=== PATIENT | male | born 1960 | race Caucasian/White ===

== ENCOUNTER 2016-02-10 08:52 | Outpatient (RCR) | payer MEDICARE, MEDICAID ==
[2016-02-01 09:12] LABS: BASOPHILS % (AUTO) 0 % (0-10); EOSINOPHILS # (AUTO) 0.1 10^3/uL (0.0-0.3); EOSINOPHILS % (AUTO) 1 % (0-10); LYMPHOCYTES # (AUTO) 1.4 X 10^3 (1.0-4.0); LYMPHOCYTES % (AUTO) 18 % (12-44); MEAN CORPUSCULAR HEMOGLOBIN 31 PG (25-34); MEAN CORPUSCULAR HGB CONC 35 G/DL (32-36); MEAN CORPUSCULAR VOLUME 88 FL (80-99); MEAN PLATELET VOLUME 9.3 FL (7.4-10.4); MONOCYTES # (AUTO) 0.6 X 10^3 (0.0-1.0); MONOCYTES % (AUTO) 8 % (0-12); NEUTROPHILS # (AUTO) 5.5 X 10^3 (1.8-7.8); NEUTROPHILS % (AUTO) 73 % (42-75); PLATELET COUNT 222 10^3/uL (130-400); RED BLOOD COUNT 5.92 10^6/uL (4.35-5.85); RED CELL DISTRIBUTION WIDTH 14.2 % (10.0-14.5); WHITE BLOOD COUNT 7.5 10^3/uL (4.3-11.0)
[2016-02-01 09:43] LABS: ALANINE AMINOTRANSFERASE 21 U/L (0-55); ALBUMIN 4.1 G/DL (3.2-4.5); ANION GAP 11 MMOL/L (5-14); ASPARTATE AMINO TRANSFERASE 25 U/L (5-34); BILIRUBIN,TOTAL 1.1 MG/DL (0.1-1.0); BLOOD UREA NITROGEN 16 MG/DL (7-18); BUN/CREATININE RATIO 15; CALCIUM 9.5 MG/DL (8.5-10.1); CARBON DIOXIDE 21 MMOL/L (21-32); CHLORIDE 105 MMOL/L (98-107); CREATININE SERUM 1.05 MG/DL (0.60-1.30); GFR ESTIMATED > 60; GLUCOSE 110 MG/DL (70-105); POTASSIUM 4.6 MMOL/L (3.6-5.0); SODIUM 137 MMOL/L (135-145); TOTAL PROTEIN 7.5 G/DL (6.4-8.2)
[~2016-02-10 08:52] MED LIST: ACHD5005 PO; ALPR0.5T PO; AMLO5TAB2 PO; ASP325T PO; ASPI-999 PO; DESV50TA PO; DIPH1TAB45 PO; HYDR-3583 PO; HYDR-3857 PO; LEVO750T9 PO; LORA0.5T34 PO; LORA10TA7 PO; OMEP20CA12 PO; OMEP20TA7 PO; OMEP40CA36 PO; ONDA8TAB6 PO; RANI-10 PO; RANI150C11 PO; TRAM50TA2 PO; TRAZ-144 PO; TRAZ100T92 PO; WRF5T PO; ZOLP10TA PO
[2016-02-12 15:24] LABS: JAK2 MUTATION Not Detected
== END 2016-05-01 | disposition home or self-care (01) ==
LOC: ONC 08:52
PROVIDERS: ATTEND Internal Medicine Hematology & Oncology
DX: C18.3 Malignant neoplasm of hepatic flexure (principal); C77.2 Secondary and unspecified malignant neoplasm of intra-abdominal lymph nodes; D69.59 Other secondary thrombocytopenia; D72.819 Decreased white blood cell count, unspecified; Z79.899 Other long term (current) drug therapy; Z45.2 Encounter for adjustment and management of vascular access device
CPT/HCPCS: 36415; 80053; 81270; 82378; 82668; 85025; 99213

== ENCOUNTER → 2016-05-11 | Outpatient (CLI) | payer MEDICARE, MEDICAID ==
[~2016-05-11] MED LIST changes: +IOHEXOL 350 MG/ML 100 ML (OMNIPAQUE 350) VIAL IV ONE; +NS 100 ML (IVPB) BAG IV ONE
--- NOTE | 2016-05-11 10:45 | Diagnostic Imaging Report ---
PROCEDURE: CT chest with contrast only. TECHNIQUE: Multiple contiguous axial images were obtained through the chest after administration of intravenous contrast. INDICATION: History of colon cancer. COMPARISON: 11/18/2015. FINDINGS: Cardiomediastinal structures show normal heart size. There is no large pericardial effusion. No pathologically enlarged or morphologically abnormal adenopathy is seen within the mediastinum, jose d, axilla. Lung windows show no focal consolidation, pleural effusion, no pneumothorax. No pulmonary nodules or masses are identified. Bony structures show no lytic or blastic lesions. No acute abnormalities are identified. Included portions of the upper abdomen show no additional acute abnormalities. IMPRESSION: 1. No evidence of metastatic or malignant disease within the chest. 2. No acute cardiopulmonary process. Dictated by: Dictated on workstation # [id number]
== END ==
LOC: RAD 08:58
PROVIDERS: ATTEND Internal Medicine Hematology & Oncology
DX: R93.8 Abnormal findings on diagnostic imaging of other specified body structures (principal); F17.200 Nicotine dependence, unspecified, uncomplicated
CPT/HCPCS: 71260

== ENCOUNTER 2016-05-17 09:14 | Outpatient (RCR) | payer MEDICARE, MEDICAID ==
[2016-05-11 08:53] LABS: BASOPHILS % (AUTO) 1 % (0-10); EOSINOPHILS # (AUTO) 0.1 10^3/uL (0.0-0.3); EOSINOPHILS % (AUTO) 2 % (0-10); LYMPHOCYTES # (AUTO) 1.3 X 10^3 (1.0-4.0); LYMPHOCYTES % (AUTO) 27 % (12-44); MEAN CORPUSCULAR HEMOGLOBIN 32 PG (25-34); MEAN CORPUSCULAR HGB CONC 35 G/DL (32-36); MEAN CORPUSCULAR VOLUME 92 FL (80-99); MEAN PLATELET VOLUME 9.7 FL (7.4-10.4); MONOCYTES # (AUTO) 0.4 X 10^3 (0.0-1.0); MONOCYTES % (AUTO) 8 % (0-12); NEUTROPHILS % (AUTO) 63 % (42-75); PLATELET COUNT 183 10^3/uL (130-400); RED BLOOD COUNT 5.88 10^6/uL (4.35-5.85); RED CELL DISTRIBUTION WIDTH 13.7 % (10.0-14.5); WHITE BLOOD COUNT 4.8 10^3/uL (4.3-11.0)
[2016-05-11 09:22] LABS: ALANINE AMINOTRANSFERASE 18 U/L (0-55); ANION GAP 10 MMOL/L (5-14); ASPARTATE AMINO TRANSFERASE 23 U/L (5-34); BILIRUBIN,TOTAL 0.8 MG/DL (0.1-1.0); BLOOD UREA NITROGEN 12 MG/DL (7-18); BUN/CREATININE RATIO 12; CALCIUM 9.4 MG/DL (8.5-10.1); CARBON DIOXIDE 23 MMOL/L (21-32); CHLORIDE 107 MMOL/L (98-107); CREATININE SERUM 1.03 MG/DL (0.60-1.30); GFR ESTIMATED > 60; GLUCOSE 107 MG/DL (70-105); POTASSIUM 4.9 MMOL/L (3.6-5.0); SODIUM 140 MMOL/L (135-145); TOTAL PROTEIN 6.8 G/DL (6.4-8.2)
[~2016-05-17 09:14] MED LIST changes: -IOHEXOL 350 MG/ML 100 ML (OMNIPAQUE 350) VIAL IV ONE; -NS 100 ML (IVPB) BAG IV ONE
== END 2016-08-09 | disposition home or self-care (01) ==
LOC: ONC 09:14
PROVIDERS: ATTEND Internal Medicine Hematology & Oncology
DX: C18.3 Malignant neoplasm of hepatic flexure (principal); C77.2 Secondary and unspecified malignant neoplasm of intra-abdominal lymph nodes; D69.59 Other secondary thrombocytopenia; D72.819 Decreased white blood cell count, unspecified; Z79.899 Other long term (current) drug therapy
CPT/HCPCS: 36415; 80053; 82378; 85025; 99213

== ENCOUNTER 2016-11-16 08:51 | Outpatient (RCR) | payer MEDICARE, MEDICAID ==
[2016-11-09 08:46] LABS: BASOPHILS % (AUTO) 0 % (0-10); EOSINOPHILS # (AUTO) 0.1 10^3/uL (0.0-0.3); EOSINOPHILS % (AUTO) 1 % (0-10); LYMPHOCYTES # (AUTO) 1.6 X 10^3 (1.0-4.0); LYMPHOCYTES % (AUTO) 29 % (12-44); MEAN CORPUSCULAR HEMOGLOBIN 33 PG (25-34); MEAN CORPUSCULAR HGB CONC 35 G/DL (32-36); MEAN CORPUSCULAR VOLUME 92 FL (80-99); MEAN PLATELET VOLUME 9.4 FL (7.4-10.4); MONOCYTES # (AUTO) 0.6 X 10^3 (0.0-1.0); MONOCYTES % (AUTO) 11 % (0-12); NEUTROPHILS # (AUTO) 3.2 X 10^3 (1.8-7.8); NEUTROPHILS % (AUTO) 59 % (42-75); PLATELET COUNT 186 10^3/uL (130-400); RED BLOOD COUNT 5.11 10^6/uL (4.35-5.85); RED CELL DISTRIBUTION WIDTH 13.1 % (10.0-14.5); WHITE BLOOD COUNT 5.5 10^3/uL (4.3-11.0)
[2016-11-09 09:18] LABS: ALANINE AMINOTRANSFERASE 44 U/L (0-55); ANION GAP 8 MMOL/L (5-14); ASPARTATE AMINO TRANSFERASE 23 U/L (5-34); BILIRUBIN,TOTAL 0.7 MG/DL (0.1-1.0); BLOOD UREA NITROGEN 13 MG/DL (7-18); BUN/CREATININE RATIO 14; CALCIUM 9.6 MG/DL (8.5-10.1); CARBON DIOXIDE 25 MMOL/L (21-32); CHLORIDE 108 MMOL/L (98-107); CREATININE SERUM 0.93 MG/DL (0.60-1.30); GFR ESTIMATED > 60; GLUCOSE 95 MG/DL (70-105); POTASSIUM 4.3 MMOL/L (3.6-5.0); SODIUM 141 MMOL/L (135-145); TOTAL PROTEIN 6.9 GM/DL (6.4-8.2)
== END 2016-12-24 | disposition home or self-care (01) ==
LOC: ONC 08:51
PROVIDERS: ATTEND Internal Medicine Hematology & Oncology
DX: C18.3 Malignant neoplasm of hepatic flexure (principal); C77.2 Secondary and unspecified malignant neoplasm of intra-abdominal lymph nodes; D69.59 Other secondary thrombocytopenia; D72.819 Decreased white blood cell count, unspecified; Z79.899 Other long term (current) drug therapy
CPT/HCPCS: 36415; 80053; 82378; 85025; 99213

== ENCOUNTER 2017-02-09 13:53 | Emergency (ER) | payer OTHER, MEDICARE, MEDICAID ==
[~2017-02-09] VITALS: Ht 172.7 cm; Wt 81.6 kg
[~2017-02-09 13:53] MED LIST changes: -HYDR-3812 PO; -HYDR-757 PO; -POLY17PO6 PO
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
[2017-02-09] MEDS ORDERED: KETOROLAC 60 MG/2 ML VIAL IM ONE (14:30)
[2017-02-09] MEDS ORDERED: ORPHENADRINE 60 MG/2 ML (NORFLEX) AMP IM ONE (14:30)
--- OUTSIDE RECORDS SUMMARY | 2017-02-09 14:41 | XMS REPORT ---
Author Author MOUNIKA READ [facility] Address [address] [place] [address] Care Team Providers Care Solar Sales Ambassador Name Role Phone MOUNIKA READ Unavailable PROBLEMS Type Condition ICD9-CM Code [id number] Code Onset Dates Condition Status SNOMED Code Problem Mixed hyperlipidemia E78.2 Active 768899838 Problem Other chronic pain G89.29 Active 67471421 Problem Malignant neoplasm of colon, unspecified part of colon C18.9 Active 436974139 Problem Hypertension, benign I10 Active 84663197 ALLERGIES No Known Allergies SOCIAL HISTORY Never Assessed PLAN OF CARE Activity Details Follow Up 4 Weeks Reason: VITAL SIGNS Height 67 in 2016-06-06 Weight 208.1 lbs 2016-06-06 Temperature 97.6 degrees Fahrenheit 2016-06-06 Heart Rate 68 bpm 2016-06-06 Respiratory Rate 20 2016-06-06 BMI 32.59 kg/m2 2016-06-06 Blood pressure systolic 152 mmHg 2016-06-06 Blood pressure diastolic 92 mmHg 2016-06-06 MEDICATIONS Medication Instructions Dosage Frequency Start Date End Date Duration Status Omeprazole 20 MG Orally Once a day 1 capsule 24h 90 days Active Loratadine 10 MG 1 tablet 24h 8 May, 2017 90 days Active Amlodipine Besylate 5 MG 1 tablet 24h 90 days Active Xanax 0.5 MG Orally Twice a day 1 tablet 12h Active RESULTS No Results PROCEDURES Procedure Date Ordered Result Body Site [facility] VISIT ESTABLISHED PATIENT June 06, 2016 IMMUNIZATIONS No Known Immunizations MEDICAL (GENERAL) HISTORY Type Description Date Medical History hernia Medical History chronic pain-lower back Medical History Arthritis Medical History hypertension Medical History colon cancer Surgical History colon resection 10/2012 Surgical History hernia repair-Dr. Rajan 09/2013 Surgical History arthroscopic knee surgery-both knees Hospitalization History Hospitalization for surgery only
--- OUTSIDE RECORDS SUMMARY | 2017-02-09 14:42 | XMS REPORT ---
Author Author Cecil JAYLYN Organization [facility] Address [address] [place] [address] Care Team Providers Care Stamping Machine Operator Name Role Phone JAYLYN Jacob Unavailable PROBLEMS Type Condition ICD9-CM Code [id number] Code Onset Dates Condition Status SNOMED Code Problem Mixed hyperlipidemia E78.2 Active 507171127 Problem Other chronic pain G89.29 Active 61223629 Problem Malignant neoplasm of colon, unspecified part of colon C18.9 Active 951520466 Problem Hypertension, benign I10 Active 73078674 ALLERGIES No Known Allergies SOCIAL HISTORY Never Assessed PLAN OF CARE Activity Details Follow Up 6 Weeks Reason: VITAL SIGNS Height 67 in 2016-06-07 Weight 206.4 lbs 2016-06-07 Heart Rate 80 bpm 2016-06-07 Respiratory Rate 20 2016-06-07 BMI 32.32 kg/m2 2016-06-07 Blood pressure systolic 133 mmHg 2016-06-07 Blood pressure diastolic 80 mmHg 2016-06-07 MEDICATIONS Medication Instructions Dosage Frequency Start Date End Date Duration Status Quetiapine Fumarate 50 MG Orally daily 1 tablet at HS X 10 days then 2 tabs at bedtime. 24h May, 30 day(s) Active Amlodipine Besylate 5 MG 1 tablet 24h 90 days Active Omeprazole 20 MG Orally Once a day 1 capsule 24h 90 days Active Loratadine 10 MG 1 tablet 24h 8 May, 2017 90 days Active RESULTS Name Result Date Reference Range A1C 2016-06-07 Hemoglobin A1c 5.5 4.8-5.6 URINE DRUG SCREEN (IN HOUSE) 2016-06-07 Lot # [id number] Exp date Control + COCAINE negative AMPH negative MTD negative THC POSITIVE OPIATE negative BENZO POSITIVE PCP negative BAR negative OXY negative MAMP negative TCA not tested BUP negative MDMA negative LIPID PANEL 2016-06-07 Cholesterol, Total 208 100-199 Triglycerides 244 0-149 HDL Cholesterol 66 >39 VLDL Cholesterol Jatinder 49 5-40 LDL Cholesterol Calc 93 0-99 Comment: PROCEDURES Procedure Date Ordered Result Body Site [facility] VISIT ESTABLISHED PATIENT June 07, 2016 [facility] June 07, 2016 GLYCATED HEMOGLOBIN TEST June 07, 2016 VENIPUNCT, ROUTINE* June 07, 2016 IMMUNIZATIONS No Known Immunizations MEDICAL (GENERAL) HISTORY Type Description Date Medical History hernia Medical History chronic pain-lower back Medical History Arthritis Medical History hypertension Medical History colon cancer Surgical History colon resection 10/2012 Surgical History hernia repair-Dr. Rajan 09/2013 Surgical History arthroscopic knee surgery-both knees Hospitalization History Hospitalization for surgery only
--- OUTSIDE RECORDS SUMMARY | 2017-02-09 14:44 | XMS REPORT ---
Author Author MOUNIKA READ Organization [employer] Address Unknown Phone Unavailable Care Team Providers Care Principal Technologist Name Role Phone MOUNIKA READ CP Unavailable Allergies No Known Allergies Problems Problem Type Condition Code Onset Dates Condition Status Problem Insomnia, unspecified 780.52 Active Problem Abdominal pain, generalized 789.07 Active Problem Pain in joint, site unspecified 719.40 Active Problem Sciatica 724.3 Active Problem Unspecified episodic mood disorder 296.90 Active Problem Unspecified gastritis and gastroduodenitis without mention of hemorrhage 535.50 Active Problem Pain in joint, lower leg 719.46 Active Problem Abdominal pain, left lower quadrant 789.04 Active Problem Elevated blood pressure reading without diagnosis of hypertension 796.2 Active Problem Unspecified arthropathy, site unspecified 716.90 Active Problem Pain in joint, shoulder region 719.41 Active Problem Lumbago 724.2 Active Medications Medication Code System Code Instructions Start Date End Date Status Dosage [facility] [address]-94 7.5-325 MG Orally every 6 hrs. June 09, 2014 1 tablet as needed Results No Known Results Summary Purpose [employer] Submission
--- OUTSIDE RECORDS SUMMARY | 2017-02-09 14:44 | XMS REPORT ---
Author Author MOUNIKA READ Organization [employer] Address Unknown Phone Unavailable Care Team Providers Care Talent Management Specialist Name Role Phone MOUNIKA READ CP Unavailable [...] Instructions Start Date End Date Status Dosage [facility] [address]-95 7.5-325 MG Orally every 6 hrs. June 09, 2014 1 tablet as needed Results No Known Results Summary Purpose [employer] Submission
--- OUTSIDE RECORDS SUMMARY | 2017-02-09 14:45 | XMS REPORT ---
Author Author MOUINKA READ Organization [employer] Address Unknown Phone Unavailable Care Team Providers Care Consumer Analyst Name Role Phone MOUNIKA READ CP Unavailable [...] Instructions Start Date End Date Status Dosage [facility] [address]-15 7.5-325 MG Orally every 6 hrs. June 09, 2014 1 tablet as needed Results No Known Results Summary Purpose [employer] Submission
--- OUTSIDE RECORDS SUMMARY | 2017-02-09 14:45 | XMS REPORT ---
Author Author MOUNIKA READ Organization [employer] Address Unknown Phone Unavailable Care Team Providers Care Meeting Planner Name Role Phone MOUNIKA READ CP Unavailable Allergies No Known Allergies Problems Problem Type Condition ICD-9 Code Onset Dates Condition Status Problem Insomnia, [...] Instructions Start Date End Date Status Dosage [facility] [address]-27 7.5-325 MG Orally every [address] Lees to sign in Justin's absence June 09, 2014 1 tablet as needed Results No Known Results Summary Purpose [employer] Submission
--- OUTSIDE RECORDS SUMMARY | 2017-02-09 14:46 | XMS REPORT ---
Author Author MOUNIKA READ Organization [employer] Address Unknown Phone Unavailable Care Team Providers Care Woods Overseer Name Role Phone MOUNIKA READ CP Unavailable [...] End Date Status Dosage [facility] [address]-15 7.5-325 MG Orally every 6 hrs. June 09, 2014 1 tablet as needed Results No Known Results Summary Purpose [employer] Submission
--- OUTSIDE RECORDS SUMMARY | 2017-02-09 14:46 | XMS REPORT ---
Author Author JASMINE DAMIAN Organization [facility] Address [address] [place] [address] Care Team Providers Care Beater Lead Name Role Phone JASMINE DAMIAN Unavailable PROBLEMS Type Condition ICD9-CM Code [id number] Code Onset Dates Condition Status SNOMED Code Problem Abdominal pain, generalized 789.07 Active 632154467 Problem Elevated blood pressure reading without diagnosis of hypertension 796.2 Active 271708415 Problem Unspecified arthropathy, site unspecified 716.90 Active 911290284 Problem Hypertension, benign I10 Active 44219734 Problem Abdominal pain, left lower quadrant 789.04 Active 605213751 Problem Pain in joint, shoulder region 719.41 Active 379218272 Problem Lumbago 724.2 Active 568738223 Problem Unspecified gastritis and gastroduodenitis without mention of hemorrhage 535.50 Active 433495283 Problem Pain in joint, lower leg 719.46 Active 989015086 Problem Sciatica 724.3 Active 76805168 Problem Unspecified episodic mood disorder 296.90 Active 094477310 Assessment Pleuritis R09.1 Nov, Active 020350803 Problem Insomnia, unspecified 780.52 Active 414940031 Assessment Pneumonia of right lower lobe due to infectious organism J18.9 Nov, Active 288187974 Problem Pain in joint, site unspecified 719.40 Active 75958078 ALLERGIES Unknown Allergies SOCIAL HISTORY No smoking Hx information available PLAN OF CARE VITAL SIGNS MEDICATIONS Unknown Medications RESULTS Name Result Date Reference Range Xray : Chest (IN HOUSE) 2015-12-04 PROCEDURES Procedure Date Ordered Related Diagnosis Body Site CHEST X-RAY Dec 04, 2015 IMMUNIZATIONS No Known Immunizations
--- OUTSIDE RECORDS SUMMARY | 2017-02-09 14:46 | XMS REPORT ---
Author Author MOUNIKA READ Organization [employer] Address Unknown Phone Unavailable Care Team Providers Care Product Manufacturing Professional Name Role Phone MOUNIKA READ CP Unavailable [...] Date End Date Status Dosage [facility] [address]-20 7.5-325 MG Orally every 6 hrs. June 09, 2014 1 tablet as needed Results No Known Results Summary Purpose [employer] Submission
[2017-02-09] MEDS ORDERED: HYDR-757 PO (15:21)
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
[2017-02-09 15:37] VITALS: BP 144/84
== END 2017-02-09 15:37 | disposition home or self-care (01) ==
LOC: EDUNIT# 13:53 → ER 13:55
DX: M54.2 Cervicalgia (principal); M25.511 Pain in right shoulder; J45.909 Unspecified asthma, uncomplicated; I10 Essential (primary) hypertension; K21.9 Gastro-esophageal reflux disease without esophagitis; M19.90 Unspecified osteoarthritis, unspecified site; Z79.82 Long term (current) use of aspirin; Z87.19 Personal history of other diseases of the digestive system; V43.52XA Car driver injured in collision with other type car in traffic accident, initial encounter; Y92.85 Railroad track as the place of occurrence of the external cause
CPT/HCPCS: 70450; 71020; 72125; 99284

== ENCOUNTER → 2017-02-09 | Outpatient (CLI) | payer OTHER, MEDICARE, MEDICAID ==
[~2017-02-09] MED LIST changes: +HYDR-3812 PO; +HYDR-757 PO; +POLY17PO6 PO
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
== END ==
LOC: RAD 16:33
PROVIDERS: ATTEND Nurse Practitioner Family
DX: R91.8 Other nonspecific abnormal finding of lung field (principal)
CPT/HCPCS: 71020

== ENCOUNTER 2017-02-13 10:47 | Emergency (ER) | payer OTHER, MEDICARE, MEDICAID ==
[~2017-02-13] VITALS: Ht 172.7 cm; Wt 83.9 kg
[~2017-02-13 10:47] MED LIST changes: +HYDR-757 PO
[2017-02-13] MEDS ORDERED: NS IV 1000 ML 1,000 ML IV ONE (11:20)
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
[2017-02-13] MEDS ORDERED: KETOROLAC 30 MG/ML VIAL IVP ONE (11:30)
[2017-02-13 11:51] LABS: BASOPHILS % (AUTO) 0 % (0-10); EOSINOPHILS % (AUTO) 1 % (0-10); LYMPHOCYTES # (AUTO) 1.2 X 10^3 (1.0-4.0); LYMPHOCYTES % (AUTO) 15 % (12-44); MEAN CORPUSCULAR HEMOGLOBIN 32 PG (25-34); MEAN CORPUSCULAR HGB CONC 36 G/DL (32-36); MEAN CORPUSCULAR VOLUME 89 FL (80-99); MEAN PLATELET VOLUME 10.1 FL (7.4-10.4); MONOCYTES # (AUTO) 0.8 X 10^3 (0.0-1.0); MONOCYTES % (AUTO) 10 % (0-12); NEUTROPHILS # (AUTO) 6.1 X 10^3 (1.8-7.8); NEUTROPHILS % (AUTO) 75 % (42-75); PLATELET COUNT 200 10^3/uL (130-400); RED BLOOD COUNT 6.05 10^6/uL (4.35-5.85); RED CELL DISTRIBUTION WIDTH 12.9 % (10.0-14.5); WHITE BLOOD COUNT 8.2 10^3/uL (4.3-11.0)
[2017-02-13 12:06] LABS: ALANINE AMINOTRANSFERASE 36 U/L (0-55); ANION GAP 9 MMOL/L (5-14); ASPARTATE AMINO TRANSFERASE 36 U/L (5-34); BILIRUBIN,TOTAL 0.9 MG/DL (0.1-1.0); BLOOD UREA NITROGEN 19 MG/DL (7-18); BUN/CREATININE RATIO 18; CALCIUM 9.7 MG/DL (8.5-10.1); CARBON DIOXIDE 23 MMOL/L (21-32); CHLORIDE 105 MMOL/L (98-107); CREATININE SERUM 1.07 MG/DL (0.60-1.30); GFR ESTIMATED > 60; GLUCOSE 107 MG/DL (70-105); POTASSIUM 4.6 MMOL/L (3.6-5.0); SODIUM 137 MMOL/L (135-145); TOTAL PROTEIN 7.7 GM/DL (6.4-8.2)
[2017-02-13] MEDS ORDERED: IOHEXOL 350 MG/ML 100 ML (OMNIPAQUE 350) VIAL IV ONE (12:30)
[2017-02-13] MEDS ORDERED: NS 100 ML (IVPB) BAG IV ONE (12:30)
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
[2017-02-13] MEDS ORDERED: fentaNYL INJECTION 100 MCG/2 ML AMP IVP STA (13:33)
[2017-02-13] MEDS ORDERED: HYDR-3812 PO (14:04)
[2017-02-13] MEDS ORDERED: POLY17PO6 PO (14:04)
[2017-02-13 14:15] VITALS: BP 167/103
== END 2017-02-13 14:15 | disposition home or self-care (01) ==
LOC: EDUNIT# 10:47 → ER 10:48
DX: R19.06 Epigastric swelling, mass or lump (principal); K59.00 Constipation, unspecified; J45.909 Unspecified asthma, uncomplicated; I10 Essential (primary) hypertension; K21.9 Gastro-esophageal reflux disease without esophagitis; M19.90 Unspecified osteoarthritis, unspecified site; Z85.038 Personal history of other malignant neoplasm of large intestine; Z79.82 Long term (current) use of aspirin; Z87.19 Personal history of other diseases of the digestive system; Z96.651 Presence of right artificial knee joint
CPT/HCPCS: 36415; 71020; 74177; 80053; 85025; 96374; 96375; 99281

== ENCOUNTER → 2017-03-07 | Outpatient (CLI) | payer MEDICARE, MEDICAID ==
[~2017-03-07] MED LIST changes: +HYDR-3812 PO; +POLY17PO6 PO
--- NOTE | 2017-03-07 13:58 | Diagnostic Imaging Report ---
EXAMINATION: PET-CT. TECHNIQUE: Serum glucose level at the time of the study is: 103 mg/dL. 14 mCi of FDG was administered intravenously followed by obtaining PET images with corresponding noncontrast CT scan images. The CT scan was performed for anatomic correlation and attenuation correction and was not performed according to the diagnostic protocol of the areas covered. The scan was performed from the head to mid thighs. INDICATION: Colon cancer. Abdominal mass. FINDINGS: There is 3.1 x 2.8 cm soft tissue mass seen anterior to the pancreas, adjacent to surgical clips at the level of the primary colon cancer that was resected in the transverse colon. This is associated with significant hypermetabolism with a maximum SUV of 7. This is suggestive of tumor recurrence. There is no liver mass or lymphadenopathy in the abdomen or pelvis with increased metabolism seen to suggest metastatic disease. There are mild to moderate areas of activity within bowel loops, probably physiologic. Expected urinary tract excretion of the tracer is seen. In the chest, no suspicious hypermetabolic lesion is identified. No suspicious hypermetabolic lesion in the neck is noted. Symmetric FDG uptake is seen in the brain. IMPRESSION: Hypermetabolic mass in the upper abdomen anterior to the pancreas at the level of the colon cancer resection site is suggestive of tumor recurrence. Dictated by: Dictated on workstation # [id number]
== END ==
LOC: RAD 07:47
PROVIDERS: ATTEND Surgery
DX: R19.07 Generalized intra-abdominal and pelvic swelling, mass and lump (principal); Z85.038 Personal history of other malignant neoplasm of large intestine; Z98.890 Other specified postprocedural states

== ENCOUNTER 2017-03-14 07:04 | Day surgery (SDC) | payer MEDICARE, MEDICAID ==
[~2017-03-14] VITALS: Ht 172.7 cm; Wt 83.9 kg
--- OUTSIDE RECORDS SUMMARY | 2017-03-14 07:11 | XMS REPORT ---
Author Author JAYLYN Jacob Organization [facility] Address [address] [place] [address] Care Team Providers Care Orthotic Aide Name Role Phone JAYLYN Jacob Unavailable PROBLEMS Type Condition ICD9-CM Code [id number] Code Onset Dates Condition Status SNOMED Code Problem Mixed hyperlipidemia E78.2 Active 394741400 Problem Other chronic pain G89.29 Active 03817890 Problem Malignant neoplasm of colon, unspecified part of colon C18.9 Active 539771434 Problem Hypertension, benign I10 Active [id number] ALLERGIES No Known Allergies SOCIAL HISTORY Never Assessed PLAN OF CARE Activity Details Follow Up 6 Weeks with me or new staff. Reason: VITAL SIGNS Height 67 in 2016-07-21 Weight 202.8 lbs 2016-07-21 Heart Rate 68 bpm 2016-07-21 Respiratory Rate 18 2016-07-21 BMI 31.76 kg/m2 2016-07-21 Blood pressure systolic 141 mmHg 2016-07-21 Blood pressure diastolic 96 mmHg 2016-07-21 MEDICATIONS Medication Instructions Dosage Frequency Start Date End Date Duration Status Ziprasidone HCl 40 mg Orally Once a day 1 capsule daily with evening meal X 2 weeks then increase to 2 capsules daily with evening meal 24h Jun, 30 day(s) Active Loratadine 10 MG 1 tablet 24h 8 May, 2017 90 days Active Amlodipine Besylate 5 MG 1 tablet 24h 90 days Active Omeprazole 20 MG Orally Once a day 1 capsule 24h 90 days Active RESULTS No Results PROCEDURES Procedure Date Ordered Result Body Site [facility] VISIT ESTABLISHED PATIENT July 21, 2016 IMMUNIZATIONS No Known Immunizations MEDICAL (GENERAL) HISTORY Type Description Date Medical History hernia Medical History chronic pain-lower back Medical History Arthritis Medical History hypertension Medical History colon cancer Surgical History colon resection 10/2012 Surgical History hernia repair-Dr. Rajan 09/2013 Surgical History arthroscopic knee surgery-both knees Hospitalization History Hospitalization for surgery only
[2017-03-14] MEDS ORDERED: LACTATED RINGERS 1,000 ML IV ONE (07:13)
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
[2017-03-14 07:15] VITALS: BP 119/85
[2017-03-14] MEDS ORDERED: LACTATED RINGERS 1,000 ML IV STA (07:20)
[2017-03-14] MEDS ORDERED: PROPOFOL INJECTION 50 ML IV ONE ×2 (08:12→08:45)
[2017-03-14] MEDS ORDERED: MIDAZOLAM 2 MG/2 ML (VERSED) VIAL ONE (08:13)
[2017-03-14 09:20] VITALS: BP 86/40
[2017-03-14 09:45] VITALS: BP 118/99
--- NOTE | 2017-03-14 09:57 | Discharge Inst-Simple/Standard ---
Discharge Inst-Standard Patient Instructions/Follow Up Plan of Care/Instructions/FU: 1-2 weeks Gary Activity as Tolerated: Yes Discharge Diet: Regular Diet SUREKHA KONG DO Mar 14, 2017 9:57 am
--- NOTE | 2017-03-14 09:59 | Progress Note-Post Operative ---
Post-Operative Progess Note Surgeon (s)/Plastic Sheeting Cutter (s) Surgeon SUREKHA KONG DO Plastic Sheeting Cutter: na Pre-Operative Diagnosis history of colon cancer Post-Operative Diagnosis colon polyps Procedure & Operative Findings Date of Procedure 03/14/17 Procedure Performed/Findings colonoscopy with hot bx polypectomy x [address] passenger firer Estimated Blood Loss Estimated blood loss (mL): none Specimens/Packing Specimens Removed descending x 3 sigmoid x 2 rectum x 2 SUREKHA KONG DO Mar 14, 2017 9:59 am
--- NOTE | 2017-03-14 10:00 | Progress Note-Pre Operative ---
Pre-Operative Progress Note H&P Reviewed The H&P was reviewed, patient examined and no changes noted. Date Seen by Provider: Mar 14, 2017 Time Seen by Provider: 08:12 Date H&P Reviewed: Mar 14, 2017 Time H&P Reviewed: 08:12 Pre-Operative Diagnosis: history colon cancer SUREKHA KONG DO Mar 14, 2017 10:00 am
[2017-03-14 10:52] VITALS: BP 118/99
--- NOTE | 2017-03-14 21:12 | OPERATIVE REPORT ---
DATE OF SERVICE: 03/14/2017 PREOPERATIVE DIAGNOSIS: History of colon cancer. POSTOPERATIVE DIAGNOSIS: Colon polyps. PROCEDURE: Colonoscopy with hot biopsy polypectomy x7. SURGEON: Surekha Vega DO ANESTHESIA: Per TERMITE CONTROL TECHNICIAN. ESTIMATED BLOOD LOSS: None. COMPLICATIONS: None. INDICATIONS: The patient is a 56-year-old male with history of colon cancer. He understands risks and benefits of procedure and wished to proceed with procedure. Consent was signed in the chart. PROCEDURE: The patient was taken to the endoscopy suite, placed in left lateral recumbent position. Timeout was performed. Digital rectal exam was performed and there were no palpable polyps, mass or ulcerations. The scope was inserted in the rectum and advanced up to the ileocolonic anastomosis. Prep was adequate. There are no polyps, masses or ulcerations at the anastomosis. The scope was then slowly retracted back. In the descending colon, there are 3 polyps, which hot biopsy polypectomy was performed. Scope was continuously retracted back and in the sigmoid, two other polyps were present, which hot biopsy polypectomy was performed. Scope was continuously retracted back into the rectum where there were 2 other polyps, which hot biopsy polypectomy was performed. Scope was also retroflexed in the rectum, noting no other pathology. Scope was returned to its normal position, slowly withdrawn until completely removed. The patient tolerated the procedure well without any complications and was taken to recovery room in stable condition. RECOMMENDATIONS: The patient will follow up in 1 to 2 weeks to discuss pathology results and plan on further intervention with the mesenteric mass noted on CT and PET scan. Job ID: [id number] DocumentID: [id number] Dictated Date: 03/14/2017 10:02:41 Primary Care Physician Date: 03/14/2017 18:21:45 Dictated By: SUREKHA VEGA DO
== END 2017-03-14 09:40 | disposition home or self-care (01) ==
LOC: ENDO 07:04
PROVIDERS: ATTEND Surgery
DX: Z08 Encounter for follow-up examination after completed treatment for malignant neoplasm (principal); Z85.038 Personal history of other malignant neoplasm of large intestine; K63.5 Polyp of colon; K62.1 Rectal polyp; I10 Essential (primary) hypertension; F32.9 Major depressive disorder, single episode, unspecified; K21.9 Gastro-esophageal reflux disease without esophagitis; J45.909 Unspecified asthma, uncomplicated; Z87.891 Personal history of nicotine dependence; Z79.82 Long term (current) use of aspirin; Z79.899 Other long term (current) drug therapy

== ENCOUNTER 2017-03-30 09:33 | Outpatient (CLI) | payer MEDICARE, MEDICAID ==
[~2017-03-30] VITALS: Ht 170.2 cm; Wt 90.3 kg
[~2017-03-30 09:33] MED LIST changes: -HYDR-3812 PO
[2017-03-30 09:41] VITALS: BP 126/84
[2017-03-30 10:23] LABS: BASOPHILS % (AUTO) 0 % (0-10); EOSINOPHILS # (AUTO) 0.1 10^3/uL (0.0-0.3); EOSINOPHILS % (AUTO) 1 % (0-10); HEMATOCRIT 46 % (40-54); HEMOGLOBIN 18.5 G/DL (13.3-17.7); LYMPHOCYTES # (AUTO) 1.4 X 10^3 (1.0-4.0); LYMPHOCYTES % (AUTO) 22 % (12-44); MEAN CORPUSCULAR HEMOGLOBIN 32 PG (25-34); MEAN CORPUSCULAR HGB CONC 40 G/DL (32-36); MEAN CORPUSCULAR VOLUME 80 FL (80-99); MEAN PLATELET VOLUME 8.6 FL (7.4-10.4); MONOCYTES # (AUTO) 0.5 X 10^3 (0.0-1.0); MONOCYTES % (AUTO) 9 % (0-12); NEUTROPHILS # (AUTO) 4.2 X 10^3 (1.8-7.8); NEUTROPHILS % (AUTO) 68 % (42-75); PLATELET COUNT 198 10^3/uL (130-400); RED BLOOD COUNT 5.81 10^6/uL (4.35-5.85); RED CELL DISTRIBUTION WIDTH 13.1 % (10.0-14.5); WHITE BLOOD COUNT 6.2 10^3/uL (4.3-11.0)
[2017-03-30 10:45] LABS: BUN/CREATININE RATIO 17; CALCIUM 9.6 MG/DL (8.5-10.1); CARBON DIOXIDE 25 MMOL/L (21-32); CHLORIDE 104 MMOL/L (98-107); CREATININE SERUM 0.95 MG/DL (0.60-1.30); GFR ESTIMATED > 60; GLUCOSE 101 MG/DL (70-105); POTASSIUM 4.5 MMOL/L (3.6-5.0); SODIUM 138 MMOL/L (135-145)
[2017-03-30] MEDS ORDERED: FLUO20TA28 PO (14:14)
[2017-03-30] MEDS ORDERED: HYDR-3816 PO (14:14)
== END 2017-03-30 10:05 | disposition home or self-care (01) ==
LOC: PREOP 09:33
PROVIDERS: ATTEND Surgery
DX: Z01.812 Encounter for preprocedural laboratory examination (principal); Z11.2 Encounter for screening for other bacterial diseases; R22.2 Localized swelling, mass and lump, trunk
CPT/HCPCS: 36415; 80048; 85025; 86850; 86900; 86901; 87081

== ENCOUNTER 2017-04-03 08:41 | Inpatient (IN) | payer MEDICARE, MEDICAID ==
[~2017-04-03] VITALS: Ht 170.2 cm; Wt 90.3 kg
[~2017-04-03 08:41] MED LIST changes: +FLUO20TA28 PO; +HYDR-3816 PO
--- OUTSIDE RECORDS SUMMARY | 2017-04-03 08:49 | XMS REPORT | Continuity of Care Document ---
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 [id number] 09/20/2012 13:52:00 09/20/2012 23:59:59 CLS Outpatient [id number] 04/03/2017 09:30:00 PEN Preadmit LUANN STALLWORTH, SUREKHA Vazquez MESINTERIC MASS
[2017-04-03] MEDS ORDERED: metroNIDAZOLE 500 MG/100 ML IVPB (PRE-MIX) IV ONE (09:00)
[2017-04-03] MEDS ORDERED: ceFAZolin 2 GM/NS 50 ML IV ONE (09:00)
[2017-04-03] MEDS: LACTATED RINGERS 1,000 ML IV PRN ×2 (09:20→13:41)
[2017-04-03] MEDS ORDERED: ceFAZolin 2 GM/50 ML NS 50 ML IV ONE (09:30)
[2017-04-03] MEDS ORDERED: metroNIDAZOLE 500MG/100ML IVPB 100 ML IV ONE (09:30)
[2017-04-03] MEDS ORDERED: FAMOTIDINE 20MG/2ML IV (PEPCID) ONE (09:46)
--- NOTE | 2017-04-03 09:50 | Progress Note-Pre Operative ---
Pre-Operative Progress Note H&P Reviewed The H&P was reviewed, patient examined and no changes noted. Date Seen by Provider: Apr 03, 2017 Time Seen by Provider: 09:50 Date H&P Reviewed: Apr 03, 2017 Time H&P Reviewed: 09:50 Pre-Operative Diagnosis: mesenteric mass, history colon cancer, incisional hernia SUREKHA KONG DO Apr 03, 2017 09:50
[2017-04-03] MEDS ORDERED: FAMOTIDINE 20MG/2ML IV (PEPCID) IV ONE (10:00)
[2017-04-03] MEDS ORDERED: fentaNYL INJECTION 250 MCG/5 ML AMP ONE (10:05)
[2017-04-03] MEDS ORDERED: MIDAZOLAM 2 MG/2 ML (VERSED) VIAL ONE (10:05)
[2017-04-03] MEDS ORDERED: ONDANSETRON 4 MG/2 ML (SDV) Z0FRAN ONE (12:24)
[2017-04-03] MEDS ORDERED: DEXAMETHASONE 10 MG/ML (DECADRON) 1 ML VIAL ONE (12:24)
[2017-04-03] MEDS ORDERED: proPOfol 200 MG/20 ML (DIPRIVAN) VIAL IV ONE (12:24)
[2017-04-03] MEDS ORDERED: ROCURONIUM 50 MG/5 ML (ZEMURON) VIAL IV ONE (12:24)
[2017-04-03] MEDS ORDERED: SEVOFLURANE (ULTANE) 15 ML INHAL SOLN ONE (12:24)
[2017-04-03] MEDS ORDERED: LIDOCAINE PF 2% 5 ML (XYLOCAINE) VIAL ONE ×3 (12:24→13:38)
[2017-04-03] MEDS ORDERED: ONDANSETRON 4 MG/2 ML (SDV) Z0FRAN IVP PRN (12:45)
[2017-04-03] MEDS: morphine INJ 10 MG/ML 1ML (SYR OR VIAL) IVP PRN ×2 (12:50→12:56)
[2017-04-03] MEDS ORDERED: BUPIVACAINE 0.25% 30 ML (SENSORCAINE) VIAL ONE (13:02)
[2017-04-03] MEDS ORDERED: SUFENTA 0.6MCG/ML BUPIVA 0.125 100 ML ONE ×2 (13:03→13:04)
[2017-04-03] MEDS: HYDROmorphone (DILAUDID) 2 MG/ML VIAL IVP PRN ×4 (13:03→13:33)
[2017-04-03] MEDS: EPIDURAL (SUFENTA 0.6MCG/ML BUPIVA 0.125%) 100 ML BAG EPI SCH ×2 (13:16→19:29)
[2017-04-03] MEDS ORDERED: diphenhydrAMINE 50 MG/ML INJ (BENADRYL) IV PRN (13:30)
[2017-04-03] MEDS ORDERED: NALOXONE 0.4 MG/ML 1 ML (NARCAN) VIAL IV PRN (13:30)
[2017-04-03] MEDS ORDERED: CATHETER FLUSH 10 ML SYR IV PRN (13:30)
[2017-04-03 14:13] VITALS: BP 115/71
[2017-04-03] MEDS: morphine INJ 4 MG/ML 1 ML (VIAL/SYRINGE) IVP PRN (15:12)
[2017-04-03] MEDS: LACTATED RINGERS 1,000 ML IV SCH ×2 (15:12→22:15)
[2017-04-03 16:05] VITALS: BP 108/67
[2017-04-03 17:31] VITALS: BP 113/63
[2017-04-03] MEDS: HYDROcodone/APAP 5 MG/325 MG (LORTAB) TAB PO PRN ×2 (17:34→21:36)
[2017-04-03 19:25] VITALS: BP 106/64
[2017-04-03] MEDS ORDERED: INFLUENZA TRIvalent 2017-2018 0.5 ML/45 MCG SYR IM ONE (19:45)
[2017-04-04] VITALS: BP 104/60
[2017-04-04] MEDS: EPIDURAL (SUFENTA 0.6MCG/ML BUPIVA 0.125%) 100 ML BAG EPI SCH ×2 (01:51→08:15)
[2017-04-04] MEDS: HYDROcodone/APAP 5 MG/325 MG (LORTAB) TAB PO PRN ×3 (01:52→13:32)
[2017-04-04 04:00] VITALS: BP 109/68
[2017-04-04] MEDS: LACTATED RINGERS 1,000 ML IV SCH (07:35)
[2017-04-04 08:00] VITALS: BP 116/68
[2017-04-04] MEDS: FLUoxetine HCL 20 MG (PROzac) CAP PO SCH (08:32)
--- NOTE | 2017-04-04 10:47 | Anesthesia-General Post-Op ---
General Patient Condition Mental Status/LOC: Same as Preop Cardiovascular: Satisfactory Nausea/Vomiting: Absent Respiratory: Satisfactory Pain: Controlled Complications: Absent Post Op Complications Complications None Follow Up Care/Instructions Patient Instructions Patient has Epidural in place for post-operative pain control. Anesthesia/Patient Condition Patient Condition Patient is doing well, no complaints, stable vital signs, no apparent adverse anesthesia problems. No complications reported per nursing. NONA MENDEZ CRNA Apr 04, 2017 10:47
[2017-04-04] MEDS: morphine INJ 4 MG/ML 1 ML (VIAL/SYRINGE) IVP PRN ×3 (11:00→16:03)
[2017-04-04 12:00] VITALS: BP 116/73
[2017-04-04] MEDS: ONDANSETRON 4 MG/2 ML (SDV) Z0FRAN IV PRN ×3 (12:21→23:19)
--- NOTE | 2017-04-04 14:46 | Progress Note-Standard ---
Standard Progress Note Progress Notes/Assess & Plan Date Seen by Provider: Apr 04, 2017 Time Seen by Provider: 14:35 Progress/Assessment & Plan Epidural removed without difficulty. Tip intact. NONA MENDEZ CRNA Apr 04, 2017 14:46
[2017-04-04 16:00] VITALS: BP 120/70
--- NOTE | 2017-04-04 16:32 | Progress Note-Post Operative ---
Post-Operative Progess Note Surgeon (s)/[employer] (s) Surgeon SUREKHA KONG DO [employer]: Dr. Durham Pre-Operative Diagnosis mesenteric mass, history colon cancer, incisional hernia Post-Operative Diagnosis frozen abdomen, mesenteric mass Procedure & Operative Findings Date of Procedure 04/04/17 Procedure Performed/Findings exploratory laparotomy with biopsy mesenteric mass Anesthesia Type general Estimated Blood Loss Estimated blood loss (mL): min Specimens/Packing Specimens Removed fascial mass, mesenteric mass SUREKHA KONG DO Apr 04, 2017 16:32
--- NOTE | 2017-04-04 16:35 | Progress Note ---
Subjective Date Seen by Provider: Apr 04, 2017 Time Seen by Provider: 16:32 Subjective/Events-last exam sitting up in chair. epidural recently removed, pain controlled. Tolerating liquids. Using incentive spirometer. Denies n/v fever sweats chills shortness of breath or chest pain. Objective Exam Vital Signs Date Time Temp Pulse Resp B/P (MAP) Pulse Ox O2 Delivery O2 Flow Rate FiO2 04/04/17 12:00 98.7 71 20 116/73 (87) 94 Room Air 04/04/17 09:00 Room Air 04/04/17 08:00 98.1 78 20 116/68 (84) 95 Room Air 04/04/17 04:00 97.4 70 17 109/68 (82) 95 Room Air 04/04/17 00:00 97.4 73 17 104/60 (75) 94 Room Air 04/03/17 20:35 Room Air 04/03/17 19:25 97.9 73 20 106/64 (78) Room Air 04/03/17 17:31 82 113/63 (80) I & O 04/04/17 07:00 Intake Total 2550 ml Output Total 1510 ml Balance 1040 ml Capillary Refill : General Appearance: No Apparent Distress Neck: Non Tender Respiratory: No Accessory Muscle Use, No Respiratory Distress Cardiovascular: Regular Rate, Rhythm Gastrointestinal: soft (incision c/d/i), tenderness (incisional) Extremity: Normal Inspection, Non Tender Neurologic/Psychiatric: Alert, Oriented x3, No Motor/Sensory Deficits, Normal Mood/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 Clinical Quality Measures DVT/VTE Risk/Contraindication: Risk Factor Score Per Nursin RFS Level Per Nursing on Admit: 4+=Very High SUREKHA KONG DO Apr 04, 2017 16:35
[2017-04-04 20:00] VITALS: BP 120/76
[2017-04-05] VITALS: BP 146/77
[2017-04-05] MEDS: LACTATED RINGERS 1,000 ML IV SCH (03:19)
--- NOTE | 2017-04-05 04:55 | OPERATIVE REPORT ---
DATE OF SERVICE: 04/03/2017 PREOPERATIVE DIAGNOSES: Mesenteric mass, history of colon cancer, and incisional hernia. POSTOPERATIVE DIAGNOSES: Frozen abdomen, mesenteric mass, and fascial calcified mass. PROCEDURE PERFORMED: Exploratory laparotomy with biopsy of mesenteric mass. SURGEON: Surekha Vega DO. WOOD STRIP BLOCK FLOOR INSTALLER: PAUL SANFORD DO, assisted in retraction, dissection and closure. ANESTHESIA: General. ESTIMATED BLOOD LOSS: Minimal. COMPLICATIONS: None. INDICATIONS: The patient is a 56-year-old male with a history of hernia repairs and colon resection. The patient was found to have mesenteric mass and it was unable to be biopsied, but PET scan did demonstrate it to be hypermetabolic. The patient understands risks and benefits of procedure and wished to proceed with procedure. Consent was signed in the chart. DESCRIPTION OF PROCEDURE: The patient was taken to the operating suite, was prepped and draped in sterile fashion. Surgical pause was performed. A midline incision was made through the existing scar in the epigastric area. Cautery was used to dissect down the fascia, which then a hard calcified mass was present. It was questionable whether this is a distal type of mesh that was used previously that has calcified enough, but is grasped and had to be cut around, now removing it in its entirety. A small amount of fascia had to be taken with this as well. The abdominal contents were extremely adhered together into the abdominal wall. A significant amount of time was used trying to mobilize this but it was extremely frozen and unable to be further dissected. The mass in the mesentery was able to be palpated; therefore we very carefully went towards the palpable mass through the omentum and the mass was able to be located and the pancreas was also able to be visualized. Passed towards the head of the pancreas. Standard dissection was performed, artery was nicked causing some arterial bleeding. A 3-0 silk suture was placed in a [id number] fashion to achieve hemostasis. The mass itself was continued to be trying to be mobilized; however, this was still extremely fibrosed throughout this area and was unable to remove in its entirety. Therefore, it was decided to take biopsies. A biopsy was able to be cut off the mass and sent for frozen section and a Prince-Cut core biopsy was used to take a biopsy of the mass as well. Hemostasis was achieved. Copious amount of irrigation was used to irrigate the abdomen and hemostasis was present. At this time, the fascia was then closed using 1-0 looped PDS in a running fashion. The wound was then irrigated with copious amounts of irrigation and the skin was closed with gideon. The patient tolerated procedure well without any complications and was taken to the recovery room in stable condition. Further recommendations pending biopsy results. The patient will need follow up with Dr. Mcfarlane postoperatively. Job ID: [id number] DocumentID: [id number] Dictated Date: 04/04/2017 16:42:27 Concert Manager Date: 04/05/2017 04:54:56 Dictated By: SUREKHA VEGA DO
[2017-04-05 08:00] VITALS: BP 123/75
[2017-04-05] MEDS: FLUoxetine HCL 20 MG (PROzac) CAP PO SCH (08:43)
[2017-04-05] MEDS: ONDANSETRON 4 MG/2 ML (SDV) Z0FRAN IV PRN (08:49)
--- NOTE | 2017-04-05 08:52 | Discharge Inst-Simple/Standard ---
Discharge Inst-Standard Patient Instructions/Follow Up Plan of Care/Instructions/FU: 2 weeks Gary Activity as Tolerated: No Discharge Diet: Regular Diet Other Inst to Patient Follow up Appt: Make appointment for 2 week. Instructions: No lifting greater than 10 pounds. No strenuous activity. May shower in 24 hours, no tub bath or soaking. Use incentive spirometer at home as directed. No Smoking Skin/Wound Care: May remove bandages. You need to leave the white strips over incision on they will fall off on their own. Symptoms to Report: Appetite Changes, Extremity Discoloration, Numbness/Tingling, Swelling Increased , Bleeding Excessive, Eyesight Changes, Pain Increased, Urine Color Change, Constipation(Persistent), Fever over 101 degree F, Pain/Pressure in chest, Urinating Difficulty, Cough Up/Vomit Blood, Heart Beat Irreg/Pounding, Pain/ Pressure in jaw, Vaginal Bleeding Increase, Cramps in feet or legs, Lightheadedness, Pain/Pressure in shoulder, Diarrhea(Persistent), Memory Changes Suddenly, Questions/Concerns, Weight gain consecutive days, Dizziness/ Fainting, Nausea/Vomiting, Shortness of Breath, Weight gain over 2 pounds If questions or concerns contact your physician Or seek help at emergency department. SUREKHA KONG DO Apr 05, 2017 08:52
--- NOTE | 2017-04-05 09:18 | Progress Note ---
Subjective Date Seen by Provider: Apr 05, 2017 Time Seen by Provider: 09:13 Subjective/Events-last exam Feeling a little better this morning. Had some nausea and emesis last night. Tolerating liquids this morning. Denies fever sweats chills shortness of breath or chest pain. Objective Exam Vital Signs Date Time Temp Pulse Resp B/P (MAP) Pulse Ox O2 Delivery O2 Flow Rate FiO2 04/05/17 00:00 96.9 77 19 146/77 (100) 92 Room Air 04/04/17 20:00 98.6 63 18 120/76 (91) 93 Room Air 04/04/17 20:00 Room Air 04/04/17 16:00 99.8 66 20 120/70 (87) 94 Room Air 04/04/17 12:00 98.7 71 20 116/73 (87) 94 Room Air I & O 04/05/17 07:00 Intake Total 4093 ml Output Total 2053 ml Balance 2040 ml Capillary Refill : General Appearance: No Apparent Distress Neck: Non Tender Respiratory: No Accessory Muscle Use, No Respiratory Distress Cardiovascular: Regular Rate, Rhythm Gastrointestinal: soft (incision c/d/i), tenderness (incisional) Extremity: Normal Inspection, Non Tender Neurologic/Psychiatric: Alert, Oriented x3, No Motor/Sensory Deficits, Normal Mood/Affect, 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
--- NOTE | 2017-04-05 11:39 | Physical Therapy Evaluation ---
PT Evaluation-General Medical Diagnosis Admission Date Apr 03, 2017 at 08:41 Medical Diagnosis: mesenteric mass; post exporatory surgery Onset Date: Apr 03, 2017 Therapy Diagnosis Therapy Diagnosis: abn gait; weakness Height/Weight Height (Feet): 5 Height (Inches): 7.00 Weight (Pounds): 199 Weight (Ounces): 0.0 Precautions Precautions/Isolations: Fall Prevention, Standard Precautions Referral Physician: Gary Reason for Referral: Evaluation/Treatment Medical History Additional Medical History Hx of colon CA; TKR Current History Pt admitted for exploratory surgery due to mesenteric mass; pt reports he was told he has cancer "alll over". Reviewed History: Yes Social History Home: Single Level Current Living Status: Alone Prior/Core FIM Prior Level of Function Functional Mcpherson Measure 0=Not Assessed/NA 4=Minimal Assistance 1=Total Assistance 5=Supervision or Setup 2=Maximal Assistance 6=Modified Mcpherson 3=Moderate Assistance 7=Complete Mcpherson Bed Mobility: 7 Transfers (B,C,W/C) (FIM): 6 Gait: 6 PT Evaluation-Current Subjective Agreeable to PT. Reports he may go home today but isn't sure. Pain Numeric Pain Scale: 0-No Pain Location: No Pain Reported Objective Patient Orientation: Person, Place, Time, Situation Problem Solving: Good Attachments: IV ROM/Strength ROM Lower Extremities WFL Strength Lower Extremities WFL Integumentary/Posture Integumentary refer to nursing notes. Bowel Incontinence: No Posture normal and symmetrical Neuromuscular (Tone, Coordination, Reflexes) no noted functional deficits Sensory Vision: Functional Hearing: Functional Hand Dominance: Right Sensation Right Lower Extremit: Intact Sensation Left Lower Extremity: Intact Transfers Functional Mcpherson Measure 0=Not Assessed/NA 4=Minimal Assistance 1=Total Assistance 5=Supervision or Setup 2=Maximal Assistance 6=Modified Mcpherson 3=Moderate Assistance 7=Complete Mcpherson Pt is SBA with sit to stand transfers. Gait Comments/Gait Description Pt is SBA with gait in the lacey with FWW x 350 ft; safe and steady gait. Balance Sitting Static: Good Sitting Dynamic: Good Standing Static: Good Standing Dynamic: Good Assessment/Needs Presents post laparoscopic surgery. He is safe and steady with mobilty. HE will benefit from 1-2 additional visits, while hospitalized to ensure safety with gait and transfers. Rehab Potential: Good PT Skilled Nursing Goals Skilled Nursing Goals PT Skilled Nursing Goals Time Frame: Apr 08, 2017 Transfers (B,C,W/C) (FIM): 6 Gait (FIM): 6 PT Plan Problem List Problem List: Activity Tolerance, Functional Strength, Safety, Gait, Transfer Treatment/Plan Treatment Plan: Continue Plan of Care Treatment Plan: Bed Mobility, Education, Functional Activity Alicia, Functional Strength, Gait, Safety, Therapeutic Exercise, Transfers Treatment Duration: Apr 08, 2017 Frequency: 5 times per week Estimated Hrs Per Day: .25 hour per day Patient and/or Family Agrees t: Yes Safety Risks/Education Patient Education: Gait Training Teaching Recipient: Patient Teaching Methods: Discussion Response to Teaching: Return Demonstration Time/GCodes Time In: 1118 Time Out: 1135 Total Billed Treatment Time: 18 Total Billed Treatment visit EVL 18 RICKEY BUTT PT Apr 05, 2017 11:38
[2017-04-05 13:55] VITALS: BP 123/75
== END 2017-04-05 14:32 | disposition home or self-care (01) | DRG 358 ==
LOC: 4TH 08:41 → SURG 08:42 → 4TH 14:10
PROVIDERS: ADMIT Surgery; ATTEND Surgery
PROC: 0JB80ZX Excision of Abdomen Subcutaneous Tissue and Fascia, Open Approach, Diagnostic (ICD-10-PCS; 2017-04-03)
PROC: 0DBW0ZX Excision of Peritoneum, Open Approach, Diagnostic (ICD-10-PCS; principal; 2017-04-03 10:40)
DX: K66.9 Disorder of peritoneum, unspecified (principal); K43.2 Incisional hernia without obstruction or gangrene; Z85.038 Personal history of other malignant neoplasm of large intestine; I10 Essential (primary) hypertension; K21.9 Gastro-esophageal reflux disease without esophagitis; M19.91 Primary osteoarthritis, unspecified site; F32.9 Major depressive disorder, single episode, unspecified; J45.909 Unspecified asthma, uncomplicated; E66.9 Obesity, unspecified; Z68.31 Body mass index [BMI] 31.0-31.9, adult; Z96.651 Presence of right artificial knee joint
CPT/HCPCS: 86850; 86900; 86901; 94664

== ENCOUNTER 2017-04-21 05:32 | Outpatient (CLI) | payer MEDICARE, MEDICAID ==
[~2017-04-21] VITALS: Ht 170.2 cm; Wt 90.3 kg
[~2017-04-21 05:32] MED LIST changes: -BARIUM SUSPENSION 2.1% (VANILLA SILQ) 450 ML PO ONE; -DIPH1TAB PO; -IOHEXOL 350 MG/ML 100 ML (OMNIPAQUE 350) VIAL IV ONE; -NS 100 ML (IVPB) BAG IV ONE; -PANT40TA2 PO
[2017-04-21] MEDS ORDERED: PANT40TA2 PO (10:11)
[2017-04-21] MEDS ORDERED: DIPH1TAB PO (10:11)
[2017-04-21] MEDS ORDERED: ONDA8TAB6 PO (10:11)
== END 2017-04-21 10:35 ==
LOC: PREOP 05:32
PROVIDERS: ATTEND Surgery
DX: Z01.818 Encounter for other preprocedural examination (principal); C18.9 Malignant neoplasm of colon, unspecified

== ENCOUNTER → 2017-04-21 | Outpatient (CLI) | payer MEDICARE, MEDICAID ==
[~2017-04-21] MED LIST changes: +BARIUM SUSPENSION 2.1% (VANILLA SILQ) 450 ML PO ONE; +DIPH1TAB PO; +IOHEXOL 350 MG/ML 100 ML (OMNIPAQUE 350) VIAL IV ONE; +NS 100 ML (IVPB) BAG IV ONE; +PANT40TA2 PO
--- NOTE | 2017-04-21 11:17 | Diagnostic Imaging Report ---
PROCEDURE: CT chest with contrast, CT abdomen and pelvis with and without contrast. TECHNIQUE: Pre and post intravenous contrast axial imaging of the abdomen and pelvis and post contrast axial imaging of the chest were performed. INDICATION: History of colon cancer. Followup. COMPARISON: CT abdomen dated 02/13/[address] PET dated 03/07/2017. CT CHEST FINDINGS: Cardiomediastinal structures show normal heart size. There is no large pericardial effusion. No pathologically enlarged or morphologically abnormal adenopathy is seen within the mediastinum, jose d, nor axilla. Evaluation of the lung soni demonstrates no focal consolidation, pleural effusion, nor pneumothorax. No pulmonary nodules or masses are identified. Bony structures show no acute abnormalities. CT ABDOMEN FINDINGS: Again identified is masslike density within the anterior upper abdomen, midline just anterior to the head and proximal body of pancreas. It measures approximately 3.7 x 3.2 in maximal axial dimension. This is increased in size compared to 3.4 x 2.9 cm previously. There is also increased surrounding stranding. No other abnormal mesenteric or retroperitoneal adenopathy is seen. No other soft tissue masses are identified. Evaluation of the kidneys demonstrates hyperdense material within the collecting systems on the noncontrast exam. Benign-appearing cysts are also noted, bilaterally. Otherwise, the kidneys, adrenal glands, spleen, pancreas, and liver have a normal CT appearance. Postsurgical changes of previous right hemicolectomy are noted. Ventral hernia is identified just superior to the umbilicus. It does contain a portion of small bowel. There is increased stranding of the overlying subcutaneous fat. Small droplet of gas is also noted and may be extraluminal in nature (image 42, series 7). There is no evidence of upstream obstruction. Small bowel loops are nondistended. There is no loculated fluid collection, free fluid, nor free air within the abdomen. Bony structures show no acute abnormalities. CT PELVIS FINDINGS: Urinary bladder is grossly unremarkable. Prostate is enlarged. It measures 5.6 x 4.5 cm. There is no loculated fluid collection, free fluid, nor free air within the pelvis. No abnormal lymph nodes are identified. Bony structures show no acute abnormalities. IMPRESSION: 1. Interval increase in size of masslike density with surrounding fatty stranding in the central upper abdomen. Hypermetabolic appearance on recent CT PET suggests malignant/metastatic process. 2. Ventral hernia containing a portion of small bowel. Again, there is increased stranding of the overlying subcutaneous fat. Small focus of gas is also noted. Extraluminal location of the gas cannot be excluded. As such, focal perforation of the herniated loop of small bowel cannot be excluded. 3. No evidence of metastatic or malignant disease within the chest. 4. Prostatomegaly. Report given to nurse (Susan) & faxed at 11:14 a.m. 04/21/2017/brenda Dictated by: Dictated on workstation # [id number]
== END ==
LOC: RAD 08:27
PROVIDERS: ATTEND Internal Medicine Hematology & Oncology
DX: C18.2 Malignant neoplasm of ascending colon (principal); K43.9 Ventral hernia without obstruction or gangrene; N40.0 Benign prostatic hyperplasia without lower urinary tract symptoms; Z90.49 Acquired absence of other specified parts of digestive tract
CPT/HCPCS: 71260; 74178

== ENCOUNTER 2017-04-27 09:43 | Day surgery (SDC) | payer MEDICARE, MEDICAID ==
[~2017-04-27] VITALS: Ht 170.2 cm; Wt 90.3 kg
[~2017-04-27 09:43] MED LIST changes: +DIPH1TAB PO; +HYDR-34 PO; -HYDR-3816 PO; +PANT40TA2 PO
--- OUTSIDE RECORDS SUMMARY | 2017-04-27 09:51 | XMS REPORT | Continuity of Care Document ---
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 CANCER [id number] 04/15/2015 12:35:00 04/21/2015 00:01:00 DIS Outpatient DANYELLE PERES MD [facility] ONC [id number] 01/28/2015 13:29:00 01/28/2015 23:59:59 CLS Outpatient DANYELLE PERES MD [facility] RAD COLON CA [id number] 12/09/2014 08:43:00 12/24/2014 00:01:00 DIS Outpatient DANYELLE PERES MD [facility] ONC [id number] 11/05/2014 07:47:00 11/11/2014 00:01:00 DIS Outpatient DANYELLE PERES MD [facility] ONC [id number] 09/04/2014 07:34:00 09/04/2014 23:59:59 CLS Outpatient WALTER BROWNLEE MD [facility] SD HX COLON CA [id number] 09/03/2014 05:54:00 09/03/2014 23:59:59 CLS Outpatient WALTER BROWNLEE MD [facility] PREOP HX COLON CA [id number] 07/02/2014 10:52:00 07/02/2014 00:01:00 DIS Outpatient DANYELLE PERES MD [facility] ONC [id number] 02/26/2014 09:04:00 03/04/2014 00:01:00 DIS Outpatient DANYELLE PERES MD [facility] ONC [id number] 12/19/2013 10:44:00 12/19/2013 23:59:59 CLS Outpatient DANYELLE PERES MD [facility] RAD COLON CA [id number] 07/09/2013 12:23:00 09/30/2013 00:01:00 DIS Outpatient DANYELLE PERES MD [facility] ONC [id number] 09/20/2013 08:03:00 09/20/2013 16:50:00 [facility] [id number] 09/18/2013 07:18:00 09/18/2013 23:59:59 CLS Outpatient WALTER BROWNLEE MD [facility] PREOP VENTRAL HERNIA [id number] 09/12/2013 08:31:00 09/12/2013 11:05:00 DIS Outpatient WALTER BROWNLEE MD [facility] SDC HX COLON CANCER [id number] 2013 07:10:00 2013 23:59:59 CLS Outpatient WALTER BROWNLEE MD [facility] PREOP HX COLON CANCER [id number] 07/23/2013 09:53:00 07/23/2013 23:59:59 CLS Outpatient JOAQUIN NOBLE MD [facility] ONC [id number] 06/11/2013 09:06:00 07/01/2013 00:01:00 DIS Outpatient DANYELLE PERES MD [facility] ONC [id number] 03/26/2013 12:32:00 03/27/2013 00:01:00 DIS Outpatient DANYELLE PERES MD [facility] ONC [id number] 03/05/2013 08:55:00 03/05/2013 23:59:59 CLS Outpatient SAUL GUTIERREZ [facility] ONC [id number] 02/27/2013 12:11:00 02/27/2013 23:59:59 CLS Outpatient QUANG VELASQUEZ MD [facility] RAD SOB,DIZZINESS [id number] 02/26/2013 09:14:00 02/26/2013 23:59:59 CLS Outpatient ILENE GUTIERREZDOMINIC Suzy 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 [facility] ONC [id number] 12/28/2012 11:43:00 01/01/2013 14:53:00 DIS Outpatient CHEO GARCIA MD [facility] REHAB S/P L TKR [id number] 01/01/2013 07:44:00 01/01/2013 13:10:00 DIS Outpatient WALTER BROWNLEE MD [facility] COLON CANCER [id number] 12/31/2012 08:55:00 12/31/2012 23:59:59 CLS Outpatient WALTER BROWNLEE MD [facility] PREOP COLON CANCER [id number] 12/31/2012 08:06:00 12/31/2012 23:59:59 CLS Outpatient DANYELLE PERES MD [facility] CARD CA OF COLON [id number] 11/23/2012 14:57:00 12/03/2012 14:30:00 DIS Inpatient WALTER BROWNLEE MD [facility] SURGICAL SMALL BOWEL OBSTRUCTION [id number] 10/08/2012 06:11:00 10/13/2012 13:55:00 DIS Inpatient CHEO GARCIA MD [facility] SURGICAL OSTEOARTHRITIS LEFT KNEE [id number] 10/03/2012 13:14:00 10/03/2012 23:59:59 CLS Outpatient CHEO GARCIA MD [facility] PREOP OSTEOARTHRITIS LEFT KNEE [id number] 09/20/2012 13:52:00 09/20/2012 23:59:59 CLS Outpatient [id number] 04/27/2017 12:00:00 PEN Preadmit SUREKHA KONG DO [facility] COLON CANCER
[2017-04-27] MEDS ORDERED: LACTATED RINGERS 1,000 ML IV PRN ×2 (10:01→10:11)
[2017-04-27 10:05] VITALS: BP 117/81
[2017-04-27] MEDS ORDERED: FAMOTIDINE 20MG/2ML IV (PEPCID) IV ONE (10:15)
[2017-04-27] MEDS ORDERED: ceFAZolin 2 GM/50 ML NS 50 ML IV ONE (10:15)
[2017-04-27] MEDS ORDERED: 0.9% SODIUM CHLORIDE PF INJ 20 ML VIAL ONE (11:34)
[2017-04-27] MEDS ORDERED: LIDOCAINE 1% INJ 20 ML (XYLOCAINE) VIAL ONE (11:34)
[2017-04-27] MEDS ORDERED: HEParin (CENTRAL IV FLUSH) 500 UNIT/5 ML SYR ONE (11:34)
[2017-04-27] MEDS ORDERED: BUPIVACAINE 0.25% 30 ML (SENSORCAINE) VIAL ONE (11:35)
[2017-04-27] MEDS ORDERED: PROPOFOL INJECTION 50 ML IV ONE (12:12)
[2017-04-27] MEDS ORDERED: fentaNYL INJECTION 100 MCG/2 ML AMP ONE (12:13)
[2017-04-27] MEDS ORDERED: MIDAZOLAM 2 MG/2 ML (VERSED) VIAL ONE (12:13)
[2017-04-27] MEDS ORDERED: CATHETER FLUSH 10 ML SYR IV PRN (12:15)
--- NOTE | 2017-04-27 13:12 | Progress Note-Pre Operative ---
Pre-Operative Progress Note H&P Reviewed The H&P was reviewed, patient examined and no changes noted. Date Seen by Provider: Apr 27, 2017 Time Seen by Provider: 13:11 Date H&P Reviewed: Apr 27, 2017 Time H&P Reviewed: 13:12 Pre-Operative Diagnosis: colon cancer SUREKHA KONG DO Apr 27, 2017 13:12
--- NOTE | 2017-04-27 14:00 | Progress Note-Post Operative ---
Post-Operative Progess Note Surgeon (s)/Injector Assembler (s) Surgeon SUREKHA KONG DO Injector Assembler: na Pre-Operative Diagnosis colon cancer Post-Operative Diagnosis same Procedure & Operative Findings Date of Procedure 04/27/17 Procedure Performed/Findings u/s guided right ij port placement Anesthesia Type mac c local Estimated Blood Loss Estimated blood loss (mL): min Specimens/Packing Specimens Removed na SUREKHA KONG DO Apr 27, 2017 14:00
--- NOTE | 2017-04-27 14:10 | Discharge Inst-Simple/Standard ---
Discharge Inst-Standard Patient Instructions/Follow Up Plan of Care/Instructions/FU: 2 weeks Gary Activity as Tolerated: No Discharge Diet: Regular Diet SUREKHA KONG DO Apr 27, 2017 14:10
--- NOTE | 2017-04-27 14:13 | Discharge Inst-Simple/Standard ---
Discharge Inst-Standard Patient Instructions/Follow Up Plan of Care/Instructions/FU: 2 weeks Gary Activity as Tolerated: No Discharge Diet: Regular Diet Other Inst to Patient Follow up Appt: Make appointment for 2 week. Instructions: No lifting greater than 10 pounds. No strenuous activity. May shower in 24 hours, no tub bath or soaking. Use incentive spirometer at home as directed. No Smoking Skin/Wound Care: May remove bandages in 48 hours. You have a special glue over incisions it will fall off on its own. Place ice pack on 15 min off 30 min and repeat to decrease swelling and discomfort. Symptoms to Report: Appetite Changes, Extremity Discoloration, Numbness/Tingling, Swelling Increased , Bleeding Excessive, Eyesight Changes, Pain Increased, Urine Color Change, Constipation(Persistent), Fever over 101 degree F, Pain/Pressure in chest, Urinating Difficulty, Cough Up/Vomit Blood, Heart Beat Irreg/Pounding, Pain/ Pressure in jaw, Vaginal Bleeding Increase, Cramps in feet or legs, Lightheadedness, Pain/Pressure in shoulder, Diarrhea(Persistent), Memory Changes Suddenly, Questions/Concerns, Weight gain consecutive days, Dizziness/ Fainting, Nausea/Vomiting, Shortness of Breath, Weight gain over 2 pounds If questions or concerns contact your physician Or seek help at emergency department. SUREKHA KONG DO Apr 27, 2017 14:13
[2017-04-27] MEDS ORDERED: ONDANSETRON 4 MG/2 ML (SDV) Z0FRAN IVP PRN (14:15)
[2017-04-27] MEDS: morphine INJ 10 MG/ML 1ML (SYR OR VIAL) IVP PRN ×2 (14:18→14:24)
--- NOTE | 2017-04-27 14:27 | Diagnostic Imaging Report ---
Indication: Port-A-Cath placement. Time of exam 2:14 PM Correlation is made with prior study from 02/13/2017. Right chest wall Port-A-Cath has tip overlying the SVC. The lungs are clear. No pneumothorax is seen. There is no effusion. IMPRESSION: Port placement. No pneumothorax is identified. Dictated by: Dictated on workstation # [id number]
--- NOTE | 2017-04-27 14:31 | Diagnostic Imaging Report ---
INDICATION: Fluoroscopy for power port insertion. Fluoroscopy was provided in the OR during placement of a power port catheter. 49 seconds of fluoroscopy time was utilized. A single image does show the right-sided port with tip overlying the SVC. IMPRESSION: Fluoroscopy for power port placement. Dictated by: Dictated on workstation # [id number]
[2017-04-27 14:40] VITALS: BP 117/75
[2017-04-27 15:10] VITALS: BP 119/84
[2017-04-27 15:14] VITALS: BP 119/84
--- NOTE | 2017-04-27 20:53 | OPERATIVE REPORT ---
DATE OF SERVICE: 04/27/2017 PREOPERATIVE DIAGNOSIS: Colon cancer. POSTOPERATIVE DIAGNOSIS: Colon cancer. PROCEDURE: Right internal jugular ultrasound-guided port placement. SURGEON: Surekha Vega DO. ANESTHESIA: MAC with local. ESTIMATED BLOOD LOSS: Minimal. COMPLICATIONS: None. INDICATIONS: The patient is a 56-year-old male with mesenteric mass which is consistent with adenocarcinoma with colon primary. The patient understands risks and benefits of procedure and wished to proceed with procedure. Consent was signed in the chart. DESCRIPTION OF PROCEDURE: The patient was taken to the operating suite. He was prepped and draped in sterile fashion. Surgical pause was performed. The right internal jugular vein was located with ultrasound. Local anesthetic was infiltrated into the area and the vein was then accessed with a micro access needle. The syringe was removed. There was dark nonpulsatile blood was withdrawn. The micro access wire was inserted through the needle and the needle was removed. Fluoroscopy assured proper placement. A small stab incision was then made at the insertion point. The micro access dilator sheath was then advanced over the wire and the wire was removed. The regular guidewire was then inserted through the sheath and the sheath was then removed. Fluoroscopy assured proper placement. The wire was then secured. Local anesthetic was infiltrated for tracked down the neck into the right chest and also for the pocket creation. A 15 blade scalpel was used to make a small incision over the right chest over the existing scar and a pocket was created with cautery. The dilator sheath was then advanced over the wire under fluoroscopy and the dilator and wire were removed. The Groshong catheter was inserted through the sheath and the sheath was then removed. The catheter was then tunneled from the neck down to the pocket on the right chest. Fluoroscopy was used to cut the catheter to length and then the port was secured to the catheter and placed within the pocket. The port was then accessed without difficulty. It was also flushed without difficulty, first with saline and then with heparin. The subcutaneous tissues were then reapproximated using 3-0 Vicryl in a subcuticular fashion. The area was washed and dried. Dermabond was placed over the incisions. The patient tolerated the procedure well without any complications and was taken to recovery room in stable condition. Chest x-ray is pending. Job ID: [id number] DocumentID: [id number] Dictated Date: 04/27/2017 14:35:22 Professor Of Art Date: 04/27/2017 20:52:35 Dictated By: SUREKHA VEGA DO
== END 2017-04-27 15:12 | disposition home or self-care (01) ==
LOC: SDC 09:43
PROVIDERS: ATTEND Surgery
DX: C18.2 Malignant neoplasm of ascending colon (principal); I10 Essential (primary) hypertension; K21.9 Gastro-esophageal reflux disease without esophagitis; F32.9 Major depressive disorder, single episode, unspecified; Z79.899 Other long term (current) drug therapy; Z96.651 Presence of right artificial knee joint
CPT/HCPCS: 71045; 87081

== ENCOUNTER → 2017-05-19 | Outpatient (CLI) | payer MEDICARE, MEDICAID ==
[2017-05-19] MEDS: GADOBUTROL 10 MMOL/10 ML (GADAVIST) VIAL IV ONE (13:22)
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
== END ==
LOC: RAD 11:49
PROVIDERS: ATTEND Internal Medicine Hematology & Oncology
DX: M48.061 Spinal stenosis, lumbar region without neurogenic claudication (principal); M47.816 Spondylosis without myelopathy or radiculopathy, lumbar region; V89.2XXA Person injured in unspecified motor-vehicle accident, traffic, initial encounter; Z85.038 Personal history of other malignant neoplasm of large intestine
CPT/HCPCS: 72158

== ENCOUNTER 2017-06-07 09:28 | Outpatient (RCR) | payer MEDICAID, MEDICARE ==
[2017-05-01 13:45] LABS: BASOPHILS % (AUTO) 0 % (0-10); EOSINOPHILS # (AUTO) 0.1 10^3/uL (0.0-0.3); EOSINOPHILS % (AUTO) 1 % (0-10); HEMATOCRIT 44 % (40-54); HEMOGLOBIN 15.8 G/DL (13.3-17.7); LYMPHOCYTES # (AUTO) 1.2 X 10^3 (1.0-4.0); LYMPHOCYTES % (AUTO) 18 % (12-44); MEAN CORPUSCULAR HEMOGLOBIN 33 PG (25-34); MEAN CORPUSCULAR HGB CONC 36 G/DL (32-36); MEAN CORPUSCULAR VOLUME 90 FL (80-99); MEAN PLATELET VOLUME 9.8 FL (7.4-10.4); MONOCYTES # (AUTO) 0.5 X 10^3 (0.0-1.0); MONOCYTES % (AUTO) 8 % (0-12); NEUTROPHILS % (AUTO) 73 % (42-75); PLATELET COUNT 182 10^3/uL (130-400); RED BLOOD COUNT 4.85 10^6/uL (4.35-5.85); WHITE BLOOD COUNT 6.8 10^3/uL (4.3-11.0)
[2017-05-01 14:06] LABS: ALANINE AMINOTRANSFERASE 38 U/L (0-55); ALKALINE PHOSPHATASE 67 U/L (40-136); BILIRUBIN,TOTAL 0.6 MG/DL (0.1-1.0); BUN/CREATININE RATIO 16; CALCIUM 9.4 MG/DL (8.5-10.1); CARBON DIOXIDE 23 MMOL/L (21-32); CHLORIDE 102 MMOL/L (98-107); GFR ESTIMATED > 60; GLUCOSE 93 MG/DL (70-105); POTASSIUM 4.2 MMOL/L (3.6-5.0); SODIUM 137 MMOL/L (135-145); TOTAL PROTEIN 7.1 GM/DL (6.4-8.2)
[2017-05-10 10:35] LABS: BASOPHILS % (AUTO) 1 % (0-10); EOSINOPHILS # (AUTO) 0.1 10^3/uL (0.0-0.3); EOSINOPHILS % (AUTO) 2 % (0-10); HEMATOCRIT 43 % (40-54); HEMOGLOBIN 15.6 G/DL (13.3-17.7); LYMPHOCYTES # (AUTO) 1.2 X 10^3 (1.0-4.0); LYMPHOCYTES % (AUTO) 27 % (12-44); MEAN CORPUSCULAR HEMOGLOBIN 33 PG (25-34); MEAN CORPUSCULAR HGB CONC 36 G/DL (32-36); MEAN CORPUSCULAR VOLUME 90 FL (80-99); MEAN PLATELET VOLUME 9.5 FL (7.4-10.4); MONOCYTES # (AUTO) 0.4 X 10^3 (0.0-1.0); MONOCYTES % (AUTO) 8 % (0-12); NEUTROPHILS # (AUTO) 2.7 X 10^3 (1.8-7.8); NEUTROPHILS % (AUTO) 62 % (42-75); PLATELET COUNT 186 10^3/uL (130-400); RED BLOOD COUNT 4.78 10^6/uL (4.35-5.85); RED CELL DISTRIBUTION WIDTH 12.8 % (10.0-14.5); WHITE BLOOD COUNT 4.3 10^3/uL (4.3-11.0)
[2017-05-10 11:04] LABS: BUN/CREATININE RATIO 16; CALCIUM 9.4 MG/DL (8.5-10.1); CARBON DIOXIDE 25 MMOL/L (21-32); CHLORIDE 107 MMOL/L (98-107); CREATININE SERUM 1.05 MG/DL (0.60-1.30); GFR ESTIMATED > 60; GLUCOSE 98 MG/DL (70-105); POTASSIUM 4.6 MMOL/L (3.6-5.0); SODIUM 137 MMOL/L (135-145)
[2017-05-17 08:25] LABS: BASOPHILS % (AUTO) 1 % (0-10); EOSINOPHILS # (AUTO) 0.1 10^3/uL (0.0-0.3); EOSINOPHILS % (AUTO) 2 % (0-10); HEMATOCRIT 45 % (40-54); HEMOGLOBIN 16.2 G/DL (13.3-17.7); LYMPHOCYTES % (AUTO) 27 % (12-44); MEAN CORPUSCULAR HEMOGLOBIN 33 PG (25-34); MEAN CORPUSCULAR HGB CONC 36 G/DL (32-36); MEAN CORPUSCULAR VOLUME 90 FL (80-99); MEAN PLATELET VOLUME 9.1 FL (7.4-10.4); MONOCYTES # (AUTO) 0.5 X 10^3 (0.0-1.0); MONOCYTES % (AUTO) 13 % (0-12); NEUTROPHILS # (AUTO) 2.2 X 10^3 (1.8-7.8); NEUTROPHILS % (AUTO) 58 % (42-75); PLATELET COUNT 193 10^3/uL (130-400); RED BLOOD COUNT 4.97 10^6/uL (4.35-5.85); RED CELL DISTRIBUTION WIDTH 13.3 % (10.0-14.5); WHITE BLOOD COUNT 3.8 10^3/uL (4.3-11.0)
[2017-05-17 08:46] LABS: ALANINE AMINOTRANSFERASE 18 U/L (0-55); ALBUMIN 3.9 GM/DL (3.2-4.5); ALKALINE PHOSPHATASE 58 U/L (40-136); BUN/CREATININE RATIO 15; CALCIUM 9.4 MG/DL (8.5-10.1); CARBON DIOXIDE 23 MMOL/L (21-32); CHLORIDE 105 MMOL/L (98-107); CREATININE SERUM 0.95 MG/DL (0.60-1.30); GFR ESTIMATED > 60; GLUCOSE 62 MG/DL (70-105); POTASSIUM 4.2 MMOL/L (3.6-5.0); SODIUM 139 MMOL/L (135-145)
[2017-05-17 09:02] LABS: BILIRUBIN,URINE NEGATIVE (NEGATIVE); CLARITY,URINE CLEAR; COLOR,URINE YELLOW; GLUCOSE, URINE (UA) NEGATIVE (NEGATIVE); KETONES,URINE NEGATIVE (NEGATIVE); LEUKOCYTE ESTERASE ,URINE 1+ (NEGATIVE); NITRITE,URINE NEGATIVE (NEGATIVE); PH,URINE 5 (5-9); PROTEIN,URINE NEGATIVE (NEGATIVE); UROBILINOGEN,URINE NORMAL (NORMAL)
[2017-05-24 12:18] LABS: BASOPHILS % (AUTO) 1 % (0-10); EOSINOPHILS # (AUTO) 0.1 10^3/uL (0.0-0.3); EOSINOPHILS % (AUTO) 2 % (0-10); HEMATOCRIT 42 % (40-54); HEMOGLOBIN 15.6 G/DL (13.3-17.7); LYMPHOCYTES # (AUTO) 1.3 X 10^3 (1.0-4.0); LYMPHOCYTES % (AUTO) 40 % (12-44); MEAN CORPUSCULAR HEMOGLOBIN 33 PG (25-34); MEAN CORPUSCULAR HGB CONC 37 G/DL (32-36); MEAN CORPUSCULAR VOLUME 89 FL (80-99); MEAN PLATELET VOLUME 9.9 FL (7.4-10.4); MONOCYTES # (AUTO) 0.3 X 10^3 (0.0-1.0); MONOCYTES % (AUTO) 11 % (0-12); NEUTROPHILS # (AUTO) 1.5 X 10^3 (1.8-7.8); NEUTROPHILS % (AUTO) 47 % (42-75); PLATELET COUNT 215 10^3/uL (130-400); RED BLOOD COUNT 4.74 10^6/uL (4.35-5.85); RED CELL DISTRIBUTION WIDTH 12.9 % (10.0-14.5); WHITE BLOOD COUNT 3.2 10^3/uL (4.3-11.0)
[2017-05-24 12:36] LABS: BUN/CREATININE RATIO 19; CALCIUM 9.6 MG/DL (8.5-10.1); CARBON DIOXIDE 24 MMOL/L (21-32); CHLORIDE 101 MMOL/L (98-107); CREATININE SERUM 1.08 MG/DL (0.60-1.30); GFR ESTIMATED > 60; GLUCOSE 91 MG/DL (70-105); POTASSIUM 4.4 MMOL/L (3.6-5.0); SODIUM 137 MMOL/L (135-145)
[2017-05-31 08:28] LABS: BASOPHILS % (AUTO) 1 % (0-10); EOSINOPHILS # (AUTO) 0.1 10^3/uL (0.0-0.3); EOSINOPHILS % (AUTO) 1 % (0-10); HEMATOCRIT 44 % (40-54); LYMPHOCYTES # (AUTO) 1.2 X 10^3 (1.0-4.0); LYMPHOCYTES % (AUTO) 23 % (12-44); MEAN CORPUSCULAR HEMOGLOBIN 33 PG (25-34); MEAN CORPUSCULAR HGB CONC 37 G/DL (32-36); MEAN CORPUSCULAR VOLUME 91 FL (80-99); MEAN PLATELET VOLUME 9.1 FL (7.4-10.4); MONOCYTES # (AUTO) 0.6 X 10^3 (0.0-1.0); MONOCYTES % (AUTO) 12 % (0-12); NEUTROPHILS # (AUTO) 3.5 X 10^3 (1.8-7.8); NEUTROPHILS % (AUTO) 64 % (42-75); PLATELET COUNT 182 10^3/uL (130-400); RED BLOOD COUNT 4.83 10^6/uL (4.35-5.85); RED CELL DISTRIBUTION WIDTH 14.1 % (10.0-14.5); WHITE BLOOD COUNT 5.4 10^3/uL (4.3-11.0)
[2017-05-31 09:27] LABS: ALANINE AMINOTRANSFERASE 26 U/L (0-55); ALKALINE PHOSPHATASE 57 U/L (40-136); BILIRUBIN,TOTAL 0.7 MG/DL (0.1-1.0); BUN/CREATININE RATIO 16; CALCIUM 9.3 MG/DL (8.5-10.1); CARBON DIOXIDE 24 MMOL/L (21-32); CHLORIDE 106 MMOL/L (98-107); CREATININE SERUM 1.01 MG/DL (0.60-1.30); GFR ESTIMATED > 60; GLUCOSE 108 MG/DL (70-105); POTASSIUM 4.4 MMOL/L (3.6-5.0); SODIUM 137 MMOL/L (135-145); TOTAL PROTEIN 6.9 GM/DL (6.4-8.2)
[~2017-06-07] VITALS: Ht 170.2 cm; Wt 90.7 kg
[~2017-06-07 09:28] MED LIST changes: +ATROPINE INJ 0.4 MG/ML SDV (CANCER CENTER) INJ SCH; +BEVACIZUMAB INJECTION 400 MG, BEVACIZUMAB INJECTION 50 MG in NS (IVPB) CANCER CENTER 10... IV SCH; +FLUOROURACIL 0.8 GM in SYRINGE-IVPB 1 SYRINGE IV SCH; +FLUOROURACIL 4,800 MG in NS (IVPB) CANCER CENTER 51.2 ML IV SCH; +IRINOTECAN HCL 300 MG, IRINOTECAN HCL 60 MG in D5W 250 ML IVPB (CANCER CTR) 250 ML IV SCH; +LEUCOVORIN CALCIUM 700 MG, LEUCOVORIN CALCIUM 100 MG in D5W 250 ML IVPB (CANCER CTR) 25... IV SCH; +NS IV 1000 ML (CANCER CTR) IV SCH; +PALONOSETRON 0.25 MG, DEXAMETHASONE 10 MG/NS 50 ML IVPB IV PRN; +morphine INJ 10 MG/ML 1ML (SYR OR VIAL) ONE
[2017-06-07 10:21] LABS: BASOPHILS % (AUTO) 1 % (0-10); EOSINOPHILS # (AUTO) 0.1 10^3/uL (0.0-0.3); EOSINOPHILS % (AUTO) 4 % (0-10); HEMATOCRIT 46 % (40-54); HEMOGLOBIN 16.7 G/DL (13.3-17.7); LYMPHOCYTES # (AUTO) 1.2 X 10^3 (1.0-4.0); LYMPHOCYTES % (AUTO) 37 % (12-44); MEAN CORPUSCULAR HEMOGLOBIN 33 PG (25-34); MEAN CORPUSCULAR HGB CONC 36 G/DL (32-36); MEAN CORPUSCULAR VOLUME 90 FL (80-99); MEAN PLATELET VOLUME 9.8 FL (7.4-10.4); MONOCYTES # (AUTO) 0.3 X 10^3 (0.0-1.0); MONOCYTES % (AUTO) 8 % (0-12); NEUTROPHILS # (AUTO) 1.6 X 10^3 (1.8-7.8); NEUTROPHILS % (AUTO) 50 % (42-75); PLATELET COUNT 211 10^3/uL (130-400); RED BLOOD COUNT 5.13 10^6/uL (4.35-5.85); RED CELL DISTRIBUTION WIDTH 13.8 % (10.0-14.5); WHITE BLOOD COUNT 3.2 10^3/uL (4.3-11.0)
[2017-06-07 10:32] LABS: BUN/CREATININE RATIO 14; CALCIUM 9.6 MG/DL (8.5-10.1); CARBON DIOXIDE 27 MMOL/L (21-32); CHLORIDE 103 MMOL/L (98-107); CREATININE SERUM 1.08 MG/DL (0.60-1.30); GFR ESTIMATED > 60; GLUCOSE 102 MG/DL (70-105); POTASSIUM 4.6 MMOL/L (3.6-5.0); SODIUM 137 MMOL/L (135-145)
== END 2017-06-08 | disposition home or self-care (01) ==
LOC: ONC 09:28
PROVIDERS: ATTEND Internal Medicine Hematology & Oncology
DX: Z51.11 Encounter for antineoplastic chemotherapy (principal); C18.3 Malignant neoplasm of hepatic flexure; C77.2 Secondary and unspecified malignant neoplasm of intra-abdominal lymph nodes; D69.59 Other secondary thrombocytopenia; D75.1 Secondary polycythemia; J45.909 Unspecified asthma, uncomplicated; F32.9 Major depressive disorder, single episode, unspecified; I10 Essential (primary) hypertension; K21.9 Gastro-esophageal reflux disease without esophagitis; Z87.891 Personal history of nicotine dependence; Z79.899 Other long term (current) drug therapy
CPT/HCPCS: 36415; 36591; 80048; 80053; 81002; 82378; 82570; 84156; 85025; 96368; 96375; 96411; 96413; 96416; 96417; 99213

== ENCOUNTER → 2017-06-22 | Outpatient (CLI) | payer MEDICARE, MEDICAID ==
[~2017-06-22] MED LIST changes: -ATROPINE INJ 0.4 MG/ML SDV (CANCER CENTER) INJ SCH; -BEVACIZUMAB INJECTION 400 MG, BEVACIZUMAB INJECTION 50 MG in NS (IVPB) CANCER CENTER 10... IV SCH; -FLUOROURACIL 0.8 GM in SYRINGE-IVPB 1 SYRINGE IV SCH; -FLUOROURACIL 4,800 MG in NS (IVPB) CANCER CENTER 51.2 ML IV SCH; -IRINOTECAN HCL 300 MG, IRINOTECAN HCL 60 MG in D5W 250 ML IVPB (CANCER CTR) 250 ML IV SCH; -LEUCOVORIN CALCIUM 700 MG, LEUCOVORIN CALCIUM 100 MG in D5W 250 ML IVPB (CANCER CTR) 25... IV SCH; -NS IV 1000 ML (CANCER CTR) IV SCH; -PALONOSETRON 0.25 MG, DEXAMETHASONE 10 MG/NS 50 ML IVPB IV PRN; -morphine INJ 10 MG/ML 1ML (SYR OR VIAL) ONE
[2017-06-22 10:44] LABS: HEMOGLOBIN 16.6 G/DL (13.3-17.7); MEAN PLATELET VOLUME 9.6 FL (7.4-10.4); RED BLOOD COUNT 5.02 10^6/uL (4.35-5.85); WHITE BLOOD COUNT 3.9 10^3/uL (4.3-11.0)
[2017-06-22 11:02] LABS: ALANINE AMINOTRANSFERASE 22 U/L (0-55); ALBUMIN 3.9 GM/DL (3.2-4.5); ALKALINE PHOSPHATASE 56 U/L (40-136); BILIRUBIN,TOTAL 0.6 MG/DL (0.1-1.0); BUN/CREATININE RATIO 16; CALCIUM 9.5 MG/DL (8.5-10.1); CARBON DIOXIDE 26 MMOL/L (21-32); CHLORIDE 109 MMOL/L (98-107); CREATININE SERUM 0.98 MG/DL (0.60-1.30); GFR ESTIMATED > 60; GLUCOSE 91 MG/DL (70-105); POTASSIUM 4.6 MMOL/L (3.6-5.0); SODIUM 139 MMOL/L (135-145); TOTAL PROTEIN 6.8 GM/DL (6.4-8.2)
--- NOTE | 2017-06-22 11:10 | Diagnostic Imaging Report ---
INDICATION: Osteoporosis. FINDINGS: Bone mineral analysis of the lumbar spine and both hips was performed. The bone mineral density of the lumbar spine is 1.371 with a T score of 1.1. The bone mineral density of the left femoral neck is 0.856 with a T score of -1.6. The bone mineral density of the right femoral neck is 0.837 with a T score of -1.8. IMPRESSION: Normal bone mineral density of the lumbar spine with osteopenia of the bilateral femoral necks. Dictated by: Dictated on workstation # [id number]
== END ==
LOC: RAD 10:02
PROVIDERS: ATTEND Physician Assistant
DX: M85.88 Other specified disorders of bone density and structure, other site (principal); R53.83 Other fatigue; E55.9 Vitamin D deficiency, unspecified
CPT/HCPCS: 36415; 77080; 80053; 82306; 83970; 84443; 85027

== ENCOUNTER → 2017-08-16 | Outpatient (CLI) | payer MEDICARE, MEDICAID ==
[~2017-08-16] MED LIST changes: +BARIUM SUSPENSION 2.1% (VANILLA SILQ) 450 ML PO ONE; +IOHEXOL 350 MG/ML 100 ML (OMNIPAQUE 350) VIAL IV ONE; +NS 250 ML (IVPB) BAG IV ONE
--- NOTE | 2017-08-16 11:43 | Diagnostic Imaging Report ---
PROCEDURE: CT chest with contrast, CT abdomen and pelvis with and without contrast. TECHNIQUE: Pre and post intravenous contrast axial imaging of the abdomen and pelvis and post contrast axial imaging of the chest were performed. INDICATION: Colon carcinoma, followup. Comparison is made with prior CT from 04/21/2017. CT chest: A right chest wall port has tip terminating in the SVC. No axillary lymphadenopathy is identified. No definite hilar or mediastinal lymphadenopathy is detected. No pericardial or pleural fluid is identified. No pulmonary infiltrates, nodules or masses are seen. Bony structures are unremarkable. IMPRESSION: Stable unremarkable CT of the chest when compared with exam from 04/21/2017. No thoracic lymphadenopathy or evidence of pulmonary metastatic disease is identified. CT abdomen and pelvis: No discrete liver mass is identified. The gallbladder is unremarkable. The pancreas and spleen are stable. The previously noted mass immediately anterior to the head of the pancreas has decreased in size, now measuring 2.2 cm AP by 2.6 cm transverse compared with 3.2 cm AP by 3.7 cm transverse on prior exam. The degree of stranding in the adjacent fat has decreased as well. No adrenal mass is identified. The kidneys appear to be stable. Aorta is not aneurysmal. No definite central retroperitoneal lymphadenopathy is seen. Left para-midline abdominal wall hernia is again noted containing some bowel loops. Previously noted small focus of perhaps extraluminal gas is no longer appreciated. The intra-abdominal bowel loops appear to be normal caliber and without evidence of obstruction. No free air seen. There is no ascites or loculated fluid collection identified. No pelvic lymphadenopathy is seen. The bladder is decompressed. Prostate remains enlarged. IMPRESSION: 1. Improved appearance to the abdomen and pelvis with reduction in size of the soft tissue mass in the upper mid abdomen anterior to the pancreas when compared with prior CT from 04/21/2017. There has been reduction in surrounding inflammatory changes. No new mass is identified. 2. Left para-midline ventral hernia containing bowel loops. No evidence of focal perforation is seen on today's study. No bowel obstruction is identified. Dictated by: Dictated on workstation # [id number]
== END ==
LOC: RAD 10:42
PROVIDERS: ATTEND Internal Medicine Hematology & Oncology
DX: C18.2 Malignant neoplasm of ascending colon (principal); K43.9 Ventral hernia without obstruction or gangrene
CPT/HCPCS: 71260; 74178

== ENCOUNTER 2017-10-11 08:58 | Outpatient (RCR) | payer MEDICARE, MEDICAID ==
[~2017-10-11 08:58] MED LIST changes: +ATROPINE INJ 0.4 MG/ML SDV (CANCER CENTER) INJ SCH; -BARIUM SUSPENSION 2.1% (VANILLA SILQ) 450 ML PO ONE; +BEVACIZUMAB INJECTION 400 MG, BEVACIZUMAB INJECTION 50 MG in NS (IVPB) CANCER CENTER 10... IV SCH; +FLUOROURACIL 0.8 GM in SYRINGE-IVPB 1 SYRINGE IV SCH; +FLUOROURACIL 4,800 MG in NS (IVPB) CANCER CENTER 51.2 ML IV SCH; -IOHEXOL 350 MG/ML 100 ML (OMNIPAQUE 350) VIAL IV ONE; +LEUCOVORIN CALCIUM 700 MG, LEUCOVORIN CALCIUM 100 MG in D5W 250 ML IVPB (CANCER CTR) 25... IV SCH; -NS 250 ML (IVPB) BAG IV ONE; +NS IV 1000 ML (CANCER CTR) IV SCH; +PALONOSETRON 0.25 MG, DEXAMETHASONE 10 MG/NS 50 ML IVPB IV PRN; +TRAZ-190 PO; -TRAZ100T92 PO
[2017-10-11 09:17] LABS: BASOPHILS % (AUTO) 0 % (0-10); EOSINOPHILS % (AUTO) 0 % (0-10); HEMATOCRIT 45 % (40-54); HEMOGLOBIN 16.4 G/DL (13.3-17.7); LYMPHOCYTES # (AUTO) 1.1 X 10^3 (1.0-4.0); LYMPHOCYTES % (AUTO) 11 % (12-44); MEAN CORPUSCULAR HEMOGLOBIN 34 PG (25-34); MEAN CORPUSCULAR HGB CONC 37 G/DL (32-36); MEAN CORPUSCULAR VOLUME 93 FL (80-99); MEAN PLATELET VOLUME 10.1 FL (7.4-10.4); MONOCYTES # (AUTO) 0.7 X 10^3 (0.0-1.0); MONOCYTES % (AUTO) 7 % (0-12); NEUTROPHILS # (AUTO) 8.3 X 10^3 (1.8-7.8); NEUTROPHILS % (AUTO) 82 % (42-75); PLATELET COUNT 178 10^3/uL (130-400); RED BLOOD COUNT 4.83 10^6/uL (4.35-5.85); RED CELL DISTRIBUTION WIDTH 13.2 % (10.0-14.5); WHITE BLOOD COUNT 10.1 10^3/uL (4.3-11.0)
[2017-10-11 09:37] LABS: ALANINE AMINOTRANSFERASE 19 U/L (0-55); ALBUMIN 4.1 GM/DL (3.2-4.5); ALKALINE PHOSPHATASE 52 U/L (40-136); BILIRUBIN,TOTAL 0.7 MG/DL (0.1-1.0); BUN/CREATININE RATIO 11; CALCIUM 9.2 MG/DL (8.5-10.1); CARBON DIOXIDE 23 MMOL/L (21-32); CHLORIDE 106 MMOL/L (98-107); CREATININE SERUM 0.97 MG/DL (0.60-1.30); GFR ESTIMATED > 60; GLUCOSE 118 MG/DL (70-105); POTASSIUM 4.3 MMOL/L (3.6-5.0); SODIUM 136 MMOL/L (135-145); TOTAL PROTEIN 7.3 GM/DL (6.4-8.2)
== END 2017-10-12 09:24 | disposition home or self-care (01) ==
LOC: ONC 08:58
PROVIDERS: ATTEND Internal Medicine Hematology & Oncology
DX: C18.3 Malignant neoplasm of hepatic flexure (principal); C77.2 Secondary and unspecified malignant neoplasm of intra-abdominal lymph nodes; D69.59 Other secondary thrombocytopenia; D75.1 Secondary polycythemia; J45.909 Unspecified asthma, uncomplicated; F32.9 Major depressive disorder, single episode, unspecified; I10 Essential (primary) hypertension; K21.9 Gastro-esophageal reflux disease without esophagitis; Z87.891 Personal history of nicotine dependence; Z79.899 Other long term (current) drug therapy
CPT/HCPCS: 36591; 80053; 82378; 85025

== ENCOUNTER → 2017-11-06 | Outpatient (CLI) | payer MEDICARE, MEDICAID ==
[~2017-11-06] MED LIST changes: -ATROPINE INJ 0.4 MG/ML SDV (CANCER CENTER) INJ SCH; +BARIUM SUSPENSION 2.1% (VANILLA SILQ) 450 ML PO ONE; -BEVACIZUMAB INJECTION 400 MG, BEVACIZUMAB INJECTION 50 MG in NS (IVPB) CANCER CENTER 10... IV SCH; -FLUOROURACIL 0.8 GM in SYRINGE-IVPB 1 SYRINGE IV SCH; -FLUOROURACIL 4,800 MG in NS (IVPB) CANCER CENTER 51.2 ML IV SCH; +IOHEXOL 350 MG/ML 100 ML (OMNIPAQUE 350) VIAL IV ONE; -LEUCOVORIN CALCIUM 700 MG, LEUCOVORIN CALCIUM 100 MG in D5W 250 ML IVPB (CANCER CTR) 25... IV SCH; +NS 250 ML (IVPB) BAG IV ONE; -NS IV 1000 ML (CANCER CTR) IV SCH; -PALONOSETRON 0.25 MG, DEXAMETHASONE 10 MG/NS 50 ML IVPB IV PRN
--- NOTE | 2017-11-06 10:02 | Diagnostic Imaging Report ---
PROCEDURE: CT abdomen and pelvis with and without contrast. TECHNIQUE: Precontrast acquisitions were acquired through the abdomen and pelvis. Multiple contiguous axial images were obtained through the abdomen and pelvis after the administration of intravenous contrast. INDICATION: Cancer. COMPARISON: CT chest, abdomen and pelvis without and with IV contrast 08/16/2017. FINDINGS: Again seen a soft tissue mass anterior to the pancreatic neck measuring approximately 2.7 x 2.5 x 2.8 cm (LR x AP x SI), previously 2.3 x 2.4 x 2.0 cm when measured in a similar fashion. There is 1.1 x 0.7 x 1.0 cm soft tissue nodule along the anterior abdominal wall to the right of midline anterior to the first portion of the duodenum. This was previously just small subcentimeter region of fat stranding. Stable wide based left parasagittal paraumbilical hernia containing a loop of normal-appearing bowel. No evidence of bowel obstruction or inflammation. No free intraperitoneal air or fluid. The fat containing right inguinal hernia. The lung bases are clear. The liver, gallbladder, pancreas, spleen, adrenals, collecting systems and bladder are unremarkable. Stable bilateral renal cysts. Enlarged prostate. No lymphadenopathy. No acute osseous findings. IMPRESSION: 1. Mild interval increasing size of the soft tissue mass anterior to the pancreatic neck. There is also a small developing soft tissue nodule along the anterior abdominal wall, anterior to the first portion of the duodenum. 2. Stable periumbilical hernia and right inguinal hernias. No evidence of strangulation. Dictated by: Dictated on workstation # [id number]
== END ==
LOC: RAD 08:15
PROVIDERS: ATTEND Internal Medicine Hematology & Oncology
DX: C18.2 Malignant neoplasm of ascending colon (principal); K86.89 Other specified diseases of pancreas; K42.9 Umbilical hernia without obstruction or gangrene; K40.90 Unilateral inguinal hernia, without obstruction or gangrene, not specified as recurrent
CPT/HCPCS: 74178

== ENCOUNTER 2017-12-06 13:08 | Outpatient (RCR) | payer MEDICARE, MEDICAID ==
[2017-11-08 09:29] LABS: BASOPHILS % (AUTO) 1 % (0-10); EOSINOPHILS # (AUTO) 0.1 10^3/uL (0.0-0.3); EOSINOPHILS % (AUTO) 2 % (0-10); HEMATOCRIT 47 % (40-54); HEMOGLOBIN 16.5 G/DL (13.3-17.7); LYMPHOCYTES # (AUTO) 1.6 X 10^3 (1.0-4.0); LYMPHOCYTES % (AUTO) 28 % (12-44); MEAN CORPUSCULAR HEMOGLOBIN 33 PG (25-34); MEAN CORPUSCULAR HGB CONC 35 G/DL (32-36); MEAN CORPUSCULAR VOLUME 94 FL (80-99); MEAN PLATELET VOLUME 9.2 FL (7.4-10.4); MONOCYTES # (AUTO) 0.7 X 10^3 (0.0-1.0); MONOCYTES % (AUTO) 11 % (0-12); NEUTROPHILS # (AUTO) 3.5 X 10^3 (1.8-7.8); NEUTROPHILS % (AUTO) 59 % (42-75); PLATELET COUNT 184 10^3/uL (130-400); RED BLOOD COUNT 4.97 10^6/uL (4.35-5.85); RED CELL DISTRIBUTION WIDTH 12.7 % (10.0-14.5)
[2017-11-08 09:46] LABS: ALANINE AMINOTRANSFERASE 43 U/L (0-55); ALBUMIN 3.8 GM/DL (3.2-4.5); ALKALINE PHOSPHATASE 53 U/L (40-136); BILIRUBIN,TOTAL 0.4 MG/DL (0.1-1.0); BUN/CREATININE RATIO 15; CALCIUM 8.9 MG/DL (8.5-10.1); CARBON DIOXIDE 18 MMOL/L (21-32); CHLORIDE 109 MMOL/L (98-107); CREATININE SERUM 0.99 MG/DL (0.60-1.30); GFR ESTIMATED > 60; GLUCOSE 82 MG/DL (70-105); POTASSIUM 4.9 MMOL/L (3.6-5.0); SODIUM 137 MMOL/L (135-145)
[2017-11-29 08:33] LABS: BASOPHILS % (AUTO) 0 % (0-10); EOSINOPHILS % (AUTO) 0 % (0-10); HEMATOCRIT 47 % (40-54); HEMOGLOBIN 16.8 G/DL (13.3-17.7); LYMPHOCYTES % (AUTO) 9 % (12-44); MEAN CORPUSCULAR HEMOGLOBIN 33 PG (25-34); MEAN CORPUSCULAR HGB CONC 36 G/DL (32-36); MEAN CORPUSCULAR VOLUME 92 FL (80-99); MEAN PLATELET VOLUME 9.3 FL (7.4-10.4); MONOCYTES # (AUTO) 0.7 X 10^3 (0.0-1.0); MONOCYTES % (AUTO) 7 % (0-12); NEUTROPHILS # (AUTO) 9.2 X 10^3 (1.8-7.8); NEUTROPHILS % (AUTO) 84 % (42-75); PLATELET COUNT 206 10^3/uL (130-400); RED BLOOD COUNT 5.14 10^6/uL (4.35-5.85); RED CELL DISTRIBUTION WIDTH 12.7 % (10.0-14.5)
[2017-11-29 09:05] LABS: ALANINE AMINOTRANSFERASE 24 U/L (0-55); ALBUMIN 4.3 GM/DL (3.2-4.5); ALKALINE PHOSPHATASE 51 U/L (40-136); BILIRUBIN,TOTAL 0.5 MG/DL (0.1-1.0); BUN/CREATININE RATIO 13; CALCIUM 9.9 MG/DL (8.5-10.1); CARBON DIOXIDE 21 MMOL/L (21-32); CHLORIDE 105 MMOL/L (98-107); CREATININE SERUM 0.99 MG/DL (0.60-1.30); GFR ESTIMATED > 60; GLUCOSE 113 MG/DL (70-105); POTASSIUM 4.1 MMOL/L (3.6-5.0); SODIUM 137 MMOL/L (135-145); TOTAL PROTEIN 7.4 GM/DL (6.4-8.2)
[~2017-12-06] VITALS: Ht 170.2 cm; Wt 99.3 kg
[~2017-12-06 13:08] MED LIST changes: +ALTEPLASE 2 MG (CATHFLO) CANCER CENTER IV ONE; -BARIUM SUSPENSION 2.1% (VANILLA SILQ) 450 ML PO ONE; +BEVACIZUMAB INJECTION 400 MG, BEVACIZUMAB INJECTION 50 MG in NS (IVPB) CANCER CENTER 10... IV SCH; +FLUOROURACIL 0.8 GM in SYRINGE-IVPB 1 SYRINGE IV SCH; +FLUOROURACIL 4,800 MG in NS (IVPB) CANCER CENTER 51.2 ML IV SCH; +HYDR-4226 PO; -HYDR-757 PO; -IOHEXOL 350 MG/ML 100 ML (OMNIPAQUE 350) VIAL IV ONE; +LEUCOVORIN CALCIUM IV SCH; -NS 250 ML (IVPB) BAG IV ONE; +NS IV 1000 ML (CANCER CTR) 1,000 ML ONE; +NS IV 1000 ML (CANCER CTR) IV SCH; +NS IV SCH; +PALONOSETRON HCL 0.25 MG, DEXAMETHASONE INJECTION 10 MG in NS (IVPB) CANCER CENTER 50 ML IV SCH
[2017-12-06 13:24] LABS: BASOPHILS % (AUTO) 0 % (0-10); EOSINOPHILS % (AUTO) 1 % (0-10); HEMATOCRIT 46 % (40-54); HEMOGLOBIN 16.7 G/DL (13.3-17.7); LYMPHOCYTES # (AUTO) 1.7 X 10^3 (1.0-4.0); LYMPHOCYTES % (AUTO) 24 % (12-44); MEAN CORPUSCULAR HEMOGLOBIN 33 PG (25-34); MEAN CORPUSCULAR HGB CONC 36 G/DL (32-36); MEAN CORPUSCULAR VOLUME 91 FL (80-99); MEAN PLATELET VOLUME 9.3 FL (7.4-10.4); MONOCYTES # (AUTO) 0.6 X 10^3 (0.0-1.0); MONOCYTES % (AUTO) 9 % (0-12); NEUTROPHILS # (AUTO) 4.7 X 10^3 (1.8-7.8); NEUTROPHILS % (AUTO) 66 % (42-75); PLATELET COUNT 170 10^3/uL (130-400); RED BLOOD COUNT 5.05 10^6/uL (4.35-5.85); RED CELL DISTRIBUTION WIDTH 12.7 % (10.0-14.5)
[2017-12-06 13:40] LABS: BUN/CREATININE RATIO 19; CALCIUM 9.3 MG/DL (8.5-10.1); CARBON DIOXIDE 22 MMOL/L (21-32); CHLORIDE 104 MMOL/L (98-107); CREATININE SERUM 1.01 MG/DL (0.60-1.30); GFR ESTIMATED > 60; GLUCOSE 117 MG/DL (70-105); POTASSIUM 4.5 MMOL/L (3.6-5.0); SODIUM 134 MMOL/L (135-145)
== END 2017-12-12 15:39 | disposition home or self-care (01) ==
LOC: ONC 13:08
PROVIDERS: ATTEND Internal Medicine Hematology & Oncology
DX: C18.3 Malignant neoplasm of hepatic flexure (principal); C77.2 Secondary and unspecified malignant neoplasm of intra-abdominal lymph nodes; D69.59 Other secondary thrombocytopenia; D75.1 Secondary polycythemia; J45.909 Unspecified asthma, uncomplicated; F32.9 Major depressive disorder, single episode, unspecified; I10 Essential (primary) hypertension; K21.9 Gastro-esophageal reflux disease without esophagitis; Z87.891 Personal history of nicotine dependence; Z79.899 Other long term (current) drug therapy
CPT/HCPCS: 36415; 36591; 36593; 80048; 80053; 82378; 85025; 96367; 96375; 96409; 96411

== ENCOUNTER → 2017-12-11 | Outpatient (CLI) | payer MEDICARE, MEDICAID ==
[~2017-12-11] MED LIST changes: -ALTEPLASE 2 MG (CATHFLO) CANCER CENTER IV ONE; -BEVACIZUMAB INJECTION 400 MG, BEVACIZUMAB INJECTION 50 MG in NS (IVPB) CANCER CENTER 10... IV SCH; -FLUOROURACIL 0.8 GM in SYRINGE-IVPB 1 SYRINGE IV SCH; -FLUOROURACIL 4,800 MG in NS (IVPB) CANCER CENTER 51.2 ML IV SCH; -LEUCOVORIN CALCIUM IV SCH; -NS IV 1000 ML (CANCER CTR) 1,000 ML ONE; -NS IV 1000 ML (CANCER CTR) IV SCH; -NS IV SCH; -PALONOSETRON HCL 0.25 MG, DEXAMETHASONE INJECTION 10 MG in NS (IVPB) CANCER CENTER 50 ML IV SCH
--- NOTE | 2017-12-11 15:26 | Diagnostic Imaging Report ---
PROCEDURE: MRI lumbar spine. TECHNIQUE: Multiplanar, multisequence MRI of the lumbar spine was performed without contrast. INDICATION: Lower back pain. History of colon cancer. COMPARISON: 05/19/2017 FINDINGS: For the purposes of this exam, last well-formed disc space is denoted the L5-S1 level. Static alignment is maintained. There is no significant anteroretrolisthesis. There is no evidence of jumped facets. Vertebral body heights are maintained. There is no evidence of acute fracture. Marrow signal is within normal limits. There are mild multilevel degenerative changes consisting of intervertebral disc height loss with multilevel facet arthropathy and ligamentum flavum laxity. Visualized portions of distal cord are unremarkable. Conus terminates at approximately the L1 level. No abnormal intrathecal filling defects are seen. Pre-and paravertebral soft tissue structures are unremarkable. AXIAL IMAGES DEMONSTRATE THE FOLLOWING: L1-L2: There is no large disc bulge or focal protrusion. There is bilateral ligamentum flavum laxity and facet arthropathy. There is no significant spinal canal or neural foraminal stenosis. L2-L3: There is no large disc bulge or focal protrusion. There is bilateral ligamentum flavum laxity and facet arthropathy. There is no significant spinal canal or neural foraminal stenosis. L3-L4: There is mild broad-based posterior disc bulge. There is bilateral ligamentum flavum laxity and facet arthropathy. As a result, there is minimal narrowing of spinal canal and bilateral neural foramina. L4-L5: There is asymmetric posterior disc osteophyte complex formation on the right. There is also bilateral ligamentum flavum laxity and facet arthropathy. As a result, there is mild to moderate narrowing of the right neural foramina. Spinal canal and left neural foramina are unremarkable. L5-S1: There is asymmetric posterior disc osteophyte complex formation posteriorly on the left. There is also bilateral facet arthropathy. As a result, there is mild asymmetric narrowing of the left neural foramen and lateral recess. Spinal canal and right neural foramen are unremarkable. IMPRESSION: 1. Mild multilevel degenerative changes of the lumbar spine. No significant spinal canal or neural foraminal stenosis. 2. No acute fracture or dislocation. Dictated by: Dictated on workstation # [id number]
== END ==
LOC: RAD 13:37
PROVIDERS: ATTEND Nurse Practitioner Community Health
DX: M47.26 Other spondylosis with radiculopathy, lumbar region (principal); Z85.038 Personal history of other malignant neoplasm of large intestine
CPT/HCPCS: 72148

== ENCOUNTER 2017-12-12 10:27 | Outpatient (RCR) | payer MEDICARE, MEDICAID | END 2017-12-14 12:31 | disposition home or self-care (01) | PROVIDERS: ATTEND Pain Medicine Interventional Pain Medicine | DX: M46.1 Sacroiliitis, not elsewhere classified (principal) ==

== ENCOUNTER 2017-12-15 11:59 | Outpatient (RCR) | payer MEDICARE, MEDICAID ==
[2017-12-13 13:16] LABS: BASOPHILS % (AUTO) 0 % (0-10); EOSINOPHILS % (AUTO) 1 % (0-10); HEMATOCRIT 48 % (40-54); HEMOGLOBIN 16.7 G/DL (13.3-17.7); LYMPHOCYTES # (AUTO) 1.5 X 10^3 (1.0-4.0); LYMPHOCYTES % (AUTO) 23 % (12-44); MEAN CORPUSCULAR HEMOGLOBIN 33 PG (25-34); MEAN CORPUSCULAR HGB CONC 35 G/DL (32-36); MEAN CORPUSCULAR VOLUME 93 FL (80-99); MONOCYTES # (AUTO) 0.7 X 10^3 (0.0-1.0); MONOCYTES % (AUTO) 11 % (0-12); NEUTROPHILS # (AUTO) 4.2 X 10^3 (1.8-7.8); NEUTROPHILS % (AUTO) 65 % (42-75); PLATELET COUNT 143 10^3/uL (130-400); RED BLOOD COUNT 5.13 10^6/uL (4.35-5.85); RED CELL DISTRIBUTION WIDTH 13.6 % (10.0-14.5); WHITE BLOOD COUNT 6.4 10^3/uL (4.3-11.0)
[2017-12-13 13:34] LABS: BILIRUBIN,TOTAL 0.6 MG/DL (0.1-1.0); CALCIUM 9.4 MG/DL (8.5-10.1); CREATININE SERUM 1.69 MG/DL (0.60-1.30); POTASSIUM 4.6 MMOL/L (3.6-5.0); TOTAL PROTEIN 7.2 GM/DL (6.4-8.2)
[~2017-12-15] VITALS: Ht 170.2 cm; Wt 98.4 kg
[~2017-12-15 11:59] MED LIST changes: +BEVACIZUMAB INJECTION 400 MG, BEVACIZUMAB INJECTION 50 MG in NS (IVPB) CANCER CENTER 10... IV SCH; +FLUOROURACIL 0.8 GM in SYRINGE-IVPB 1 SYRINGE IV SCH; +FLUOROURACIL 4,800 MG in NS (IVPB) CANCER CENTER 51.2 ML IV SCH; +LEUCOVORIN CALCIUM IV SCH; +NS IV 1000 ML (CANCER CTR) IV SCH; +NS IV SCH; +PALONOSETRON HCL 0.25 MG, DEXAMETHASONE INJECTION 10 MG in NS (IVPB) CANCER CENTER 50 ML IV SCH
== END 2017-12-20 10:55 | disposition home or self-care (01) ==
LOC: ONC 11:59
PROVIDERS: ATTEND Internal Medicine Hematology & Oncology
DX: Z51.11 Encounter for antineoplastic chemotherapy (principal); C18.3 Malignant neoplasm of hepatic flexure; C77.2 Secondary and unspecified malignant neoplasm of intra-abdominal lymph nodes; D69.59 Other secondary thrombocytopenia; D75.1 Secondary polycythemia; J45.909 Unspecified asthma, uncomplicated; F32.9 Major depressive disorder, single episode, unspecified; I10 Essential (primary) hypertension; K21.9 Gastro-esophageal reflux disease without esophagitis; Z87.891 Personal history of nicotine dependence; Z79.899 Other long term (current) drug therapy
CPT/HCPCS: 36591; 80053; 85025; 96367; 96375; 96409; 96411

== ENCOUNTER 2017-12-20 10:58 | Outpatient (RCR) | payer MEDICARE, MEDICAID ==
[~2017-12-20 10:58] MED LIST changes: -BEVACIZUMAB INJECTION 400 MG, BEVACIZUMAB INJECTION 50 MG in NS (IVPB) CANCER CENTER 10... IV SCH; -FLUOROURACIL 0.8 GM in SYRINGE-IVPB 1 SYRINGE IV SCH; -FLUOROURACIL 4,800 MG in NS (IVPB) CANCER CENTER 51.2 ML IV SCH; -LEUCOVORIN CALCIUM IV SCH; -NS IV 1000 ML (CANCER CTR) IV SCH; -NS IV SCH; -PALONOSETRON HCL 0.25 MG, DEXAMETHASONE INJECTION 10 MG in NS (IVPB) CANCER CENTER 50 ML IV SCH
[2017-12-20 11:24] LABS: BASOPHILS % (AUTO) 0 % (0-10); EOSINOPHILS % (AUTO) 1 % (0-10); HEMATOCRIT 46 % (40-54); HEMOGLOBIN 16.6 G/DL (13.3-17.7); LYMPHOCYTES # (AUTO) 1.2 X 10^3 (1.0-4.0); LYMPHOCYTES % (AUTO) 40 % (12-44); MEAN CORPUSCULAR HEMOGLOBIN 34 PG (25-34); MEAN CORPUSCULAR HGB CONC 37 G/DL (32-36); MEAN CORPUSCULAR VOLUME 92 FL (80-99); MEAN PLATELET VOLUME 9.8 FL (7.4-10.4); MONOCYTES # (AUTO) 0.3 X 10^3 (0.0-1.0); MONOCYTES % (AUTO) 10 % (0-12); NEUTROPHILS # (AUTO) 1.5 X 10^3 (1.8-7.8); NEUTROPHILS % (AUTO) 49 % (42-75); PLATELET COUNT 125 10^3/uL (130-400); RED BLOOD COUNT 4.94 10^6/uL (4.35-5.85); RED CELL DISTRIBUTION WIDTH 13.4 % (10.0-14.5)
[2017-12-20 11:52] LABS: BUN/CREATININE RATIO 13; CARBON DIOXIDE 23 MMOL/L (21-32); CHLORIDE 106 MMOL/L (98-107); CREATININE SERUM 0.98 MG/DL (0.60-1.30); GFR ESTIMATED > 60; GLUCOSE 147 MG/DL (70-105); POTASSIUM 4.1 MMOL/L (3.6-5.0); SODIUM 136 MMOL/L (135-145)
== END 2017-12-24 | disposition home or self-care (01) ==
LOC: ONC 10:58
PROVIDERS: ATTEND Internal Medicine Hematology & Oncology
DX: C18.3 Malignant neoplasm of hepatic flexure (principal); C77.2 Secondary and unspecified malignant neoplasm of intra-abdominal lymph nodes; D69.59 Other secondary thrombocytopenia; D75.1 Secondary polycythemia; J45.909 Unspecified asthma, uncomplicated; F32.9 Major depressive disorder, single episode, unspecified; I10 Essential (primary) hypertension; K21.9 Gastro-esophageal reflux disease without esophagitis; Z87.891 Personal history of nicotine dependence; Z79.899 Other long term (current) drug therapy
CPT/HCPCS: 36415; 80048; 85025

== ENCOUNTER 2018-01-11 09:37 | Emergency (ER) | payer MEDICARE, MEDICAID ==
[~2018-01-11] VITALS: Ht 170.2 cm; Wt 97.5 kg
[2018-01-11] MEDS ORDERED: NS IV 1000 ML 1,000 ML IV ONE (10:06)
[2018-01-11] MEDS ORDERED: ONDANSETRON 4 MG/2 ML (SDV) Z0FRAN IVP ONE (10:15)
[2018-01-11] MEDS ORDERED: morphine INJ 10 MG/ML 1ML (SYR OR VIAL) IVP ONE ×2 (10:15→11:15)
[2018-01-11 10:20] LABS: BASOPHILS % (AUTO) 0 % (0-10); EOSINOPHILS % (AUTO) 0 % (0-10); HEMATOCRIT 46 % (40-54); HEMOGLOBIN 16.4 G/DL (13.3-17.7); LYMPHOCYTES # (AUTO) 1.7 X 10^3 (1.0-4.0); LYMPHOCYTES % (AUTO) 34 % (12-44); MEAN CORPUSCULAR HEMOGLOBIN 33 PG (25-34); MEAN CORPUSCULAR HGB CONC 35 G/DL (32-36); MEAN CORPUSCULAR VOLUME 93 FL (80-99); MEAN PLATELET VOLUME 9.5 FL (7.4-10.4); MONOCYTES # (AUTO) 0.8 X 10^3 (0.0-1.0); MONOCYTES % (AUTO) 17 % (0-12); NEUTROPHILS # (AUTO) 2.4 X 10^3 (1.8-7.8); NEUTROPHILS % (AUTO) 49 % (42-75); PLATELET COUNT 102 10^3/uL (130-400); RED CELL DISTRIBUTION WIDTH 15.5 % (10.0-14.5); WHITE BLOOD COUNT 4.8 10^3/uL (4.3-11.0)
[2018-01-11 10:39] LABS: BILIRUBIN,URINE NEGATIVE (NEGATIVE); CLARITY,URINE CLEAR; COLOR,URINE YELLOW; GLUCOSE, URINE (UA) NEGATIVE (NEGATIVE); KETONES,URINE NEGATIVE (NEGATIVE); LEUKOCYTE ESTERASE ,URINE NEGATIVE (NEGATIVE); NITRITE,URINE NEGATIVE (NEGATIVE); PH,URINE 5 (5-9); PROTEIN,URINE NEGATIVE (NEGATIVE); UROBILINOGEN,URINE NORMAL (NORMAL)
[2018-01-11 10:46] LABS: ALBUMIN 3.6 GM/DL (3.2-4.5); BILIRUBIN,TOTAL 0.9 MG/DL (0.1-1.0); CALCIUM 9.1 MG/DL (8.5-10.1); CREATININE SERUM 1.33 MG/DL (0.60-1.30); MAGNESIUM 2.4 MG/DL (1.8-2.4); TOTAL PROTEIN 6.4 GM/DL (6.4-8.2)
[2018-01-11 10:47] LABS: BACTERIA,URINE NEGATIVE /HPF; CALCIUM OXALATE CRYSTALS,UR MODERATE /LPF; RBC,URINE RARE /HPF; SQUAMOUS EPITHELIAL CELL,UR RARE /HPF
[2018-01-11] MEDS ORDERED: PROM25TA14 PO (11:55)
[2018-01-11] MEDS ORDERED: SUCR1ORA5 PO (11:55)
--- NOTE | 2018-01-11 11:56 | ED General ---
General Chief Complaint: Abdominal/GI Problems Stated Complaint: N/V/D Nursing Triage Note: PT STATES HX OF COLON CA, WAS SUPPOSED TO GET CHEMO YESTERDAY BUT WAS UNABLE TO DUE TO NVD. Nursing Sepsis Screen: Possible Sepsis Risk Source of Information: Patient Exam Limitations: No Limitations History of Present Illness Date Seen by Provider: Jan 11, 2018 Time Seen by Provider: 09:58 Initial Comments This 57-year-old gentleman with colon cancer and underwent chemotherapy yesterday. Today he complains of nausea, vomiting, diarrhea, and diffuse body aching. He denies any measured or known fever. Dr. Hagen is his oncologist. Jutsin Woods is his primary care provider. Allergies and Home Medications Allergies Coded Allergies: No Known Drug Allergies (Unverified , 04/21/17) Home Medications Diphenoxylate HCl/Atropine 1 Each Tablet, 1 EACH PO QID PRN for DIARRHEA, ( Reported) Hydrocodone Bit/Acetaminophen 1 Each Tablet, 1 EACH PO Q6H PRN for PAIN-MILD TO MODERATE, (Reported) Ondansetron HCl 8 Mg Tablet, 8 MG PO Q8H PRN for NAUSEA/VOMITING-1ST LINE, ( Reported) Pantoprazole Sodium 40 Mg Tablet.dr, 40 MG PO DAILY, (Reported) Promethazine HCl 25 Mg Tablet, 25 MG PO Q6H PRN for NAUSEA/VOMITING Prescribed by: JOYA WHITE on 01/11/18 1155 Sucralfate 1 Gm/10 Ml Oral.susp, 1 GM PO QID Substitute tabs to crush and slurry if liquid not covered. Prescribed by: JOYA WHITE on 01/11/18 1155 Patient Home Medication List Home Medication List Reviewed: Yes Review of Systems Review of Systems Constitutional: no symptoms reported EENTM: no symptoms reported Respiratory: no symptoms reported Cardiovascular: no symptoms reported Gastrointestinal: see HPI Genitourinary: no symptoms reported Musculoskeletal: see HPI Psychiatric/Neurological: No Symptoms Reported Hematologic/Lymphatic: No Symptoms Reported Immunological/Allergic: no symptoms reported Past Naprwem-Zqemex-Xedtme Hx Past Med/Social Hx: Reviewed and Corrections made Patient Social History Alcohol Use: Denies Use Recreational Drug Use: No Smoking Status: Never a Smoker Recent Foreign Travel: No Contact w/Someone Who Travel: No Recent Infectious Disease Expo: No Recent Hopitalizations: No (SURGERY-BIOPSY 09/2017) Immunizations Up To Date Tetanus Booster (TDap): Less than 5yrs PED Vaccines UTD: Yes Seasonal Allergies Seasonal Allergies: Yes Past Medical History Surgeries: Yes (ABD HERNIA, COLON RESECTION, RIGHT TKR, PORT placed and removed ) Abdominal, Orthopedic Respiratory: Yes Asthma Cardiac: Yes (murmur as a child) Hypertension Neurological: No Reproductive Disorders: No Sexually Transmitted Disease: No HIV/AIDS: No Genitourinary: No Gastrointestinal: Yes (mesenteric mass) Gastroesophageal Reflux, Chronic Diarrhea Musculoskeletal: Yes Arthritis, Chronic Back Pain Endocrine: No HEENT: No Loss of Vision: Denies Hearing Impairment: Denies Cancer: Yes Colon Did You Recieve Any Treatments: Yes What Type of Treatment Did You: Chemotherapy, Surgical Intervention Psychosocial: No Integumentary: No Blood Disorders: No Adverse Reaction/Blood Tranf: No Family Medical History Reviewed Nursing Family Hx FH: breast cancer 19 MOTHER FH: cirrhosis G8 SISTER Hypertension G8 SISTER Physical Exam Vital Signs Vital Signs - First Documented 01/11/18 09:45 Temp 98.1 Pulse 102 Resp 20 B/P (MAP) 141/101 (114) Pulse Ox 96 O2 Delivery Room Air Capillary Refill : Less Than 3 Seconds Height, Weight, BMI Height: 5'7.00" Weight: 215lbs. 0.0oz. 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 Skin: Normal Color, Warm/Dry Progress/Results/Core Measures Suspected Sepsis Recent Fever Within 48 Hours: Yes Infection Criteria Present: Suspected New Infection New/Unexplained Altered Menta: No Sepsis Screen: Possible Sepsis Risk SIRS Temperature:98.1 Pulse: 102 Respiratory Rate: 20 Laboratory Tests 01/11/18 10:10: White Blood Count 4.8 Blood Pressure 141 /101 Mean: 114 Laboratory Tests 01/11/18 10:10: Creatinine 1.33H, Platelet Count 102L, Total Bilirubin 0.9 Results/Orders Lab Results Laboratory Tests Test 01/11/18 10:10 01/11/18 10:30 Range/Units White Blood Count 4.8 4.3-11.0 10^3/uL Red Blood Count 5.00 4.35-5.85 10^6/uL Hemoglobin 16.4 13.3-17.7 G/DL Hematocrit 46 40-54 % Mean Corpuscular Volume 93 80-99 FL Mean Corpuscular Hemoglobin 33 25-34 PG Mean Corpuscular Hemoglobin Concent 35 32-36 G/DL Red Cell Distribution Width 15.5 H 10.0-14.5 % Platelet Count 102 L 130-400 10^3/uL Mean Platelet Volume 9.5 7.4-10.4 FL Neutrophils (%) (Auto) 49 42-75 % Lymphocytes (%) (Auto) 34 12-44 % Monocytes (%) (Auto) 17 H 0-12 % Eosinophils (%) (Auto) 0 0-10 % Basophils (%) (Auto) 0 0-10 % Neutrophils # (Auto) 2.4 1.8-7.8 X 10^3 Lymphocytes # (Auto) 1.7 1.0-4.0 X 10^3 Monocytes # (Auto) 0.8 0.0-1.0 X 10^3 Eosinophils # (Auto) 0.0 0.0-0.3 10^3/uL Basophils # (Auto) 0.0 0.0-0.1 10^3/uL Sodium Level 140 135-145 MMOL/L Potassium Level 4.0 3.6-5.0 MMOL/L Chloride Level 106 98-107 MMOL/L Carbon Dioxide Level 22 21-32 MMOL/L Anion Gap 12 5-14 MMOL/L Blood Urea Nitrogen 23 H 7-18 MG/DL Creatinine 1.33 H 0.60-1.30 MG/DL Estimat Glomerular Filtration Rate 55 BUN/Creatinine Ratio 17 Glucose Level 113 H 70-105 MG/DL Calcium Level 9.1 8.5-10.1 MG/DL Corrected Calcium 9.4 8.5-10.1 MG/DL Magnesium Level 2.4 1.8-2.4 MG/DL Total Bilirubin 0.9 0.1-1.0 MG/DL Aspartate Amino Transf (AST/SGOT) 27 5-34 U/L Alanine Aminotransferase (ALT/SGPT) 31 0-55 U/L Alkaline Phosphatase 46 40-136 U/L Total Protein 6.4 6.4-8.2 GM/DL Albumin 3.6 3.2-4.5 GM/DL Lipase 65 8-78 U/L Urine Color YELLOW Urine Clarity CLEAR Urine pH 5 5-9 Urine Specific [place] 1.030 H 1.016-1.022 Urine Protein NEGATIVE NEGATIVE Urine Glucose (UA) NEGATIVE NEGATIVE Urine Ketones NEGATIVE NEGATIVE Urine Nitrite NEGATIVE NEGATIVE Urine Bilirubin NEGATIVE NEGATIVE Urine Urobilinogen NORMAL NORMAL MG/DL Urine Leukocyte Esterase NEGATIVE NEGATIVE Urine RBC (Auto) NEGATIVE NEGATIVE Urine RBC RARE /HPF Urine WBC NONE /HPF Urine Squamous Epithelial Cells RARE /HPF Urine Crystals PRESENT H /LPF Urine Calcium Oxalate Crystals MODERATE H /LPF Urine Bacteria NEGATIVE /HPF Urine Casts NONE /LPF Urine Mucus NEGATIVE /LPF Urine Culture Indicated NO My Orders Orders - JOYA ESQUIVEL MD Cbc With Automated Diff (01/11/18 10:06) Comprehensive Metabolic Panel (01/11/18 10:06) Lipase (01/11/18 10:06) Magnesium (01/11/18 10:06) Ua Culture If Indicated (01/11/18 10:06) Ns Iv 1000 Ml (Sodium Chloride 0.9%) (01/11/18 10:06) Ondansetron Injection (Zofran Injectio (01/11/18 10:15) Morphine Injection (Morphine Injection (01/11/18 10:15) Morphine Injection (Morphine Injection (01/11/18 11:15) Medications Given in ED Current Medications Medications Dose Ordered Sig/Ross Route Start Time Stop Time Status Last Admin Dose Admin Morphine Sulfate 5 mg ONCE ONCE IVP 01/11/18 10:15 01/11/18 10:16 DC 01/11/18 10:19 5 MG Morphine Sulfate 5 mg ONCE ONCE IVP 01/11/18 11:15 01/11/18 11:16 DC 01/11/18 11:25 5 MG Ondansetron HCl 8 mg ONCE ONCE IVP 01/11/18 10:15 01/11/18 10:16 DC 01/11/18 10:19 8 MG Sodium Chloride 1,000 ml @ 0 mls/hr Q0M ONCE IV 01/11/18 10:06 01/11/18 10:08 DC 01/11/18 10:19 1,000 MLS/HR Vital Signs/I&O 01/11/18 01/11/18 01/11/18 01/11/18 09:45 10:19 11:25 12:02 Temp 98.1 98.1 98.1 98.1 Pulse 102 69 Resp 20 20 B/P (MAP) 141/101 (114) 143/93 (110) Pulse Ox 96 96 O2 Delivery Room Air Room Air Capillary Refill : Less Than 3 Seconds Blood Pressure Mean: 114 Progress Note : Progress Note Labs were evaluated. Patient was hydrated with a liter of IV normal saline. Pain was treated with 2 doses of morphine. Patient was requesting prescriptions for more narcotics. Review of tracks noted that he recently filled and oxycodone prescription. He had several days left before time for renewal. Patient then admitted he used all of his supply. Patient states Zofran has never worked well for controlling nausea. He was given a small prescription for promethazine. I declined to prescribe any narcotic pain medications as he has been receiving narcotics routinely from the cancer center. He will need to address his need for pain management with his primary team. Patient also described problems with taste and dryness in the mouth associated with chemotherapy. I asked him to address this with Dr. Hagen. Departure Impression Primary Impression: Generalized pain Additional Impressions: Colon cancer Qualified Codes: C18.9 - Malignant neoplasm of colon, unspecified Chemotherapy adverse reaction Qualified Codes: T45.1X5A - Adverse effect of antineoplastic and immunosuppressive drugs, initial encounter Nausea vomiting and diarrhea Disposition: 01 HOME, SELF-CARE Condition: Improved Departure-Patient Inst. Decision time for Depature: 11:51 Referrals: ANIRUDH ZAPIEN DO (PCP) Primary Care Physician Patient Instructions: Chemotherapy, Nausea and Vomiting, Adult Add. Discharge Instructions: Drink plenty of clear liquids. Keep with a clear liquid diet today. Advance your diet with small quantities of bland food starting tomorrow if tolerating clear liquids well. Follow-up with Dr. Hagen or your primary care provider for further instructions on chronic pain management and management of symptoms related to chemotherapy. Return to the emergency room if you have worsening symptoms despite treatment. You may use Phenergan (promethazine) as prescribed in addition to Zofran ( ondansetron) for treatment of nausea and vomiting. All discharge instructions reviewed with patient and/or family. Voiced understanding. Scripts Sucralfate (Carafate) 1 Gm/10 Ml Oral.susp 1 GM PO QID, #1200 ML Substitute tabs to crush and slurry if liquid not covered. Prov: JOYA ESQUIVEL MD 01/11/18 Promethazine HCl (Promethazine Tablet) 25 Mg Tablet 25 MG PO Q6H PRN for NAUSEA/VOMITING, #10 TAB Prov: JOYA ESQUIVEL MD 01/11/18 Copy Copies To 1: AI HAGEN MD Copies To 2: SHAREE VIEYRA JOSHUA T MD Jan 11, 2018 11:56
[2018-01-11 12:02] VITALS: BP 143/93
== END 2018-01-11 12:02 | disposition home or self-care (01) ==
LOC: EDUNIT# 09:37 → ER 09:38
DX: R10.84 Generalized abdominal pain (principal); R11.2 Nausea with vomiting, unspecified; R19.7 Diarrhea, unspecified; C18.9 Malignant neoplasm of colon, unspecified; T45.1X5A Adverse effect of antineoplastic and immunosuppressive drugs, initial encounter; J45.909 Unspecified asthma, uncomplicated; K21.9 Gastro-esophageal reflux disease without esophagitis; I10 Essential (primary) hypertension; Z87.19 Personal history of other diseases of the digestive system; Z80.3 Family history of malignant neoplasm of breast; Z90.49 Acquired absence of other specified parts of digestive tract; Y84.2 Radiological procedure and radiotherapy as the cause of abnormal reaction of the patient, or of later complication, without mention of misadventure at the time of the procedure
CPT/HCPCS: 36415; 80053; 81000; 83690; 83735; 85025; 96361; 96374; 96375; 96376

== ENCOUNTER → 2018-02-21 | Outpatient (CLI) | payer MEDICARE, MEDICAID ==
[~2018-02-21] MED LIST changes: +IOHEXOL 240 MGI/ML 20 ML (OMNIPAQUE) VIAL IV ONE; +PROM25TA14 PO; +RT-ALBUTEROL SULF 2.5 MG/3 ML PRE-MIX VIAL ONE; +SUCR1ORA5 PO
--- NOTE | 2018-02-21 13:22 | Diagnostic Imaging Report ---
INDICATION: Malfunctioning right chest wall port. FINDINGS: Patient was brought to fluoroscopy and placed on table in the supine position. The patient's right chest wall port was already accessed upon presentation to our department. Small amount of blood was easily aspirated. A spot film over the chest does show a right IJ port with tip overlying the SVC. No kinking or interruption of the tubing is seen. Contrast was then slowly injected into the port. There is normal free flow of contrast from the catheter tip into the SVC and right atrium. No abnormal accumulation of contrast is identified. No extravasation is seen to suggest catheter fracture. 36 seconds of fluoroscopy was utilized. IMPRESSION: Normal functioning right chest wall port. Dictated by: Dictated on workstation # [id number]
== END ==
LOC: ONC 11:27
PROVIDERS: ATTEND Internal Medicine Hematology & Oncology
DX: T82.9XXA Unspecified complication of cardiac and vascular prosthetic device, implant and graft, initial encounter (principal); Z95.828 Presence of other vascular implants and grafts
CPT/HCPCS: 36598

== ENCOUNTER 2018-03-14 09:09 | Outpatient (RCR) | payer MEDICARE, MEDICAID ==
[2017-12-27 11:18] LABS: BASOPHILS % (AUTO) 0 % (0-10); EOSINOPHILS % (AUTO) 1 % (0-10); HEMATOCRIT 44 % (40-54); HEMOGLOBIN 16.1 G/DL (13.3-17.7); LYMPHOCYTES # (AUTO) 1.1 X 10^3 (1.0-4.0); LYMPHOCYTES % (AUTO) 23 % (12-44); MEAN CORPUSCULAR HEMOGLOBIN 34 PG (25-34); MEAN CORPUSCULAR HGB CONC 37 G/DL (32-36); MEAN CORPUSCULAR VOLUME 92 FL (80-99); MONOCYTES # (AUTO) 0.4 X 10^3 (0.0-1.0); MONOCYTES % (AUTO) 9 % (0-12); NEUTROPHILS # (AUTO) 3.2 X 10^3 (1.8-7.8); NEUTROPHILS % (AUTO) 67 % (42-75); PLATELET COUNT 124 10^3/uL (130-400); RED BLOOD COUNT 4.78 10^6/uL (4.35-5.85); RED CELL DISTRIBUTION WIDTH 13.9 % (10.0-14.5); WHITE BLOOD COUNT 4.7 10^3/uL (4.3-11.0)
[2017-12-27 11:39] LABS: ALANINE AMINOTRANSFERASE 28 U/L (0-55); ALBUMIN 3.9 GM/DL (3.2-4.5); ALKALINE PHOSPHATASE 55 U/L (40-136); BILIRUBIN,TOTAL 0.9 MG/DL (0.1-1.0); BUN/CREATININE RATIO 14; CALCIUM 9.5 MG/DL (8.5-10.1); CARBON DIOXIDE 21 MMOL/L (21-32); CHLORIDE 106 MMOL/L (98-107); CREATININE SERUM 1.16 MG/DL (0.60-1.30); GFR ESTIMATED > 60; GLUCOSE 131 MG/DL (70-105); SODIUM 137 MMOL/L (135-145); TOTAL PROTEIN 7.1 GM/DL (6.4-8.2)
[2018-01-03 11:52] LABS: BASOPHILS % (AUTO) 0 % (0-10); EOSINOPHILS % (AUTO) 0 % (0-10); HEMATOCRIT 44 % (40-54); HEMOGLOBIN 16.4 G/DL (13.3-17.7); LYMPHOCYTES # (AUTO) 0.6 X 10^3 (1.0-4.0); LYMPHOCYTES % (AUTO) 14 % (12-44); MEAN CORPUSCULAR HEMOGLOBIN 33 PG (25-34); MEAN CORPUSCULAR HGB CONC 37 G/DL (32-36); MEAN CORPUSCULAR VOLUME 90 FL (80-99); MEAN PLATELET VOLUME 9.8 FL (7.4-10.4); MONOCYTES # (AUTO) 0.3 X 10^3 (0.0-1.0); MONOCYTES % (AUTO) 7 % (0-12); NEUTROPHILS # (AUTO) 3.5 X 10^3 (1.8-7.8); NEUTROPHILS % (AUTO) 79 % (42-75); PLATELET COUNT 180 10^3/uL (130-400); RED BLOOD COUNT 4.96 10^6/uL (4.35-5.85); RED CELL DISTRIBUTION WIDTH 14.1 % (10.0-14.5); WHITE BLOOD COUNT 4.4 10^3/uL (4.3-11.0)
[2018-01-03 12:00] LABS: BUN/CREATININE RATIO 19; CARBON DIOXIDE 19 MMOL/L (21-32); CHLORIDE 105 MMOL/L (98-107); CREATININE SERUM 1.16 MG/DL (0.60-1.30); GFR ESTIMATED > 60; GLUCOSE 164 MG/DL (70-105); POTASSIUM 4.3 MMOL/L (3.6-5.0); SODIUM 133 MMOL/L (135-145)
[2018-01-17 14:03] LABS: BASOPHILS % (AUTO) 0 % (0-10); EOSINOPHILS % (AUTO) 1 % (0-10); HEMATOCRIT 41 % (40-54); HEMOGLOBIN 14.6 G/DL (13.3-17.7); LYMPHOCYTES # (AUTO) 1.1 X 10^3 (1.0-4.0); LYMPHOCYTES % (AUTO) 31 % (12-44); MEAN CORPUSCULAR HEMOGLOBIN 33 PG (25-34); MEAN CORPUSCULAR HGB CONC 36 G/DL (32-36); MEAN CORPUSCULAR VOLUME 93 FL (80-99); MEAN PLATELET VOLUME 8.6 FL (7.4-10.4); MONOCYTES # (AUTO) 0.5 X 10^3 (0.0-1.0); MONOCYTES % (AUTO) 14 % (0-12); NEUTROPHILS # (AUTO) 1.9 X 10^3 (1.8-7.8); NEUTROPHILS % (AUTO) 54 % (42-75); PLATELET COUNT 137 10^3/uL (130-400); WHITE BLOOD COUNT 3.5 10^3/uL (4.3-11.0)
[2018-01-17 14:33] LABS: BUN/CREATININE RATIO 9; CARBON DIOXIDE 22 MMOL/L (21-32); CHLORIDE 107 MMOL/L (98-107); CREATININE SERUM 1.22 MG/DL (0.60-1.30); GFR ESTIMATED > 60; GLUCOSE 111 MG/DL (70-105); POTASSIUM 4.1 MMOL/L (3.6-5.0); SODIUM 140 MMOL/L (135-145)
[2018-02-07 08:55] LABS: BASOPHILS % (AUTO) 1 % (0-10); EOSINOPHILS # (AUTO) 0.1 10^3/uL (0.0-0.3); EOSINOPHILS % (AUTO) 1 % (0-10); HEMATOCRIT 43 % (40-54); HEMOGLOBIN 15.1 G/DL (13.3-17.7); LYMPHOCYTES # (AUTO) 1.5 X 10^3 (1.0-4.0); LYMPHOCYTES % (AUTO) 25 % (12-44); MEAN CORPUSCULAR HEMOGLOBIN 33 PG (25-34); MEAN CORPUSCULAR HGB CONC 35 G/DL (32-36); MEAN CORPUSCULAR VOLUME 93 FL (80-99); MONOCYTES # (AUTO) 0.6 X 10^3 (0.0-1.0); MONOCYTES % (AUTO) 11 % (0-12); NEUTROPHILS # (AUTO) 3.7 X 10^3 (1.8-7.8); NEUTROPHILS % (AUTO) 63 % (42-75); PLATELET COUNT 208 10^3/uL (130-400); RED BLOOD COUNT 4.63 10^6/uL (4.35-5.85); WHITE BLOOD COUNT 5.9 10^3/uL (4.3-11.0)
[2018-02-07 09:14] LABS: ALANINE AMINOTRANSFERASE 23 U/L (0-55); ALKALINE PHOSPHATASE 61 U/L (40-136); BILIRUBIN,TOTAL 0.7 MG/DL (0.1-1.0); BUN/CREATININE RATIO 10; CALCIUM 9.5 MG/DL (8.5-10.1); CARBON DIOXIDE 21 MMOL/L (21-32); CHLORIDE 108 MMOL/L (98-107); CREATININE SERUM 1.13 MG/DL (0.60-1.30); GFR ESTIMATED > 60; GLUCOSE 119 MG/DL (70-105); POTASSIUM 3.9 MMOL/L (3.6-5.0); SODIUM 138 MMOL/L (135-145); TOTAL PROTEIN 6.9 GM/DL (6.4-8.2)
[2018-02-14 09:08] LABS: BASOPHILS % (AUTO) 0 % (0-10); EOSINOPHILS # (AUTO) 0.1 10^3/uL (0.0-0.3); EOSINOPHILS % (AUTO) 1 % (0-10); HEMATOCRIT 45 % (40-54); HEMOGLOBIN 15.8 G/DL (13.3-17.7); LYMPHOCYTES # (AUTO) 1.5 X 10^3 (1.0-4.0); LYMPHOCYTES % (AUTO) 29 % (12-44); MEAN CORPUSCULAR HEMOGLOBIN 32 PG (25-34); MEAN CORPUSCULAR HGB CONC 35 G/DL (32-36); MEAN CORPUSCULAR VOLUME 92 FL (80-99); MEAN PLATELET VOLUME 9.6 FL (7.4-10.4); MONOCYTES # (AUTO) 0.3 X 10^3 (0.0-1.0); MONOCYTES % (AUTO) 5 % (0-12); NEUTROPHILS # (AUTO) 3.3 X 10^3 (1.8-7.8); NEUTROPHILS % (AUTO) 65 % (42-75); PLATELET COUNT 181 10^3/uL (130-400); RED BLOOD COUNT 4.94 10^6/uL (4.35-5.85); RED CELL DISTRIBUTION WIDTH 13.5 % (10.0-14.5)
[2018-02-14 09:26] LABS: BUN/CREATININE RATIO 12; CALCIUM 9.6 MG/DL (8.5-10.1); CARBON DIOXIDE 21 MMOL/L (21-32); CHLORIDE 104 MMOL/L (98-107); GFR ESTIMATED > 60; GLUCOSE 119 MG/DL (70-105); POTASSIUM 4.5 MMOL/L (3.6-5.0); SODIUM 134 MMOL/L (135-145)
[2018-02-21 12:13] LABS: BASOPHILS % (AUTO) 1 % (0-10); EOSINOPHILS # (AUTO) 0.1 10^3/uL (0.0-0.3); EOSINOPHILS % (AUTO) 2 % (0-10); HEMATOCRIT 41 % (40-54); HEMOGLOBIN 14.5 G/DL (13.3-17.7); LYMPHOCYTES # (AUTO) 1.6 X 10^3 (1.0-4.0); LYMPHOCYTES % (AUTO) 35 % (12-44); MEAN CORPUSCULAR HEMOGLOBIN 33 PG (25-34); MEAN CORPUSCULAR HGB CONC 36 G/DL (32-36); MEAN CORPUSCULAR VOLUME 93 FL (80-99); MEAN PLATELET VOLUME 9.1 FL (7.4-10.4); MONOCYTES # (AUTO) 0.6 X 10^3 (0.0-1.0); MONOCYTES % (AUTO) 13 % (0-12); NEUTROPHILS # (AUTO) 2.3 X 10^3 (1.8-7.8); NEUTROPHILS % (AUTO) 50 % (42-75); PLATELET COUNT 175 10^3/uL (130-400); RED CELL DISTRIBUTION WIDTH 13.7 % (10.0-14.5); WHITE BLOOD COUNT 4.6 10^3/uL (4.3-11.0)
[2018-02-21 12:32] LABS: BUN/CREATININE RATIO 12; CALCIUM 9.5 MG/DL (8.5-10.1); CARBON DIOXIDE 21 MMOL/L (21-32); CHLORIDE 106 MMOL/L (98-107); CREATININE SERUM 0.97 MG/DL (0.60-1.30); GFR ESTIMATED > 60; GLUCOSE 126 MG/DL (70-105); POTASSIUM 4.5 MMOL/L (3.6-5.0); SODIUM 138 MMOL/L (135-145)
[2018-02-28 09:31] LABS: BASOPHILS % (AUTO) 1 % (0-10); EOSINOPHILS # (AUTO) 0.1 10^3/uL (0.0-0.3); EOSINOPHILS % (AUTO) 2 % (0-10); HEMATOCRIT 45 % (40-54); HEMOGLOBIN 15.7 G/DL (13.3-17.7); LYMPHOCYTES # (AUTO) 1.5 X 10^3 (1.0-4.0); LYMPHOCYTES % (AUTO) 45 % (12-44); MEAN CORPUSCULAR HEMOGLOBIN 32 PG (25-34); MEAN CORPUSCULAR HGB CONC 35 G/DL (32-36); MEAN CORPUSCULAR VOLUME 91 FL (80-99); MEAN PLATELET VOLUME 9.3 FL (7.4-10.4); MONOCYTES # (AUTO) 0.4 X 10^3 (0.0-1.0); MONOCYTES % (AUTO) 13 % (0-12); NEUTROPHILS # (AUTO) 1.3 X 10^3 (1.8-7.8); NEUTROPHILS % (AUTO) 40 % (42-75); PLATELET COUNT 221 10^3/uL (130-400); RED BLOOD COUNT 4.91 10^6/uL (4.35-5.85); RED CELL DISTRIBUTION WIDTH 13.2 % (10.0-14.5); WHITE BLOOD COUNT 3.3 10^3/uL (4.3-11.0)
[2018-02-28 09:39] LABS: BUN/CREATININE RATIO 13; CALCIUM 9.7 MG/DL (8.5-10.1); CARBON DIOXIDE 22 MMOL/L (21-32); CHLORIDE 106 MMOL/L (98-107); CREATININE SERUM 1.07 MG/DL (0.60-1.30); GFR ESTIMATED > 60; GLUCOSE 121 MG/DL (70-105); POTASSIUM 4.6 MMOL/L (3.6-5.0); SODIUM 137 MMOL/L (135-145)
[2018-03-07 09:51] LABS: BASOPHILS % (AUTO) 1 % (0-10); EOSINOPHILS % (AUTO) 1 % (0-10); HEMATOCRIT 46 % (40-54); LYMPHOCYTES # (AUTO) 1.5 X 10^3 (1.0-4.0); LYMPHOCYTES % (AUTO) 31 % (12-44); MEAN CORPUSCULAR HEMOGLOBIN 32 PG (25-34); MEAN CORPUSCULAR HGB CONC 35 G/DL (32-36); MEAN CORPUSCULAR VOLUME 91 FL (80-99); MEAN PLATELET VOLUME 8.9 FL (7.4-10.4); MONOCYTES # (AUTO) 0.4 X 10^3 (0.0-1.0); MONOCYTES % (AUTO) 8 % (0-12); NEUTROPHILS # (AUTO) 2.8 X 10^3 (1.8-7.8); NEUTROPHILS % (AUTO) 59 % (42-75); PLATELET COUNT 200 10^3/uL (130-400); RED BLOOD COUNT 5.06 10^6/uL (4.35-5.85); WHITE BLOOD COUNT 4.7 10^3/uL (4.3-11.0)
[2018-03-07 10:11] LABS: ALANINE AMINOTRANSFERASE 43 U/L (0-55); ALKALINE PHOSPHATASE 74 U/L (40-136); BILIRUBIN,TOTAL 0.6 MG/DL (0.1-1.0); BUN/CREATININE RATIO 7; CALCIUM 9.6 MG/DL (8.5-10.1); CARBON DIOXIDE 20 MMOL/L (21-32); CHLORIDE 106 MMOL/L (98-107); CREATININE SERUM 1.08 MG/DL (0.60-1.30); GFR ESTIMATED > 60; GLUCOSE 141 MG/DL (70-105); POTASSIUM 4.3 MMOL/L (3.6-5.0); SODIUM 137 MMOL/L (135-145); TOTAL PROTEIN 7.1 GM/DL (6.4-8.2)
[~2018-03-14] VITALS: Ht 172.7 cm; Wt 100.2 kg
[~2018-03-14 09:09] MED LIST changes: +ACETAMINOPHEN 325 MG TAB (TYLENOL) CANCER CTR ONE; +ALTEPLASE 2 MG (CATHFLO) CANCER CENTER IV ONE; +BEVACIZUMAB INJECTION 400 MG, BEVACIZUMAB INJECTION 50 MG in NS (IVPB) CANCER CENTER 10... IV SCH; +FLUOROURACIL 0.8 GM in SYRINGE-IVPB 1 SYRINGE IV SCH; +FLUOROURACIL 4,800 MG in NS (IVPB) CANCER CENTER 51.2 ML IV SCH; -IOHEXOL 240 MGI/ML 20 ML (OMNIPAQUE) VIAL IV ONE; +LEUCOVORIN CALCIUM IV SCH; +NS IV 1000 ML (CANCER CTR) IV SCH; +NS IV SCH; +ONDANSETRON 8 MG, DEXAMETHASONE 4 MG/NS 50 ML IVPB (Cancer Ctr) IV SCH; +PALONOSETRON HCL 0.25 MG, DEXAMETHASONE INJECTION 10 MG in NS (IVPB) CANCER CENTER 50 ML IV SCH; -RT-ALBUTEROL SULF 2.5 MG/3 ML PRE-MIX VIAL ONE
[2018-03-14 09:31] LABS: BASOPHILS % (AUTO) 0 % (0-10); EOSINOPHILS # (AUTO) 0.1 10^3/uL (0.0-0.3); EOSINOPHILS % (AUTO) 1 % (0-10); HEMATOCRIT 43 % (40-54); HEMOGLOBIN 14.9 G/DL (13.3-17.7); LYMPHOCYTES # (AUTO) 1.5 X 10^3 (1.0-4.0); LYMPHOCYTES % (AUTO) 41 % (12-44); MEAN CORPUSCULAR HEMOGLOBIN 32 PG (25-34); MEAN CORPUSCULAR HGB CONC 35 G/DL (32-36); MEAN CORPUSCULAR VOLUME 91 FL (80-99); MEAN PLATELET VOLUME 9.7 FL (7.4-10.4); MONOCYTES # (AUTO) 0.4 X 10^3 (0.0-1.0); MONOCYTES % (AUTO) 12 % (0-12); NEUTROPHILS # (AUTO) 1.6 X 10^3 (1.8-7.8); NEUTROPHILS % (AUTO) 46 % (42-75); PLATELET COUNT 147 10^3/uL (130-400); RED BLOOD COUNT 4.65 10^6/uL (4.35-5.85); RED CELL DISTRIBUTION WIDTH 13.3 % (10.0-14.5); WHITE BLOOD COUNT 3.6 10^3/uL (4.3-11.0)
[2018-03-14 09:50] LABS: BUN/CREATININE RATIO 13; CALCIUM 9.1 MG/DL (8.5-10.1); CARBON DIOXIDE 21 MMOL/L (21-32); CHLORIDE 106 MMOL/L (98-107); CREATININE SERUM 1.06 MG/DL (0.60-1.30); GFR ESTIMATED > 60; GLUCOSE 101 MG/DL (70-105); SODIUM 138 MMOL/L (135-145)
[2018-03-14 09:53] LABS: POTASSIUM 4.2 MMOL/L (3.6-5.0)
== END 2018-03-27 | disposition home or self-care (01) ==
LOC: ONC 09:09
PROVIDERS: ATTEND Internal Medicine Hematology & Oncology
DX: C18.3 Malignant neoplasm of hepatic flexure (principal); C77.2 Secondary and unspecified malignant neoplasm of intra-abdominal lymph nodes; D69.59 Other secondary thrombocytopenia; D75.1 Secondary polycythemia; J45.909 Unspecified asthma, uncomplicated; F32.9 Major depressive disorder, single episode, unspecified; I10 Essential (primary) hypertension; K21.9 Gastro-esophageal reflux disease without esophagitis; Z87.891 Personal history of nicotine dependence; Z79.899 Other long term (current) drug therapy
CPT/HCPCS: 36415; 36591; 36593; 80048; 80053; 85025; 96367; 96374; 96375; 96409; 96411

== ENCOUNTER 2018-04-12 10:10 | Day surgery (SDC) | payer MEDICARE, MEDICAID ==
[~2018-04-12] VITALS: Ht 170.2 cm; Wt 97.5 kg
[2018-04-12] VITALS (12 sets, daily range): BP systolic 117–157; BP diastolic 74–98
[2018-04-12 08:05] LABS: HEMOGLOBIN 16.3 G/DL (13.3-17.7); MEAN PLATELET VOLUME 9.8 FL (7.4-10.4); RED BLOOD COUNT 5.3 10^6/uL (4.35-5.85); RED CELL DISTRIBUTION WIDTH 13.5 % (10.0-14.5); WHITE BLOOD COUNT 8.1 10^3/uL (4.3-11.0)
[2018-04-12 08:15] LABS: PROTHROMBIN TIME PATIENT 13.6 SEC (12.2-14.7)
[~2018-04-12 10:10] MED LIST changes: -ACETAMINOPHEN 325 MG TAB (TYLENOL) CANCER CTR ONE; -ALTEPLASE 2 MG (CATHFLO) CANCER CENTER IV ONE; -BEVACIZUMAB INJECTION 400 MG, BEVACIZUMAB INJECTION 50 MG in NS (IVPB) CANCER CENTER 10... IV SCH; -FLUOROURACIL 0.8 GM in SYRINGE-IVPB 1 SYRINGE IV SCH; -FLUOROURACIL 4,800 MG in NS (IVPB) CANCER CENTER 51.2 ML IV SCH; -LEUCOVORIN CALCIUM IV SCH; +LIDOCAINE 1% INJ 20 ML 20 ML VIAL INJ ONE; +MIDAZOLAM 2 MG/2 ML (VERSED) VIAL IVP ONE; -NS IV 1000 ML (CANCER CTR) IV SCH; +NS IV 1000 ML 1,000 ML IV STA; -NS IV SCH; -ONDANSETRON 8 MG, DEXAMETHASONE 4 MG/NS 50 ML IVPB (Cancer Ctr) IV SCH; -PALONOSETRON HCL 0.25 MG, DEXAMETHASONE INJECTION 10 MG in NS (IVPB) CANCER CENTER 50 ML IV SCH; +fentaNYL INJECTION 100 MCG/2 ML AMP IVP ONE
[2018-04-12] MEDS ORDERED: HYDROcodone/APAP 5 MG/325 MG (LORTAB) TAB PO PRN (10:30)
--- NOTE | 2018-04-12 11:43 | Diagnostic Imaging Report ---
INDICATION: Right abdominal mass. Patient presents for CT-guided biopsy. FINDINGS: Patient was brought to CT suite, placed on table in the supine position. Axial imaging through the abdomen was performed to evaluate appropriate entry site. The right abdomen was then prepped and draped in usual sterile fashion. Small amount of 1% lidocaine was utilized for local anesthesia. 18-gauge coaxial Temno needle was advanced, placed with its tip adjacent to the nodule in the right anterior abdomen. Total of four core biopsies were obtained. Needle was withdrawn and hemostasis was obtained. Patient tolerated the procedure well and left the department in stable condition. IMPRESSION: CT-guided core biopsy of the soft tissue nodule in the anterior right abdomen, as described. Pathology results are currently pending. Dictated by: Dictated on workstation # [id number]
[2018-04-12] MEDS ORDERED: HEParin (CENTRAL IV FLUSH) 500 UNIT/5 ML SYR ONE (13:54)
[2018-04-12] MEDS ORDERED: HEParin (CENTRAL IV FLUSH) 500 UNIT/5 ML SYR IV ONE (15:00)
== END 2018-04-12 14:05 | disposition home or self-care (01) ==
LOC: SDC 10:10
PROVIDERS: ATTEND Internal Medicine Hematology & Oncology
DX: C79.89 Secondary malignant neoplasm of other specified sites (principal); C18.3 Malignant neoplasm of hepatic flexure; I10 Essential (primary) hypertension; J45.909 Unspecified asthma, uncomplicated; K21.9 Gastro-esophageal reflux disease without esophagitis; E66.9 Obesity, unspecified; Z68.33 Body mass index [BMI] 33.0-33.9, adult; Z87.891 Personal history of nicotine dependence; Z79.891 Long term (current) use of opiate analgesic; Z79.899 Other long term (current) drug therapy
CPT/HCPCS: 36415; 77012; 85027; 85610; 85730

== ENCOUNTER → 2018-05-21 | Outpatient (CLI) | payer MEDICARE, MEDICAID ==
[~2018-05-21] MED LIST changes: -LIDOCAINE 1% INJ 20 ML 20 ML VIAL INJ ONE; -MIDAZOLAM 2 MG/2 ML (VERSED) VIAL IVP ONE; -NS IV 1000 ML 1,000 ML IV STA; -fentaNYL INJECTION 100 MCG/2 ML AMP IVP ONE
== END ==
LOC: CARD 13:14
PROVIDERS: ATTEND Internal Medicine Cardiovascular Disease
DX: R07.9 Chest pain, unspecified (principal); R06.02 Shortness of breath; I10 Essential (primary) hypertension; C18.2 Malignant neoplasm of ascending colon; I08.1 Rheumatic disorders of both mitral and tricuspid valves
CPT/HCPCS: 93306

== ENCOUNTER → 2018-05-23 | Outpatient (CLI) | payer MEDICARE, MEDICAID ==
[~2018-05-23] MED LIST changes: +CATHETER FLUSH 10 ML SYR IV PRN; +REGADENOSON 0.4 MG/5 ML SYR (LEXISCAN) IV ONE
[2018-05-23 12:59] VITALS: BP 146/88
[2018-05-23 13:03] VITALS: BP 125/85
--- NOTE | 2018-05-23 17:57 | STRESS TEST ---
DATE OF SERVICE: 05/23/2018 LEXISCAN MYOVIEW STRESS TEST REPORT REFERRING PHYSICIAN: [facility]. Baseline heart rate is 78. Baseline blood pressure is 155/94. Baseline EKG is sinus rhythm with no ischemic changes. In summary, the patient was injected with 10.77 mCi of technetium-99 Myoview and the resting images were obtained. Then, the patient received 0.4 mg of Lexiscan followed by 29.4 mCi of technetium-99 Myoview. Throughout the test, there were no EKG changes. The resting and stress images were reviewed and compared in the short axis, horizontal long axis, and vertical long axis views. Review of the images showed diaphragmatic attenuation with typical male pattern. No significant ischemia or infarction. SSS is 2, SDS 0, and TID value 0.95. On the gated images, the left ventricle appeared to be in normal size with subtle hypokinesia noted diffusely. Calculated ejection fraction is 48%. CONCLUSION: 1. The patient tolerated Lexiscan well. 2. Typical male pattern with no significant ischemia or infarction on SPECT images. 3. Normal left ventricular size with mild diffuse left ventricular hypokinesia, calculated ejection fraction is 48%. Job ID: [id number] DocumentID: [id number] Dictated Date: 05/23/2018 15:35:16 Special Needs Child Caregiver Date: 05/23/2018 17:57:27 Dictated By: QUANG VELASQUEZ MD
== END ==
LOC: CARD 10:32
PROVIDERS: ATTEND Internal Medicine Cardiovascular Disease
DX: R07.9 Chest pain, unspecified (principal); R06.02 Shortness of breath; I10 Essential (primary) hypertension; C18.2 Malignant neoplasm of ascending colon
CPT/HCPCS: 78452; 93017

== ENCOUNTER 2018-06-06 13:34 | Outpatient (RCR) | payer MEDICARE, MEDICAID ==
[2018-04-04 09:17] LABS: BASOPHILS % (AUTO) 0 % (0-10); EOSINOPHILS # (AUTO) 0.1 10^3/uL (0.0-0.3); EOSINOPHILS % (AUTO) 2 % (0-10); HEMATOCRIT 47 % (40-54); HEMOGLOBIN 16.3 G/DL (13.3-17.7); LYMPHOCYTES # (AUTO) 1.3 X 10^3 (1.0-4.0); LYMPHOCYTES % (AUTO) 23 % (12-44); MEAN CORPUSCULAR HEMOGLOBIN 32 PG (25-34); MEAN CORPUSCULAR HGB CONC 35 G/DL (32-36); MEAN CORPUSCULAR VOLUME 90 FL (80-99); MEAN PLATELET VOLUME 9.5 FL (7.4-10.4); MONOCYTES # (AUTO) 0.6 X 10^3 (0.0-1.0); MONOCYTES % (AUTO) 11 % (0-12); NEUTROPHILS # (AUTO) 3.6 X 10^3 (1.8-7.8); NEUTROPHILS % (AUTO) 64 % (42-75); PLATELET COUNT 217 10^3/uL (130-400); RED CELL DISTRIBUTION WIDTH 13.5 % (10.0-14.5); WHITE BLOOD COUNT 5.6 10^3/uL (4.3-11.0)
[2018-04-04 09:40] LABS: ALANINE AMINOTRANSFERASE 17 U/L (0-55); ALKALINE PHOSPHATASE 72 U/L (40-136); BILIRUBIN,TOTAL 0.5 MG/DL (0.1-1.0); BUN/CREATININE RATIO 13; CALCIUM 9.9 MG/DL (8.5-10.1); CARBON DIOXIDE 22 MMOL/L (21-32); CHLORIDE 106 MMOL/L (98-107); CREATININE SERUM 1.07 MG/DL (0.60-1.30); GFR ESTIMATED > 60; GLUCOSE 127 MG/DL (70-105); POTASSIUM 4.2 MMOL/L (3.6-5.0); SODIUM 138 MMOL/L (135-145); TOTAL PROTEIN 7.5 GM/DL (6.4-8.2)
[2018-05-29 10:34] LABS: BASOPHILS % (AUTO) 0 % (0-10); EOSINOPHILS # (AUTO) 0.1 10^3/uL (0.0-0.3); EOSINOPHILS % (AUTO) 1 % (0-10); HEMATOCRIT 46 % (40-54); HEMOGLOBIN 16.2 G/DL (13.3-17.7); LYMPHOCYTES # (AUTO) 1.5 X 10^3 (1.0-4.0); LYMPHOCYTES % (AUTO) 21 % (12-44); MEAN CORPUSCULAR HEMOGLOBIN 31 PG (25-34); MEAN CORPUSCULAR HGB CONC 35 G/DL (32-36); MEAN CORPUSCULAR VOLUME 88 FL (80-99); MEAN PLATELET VOLUME 9.6 FL (7.4-10.4); MONOCYTES # (AUTO) 0.6 X 10^3 (0.0-1.0); MONOCYTES % (AUTO) 8 % (0-12); NEUTROPHILS # (AUTO) 5.1 X 10^3 (1.8-7.8); NEUTROPHILS % (AUTO) 71 % (42-75); PLATELET COUNT 178 10^3/uL (130-400); RED CELL DISTRIBUTION WIDTH 14.3 % (10.0-14.5); WHITE BLOOD COUNT 7.2 10^3/uL (4.3-11.0)
[2018-05-29 10:54] LABS: BUN/CREATININE RATIO 11; CALCIUM 9.7 MG/DL (8.5-10.1); CARBON DIOXIDE 22 MMOL/L (21-32); CHLORIDE 105 MMOL/L (98-107); CREATININE SERUM 0.89 MG/DL (0.60-1.30); GFR ESTIMATED > 60; GLUCOSE 175 MG/DL (70-105); SODIUM 137 MMOL/L (135-145)
[~2018-06-06 13:34] MED LIST changes: -CATHETER FLUSH 10 ML SYR IV PRN; -REGADENOSON 0.4 MG/5 ML SYR (LEXISCAN) IV ONE
[2018-06-06] MEDS ORDERED: ALTEPLASE 2 MG (CATHFLO) CANCER CENTER IV ONE (14:00)
[2018-06-06 14:51] LABS: BASOPHILS % (AUTO) 0 % (0-10); EOSINOPHILS % (AUTO) 1 % (0-10); HEMATOCRIT 42 % (40-54); HEMOGLOBIN 14.6 G/DL (13.3-17.7); LYMPHOCYTES # (AUTO) 1.5 X 10^3 (1.0-4.0); LYMPHOCYTES % (AUTO) 31 % (12-44); MEAN CORPUSCULAR HEMOGLOBIN 31 PG (25-34); MEAN CORPUSCULAR HGB CONC 35 G/DL (32-36); MEAN CORPUSCULAR VOLUME 88 FL (80-99); MEAN PLATELET VOLUME 9.1 FL (7.4-10.4); MONOCYTES # (AUTO) 0.4 X 10^3 (0.0-1.0); MONOCYTES % (AUTO) 7 % (0-12); NEUTROPHILS % (AUTO) 61 % (42-75); PLATELET COUNT 191 10^3/uL (130-400); RED CELL DISTRIBUTION WIDTH 14.6 % (10.0-14.5); WHITE BLOOD COUNT 4.9 10^3/uL (4.3-11.0)
[2018-06-06 15:04] LABS: ALANINE AMINOTRANSFERASE 27 U/L (0-55); ALBUMIN 3.7 GM/DL (3.2-4.5); ALKALINE PHOSPHATASE 72 U/L (40-136); BILIRUBIN,TOTAL 0.4 MG/DL (0.1-1.0); BUN/CREATININE RATIO 10; CALCIUM 8.8 MG/DL (8.5-10.1); CARBON DIOXIDE 25 MMOL/L (21-32); CHLORIDE 105 MMOL/L (98-107); GFR ESTIMATED > 60; GLUCOSE 335 MG/DL (70-105); POTASSIUM 4.2 MMOL/L (3.6-5.0); SODIUM 138 MMOL/L (135-145); TOTAL PROTEIN 6.3 GM/DL (6.4-8.2)
[2018-07-03] MEDS ORDERED: HYDR-3820 PO (13:49)
== END 2018-07-03 | disposition home or self-care (01) ==
LOC: ONC 13:34
PROVIDERS: ATTEND Internal Medicine Hematology & Oncology
DX: C18.3 Malignant neoplasm of hepatic flexure (principal); C77.2 Secondary and unspecified malignant neoplasm of intra-abdominal lymph nodes; D69.59 Other secondary thrombocytopenia; D75.1 Secondary polycythemia; J45.909 Unspecified asthma, uncomplicated; F32.9 Major depressive disorder, single episode, unspecified; I10 Essential (primary) hypertension; K21.9 Gastro-esophageal reflux disease without esophagitis; Z87.891 Personal history of nicotine dependence; Z79.899 Other long term (current) drug therapy; Z45.2 Encounter for adjustment and management of vascular access device
CPT/HCPCS: 36415; 36593; 80048; 80053; 85025; 96523; 99213

== ENCOUNTER 2018-07-03 10:59 | Emergency (ER) | payer MEDICARE, MEDICAID ==
[~2018-07-03] VITALS: Ht 170.2 cm; Wt 95.3 kg
--- OUTSIDE RECORDS SUMMARY | 2018-07-03 11:04 | XMS REPORT ---
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 Name Role Phone Migration, Doctor Unavailable Unavailable PROBLEMS Type Condition ICD9-CM Code UBP00-LG Code Onset Dates Condition Status SNOMED Code Problem Other chronic pain G89.29 Active 16278718 Problem Mixed hyperlipidemia E78.2 Active 642679412 Problem Abdominal malignancy C76.2 Active 462777540 Problem Constipation, unspecified constipation type K59.00 Active 97746011 Problem Malignant neoplasm of colon, unspecified part of colon C18.9 Active 925057600 Problem Irregular cardiac rhythm I49.9 Active 315521883 Problem Hypertension, benign I10 Active 78042703 Problem Bipolar disorder, in partial remission, most recent episode depressed F31.75 Active 67349970 Problem Anxiety F41.9 Active 42962331 Problem Lumbago with sciatica, right side M54.41 Active 805871230 Problem Other chronic pain G89.29 Active 53537813 ALLERGIES No Information ENCOUNTERS Encounter Location Date Diagnosis [facility] [id number] [place] [address] May, Vomiting R11.10 ; Diarrhea, unspecified type R19.7 ; Medication side effect T88.7XXA and Malignant neoplasm of colon, unspecified part of colon C18.9 [facility] [id number] [place] [address]9468- 6899 13 Apr, 2018 Irregular cardiac rhythm I49.9 [facility] [id number] [place] [address] Mar, Left upper quadrant pain R10.12 ; Malignant neoplasm of colon, unspecified part of colon C18.9 and Constipation, unspecified constipation type K59.00 [facility] [id number] [place] [address] Feb, Right hip pain M25.551 [facility] [id number] [place] [address]7948- 1242 Jan, Weakness R53.1 ; Frequent headaches R51 and Anxiety F41.9 [facility] [id number] [place] [address] 11249- 0494 Dec, [facility] [address] [address] Dec, Lumbago with sciatica, right side M54.41 ; Other chronic pain G89.29 ; Abnormal behavior R46.89 and Anxiety F41.9 [facility] [address] [address] Nov, [facility] [address] [address]- [address] 13 Nov, 2017 Lumbar neuritis M54.16 and Bipolar disorder, in partial remission, most recent episode depressed F31.75 [facility] [address] [id number] Oct, [facility] [address] [address] Apr, [facility] [address] [address]- [address] Mar, Acute pain of right shoulder M25.511 [facility] [address] [address]- [address] Mar, [facility] [address] [address]- [address]0 Mar, Other chronic pain G89.29 ; Abdominal malignancy C76.2 and Functional diarrhea K59.1 [facility] [address] [address]- [address] Mar, [facility] [address] [address]- [address] Mar, Low back pain M54.5 [facility] [id number] [place] [address]32- 3857 Feb, [place] [address] [address] Jan, Acute pain of right shoulder M25.511 ; Upper back pain on right side M54.9 and Frequent headaches R51 [id number] [place] [address]3979- 6636 Sep, Mixed hyperlipidemia E78.2 [place] [address] [address]- [address] Aug, Bipolar 1 disorder, mixed, mild F31.[address] [address]- [address]479 Aug, [address] [address]- [address] Aug, Bipolar 1 disorder, mixed, mild F31.61 [place] [id number] [place] [address] 28410- 1801 Jun, Bipolar 1 disorder, mixed, mild F31.61 [id number] [place] [address] 03516- 8292 Jun, Pain in left knee M25.562 [id number] [place] [address] 87618- 5267 Jun, Hypertension, benign I10 and Malignant neoplasm of colon, unspecified part of colon C18.9 [address] [address] [id number] [place] [address]6401- 7507 May, Pain in right knee M25.561 and Other chronic pain G89.29 [id number] [place] [address] 16185- 3526 14 May, 2016 Bipolar 1 disorder, mixed, mild F31.61 and 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.[address] [address]- [address] 13 May, 2016 Essential hypertension I10 ; Seasonal allergic rhinitis, unspecified allergic rhinitis trigger J30.2 ; Pain in right knee M25.561 ; Other chronic pain G89.29 and Pain in left knee M25.562 [facility] [id number] [place] [address] 70184- 4864 09 Nov, 2015 Pneumonia of right lower lobe due to infectious organism J18.9 and Pleuritis R09.1 [facility] [id number] [place] [address] 643307- 5954 Oct, Pneumonia of right lower lobe due to infectious organism J18.9 and Pleuritis R09.1 [facility] [id number] [place] [address] 40354- 7366 Jun, [facility] [id number] [place] [address] 19176- 4833 May, [facility] [id number] [place] [address] 88470- 7223 May, Low back pain M54.5 ; Hypertension, benign I10 and Gastroesophageal reflux disease without esophagitis K21.9 [facility] [id number] [place] [address] 08743- 7363 10 Apr, 2015 [facility] [id number] [place] [address] 62208- 3538 Mar, [facility] [id number] [place] [address] 44490- 1051 Feb, [facility] [id number] [place] [address] 06836- 6041 Jan, [facility] [id number] [place] [address] 877737- 4612 Dec, [facility] [id number] [place] [address] 920970- 8446 Nov, [facility] [id number] [place] [address] 32189- 9376 Oct, [facility] [address] [facility] [id number] [place] [address] Oct, [facility] [address] [facility] [id number] [place] [address]- [address]137 Sep, Lumbago 724.2 and Insomnia, unspecified 780.52 [facility] [address] [facility] [id number] [place] [address]- 8648 Sep, [facility] [place] [facility] [address] [facility] [id number] [place] [address]- 6443 Aug, [facility] [address] [facility] [id number] [place] [address]- 3832 Aug, [facility] [place] [facility] [address] [facility] [id number] [place] [address]- 2[address] Jun, [facility] [id number] [place] [address]- 1564 Jun, [facility] [address] [facility] [id number] [place] [address]- 4949 Jun, [facility] [place] [facility] [id number] [place] [address] 9508 May, [facility] [place] [facility] [id number] [place] [address]- [address]236 May, [facility] [place] [facility] [id number] [address]78 Apr, [facility] [place] [facility] [address] [facility] [id number] [place] [address]- 5168 Apr, [facility] [place] [facility] [address] [facility] [id number] [place] [address]- 0816 Apr, [facility] [place] [facility] [address] [facility] [id number] [place] [address]- 9256 Apr, [facility] [place] [facility] [id number] [place] [address]- 6001 Sep, [facility] [place] [facility] [address] [id number] [place] [address]- 8847 Sep, [facility] [place] [facility] [address] [id number] [place] [address]- 7259 Sep, [facility] [place] [facility] [address] [id number] [place] [address]- 3807 Sep, [facility] [place] [facility] [address] [id number] [place] [address]- 4994 July, [facility] [place] [facility] [address] [id number] [place] [address]- 6297 July, [facility] [place] [facility] [address] [id number] [place] [address]- 1482 Jun, [facility] [place] [facility] [address] [id number] [place] [address]- 9832 Jun, [facility] [place] [facility] [address] [id number] [place] [address]- 8567 Feb, [facility] [place] [facility] [address] [id number] [place] [address]- 1382 Feb, [facility] [place] [facility] [address] [id number] [place] [address]- 6731 Jan, [facility] [place] [facility] [address] [id number] [place] [address]- 0262 Jan, [facility] [place] [facility] [address] [id number] [place] [address]- 2586 Aug, [facility] [place] [facility] [address] [id number] [place] [address]- 6018 Aug, [facility] [place] [facility] [address] [id number] [place] [address]- 4479 Aug, [facility] [place] [facility] [address] [id number] [place] [address]- 5673 Aug, [facility] [place] [facility] [address] [id number] [address] July, [facility] [id number] [address]- 119[address] July, [facility] [id number] [address]- 1826 Jun, [facility] [id number] [address]- [address]56 Apr, [facility] [address] [address]- [address]16 Mar, [facility] [address] [address]- 6795 Mar, [facility] [address] [address]- 8374 Mar, [facility] [address] [address]- 1478 Feb, [facility] [address] [address]- 6[address] Feb, [facility] [address] Jan, [facility] [id number] [address] Jan, [facility] [address] [address]- 29[address] Jan, [facility] [address] [address]- 0998 Jan, IMMUNIZATIONS No Known Immunizations SOCIAL HISTORY Never Assessed REASON FOR VISIT EMR-[facility] PLAN OF CARE VITAL SIGNS MEDICATIONS Medication Instructions Dosage Frequency Start Date End Date Duration Status amlodipine 5 mg take 1 tablet by Oral route 1 time per day May, Active Frank[place] 7.5-325 mg take 1 tablet by oral route every 6 hours as needed for pain May, Active Omeprazole 20 mg take 1 capsule (20 mg) by oral route once daily before a meal Sep, Active Ativan 2 mg take 2 tablets (4 mg) by oral route once daily at bedtime as needed PRN Sep, Active Colace 100 mg 1 capsule by Oral route 2 times per day PRN May, Active PredniSONE 20 mg 2 tablet by Oral route 1 time per day for 5 day(s) Jan, Active Aspirin 81 mg 1 tablet by Oral route 1 time per day Jan, Active Acidophilus 175 mg 1 capsule by Oral route 2 times per day crush and mix in soft food July, Active Loratadine 10 mg take 1 tablet by Oral route 1 time per day take at hs Apr, Active RESULTS No Results PROCEDURES No Known procedures INSTRUCTIONS MEDICATIONS ADMINISTERED No Known Medications MEDICAL (GENERAL) HISTORY Type Description Date Medical History hernia Medical History chronic pain-lower back Medical History Arthritis Medical History hypertension Medical History colon cancer Surgical History colon resection 10/2012 Surgical History hernia repair-Dr. Rajan 09/2013 Surgical History arthroscopic knee surgery-both knees Surgical History abdominal surgery for removal of cancer and hernia repair, unsuccessful 2017 Hospitalization History Hospitalization for surgery only Hospitalization History Exploratory Surgery; bx of Mesineric mass- Dr Vega; Discharged 04/05/17 04/03/2017
--- OUTSIDE RECORDS SUMMARY | 2018-07-03 11:04 | XMS REPORT | Clinical Summary ---
Demographics Preferred Language Unknown Marital Status Unknown Cheondoism Affiliation Unknown Race Unknown Ethnic Group Unknown Author Author [facility] Organization [facility] Address Unknown Phone Unavailable Care Team Providers Care Equipment Scheduler Name Role Phone PCP Unavailable Source Comments Some departments are not documenting in the electronic medical record. If you do not see the information that you expected, contact Release of Information in the Health Information Management department at [phone] for further assistance in locating additional records.[facility] Allergies Not on File Medications Not on file Active Problems Not on file Social History Date Tobacco Use Types Packs/Day Years Used Never Assessed Sex Assigned at Date Recorded Not on file Industry Job Start Date Occupation Not on file Not on file Not on file Travel End Travel History Travel Start No recent travel history available. Last Filed Vital Signs Not on file Plan of Treatment Health Maintenance Due Date Last Done Comments HEPATITIS C SCREENING 1958 PHYSICAL (COMPREHENSIVE) 1965 EXAM HIV SCREENING 1973 DTAP/TDAP VACCINES (1 - 1976 Tdap) COLORECTAL CANCER 2008 SCREENING SHINGLES RECOMBINANT 2008 VACCINE (1 of 2) INFLUENZA VACCINE 10/25/2018 Results Not on filefrom Last 3 Months Advance Directives Patient has advance care planning documents on file. For more information, please contact: [address] [address]
--- OUTSIDE RECORDS SUMMARY | 2018-07-03 11:04 | XMS REPORT ---
Author Author MOUNIKA READ Organization [facility] Address [address] [place] [address] Care Team Providers Care Machine Operator Hop Worker Name Role Phone MOUNIKA READ Unavailable PROBLEMS Type Condition ICD9-CM Code [id number] Code Onset Dates Condition Status SNOMED Code Problem Hypertension, benign I10 Active 73009162 Problem Other chronic pain G89.29 Active 96081635 Problem Malignant neoplasm of colon, unspecified part of colon C18.9 Active 041914966 Problem Other chronic pain G89.29 Active 64440166 Problem Lumbago with sciatica, right side M54.41 Active 369361959 Problem Abdominal malignancy C76.2 Active 393550403 Problem Mixed hyperlipidemia E78.2 Active 705778492 Problem Anxiety F41.9 Active 06724145 Problem Bipolar disorder, in partial remission, most recent episode depressed F31.75 Active 27462493 ALLERGIES No Known Allergies ENCOUNTERS Encounter Location Date Diagnosis [place] [address] [address] Jan, Weakness R53.1 ; Frequent headaches R51 and Anxiety F41.9 [place] [address] [place] [id number] [place] [address]79- 9040 Dec, [place] [address] [address]- [address] Dec, Lumbago with sciatica, right side M54.41 ; Other chronic pain G89.29 ; Abnormal behavior R46.89 and Anxiety F41.9 [place] [address] [address]- 3241 Nov, [place] [address] [address]- [address] Nov, Lumbar neuritis M54.16 and Bipolar disorder, in partial remission, most recent episode depressed F31.75 [facility] [address] [place] [id number] 14 Oct, 2017 [facility] [address] [address]- [address] 07 Apr, 2017 [facility] [address] [place] [id number] [place] [address] 03936- 5537 Mar, Acute pain of right shoulder M25.511 [facility] [address] [address]- [address] Mar, [facility] [address] 9[address]17- 0147 Mar, Other chronic pain G89.29 ; Abdominal malignancy C76.2 and Functional diarrhea K59.1 [facility] [address] [address]- [address] Mar, [facility] [address] [place] [id number] [place] [address] 15213- 2761 Mar, Low back pain M54.5 [place] [address] 34458- [address] Feb, [facility] [address] [place] [id number] [place] [address] 22777- 4368 Jan, Acute pain of right shoulder M25.511 ; Upper back pain on right side M54.9 and Frequent headaches R51 [facility] [address] [place] [id number] [place] [address] 49040- 8767 Sep, Mixed hyperlipidemia E78.2 [facility] [address] 57566- 3617 Aug, Bipolar 1 disorder, mixed, mild F31.61 [facility] [address] [place] [id number] [place] [address] 06970- 0740 Aug, [facility] [address] 77912- 7424 Aug, Bipolar 1 disorder, mixed, mild F31.61 [place] [address] [address] 7097 Jun, Bipolar 1 disorder, mixed, mild F31.61 [place] [address] [address]- 1688 18 Jun, 2016 Pain in left knee M25.562 [place] [address] [place] [id number] [place] [address] 54097- 3351 Jun, Hypertension, benign I10 and Malignant neoplasm of colon, unspecified part of colon C18.9 [place] [address] [place] [id number] [place] [address] 25851- 2917 28 May, 2016 Pain in right knee M25.561 and Other chronic pain G89.29 [place] [address] [place] [id number] [place] [address] 61389- 2819 14 May, 2016 Bipolar 1 disorder, mixed, mild F31.61 and Other custodial ( current) drug therapy Z79.899 [place] [address] [place] [id number] [place] [address] 78153- 4777 May, Essential hypertension I10 ; Seasonal allergic rhinitis, unspecified allergic rhinitis trigger J30.2 ; Pain in right knee M25.561 ; Other chronic pain G89.29 and Pain in left knee M25.562 [place] [address] [place] [address] 59522- 3643 Nov, Pneumonia of right lower lobe due to infectious organism J18.9 and Pleuritis R09.1 [place] [address] [address]- 2734 Oct, Pneumonia of right lower lobe due to infectious organism J18.9 and Pleuritis R09.1 [place] [address] [address]- 9028 Jun, [place] [address] [place] [id number] [place] [address] 54343- 4961 May, [facility] [address] [address]- 6657 May, Low back pain M54.5 ; Hypertension, benign I10 and Gastroesophageal reflux disease without esophagitis K21.9 [facility] [address] [place] [address]- 1061 [address], [address] [facility] [address] [place] [id number] [place] [address] 07751- 0194 Mar, [facility] [address] [place] [id number] [place] [address] Feb, [facility] [address] [place] [id number] [place] [address], [place] [address]- [address]8 Jan, [facility] [address] [place] [id number] [address]- 6227 Dec, [facility] [address] [place] [id number] [place] [address], [place] [address]- 4990 Nov, [facility] [address] [address]- 1785 Oct, [facility] [address] [place] [id number] [address]- 3507 Oct, [facility] [address] [address]- 5804 Sep, Lumbago 724.2 and Insomnia, unspecified 780.52 [facility] [address] [address]- 4281 Sep, [facility] [address] [address] 2592 Aug, [facility] [address] [address] Aug, [facility] [address] [address]- 1790 Jun, [facility] [address] [place] [id number] [place] [address]- 5546 14 Jun, 2014 [facility] [place] [facility] [address] [id number] [place] [address]- 3428 13 Jun, 2014 [facility] [place] [facility] [address] [id number] [place] [address]- 2724 16 May, 2014 [facility] [place] [facility] [address] [id number] [place] [address]- 7254 16 May, 2014 [facility] [place] [facility] [address] [id number] [place] [address]- 7942 18 Apr, 2014 [facility] [place] [facility] [address] [id number] [place] [address]- 5478 Apr, 2014 [facility] [place] [facility] [address] [id number] [place] [address]- 9418 Apr, 2014 [facility] [place] [facility] [address] [id number] [place] [address]- 1716 Apr, 2014 [facility] [place] [facility] [address] [id number] [place] [address]- 7970 Sep, [facility] [place] [facility] [address] [id number] [place] [address]- 2732 Sep, [facility] [place] [facility] [address] [id number] [place] [address] Sep, [facility] [place] [facility] [address] [id number] [place] [address]- 0388 Sep, [facility] [place] [facility] [address] [id number] [place] [address]- 5464 July, [facility] [place] [facility] [address] [id number] [place] [address]- 9889 July, [facility] [place] [facility] [address] [id number] [place] [address]- 2656 Jun, [facility] [place] [facility] [address] [id number] [place] [address]- 0368 Jun, [facility] [address] [id number] [place] [address]- 2493 Feb, [facility] [place] [facility] [address] [id number] [place] [address]- 5402 Feb, [facility] [address] [id number] [place] [address]- 1502 Jan, [facility] [place] [facility] [address] [id number] [place] [address]- 3247 Jan, [facility] [address] [id number] [place] [address]- 6133 Aug, [facility] [place] [facility] [address] [id number] [place] [address]- 1113 Aug, [facility] [address] [id number] [place] [address]- 8069 Aug, [facility] [address] [id number] [place] [address]- 5706 Aug, [facility] [address] [id number] [place] [address]- 2104 July, [facility] [place] [facility] [address] [id number] [address]- 3930 July, [facility] [place] [facility] [address] [id number] [place] [address]- 2974 Jun, [facility] [place] [facility] [address] [id number] [address]- 2254 Apr, [facility] [place] [facility] [address] [id number] [place] [address]- 5666 Mar, [facility] [place] [facility] [address] [id number] [address]- 7673 Mar, [facility] [place] [facility] [address] [id number] [place] [address]- 3235 Mar, [facility] [place] [facility] [address] [facility] [id number] [place] [address]- 1247 Feb, [facility] [address] [facility] [id number] [address]- 8335 Feb, [facility] [address] [facility] [id number] [address]- 4902 Jan, [facility] [address] [place] [id number] [address]- 0755 Jan, [facility] [address] [place] [id number] [address]- 8764 Jan, [facility] [address] [facility] [id number] [address]- 3866 Jan, IMMUNIZATIONS No Known Immunizations SOCIAL HISTORY Never Assessed REASON FOR VISIT Weak, PT reports for the past week he has been having diarrhea, body aches and not feeling well. pt states he can't sleep and everything is off. -Erasmo LANDEROS PLAN OF CARE Activity Details Pending Test CBC VITAL SIGNS Height 67 in 2018-01-25 Weight 218.2 lbs 2018-01-25 Temperature 98.0 degrees Fahrenheit 2018-01-25 Heart Rate 111 bpm 2018-01-25 Respiratory Rate 20 2018-01-25 Oximetry 98 % 2018-01-25 BMI 34.17 kg/m2 2018-01-25 Blood pressure systolic 150 mmHg 2018-01-25 Blood pressure diastolic 78 mmHg 2018-01-25 MEDICATIONS Medication Instructions Dosage Frequency Start Date End Date Duration Status Oxycodone HCl 10 MG Orally every 6 hrs 1 tablet as needed 6h Active HydrOXYzine Pamoate 25 MG Orally every 8 hrs 1 capsule as needed 8h Dec 30 day(s) Active Fluoxetine HCl 20 mg Orally Once a day 1 capsule in the morning 24h Feb 30 day(s) Not-Taking Lomotil 2.5-0.025 MG Orally Four times a day 1 tablet as needed 6h Mar, Not-Taking Amoxicillin 500 MG Orally every 8 hrs 1 capsule 8h Jan, Jan, 10 day(s) Active Amlodipine Besylate 5 MG 1 tablet 24h 90 days Not-Taking Pantoprazole Sodium 20 mg Orally Once a day 1 tablet 24h Mar, 30 day(s) Not-Taking RESULTS No Results PROCEDURES Procedure Date Ordered Result Body Site [facility] VISIT ESTABLISHED PATIENT Jan 25, 2018 [facility] Jan 25, 2018 INSTRUCTIONS MEDICATIONS ADMINISTERED No Known Medications MEDICAL (GENERAL) HISTORY Type Description Date Medical History hernia Medical History chronic pain-lower back Medical History Arthritis Medical History hypertension Medical History colon cancer Surgical History colon resection 10/2012 Surgical History hernia repair-Dr. Rajan 09/2013 Surgical History arthroscopic knee surgery-both knees Surgical History abdominal surgery for removal of cancer and hernia repair, unsuccessful 2018 Hospitalization History Hospitalization for surgery only Hospitalization History Exploratory Surgery; bx of Mesineric mass- Dr Vega; Discharged 04/05/17 04/03/2017
--- OUTSIDE RECORDS SUMMARY | 2018-07-03 11:05 | XMS REPORT ---
Author Author MOUNIKA READ Organization [facility] Address [address] [place] [address] Care Team Providers Care Baking Assistant Name Role Phone MOUNIKA READ Unavailable PROBLEMS Type Condition ICD9-CM Code [id number] Code Onset Dates Condition Status SNOMED Code Problem Abdominal malignancy C76.2 Active 862588866 Problem Mixed hyperlipidemia E78.2 Active 534014072 Problem Hypertension, benign I10 Active 18706501 Problem Other chronic pain G89.29 Active 33118014 Problem Malignant neoplasm of colon, unspecified part of colon C18.9 Active 614890923 ALLERGIES No Information ENCOUNTERS Encounter Location Date Diagnosis [place] [address] [address]- [address] Apr, [place] [address] 22058- 8697 Mar, Acute pain of right shoulder M25.511 [place] [address] [address]479- 0727 Mar, [place] [address] [address]42- 1860 Mar, Other chronic pain G89.29 ; Abdominal malignancy C76.2 and Functional diarrhea K59.1 [place] [address] [place] [id number] [place] [address] 63845- 2966 Mar, [place] [address] 01432- 8334 Mar, Low back pain M54.5 [place] [address] [place] [id number] [place] [address] 02629- 2879 Feb, [place] [address] 61700- 9515 Jan, Acute pain of right shoulder M25.511 ; Upper back pain on right side M54.9 and Frequent headaches R51 [place] [address] 40879- 5359 Sep, Mixed hyperlipidemia E78.2 [place] [address] [place] [id number] [place] [address] 09936- 9693 Aug, Bipolar 1 disorder, mixed, mild F31.61 [place] [address] 69682- 7186 Aug, [place] [address] 33590- 9654 Aug, Bipolar 1 disorder, mixed, mild F31.61 [place] [address] [place] [id number] [place] [address] 22583- 1589 Jun, Bipolar 1 disorder, mixed, mild F31.61 [place] [address] [place] [id number] [place] [address] 00300- 8192 Jun, Pain in left knee M25.562 [place] [address] [place] [id number] [place] [address] 66098- 0856 Jun, Hypertension, benign I10 and Malignant neoplasm of colon, unspecified part of colon C18.9 [place] [address] [place] [id number] [place] [address] 64704- 3854 May, Pain in right knee M25.561 and Other chronic pain G89.29 [place] [address] [place] [id number] [place] [address] 87739- 1369 14 May, 2016 Bipolar 1 disorder, mixed, mild F31.61 and Other halfway ( current) drug therapy Z79.899 [place] [address] [place] [id number] [place] [address] 38349- 5547 13 May, 2016 Essential hypertension I10 ; Seasonal allergic rhinitis, unspecified allergic rhinitis trigger J30.2 ; Pain in right knee M25.561 ; Other chronic pain G89.29 and Pain in left knee M25.562 [facility] [address] [address]- 7385 09 Nov, 2015 Pneumonia of right lower lobe due to infectious organism J18.9 and Pleuritis R09.1 [facility] [address] [address]- 8606 Oct, Pneumonia of right lower lobe due to infectious organism J18.9 and Pleuritis R09.1 [facility] [address] [place] [id number] [place] [address] 66355- 4189 Jun, [facility] [address] [place] [id number] [place] [address] 65409- 2950 May, [facility] [address] [place] [id number] [place] [address] 00207- 8148 May, Low back pain M54.5 ; Hypertension, benign I10 and Gastroesophageal reflux disease without esophagitis K21.9 [facility] [address] [address]- 6598 Apr, [facility] [address] [place] [id number] [place] [address] 06605- 0893 Mar, [facility] [address] [place] [id number] [place] [address] 11116- 7939 Feb, [facility] [address] [address]- 0176 Jan, [facility] [address] [address]- 2341 Dec, [facility] [address] [address]- 6263 Nov, [facility] [address] [place] [id number] [place] [address] 32046- 3349 Oct, [facility] [address] [place] [id number] [address]- 0585 Oct, [facility] [address] [place] [address] [place] [address]- 9979 Sep, Lumbago 724.2 and Insomnia, unspecified 780.52 [facility] [place] [facility] [address] [facility] [id number] [place] [address]- 4858 Sep, [facility] [place] [facility] [address] [facility] [id number] [place] [address]- 2156 Aug, [facility] [place] [facility] [address] [facility] [id number] [place] [address]- 9599 Aug, [facility] [place] [facility] [address] [facility] [id number] [place] [address]- 3679 Jun, [facility] [place] [facility] [address] [facility] [id number] [place] [address]- 6905 Jun, [facility] [place] [facility] [address] [place] [id number] [place] [address]- 2629 Jun, [facility] [place] [facility] [address] [place] [id number] [place] [address]- 6991 May, [facility] [place] [facility] [address] [facility] [id number] [place] [address]- 8065 May, [facility] [place] [facility] [address] [place] [id number] [place] [address]- 3947 Apr, [facility] [place] [facility] [address] [place] [id number] [place] [address]- 8082 Apr, [facility] [place] [facility] [address] [facility] [id number] [address]- 7885 Apr, [facility] [place] [facility] [address] [facility] [id number] [place] [address]- 4239 Apr, [facility] [place] [facility] [address] [facility] [id number] [place] [address]- 8995 Sep, [facility] [place] [facility] [address] [facility] [id number] [place] [address]- 8192 Sep, [facility] [place] [facility] [address] [facility] [id number] [place] [address]- 8246 Sep, [facility] [address] [id number] [place] [address]- 0826 Sep, [facility] [place] [facility] [address] [id number] [place] [address]- 6699 July, [facility] [address] [id number] [place] [address]- 0696 July, [facility] [place] [facility] [address] [id number] [place] [address]- 2556 Jun, [facility] [address] [id number] [place] [address]- 8743 Jun, [facility] [place] [facility] [address] [id number] [place] [address] Feb, [facility] [address] [id number] [place] [address]- 8665 Feb, [facility] [place] [facility] [address] [id number] [place] [address]- 0161 Jan, [facility] [place] [facility] [address] [id number] [place] [address]- 7173 Jan, [facility] [address] [id number] [place] [address]- 3296 Aug, [facility] [place] [facility] [address] [id number] [place] [address]- 0776 Aug, [facility] [place] [facility] [address] [id number] [place] [address]- 7094 Aug, [facility] [place] [facility] [address] [id number] [place] [address]- 3672 Aug, [facility] [place] [facility] [address] [id number] [place] [address]- 6806 July, [facility] [place] [facility] [address] [id number] [place] [address]- 2913 July, [facility] [address] [place] [address] [id number] [address]- 3626 Jun, [facility] [address] [address]- 5526 Apr, [facility] [address] [address]- 3901 Mar, [facility] [address] [address]- 0162 Mar, [facility] [address] [address]- 3173 Mar, [facility] [address] [address]- 0240 Feb, [facility] [address] [address]- 3289 Feb, [facility] [address] [place] [address] 28212- 1040 Jan, [facility] [id number] [address] Jan, [facility] [id number] [address] Jan, [facility] [id number] [address] Jan, IMMUNIZATIONS No Known Immunizations SOCIAL HISTORY Never Assessed REASON FOR VISIT Requests return call // PLAN OF CARE VITAL SIGNS MEDICATIONS Medication Instructions Dosage Frequency Start Date End Date Duration Status Fluoxetine HCl 20 mg Orally Once a day 1 capsule in the morning 24h Feb 30 day(s) Active RESULTS No Results PROCEDURES No Known procedures INSTRUCTIONS MEDICATIONS ADMINISTERED No Known Medications MEDICAL (GENERAL) HISTORY Type Description Date Medical History hernia Medical History chronic pain-lower back Medical History Arthritis Medical History hypertension Medical History colon cancer Surgical History colon resection 10/2012 Surgical History hernia repair-Dr. Rajan 09/2013 Surgical History arthroscopic knee surgery-both knees Hospitalization History Hospitalization for surgery only Hospitalization History Exploratory Surgery; bx of Mesineric mass- Dr Vega; Discharged 04/05/17 04/03/2017
--- OUTSIDE RECORDS SUMMARY | 2018-07-03 11:05 | XMS REPORT ---
Author Author MOUNIKA READ Organization [facility] Address [address] [place] [address] Care Team Providers Care Home Decorator Name Role Phone MOUNIKA READ Unavailable PROBLEMS Type Condition ICD9-CM Code JOB52-FG Code Onset Dates Condition Status SNOMED Code Problem Bipolar disorder, in partial remission, most recent episode depressed F31.75 Active 47148622 Problem Abdominal malignancy C76.2 Active 555423313 Problem Malignant neoplasm of colon, unspecified part of colon C18.9 Active 007916084 Problem Hypertension, benign I10 Active 81663631 Problem Mixed hyperlipidemia E78.2 Active 483228571 Problem Other chronic pain G89.29 Active 30262492 ALLERGIES No Information ENCOUNTERS Encounter Location Date Diagnosis [facility] [id number] [place] [address] 08792- 9338 Dec, [facility] [id number] [place] [address] 84497- 5887 Nov, [facility] [id number] [place] [address] 82968- 4556 13 Nov, 2017 Lumbar neuritis M54.16 and Bipolar disorder, in partial remission, most recent episode depressed F31.75 [facility] [address] [place] [id number] Oct, [facility] [id number] [place] [address] 54539- 6685 Apr, [facility] [address] 7[address]12- 4274 Mar, Acute pain of right shoulder M25.511 [facility] [id number] [place] [address] 35929- 0261 Mar, [facility] [id number] [place] [address] 2187 Mar, Other chronic pain G89.29 ; Abdominal malignancy C76.2 and Functional diarrhea K59.1 [place] [id number] [place] [address] 25724- 8379 Mar, [place] [id number] [place] [address] 68757- 2897 Mar, Low back pain M54.5 [place] [address] 31042- 0348 Feb, [place] [address] 31309- 9767 Jan, Acute pain of right shoulder M25.511 ; Upper back pain on right side M54.9 and Frequent headaches R51 [id number] [place] [address] 65126- 6721 Sep, Mixed hyperlipidemia E78.2 [place] [id number] [place] [address] 75336- 6948 Aug, Bipolar 1 disorder, mixed, mild F31.61 [place] [id number] [place] [address] 08855- 1331 Aug, [place] [id number] [place] [address] 36473- 8388 Aug, Bipolar 1 disorder, mixed, mild F31.61 [place] [id number] [place] [address] 34318- 6202 Jun, Bipolar 1 disorder, mixed, mild F31.61 [place] [id number] [place] [address] 22429- 8470 18 Jun, 2016 Pain in left knee M25.562 [place] [id number] [place] [address] 58639- 5133 13 Jun, 2016 Hypertension, benign I10 and Malignant neoplasm of colon, unspecified part of colon C18.9 [place] [id number] [place] [address] 84956- 8923 28 May, 2016 Pain in right knee M25.561 and Other chronic pain G89.29 [place] [id number] [place] [address] 70160- 4190 14 May, 2016 Bipolar 1 disorder, mixed, mild F31.61 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 [place] [address] 15478- 2933 13 May, 2016 Essential hypertension I10 ; Seasonal allergic rhinitis, unspecified allergic rhinitis trigger J30.2 ; Pain in right knee M25.561 ; Other chronic pain G89.29 and Pain in left knee M25.562 [place] [address] 07581- 4334 09 Nov, 2015 Pneumonia of right lower lobe due to infectious organism J18.9 and Pleuritis R09.1 [place] [address] 67087- 7154 Oct, Pneumonia of right lower lobe due to infectious organism J18.9 and Pleuritis R09.1 [place] [id number] [place] [address] 74074- 1693 Jun, [facility] [id number] [place] [address] 51385- 4379 May, [place] [id number] [place] [address] 58816- 7146 May, Low back pain M54.5 ; Hypertension, benign I10 and Gastroesophageal reflux disease without esophagitis K21.9 [place] [id number] [place] [address] 00872- 1928 Apr, [place] [id number] [place] [address] 69246- 9789 Mar, [place] [id number] [place] [address] 91259- 6010 Feb, [place] [id number] [facility] [id number] [place] [address]- 7487 Jan, [facility] [address] [place] [address]- 8916 Dec, [facility] [id number] [address]- 1805 Nov, [facility] [address] [place] [address], [place] [address]- 7004 Oct, [facility] [address] [facility] [id number] [place] [address]- 2539 Oct, [facility] [address] [place] [address], [place] [address]- 9315 Sep, Lumbago 724.2 and Insomnia, unspecified 780.52 [facility] [id number] [place] [address]- 6974 Sep, [facility] [address] [address]- 4496 Aug, [facility] [address] [place] [address]- 8210 Aug, [facility] [address] [place] [address]- 6388 Jun, [facility] [address] [place] [address]- 1190 Jun, [facility] [place] [facility] [address] [place] [address]- 2751 Jun, [facility] [place] [facility] [address] [address]- 1995 May, [facility] [place] [facility] [id number] [place] [address] 7575 May, [facility] [place] [facility] [id number] [place] [address]- 3817 Apr, [facility] [place] [facility] [address] [id number] [place] [address]- 6823 18 Apr, 2014 [facility] [place] [facility] [address] [id number] [place] [address]- 7089 Apr, 2014 [facility] [place] [facility] [address] [id number] [place] [address]- 7946 Apr, 2014 [facility] [place] [facility] [address] [id number] [place] [address]- 3518 Sep, [facility] [place] [facility] [address] [id number] [place] [address]- 1989 Sep, [facility] [place] [facility] [address] [id number] [place] [address]- 6133 Sep, [facility] [place] [facility] [address] [id number] [place] [address]- 8124 Sep, [facility] [place] [facility] [address] [id number] [place] [address]- 7279 July, [facility] [place] [facility] [address] [id number] [place] [address]- 0925 July, [facility] [place] [facility] [address] [id number] [place] [address]- 2412 Jun, [facility] [place] [facility] [address] [id number] [place] [address]- 3533 Jun, [facility] [place] [facility] [address] [id number] [place] [address]- 1966 Feb, [facility] [place] [facility] [address] [id number] [place] [address]- 3020 Feb, [facility] [place] [facility] [address] [id number] [place] [address]- 6872 Jan, [facility] [place] [facility] [address] [id number] [place] [address]- 7416 Jan, [facility] [place] [facility] [address] [id number] [place] [address]- 0121 Aug, [facility] [address] [id number] [place] [address]- 5965 Aug, [facility] [place] [facility] [address] [id number] [place] [address]- 7172 Aug, [facility] [place] [facility] [address] [id number] [place] [address]- 6308 Aug, [facility] [place] [facility] [address] [id number] [place] [address]- 0604 July, [facility] [place] [facility] [address] [id number] [place] [address]- 5622 July, [facility] [place] [facility] [address] [id number] [place] [address]- 2058 Jun, [facility] [place] [facility] [address] [id number] [place] [address]- 6483 Apr, [facility] [place] [facility] [address] [id number] [place] [address]- 4557 Mar, [facility] [place] [facility] [address] [id number] [place] [address]- 2107 Mar, [facility] [place] [facility] [address] [id number] [place] [address]- 8499 Mar, [facility] [place] [facility] [address] [id number] [place] [address]- 9891 Feb, [facility] [place] [facility] [address] [id number] [address]- 7198 Feb, [facility] [place] [facility] [address] [id number] [place] [address]- 6616 Jan, [facility] [place] [facility] [address] [id number] [place] [address]- 0466 Jan, [facility] [place] [facility] [address] [id number] [place] [address]- 2546 Jan, [facility] [place] [facility] [address] [facility] [id number] [place] [address] [address]007 16 Jan, 2012 IMMUNIZATIONS No Known Immunizations SOCIAL HISTORY Never Assessed REASON FOR VISIT Disability Tag PLAN OF CARE VITAL SIGNS MEDICATIONS Unknown Medications RESULTS No Results PROCEDURES No Known procedures [...]
--- OUTSIDE RECORDS SUMMARY | 2018-07-03 11:05 | XMS REPORT ---
Author Author MOUNIKA READ Organization [facility] Address [address] [place] [address] Care Team Providers Care Nail Cutter Name Role Phone MOUNIKA READ Unavailable PROBLEMS Type Condition ICD9-CM Code QGZ44-ON Code Onset Dates Condition Status SNOMED Code Problem Bipolar disorder, in partial remission, most recent episode depressed F31.75 Active 22759191 Problem Abdominal malignancy C76.2 Active 176825910 Problem Malignant neoplasm of colon, unspecified part of colon C18.9 Active 304140825 Problem Hypertension, benign I10 Active 49241291 Problem Mixed hyperlipidemia E78.2 Active 462279302 Problem Other chronic pain G89.29 Active 95947609 ALLERGIES No Known Allergies ENCOUNTERS Encounter Location Date Diagnosis [facility] [id number] [place] [address] 29794- 1114 Dec, [facility] [id number] [place] [address] 90767- 6917 Nov, [facility] [id number] [place] [address] 02745- 1509 13 Nov, 2017 Lumbar neuritis M54.16 and Bipolar disorder, in partial remission, most recent episode depressed F31.75 [facility] [address] [place] [address] [id number] Oct, [facility] [id number] [place] [address] 94313- 9483 Apr, [facility] [id number] [place] [address] 72331- 6857 Mar, Acute pain of right shoulder M25.511 [facility] [address] [place] [address] 54062- 3067 Mar, [facility] [id number] [place] [address] 81991- 0754 Mar, Other chronic pain G89.29 ; Abdominal malignancy C76.2 and Functional diarrhea K59.1 [place] [id number] [place] [address] 51296- 0828 Mar, [place] [id number] [place] [address] 95861- 4779 Mar, Low back pain M54.5 [place] [id number] [place] [address] 31651- 3957 Feb, [address] 20954- 9408 Jan, Acute pain of right shoulder M25.511 ; Upper back pain on right side M54.9 and Frequent headaches R51 [id number] [place] [address] 94351- 9628 Sep, Mixed hyperlipidemia E78.2 [place] [id number] [place] [address] 99489- 7336 Aug, Bipolar 1 disorder, mixed, mild F31.61 [place] [id number] [place] [address] 21007- 3485 Aug, [place] [id number] [place] [address] 27958- 9537 Aug, Bipolar 1 disorder, mixed, mild F31.61 [place] [id number] [place] [address] 19621- 6395 Jun, Bipolar 1 disorder, mixed, mild F31.61 [place] [id number] [place] [address] 59039- 3129 18 Jun, 2016 Pain in left knee M25.562 [place] [id number] [place] [address] 86523- 4462 13 Jun, 2016 Hypertension, benign I10 and Malignant neoplasm of colon, unspecified part of colon C18.[id number] [place] [address] 36485- 9589 28 May, 2016 Pain in right knee M25.561 and Other chronic pain G89.29 [place] [id number] [place] [address] 22172- 7863 14 May, 2016 Bipolar 1 disorder, mixed, mild F31.61 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 [place] [address] 12033- 5608 13 May, 2016 Essential hypertension I10 ; Seasonal allergic rhinitis, unspecified allergic rhinitis trigger J30.2 ; Pain in right knee M25.561 ; Other chronic pain G89.29 and Pain in left knee M25.562 [place] [id number] [place] [address] 64631- 9055 09 Nov, 2015 Pneumonia of right lower lobe due to infectious organism J18.9 and Pleuritis R09.1 [place] [address] 25860- 0537 Oct, Pneumonia of right lower lobe due to infectious organism J18.9 and Pleuritis R09.1 [place] [id number] [place] [address] 30862- 6635 Jun, [place] [id number] [place] [address] 11132- 2998 May, [place] [id number] [place] [address] 70777- 2150 May, Low back pain M54.5 ; Hypertension, benign I10 and Gastroesophageal reflux disease without esophagitis K21.9 [place] [id number] [place] [address] 69226- 2312 Apr, [place] [id number] [place] [address] 28544- 8695 Mar, [place] [id number] [place] [address] 00495- 1866 Feb, [facility] [address] [facility] [id number] [place] [address]- 2785 Jan, [facility] [address] [place] [address], [place] [address]- 8417 Dec, [facility] [id number] [place] [address]- 3267 Nov, [facility] [id number] [place] [address], [place] [address]- 5011 Oct, [facility] [address] [place] [address], [place] [address]- 0819 Oct, [facility] [id number] [place] [address], [place] [address]- 2878 Sep, Lumbago 724.2 and Insomnia, unspecified 780.52 [facility] [id number] [place] [address], [place] [address]- 1188 Sep, [facility] [address] [id number] [place] [address]- 5614 Aug, [facility] [address] [place] [address], [place] [address]- 1941 Aug, [facility] [address] [place] [address]- 7751 Jun, [facility] [address] [place] [address]- 3935 Jun, [facility] [address] [place] [address]- 4914 Jun, [facility] [address] [place] [address]- 0498 May, [facility] [place] [facility] [address] [place] [address]- 9640 May, [facility] [address] [place] [address]- 2401 Apr, [facility] [address] [id number] [place] [address]- 2127 18 Apr, 2014 [facility] [place] [facility] [address] [id number] [place] [address]- 9319 Apr, 2014 [facility] [place] [facility] [address] [id number] [place] [address]- 5044 Apr, 2014 [facility] [place] [facility] [address] [id number] [place] [address]- 3902 Sep, [facility] [place] [facility] [address] [id number] [place] [address]- 3820 Sep, [facility] [place] [facility] [address] [id number] [place] [address]- 8872 Sep, [facility] [place] [facility] [address] [id number] [place] [address]- 7250 Sep, [facility] [place] [facility] [address] [id number] [place] [address]- 0547 July, [facility] [place] [facility] [address] [id number] [place] [address]- 1428 July, [facility] [place] [facility] [address] [id number] [place] [address]- 5524 Jun, [facility] [place] [facility] [address] [id number] [place] [address]- 8742 Jun, [facility] [place] [facility] [address] [id number] [place] [address]- 6828 Feb, [facility] [place] [facility] [address] [id number] [place] [address]- 3595 Feb, [facility] [place] [facility] [address] [id number] [place] [address]- 2897 Jan, [facility] [place] [facility] [address] [id number] [place] [address]- 5310 Jan, [facility] [place] [facility] [address] [id number] [place] [address]- 0281 Aug, [facility] [address] [id number] [place] [address]- 5564 Aug, [facility] [place] [facility] [address] [id number] [place] [address]- 5084 Aug, [facility] [place] [facility] [address] [id number] [place] [address]- 4696 Aug, [facility] [place] [facility] [address] [id number] [place] [address]- 1037 July, [facility] [place] [facility] [address] [id number] [place] [address]- 7540 July, [facility] [place] [facility] [address] [id number] [place] [address]- 4819 Jun, [facility] [place] [facility] [address] [id number] [place] [address]- 3029 Apr, [facility] [place] [facility] [address] [id number] [place] [address]- 7356 Mar, [facility] [address] [id number] [place] [address]- 3354 Mar, [facility] [place] [facility] [address] [id number] [place] [address]- 4137 Mar, [facility] [place] [facility] [address] [id number] [place] [address]- 2272 Feb, [facility] [place] [facility] [address] [id number] [place] [address]- 0703 Feb, [facility] [place] [facility] [address] [id number] [place] [address]- 1587 Jan, [facility] [place] [facility] [address] [id number] [place] [address]- 1546 Jan, [facility] [place] [facility] [address] [id number] [place] [address]- 9116 Jan, [facility] [place] [facility] [address] [facility] [id number] [place] [address]- 8817 Jan, IMMUNIZATIONS No Known Immunizations SOCIAL HISTORY Never Assessed REASON FOR VISIT handicap card/placard, reports started chemotherapy again. , wants right knee looked at CBrumback[facility]N PLAN OF CARE VITAL SIGNS Height 67 in 2017-12-07 Weight 217.7 lbs 2017-12-07 Temperature 98.1 degrees Fahrenheit 2017-12-07 Heart Rate 96 bpm 2017-12-07 Respiratory Rate 20 2017-12-07 BMI 34.09 kg/m2 2017-12-07 Blood pressure systolic 132 mmHg 2017-12-07 Blood pressure diastolic 86 mmHg 2017-12-07 MEDICATIONS Medication Instructions Dosage Frequency Start Date End Date Duration Status Oxycodone HCl 10 MG Orally every 6 hrs 1 tablet as needed 6h Active Amlodipine Besylate 5 MG 1 tablet 24h 90 days Not-Taking Fluoxetine HCl 20 mg Orally Once a day 1 capsule in the morning 24h Feb 30 day(s) Not-Taking Pantoprazole Sodium 20 mg Orally Once a day 1 tablet 24h Mar, 30 day(s) Not-Taking Lomotil 2.5-0.025 MG Orally Four times a day 1 tablet as needed 6h Mar, Not-Taking RESULTS No Results PROCEDURES Procedure Date Ordered Result Body Site [facility] VISIT ESTABLISHED PATIENT Dec 07, 2017 INSTRUCTIONS MEDICATIONS ADMINISTERED No Known Medications MEDICAL [...]
--- OUTSIDE RECORDS SUMMARY | 2018-07-03 11:05 | XMS REPORT ---
Author Author MOUNIKA READ Organization [facility] Address [address] [place] [address] Care Team Providers Care Director Of Individual Giving Name Role Phone MOUNIKA READ Unavailable PROBLEMS Type Condition ICD9-CM Code MGL39-HV Code Onset Dates Condition Status SNOMED Code Problem Hypertension, benign I10 Active 72290901 Problem Other chronic pain G89.29 Active 63921137 Problem Malignant neoplasm of colon, unspecified part of colon C18.9 Active 722081113 Problem Other chronic pain G89.29 Active 08962016 Problem Lumbago with sciatica, right side M54.41 Active 736398013 Problem Abdominal malignancy C76.2 Active 972370013 Problem Mixed hyperlipidemia E78.2 Active 345350680 Problem Anxiety F41.9 Active 55088041 Problem Bipolar disorder, in partial remission, most recent episode depressed F31.75 Active 74585031 ALLERGIES No Known Allergies ENCOUNTERS Encounter Location Date Diagnosis [facility] [id number] [place] [address] 38629- 4394 03 Dec, 2017 Lumbago with sciatica, right side M54.41 ; Other chronic pain G89.29 ; Abnormal behavior R46.89 and Anxiety F41.9 [facility] [id number] [place] [address] 37092- 6874 Nov, [facility] [id number] [place] [address] 56855- 2511 13 Nov, 2017 Lumbar neuritis M54.16 and Bipolar disorder, in partial remission, most recent episode depressed F31.75 [facility] [address] [place] [address] [id number] Oct, [facility] [id number] [place] [address] 86736- 1407 Apr, [facility] [id number] [place] [address] 89663- 8323 Mar, Acute pain of right shoulder M25.511 [facility] [address] 54134- 4692 Mar, [facility] [id number] [place] [address] 60012- 9291 Mar, Other chronic pain G89.29 ; Abdominal malignancy C76.2 and Functional diarrhea K59.1 [facility] [id number] [place] [address] 69073- 5209 Mar, [place] [address] 74905- 5772 Mar, Low back pain M54.5 [place] [id number] [place] [address] 96897- 6923 Feb, [place] [address] 22584- 4767 Jan, Acute pain of right shoulder M25.511 ; Upper back pain on right side M54.9 and Frequent headaches R51 [place] [id number] [place] [address] 12887- 4308 Sep, Mixed hyperlipidemia E78.2 [place] [id number] [place] [address] 33873- 2160 Aug, Bipolar 1 disorder, mixed, mild F31.61 [facility] [id number] [place] [address] 78017- 5914 Aug, [facility] [id number] [place] [address] 03261- 9748 Aug, Bipolar 1 disorder, mixed, mild F31.61 [facility] [id number] [place] [address] 19949- 1762 Jun, Bipolar 1 disorder, mixed, mild F31.61 [facility] [id number] [place] [address] 54800- 9492 18 Jun, 2016 Pain in left knee M25.562 [place] [id number] [place] [address] 23475- 3152 13 Jun, 2016 Hypertension, benign I10 and Malignant neoplasm of colon, unspecified part of colon C18.9 [place] [id number] [place] [address] 60857- 1809 28 May, 2016 Pain in right knee M25.561 and Other chronic pain G89.29 [place] [id number] [place] [address] 12297- 5273 14 May, 2016 Bipolar 1 disorder, mixed, mild F31.61 and Other nursing home ( current) drug therapy Z79.899 [place] [id number] [place] [address] 45053- 0103 13 May, 2016 Essential hypertension I10 ; Seasonal allergic rhinitis, unspecified allergic rhinitis trigger J30.2 ; Pain in right knee M25.561 ; Other chronic pain G89.29 and Pain in left knee M25.562 [place] [id number] [place] [address] 53754- 3944 Nov, Pneumonia of right lower lobe due to infectious organism J18.9 and Pleuritis R09.1 [place] [id number] [place] [address] 72551- 6750 Oct, Pneumonia of right lower lobe due to infectious organism J18.9 and Pleuritis R09.1 [place] [id number] [place] [address] 13223- 6550 Jun, [place] [id number] [place] [address] 71174- 7161 May, [place] [id number] [place] [address] 15681- 6710 02 May, 2015 Low back pain M54.5 ; Hypertension, benign I10 and Gastroesophageal reflux disease without esophagitis K21.9 [place] [address] 18171- 0687 10 Apr, 2015 [facility] [address] [facility] [id number] [place] [address]- 5844 Mar, [facility] [id number] [place] [address]- 4433 Feb, [facility] [id number] [place] [address]- 0288 Jan, [facility] [address] [facility] [id number] [place] [address] 92119- 2400 Dec, [facility] [id number] [address]- 6383 Nov, [facility] [address] [place] [address] 61558- 9910 Oct, [facility] [id number] [place] [address] 39920- 4640 Oct, [facility] [address] [address]- 8264 Sep, Lumbago 724.2 and Insomnia, unspecified 780.52 [facility] [id number] [place] [address]- 8251 Sep, [facility] [address] [address]- 4954 Aug, [facility] [address], [place] [address]- 4399 Aug, [facility] [id number] [address]- 9353 30 Jun, 2014 [facility] [id number] [address]- 1028 14 Jun, 2014 [facility] [id number] 5260 Jun, [facility] [address] 7591 May, [facility] [place] [facility] [address] [id number] [place] [address]- 7329 16 May, 2014 [facility] [place] [facility] [address] [id number] [place] [address]- 1949 Apr, 2014 [facility] [place] [facility] [address] [id number] [place] [address]- 0309 Apr, 2014 [facility] [place] [facility] [address] [id number] [place] [address]- 2979 Apr, 2014 [facility] [place] [facility] [address] [id number] [place] [address]- 8158 Apr, [facility] [place] [facility] [address] [id number] [place] [address]- 9593 Sep, [facility] [place] [facility] [address] [id number] [place] [address]- 0049 Sep, [facility] [place] [facility] [address] [id number] [place] [address]- 0468 Sep, [facility] [place] [facility] [address] [id number] [place] 4721 Sep, [facility] [place] [facility] [address] [id number] [place] [address]- 7104 July, [facility] [place] [facility] [address] [id number] [place] [address]- 5238 July, [facility] [place] [facility] [address] [id number] [place] [address]- 1172 Jun, [facility] [place] [facility] [address] [id number] [place] [address]- 4943 Jun, [facility] [place] [facility] [address] [id number] [place] [address]- 7277 Feb, [facility] [place] [facility] [address] [id number] [place] [address]- 0205 Feb, [facility] [place] [facility] [address] [id number] [place] [address]- 0043 Jan, [facility] [address] [id number] [place] [address]- 2778 Jan, [facility] [address] [id number] [place] [address]- 3720 Aug, [facility] [address] [id number] [place] [address]- 4989 Aug, [facility] [address] [id number] [place] [address]- 1043 Aug, [facility] [address] [id number] [place] [address]- 6933 Aug, [facility] [address] [id number] [place] [address]- 8494 July, [facility] [address] [id number] [place] [address]- 1308 July, [facility] [address] [id number] [place] [address]- 0485 Jun, [facility] [address] [id number] [place] [address]- 5835 Apr, [facility] [address] [id number] [place] [address]- 6363 Mar, [facility] [address] [id number] [place] [address]- 9674 Mar, [facility] [address] [id number] [place] [address]- 8585 Mar, [facility] [address] [id number] [place] [address]- 4063 Feb, [facility] [address] [id number] [place] [address]- 6392 Feb, [facility] [address] [id number] [place] [address]- 5340 Jan, [facility] [address] [facility] [id number] [place] [address]- 0964 Jan, [facility] [address] [facility] [id number] [place] [address]- 5689 Jan, [facility] [address] [facility] [id number] [place] [address]- 1349 Jan, IMMUNIZATIONS No Known Immunizations SOCIAL HISTORY Never Assessed REASON FOR VISIT back pain- [facility] PLAN OF CARE VITAL SIGNS Height 67 in 2017-12-27 Weight 216.2 lbs 2017-12-27 Temperature 97.9 degrees Fahrenheit 2017-12-27 Heart Rate 86 bpm 2017-12-27 Respiratory Rate 20 2017-12-27 Oximetry 98 % 2017-12-27 BMI 33.86 kg/m2 2017-12-27 Blood pressure systolic 132 mmHg 2017-12-27 Blood pressure diastolic 70 mmHg 2017-12-27 MEDICATIONS Medication Instructions Dosage Frequency Start Date End Date Duration Status HydrOXYzine Pamoate 25 MG Orally every 8 hrs 1 capsule as needed 8h Dec 30 day(s) Active Lomotil 2.5-0.025 MG Orally Four times a day 1 tablet as needed 6h Mar, Not-Taking Oxycodone HCl 10 MG Orally every 6 hrs 1 tablet as needed 6h Active Amlodipine Besylate 5 MG 1 tablet 24h 90 days Not-Taking Fluoxetine HCl 20 mg Orally Once a day 1 capsule in the morning 24h Feb 30 day(s) Not-Taking Pantoprazole Sodium 20 mg Orally Once a day 1 tablet 24h Mar, 30 day(s) Not-Taking RESULTS Name Result Date Reference Range URINE DRUG SCREEN (IN HOUSE) 2017-12-27 Lot # [id number] Exp date 05/2019 Control + COCAINE Negative AMPH Negative MTD Negative THC Positive OPIATE Negative BENZO Positive PCP Negative BAR Negative OXY Positive MAMP Negative BUP Negative MDMA Negative TCA N/A PROCEDURES Procedure Date Ordered Result Body Site DRUG TEST PRSMV DIR OPT OBS Dec 27, 2017 [facility] VISIT ESTABLISHED PATIENT Dec 27, 2017 INSTRUCTIONS MEDICATIONS ADMINISTERED No Known Medications [...]
--- OUTSIDE RECORDS SUMMARY | 2018-07-03 11:06 | XMS REPORT ---
Author Author MOUNIKA READ Organization [facility] Address [address] [place] [address] Care Team Providers Care Employment Interviewer Name Role Phone MOUNIKA READ Unavailable PROBLEMS Type Condition ICD9-CM Code UHO67-QU Code Onset Dates Condition Status SNOMED Code Problem Abdominal malignancy C76.2 Active 207798493 Problem Mixed hyperlipidemia E78.2 Active 147096292 Problem Hypertension, benign I10 Active 04744715 Problem Other chronic pain G89.29 Active 21220028 Problem Malignant neoplasm of colon, unspecified part of colon C18.9 Active 985515768 ALLERGIES No Information ENCOUNTERS Encounter Location Date Diagnosis [place] [address] 31609- 0465 Apr, [place] [address] 52580- 5079 Mar, Acute pain of right shoulder M25.511 [place] [address] 74403- 0204 Mar, [place] [address] 33946- 2078 Mar, Other chronic pain G89.29 ; Abdominal malignancy C76.2 and Functional diarrhea K59.1 [place] [id number] [place] [address] 65082- 0940 Mar, [place] [address] 81941- 9977 Mar, Low back pain M54.5 [place] [id number] [place] [address] 45526- 6459 Feb, [place] [address] 88418- 3097 Jan, Acute pain of right shoulder M25.511 ; Upper back pain on right side M54.9 and Frequent headaches R51 [place] [address] 10881- 7242 Sep, Mixed hyperlipidemia E78.2 [place] [id number] [place] [address] 70268- 6550 Aug, Bipolar 1 disorder, mixed, mild F31.61 [place] [address] 95923- 4473 Aug, [place] [address] 64479- 0355 Aug, Bipolar 1 disorder, mixed, mild F31.61 [place] [id number] [place] [address] 62297- 7397 Jun, Bipolar 1 disorder, mixed, mild F31.61 [place] [id number] [place] [address] 30281- 0806 Jun, Pain in left knee M25.562 [place] [id number] [place] [address] 18679- 3912 Jun, Hypertension, benign I10 and Malignant neoplasm of colon, unspecified part of colon C18.9 [place] [id number] [place] [address] 85946- 0679 May, Pain in right knee M25.561 and Other chronic pain G89.29 [place] [id number] [place] [address] 42134- 8021 14 May, 2016 Bipolar 1 disorder, mixed, mild F31.61 and Other care home ( current) drug therapy Z79.899 [place] [id number] [place] [address] 48085- 1327 13 May, 2016 Essential hypertension I10 ; Seasonal allergic rhinitis, unspecified allergic rhinitis trigger J30.2 ; Pain in right knee M25.561 ; Other chronic pain G89.29 and Pain in left knee M25.562 [facility] [address], [place] [address]- 5060 09 Nov, 2015 Pneumonia of right lower lobe due to infectious organism J18.9 and Pleuritis R09.1 [facility] [address], [place] [address]- 5386 Oct, Pneumonia of right lower lobe due to infectious organism J18.9 and Pleuritis R09.1 [facility] [id number] [place] [address] 19246- 0442 Jun, [facility] [id number] [place] [address] 35964- 8727 May, [facility] [id number] [place] [address] 81307- 0938 May, Low back pain M54.5 ; Hypertension, benign I10 and Gastroesophageal reflux disease without esophagitis K21.9 [facility] [address], [place] [address]- 6795 Apr, [facility] [id number] [place] [address] 24032- 2135 Mar, [facility] [id number] [place] [address] 54885- 7851 Feb, [facility] [address], [place] [address]- 8599 Jan, [facility] [address], [place] [address]- 1324 Dec, [facility] [address], [place] [address]- 9001 Nov, [facility] [id number] [place] [address] 91335- 9253 Oct, [facility] [id number] [address]- 3839 Oct, [facility] [address] [place] [address]- 4249 Sep, Lumbago 724.2 and Insomnia, unspecified 780.52 [facility] [place] [facility] [address] [facility] [id number] [place] [address]- 4355 Sep, [facility] [place] [facility] [address] [facility] [id number] [place] [address]- 2851 Aug, [facility] [place] [facility] [address] [facility] [id number] [place] [address]- 4477 Aug, [facility] [place] [facility] [address] [facility] [id number] [place] [address]- 9119 Jun, [facility] [place] [facility] [address] [facility] [id number] [place] [address]- 6610 Jun, [facility] [place] [facility] [id number] [place] [address]- 4976 Jun, [facility] [place] [facility] [id number] [place] [address]- 1601 May, [facility] [place] [facility] [address] [facility] [id number] [place] [address]- 6877 May, [facility] [place] [facility] [id number] [place] [address]- 6022 Apr, [facility] [place] [facility] [id number] [place] [address]- 4609 Apr, [facility] [place] [facility] [address] [facility] [id number], [place] [address]- 7923 Apr, [facility] [place] [facility] [address] [facility] [id number] [place] [address]- 7566 Apr, [facility] [place] [facility] [address] [facility] [id number] [place] [address]- 5985 Sep, [facility] [place] [facility] [address] [facility] [id number] [place] [address]- 8764 Sep, [facility] [place] [facility] [address] [facility] [id number] [place] [address]- 6397 Sep, [facility] [address] [id number] [place] [address]- 9088 Sep, [facility] [place] [facility] [address] [id number] [place] [address]- 0579 July, [facility] [address] [id number] [place] [address]- 8646 July, [facility] [place] [facility] [address] [id number] [place] [address]- 7801 Jun, [facility] [address] [id number] [place] [address]- 7224 Jun, [facility] [place] [facility] [address] [id number] [place] [address]- 8781 Feb, [facility] [address] [id number] [place] [address]- 5478 Feb, [facility] [place] [facility] [address] [id number] [place] [address]- 9199 Jan, [facility] [place] [facility] [address] [id number] [place] [address]- 8031 Jan, [facility] [address] [id number] [place] [address]- 6007 Aug, [facility] [place] [facility] [address] [id number] [place] [address]- 0398 Aug, [facility] [place] [facility] [address] [id number] [place] [address]- 5221 Aug, [facility] [place] [facility] [address] [id number] [place] [address]- 3313 Aug, [facility] [place] [facility] [address] [id number] [place] [address]- 8636 July, [facility] [place] [facility] [address] [id number] [place] [address]- 7533 July, [facility] [address] [facility] [id number], [place] [address]- 5876 Jun, [facility] [address] [facility] [id number], [place] [address]- 6146 Apr, [facility] [address] [facility] [id number], [place] [address]- 2696 Mar, [facility] [address] [facility] [id number], [place] [address]- 5186 Mar, [facility] [address] [facility] [id number], [place] [address]- 2969 Mar, [facility] [address] [facility] [id number], [place] [address]- 7726 Feb, [facility] [address] [facility] [id number], [place] [address]- 4496 Feb, [facility] [address], [place] [address]- 8329 Jan, [facility] [address], [place] [address]- 5332 Jan, [facility] [id number] [address]- 8066 Jan, [facility] [id number] [address]- 0956 Jan, IMMUNIZATIONS No Known Immunizations SOCIAL HISTORY Never Assessed REASON FOR VISIT [facility] PLAN OF CARE VITAL SIGNS MEDICATIONS Unknown [...]
--- OUTSIDE RECORDS SUMMARY | 2018-07-03 11:06 | XMS REPORT ---
Author Author Cecil JAYLYN [facility] Address [address] [place] [address] Care Team Providers Care Child Abuse Worker Name Role Phone JAYLYN Jacob Unavailable PROBLEMS Type Condition ICD9-CM Code VUJ49-QC Code Onset Dates Condition Status SNOMED Code Problem Abdominal malignancy C76.2 Active 857752276 Problem Mixed hyperlipidemia E78.2 Active 402111916 Problem Hypertension, benign I10 Active 92793985 Problem Other chronic pain G89.29 Active 68113212 Problem Malignant neoplasm of colon, unspecified part of colon C18.9 Active 819123285 ALLERGIES No Information ENCOUNTERS Encounter Location Date Diagnosis [facility] [address] [address] Apr, [facility] [address] [address] Mar, Acute pain of right shoulder M25.511 [place] [address] [place] [id number] [place] [address]84- 8321 Mar, [facility] [id number] [place] [address] 71915- 2172 Mar, Other chronic pain G89.29 ; Abdominal malignancy C76.2 and Functional diarrhea K59.1 [facility] [id number] [place] [address] 19206- 1658 Mar, [place] [address] [address] Mar, Low back pain M54.5 [facility] [id number] [place] [address]67- 2262 Feb, [place] [address] [place] [address] Jan, Acute pain of right shoulder M25.511 ; Upper back pain on right side M54.9 and Frequent headaches R51 [place] [address] [address] [id number] [place] [address] 56790- 9390 Sep, Mixed hyperlipidemia E78.2 [place] [address] [address] [id number] [place] [address] 07628- 5515 Aug, Bipolar 1 disorder, mixed, mild F31.61 [place] [address] [address] [id number] [place] [address] 77929- 4754 Aug, [address] [address]- [address] Aug, Bipolar 1 disorder, mixed, mild F31.61 [place] [address] [address] [id number] [place] [address] 90026- 0460 Jun, Bipolar 1 disorder, mixed, mild F31.61 [place] [id number] [place] [address] 45049- 9039 Jun, Pain in left knee M25.562 [place] [id number] [place] [address] 96992- 6766 Jun, Hypertension, benign I10 and Malignant neoplasm of colon, unspecified part of colon C18.9 [place] [address] [id number] [place] [address] 76717- 0190 May, Pain in right knee M25.561 and Other chronic pain G89.29 [place] [id number] [place] [address] 21728- 4882 14 May, 2016 Bipolar 1 disorder, mixed, mild F31.61 and 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 [place] [address] [address] [id number] [place] [address] 91390- 4251 13 May, 2016 Essential hypertension I10 ; Seasonal allergic rhinitis, unspecified allergic rhinitis trigger J30.2 ; Pain in right knee M25.561 ; Other chronic pain G89.29 and Pain in left knee M25.562 [facility] [address] [address] 09 Nov, 2015 Pneumonia of right lower lobe due to infectious organism J18.9 and Pleuritis R09.1 [facility] [address], [place] [address] 6648 Oct, Pneumonia of right lower lobe due to infectious organism J18.9 and Pleuritis R09.1 [facility] [id number] [address]- 6221 Jun, [facility] [id number] [place] [address] 87731- 5266 May, [facility] [address] [place] [address] 70566- 7332 May, Low back pain M54.5 ; Hypertension, benign I10 and Gastroesophageal reflux disease without esophagitis K21.9 [facility] [address], [place] [address]- 4153 Apr, [facility] [id number] [place] [address] 22223- 2775 Mar, [facility] [address], [place] [address]- 1280 Feb, [facility] [address], [place] [address]- 1688 Jan, [facility] [address], [place] [address]- 4901 Dec, [facility] [address], [place] [address]- 4229 Nov, [facility] [address], [place] [address]- 1323 Oct, [facility] [address], [place] [address]- 0139 Oct, [facility] [address] [facility] [id number] [place] [address]- 4[address] Sep, Lumbago 724.2 and Insomnia, unspecified 780.52 [facility] [address] [facility] [id number] [place] [address]- 6399 Sep, [facility] [address] [facility] [id number] [place] [address]- 8815 Aug, [facility] [address] [facility] [id number] [place] [address]- 5491 Aug, [facility] [address] [facility] [id number] [place] [address]- 6577 30 Jun, 2014 [facility] [address] [facility] [id number] [place] [address]- 4897 Jun, [facility] [address] [place] [address]- 9828 Jun, [facility] [address] [place] [address] [id number] [place] [address]- 7698 May, [facility] [address] [id number] [place] [address]- 7989 May, [facility] [address] [id number] [place] [address]- 4914 Apr, [facility] [address] [id number] [place] [address]- 7782 Apr, [facility] [address] [facility] [id number] [place] [address]- 4660 Apr, [facility] [address] [id number] [place] [address]- 4152 Apr, [facility] [address] [facility] [id number] [place] [address]- 9302 Sep, [facility] [place] [facility] [id number] [place] [address]- 1440 Sep, [facility] [address] [id number] [place] [address]- 3252 Sep, [facility] [place] [facility] [address] [id number] [place] [address]- 2964 Sep, [facility] [place] [facility] [address] [id number] [place] [address]- 7541 July, [facility] [place] [facility] [address] [id number] [place] [address]- 6865 July, [facility] [place] [facility] [address] [id number] [place] [address]- 9018 Jun, [facility] [place] [facility] [address] [id number] [place] [address]- 8910 Jun, [facility] [place] [facility] [address] [id number] [place] [address]- 2867 Feb, [facility] [place] [facility] [address] [id number] [place] [address]- 0009 Feb, [facility] [place] [facility] [address] [id number] [place] [address]- 5173 Jan, [facility] [place] [facility] [address] [id number] [place] [address]- 5071 Jan, [facility] [place] [facility] [address] [id number] [place] [address]- 7839 Aug, [facility] [place] [facility] [address] [id number] [place] [address]- 0524 Aug, [facility] [place] [facility] [address] [id number] [place] [address]- 5425 Aug, [facility] [place] [facility] [address] [id number] [place] [address]- 4213 Aug, [facility] [place] [facility] [address] [id number] [place] [address]- 1007 July, [facility] [place] [facility] [address] [id number] [place] [address]- 8559 July, [facility] [address] [id number] [address]- 1147 Jun, [facility] [address], [place] [address]- 8096 Apr, [facility] [address], [place] [address]- 2611 Mar, [facility] [address] 3898 Mar, [facility] [address], [place] [address]- 7721 Mar, [facility] [address], [place] [address]- 4649 Feb, [facility] [address], [place] [address]- 4169 Feb, [facility] [address], [place] [address]- 8754 Jan, [facility] [address], [place] [address]- 8511 Jan, [facility] [address], [place] [address]- 7171 Jan, [facility] [address] [place] [id number], [place] [address]- 4510 Jan, IMMUNIZATIONS No Known Immunizations SOCIAL HISTORY Never Assessed REASON FOR VISIT f/kishan Inman MA PLAN OF CARE Activity Details Follow Up 2 Months with new provider Reason: VITAL SIGNS Height 67 in 2016-09-08 Weight 185.5 lbs 2016-09-08 Heart Rate 72 bpm 2016-09-08 Respiratory Rate 20 2016-09-08 BMI 29.05 kg/m2 2016-09-08 Blood pressure systolic 106 mmHg 2016-09-08 Blood pressure diastolic 80 mmHg 2016-09-08 MEDICATIONS Medication Instructions Dosage Frequency Start Date End Date Duration Status Omeprazole 20 MG Orally Once a day 1 capsule 24h 90 days Active Ziprasidone HCl 80 MG Orally Once a day 1 capsule with food 24h Jun, 30 days Active Amlodipine Besylate 5 MG 1 tablet 24h 90 days Active Loratadine 10 MG 1 tablet 24h May, 90 days Active RESULTS No Results PROCEDURES Procedure Date Ordered Result Body Site [facility] VISIT ESTABLISHED PATIENT September 08, 2016 INSTRUCTIONS MEDICATIONS ADMINISTERED No Known Medications MEDICAL [...]
--- OUTSIDE RECORDS SUMMARY | 2018-07-03 11:06 | XMS REPORT ---
Author Author ECHO GALLO [facility] Address [address] [place] [address] Care Team Providers Care Chucking And Boring Machine Operator Name Role Phone ECHO GALLO Unavailable PROBLEMS Type Condition ICD9-CM Code BHH16-LR Code Onset Dates Condition Status SNOMED Code Problem Abdominal malignancy C76.2 Active 291635190 Problem Mixed hyperlipidemia E78.2 Active 149654418 Problem Hypertension, benign I10 Active 33534850 Problem Other chronic pain G89.29 Active 40934278 Problem Malignant neoplasm of colon, unspecified part of colon C18.9 Active 675988853 ALLERGIES No Information ENCOUNTERS Encounter Location Date Diagnosis [place] [address] [address]- [address]60 Apr, [place] [address] [address]- 4791 Mar, Acute pain of right shoulder M25.511 [place] [address] [address]- 9445 Mar, [place] [address] [place] [id number] [place] [address] 47668- 2136 Mar, Other chronic pain G89.29 ; Abdominal malignancy C76.2 and Functional diarrhea K59.1 [place] [address] [place] [id number] [place] [address] 91732- 7102 Mar, [place] [address] 87977- 1657 Mar, Low back pain M54.5 [place] [address] 37[address]- 8538 Feb, [place] [address] [address]- 4880 Jan, Acute pain of right shoulder M25.511 ; Upper back pain on right side M54.9 and Frequent headaches R51 [place] [address] [place] [id number] [place] [address] 69319- 6574 Sep, Mixed hyperlipidemia E78.2 [place] [address] [place] [id number] [place] [address] 09341- 6027 Aug, Bipolar 1 disorder, mixed, mild F31.61 [place] [address] [place] [id number] [place] [address] 35037- 7510 Aug, [place] [address] 33571- 0736 Aug, Bipolar 1 disorder, mixed, mild F31.61 [place] [address] [place] [id number] [place] [address] 35935- 1220 Jun, Bipolar 1 disorder, mixed, mild F31.61 [place] [address] [place] [id number] [place] [address] 78962- 1496 Jun, Pain in left knee M25.562 [place] [address] [place] [id number] [place] [address] 48991- 6900 Jun, Hypertension, benign I10 and Malignant neoplasm of colon, unspecified part of colon C18.9 [place] [address] [place] [id number] [place] [address] 51617- 1508 May, Pain in right knee M25.561 and Other chronic pain G89.29 [place] [address] [place] [id number] [place] [address] 67885- 1486 14 May, 2016 Bipolar 1 disorder, mixed, mild F31.61 and Other senior living ( current) drug therapy Z79.899 [place] [address] [place] [id number] [place] [address] 56895- 3792 13 May, 2016 Essential hypertension I10 ; Seasonal allergic rhinitis, unspecified allergic rhinitis trigger J30.2 ; Pain in right knee M25.561 ; Other chronic pain G89.29 and Pain in left knee M25.562 [facility] [address], [place] [address]- 9651 Nov, Pneumonia of right lower lobe due to infectious organism J18.9 and Pleuritis R09.1 [facility] [address] [place] [address] [id number] [place] [address]- 9792 Oct, Pneumonia of right lower lobe due to infectious organism J18.9 and Pleuritis R09.1 [facility] [address] [place] [address] [id number] [place] [address]- 9990 Jun, [facility] [address] [place] [address] [id number] [place] [address] 33449- 5583 May, [facility] [address] [place] [address] [id number] [place] [address] 64760- 2323 May, Low back pain M54.5 ; Hypertension, benign I10 and Gastroesophageal reflux disease without esophagitis K21.9 [facility] [address], [place] [address]- 7917 Apr, [facility] [address] [place] [id number] [place] [address] 78686- 1457 Mar, [facility] [address] [place] [address] [id number] [address]- 6061 Feb, [facility] [address], [place] [address]- 1983 Jan, [facility] [address] [place] [id number] [place] [address]- 9983 Dec, [facility] [address], [place] [address]- 0183 Nov, [facility] [address], [place] [address]- 1195 Oct, [facility] [address], [place] [address]- 5734 Oct, [facility] [address] [place] [id number] [place] [address]- 4839 Sep, Lumbago 724.2 and Insomnia, unspecified 780.52 [facility] [address] [id number] [place] [address]- 9160 Sep, [facility] [place] [facility] [address] [facility] [id number] [place] [address]- 9680 Aug, [facility] [place] [facility] [address] [id number] [place] [address]- 2938 Aug, [facility] [place] [facility] [address] [id number] [place] [address]- 6691 Jun, [facility] [address] [facility] [id number] [place] [address]- 1245 Jun, [facility] [place] [facility] [address] [place] [address] [id number] [place] [address]- 8795 Jun, [facility] [place] [facility] [address] [facility] [id number] [place] [address]- 1604 May, [facility] [place] [facility] [address] [facility] [id number] [place] [address]- 7511 May, [facility] [place] [facility] [address] [place] [id number] [place] [address]- 9478 Apr, [facility] [place] [facility] [address] [place] [id number] [place] [address]- 2968 Apr, [facility] [place] [facility] [address] [facility] [id number] [place] [address]- 1235 Apr, [facility] [place] [facility] [address] [id number] [place] [address]- 0960 Apr, [facility] [place] [facility] [address] [facility] [id number] [place] [address]- 6152 Sep, [facility] [place] [facility] [address] [facility] [id number] [place] [address]- 7837 Sep, [facility] [place] [facility] [address] [facility] [id number] [place] [address]- 2546 Sep, [facility] [address] [id number] [place] [address]- 9238 Sep, [facility] [address] [id number] [place] [address] 2546 July, [facility] [address] [id number] [place] [address]- 3366 July, [facility] [address] [id number] [place] [address]- 4846 Jun, [facility] [address] [id number] [place] [address]- 9452 Jun, [facility] [address] [id number] [place] [address]- 5796 Feb, [facility] [address] [id number] [place] [address]- 5547 Feb, [facility] [address] [id number] [place] [address]- 6359 Jan, [facility] [address] [id number] [place] [address]- 4667 Jan, [facility] [address] [id number] [place] [address]- 3656 Aug, [facility] [address] [id number] [place] [address]- 6949 Aug, [facility] [address] [id number] [place] [address]- 7117 Aug, [facility] [address] [id number] [place] [address]- 9086 Aug, [facility] [address] [id number] [place] [address]- 2546 July, [facility] [address] [id number] [place] [address]- 4976 July, [facility] [address] [id number] [address]- 6048 Jun, [facility] [address], [place] [address]- 2550 Apr, [facility] [address] [address]65 Mar, [facility] [address] [facility] [id number] 8979 Mar, [facility] [address] 3421 Mar, [facility] [address] 1586 Feb, [facility] [address] 7472 Feb, [facility] [address] 2414 Jan, [facility] [address], [place] [address]- 5858 Jan, [facility] [id number] 5904 Jan, [facility] [id number] 4424 Jan, IMMUNIZATIONS No Known Immunizations SOCIAL HISTORY Never Assessed REASON FOR VISIT med refill PLAN OF CARE VITAL SIGNS MEDICATIONS Medication Instructions Dosage Frequency Start Date End Date Duration Status Ziprasidone HCl 80 MG Orally Once a day 1 capsule with food 24h Jun, 30 days Active RESULTS No Results PROCEDURES No Known [...]
--- OUTSIDE RECORDS SUMMARY | 2018-07-03 11:06 | XMS REPORT ---
Author Author MOUNIKA READ Organization [facility] Address [address] [place] [address] Care Team Providers Care Clinical Program Director Name Role Phone MOUNIKA READ Unavailable PROBLEMS Type Condition ICD9-CM Code HPI86-UI Code Onset Dates Condition Status SNOMED Code Problem Abdominal malignancy C76.2 Active 097745945 Problem Mixed hyperlipidemia E78.2 Active 461787935 Problem Hypertension, benign I10 Active 37816212 Problem Other chronic pain G89.29 Active 15167837 Problem Malignant neoplasm of colon, unspecified part of colon C18.9 Active 129239600 ALLERGIES No Information ENCOUNTERS Encounter Location Date Diagnosis [place] [address] [address] Apr, [place] [address] 214[address]- 8240 Mar, Acute pain of right shoulder M25.511 [place] [address] 15476- 2170 Mar, [place] [address] 6[address]- 0832 Mar, Other chronic pain G89.29 ; Abdominal malignancy C76.2 and Functional diarrhea K59.1 [place] [address] [place] [id number] [place] [address] 34243- 6909 Mar, [place] [address] 8[address]- 9929 Mar, Low back pain M54.5 [place] [address] [place] [id number] [place] [address] 04641- 0774 Feb, [place] [address] 0[address]- 7569 Jan, Acute pain of right shoulder M25.511 ; Upper back pain on right side M54.9 and Frequent headaches R51 [place] [address] 62112- 7649 Sep, Mixed hyperlipidemia E78.2 [place] [address] [place] [id number] [place] [address] 80516- 6844 Aug, Bipolar 1 disorder, mixed, mild F31.61 [place] [address] 13005- 7777 Aug, [place] [address] 03677- 0051 Aug, Bipolar 1 disorder, mixed, mild F31.61 [place] [address] [place] [id number] [place] [address] 81270- 9703 Jun, Bipolar 1 disorder, mixed, mild F31.61 [place] [address] [place] [id number] [place] [address] 26747- 1857 Jun, Pain in left knee M25.562 [place] [address] [place] [id number] [place] [address] 31624- 4100 Jun, Hypertension, benign I10 and Malignant neoplasm of colon, unspecified part of colon C18.9 [place] [address] [place] [id number] [place] [address] 18801- 0305 May, Pain in right knee M25.561 and Other chronic pain G89.29 [place] [address] [place] [id number] [place] [address] 50614- 3142 14 May, 2016 Bipolar 1 disorder, mixed, mild F31.61 and Other custodial ( current) drug therapy Z79.899 [place] [address] [place] [id number] [place] [address] 24535- 3147 13 May, 2016 Essential hypertension I10 ; Seasonal allergic rhinitis, unspecified allergic rhinitis trigger J30.2 ; Pain in right knee M25.561 ; Other chronic pain G89.29 and Pain in left knee M25.562 [facility] [address], [place] [address] 3457 09 Nov, 2015 Pneumonia of right lower lobe due to infectious organism J18.9 and Pleuritis R09.1 [facility] [address], [place] [address]- 7866 Oct, Pneumonia of right lower lobe due to infectious organism J18.9 and Pleuritis R09.1 [facility] [address] [place] [id number] [place] [address] 18152- 9466 Jun, [facility] [address] [place] [id number] [place] [address] 91292- 1094 May, [facility] [address] [place] [id number] [place] [address] 74465- 3902 May, Low back pain M54.5 ; Hypertension, benign I10 and Gastroesophageal reflux disease without esophagitis K21.9 [facility] [address], [place] [address]- 5601 Apr, [facility] [address] [place] [id number] [place] [address] 87935- 0170 Mar, [facility] [address] [place] [id number] [place] [address] 93330- 4052 Feb, [facility] [address], [place] [address]- 8878 Jan, [facility] [address], [place] [address]- 7636 Dec, [facility] [address], [place] [address]- 8509 Nov, [facility] [address] [place] [id number] [place] [address] 25537- 2682 Oct, [facility] [address] [place] [id number] [address]- 1714 Oct, [facility] [address] [place] [address] [place] [address]- 5525 Sep, Lumbago 724.2 and Insomnia, unspecified 780.52 [facility] [place] [facility] [address] [facility] [id number] [place] [address]- 4365 Sep, [facility] [place] [facility] [address] [facility] [id number] [place] [address]- 3627 Aug, [facility] [place] [facility] [address] [facility] [id number] [place] [address]- 9724 Aug, [facility] [place] [facility] [address] [facility] [id number] [place] [address]- 8831 Jun, [facility] [place] [facility] [address] [facility] [id number] [place] [address]- 9956 Jun, [facility] [place] [facility] [address] [place] [id number] [place] [address]- 5426 Jun, [facility] [place] [facility] [address] [place] [id number] [place] [address]- 0337 May, [facility] [place] [facility] [address] [facility] [id number] [place] [address]- 9005 May, [facility] [place] [facility] [address] [place] [id number] [place] [address]- 3425 Apr, [facility] [place] [facility] [address] [place] [id number] [place] [address]- 2267 Apr, [facility] [place] [facility] [address] [facility] [id number], [place] [address]- 2397 Apr, [facility] [place] [facility] [address] [facility] [id number] [place] [address]- 4827 Apr, [facility] [place] [facility] [address] [facility] [id number] [place] [address]- 2762 Sep, [facility] [place] [facility] [address] [facility] [id number] [place] [address]- 1240 Sep, [facility] [place] [facility] [address] [facility] [id number] [place] [address]- 5011 Sep, [facility] [address] [id number] [place] [address]- 2162 Sep, [facility] [place] [facility] [address] [id number] [place] [address]- 9039 July, [facility] [address] [id number] [place] [address]- 2556 July, [facility] [place] [facility] [address] [id number] [place] [address]- 7355 Jun, [facility] [address] [id number] [place] [address]- 7618 Jun, [facility] [place] [facility] [address] [id number] [place] [address]- 6060 Feb, [facility] [address] [id number] [place] [address]- 3095 Feb, [facility] [place] [facility] [address] [id number] [place] [address]- 9107 Jan, [facility] [place] [facility] [address] [id number] [place] [address]- 2678 Jan, [facility] [address] [id number] [place] [address]- 9329 Aug, [facility] [place] [facility] [address] [id number] [place] [address]- 7225 Aug, [facility] [place] [facility] [address] [id number] [place] [address]- 4756 Aug, [facility] [place] [facility] [address] [id number] [place] [address]- 6048 Aug, [facility] [place] [facility] [address] [id number] [place] [address]- 9676 July, [facility] [place] [facility] [address] [id number] [place] [address]- 7192 July, [facility] [address] [facility] [id number], [place] [address]- 4306 Jun, [facility] [address] [facility] [id number], [place] [address]- 9566 Apr, [facility] [address] [facility] [id number], [place] [address]- 3146 Mar, [facility] [address] [facility] [id number], [place] [address]- 4860 Mar, [facility] [address] [facility] [id number], [place] [address]- 2435 Mar, [facility] [address] [facility] [id number], [place] [address]- 3700 Feb, [facility] [address], [place] [address]- 1066 Feb, [facility] [address], [place] [address]- 1793 Jan, [facility] [address], [place] [address]- 1477 Jan, [facility] [address] [place] [id number], [place] [address]- 6869 Jan, [facility] [address] [place] [id number], [place] [address]- 8530 Jan, IMMUNIZATIONS No Known Immunizations SOCIAL HISTORY Never Assessed REASON FOR VISIT eye exam PLAN OF CARE VITAL SIGNS MEDICATIONS Unknown [...]
--- OUTSIDE RECORDS SUMMARY | 2018-07-03 11:07 | XMS REPORT ---
Author Author MOUNIKA READ Organization [facility] Address [address] [place] [address] Care Team Providers Care Etched Circuit Processor Name Role Phone MOUNIKA READ Unavailable PROBLEMS Type Condition ICD9-CM Code IJE03-NI Code Onset Dates Condition Status SNOMED Code Problem Abdominal malignancy C76.2 Active 960369695 Problem Mixed hyperlipidemia E78.2 Active 837547649 Problem Hypertension, benign I10 Active 16802454 Problem Other chronic pain G89.29 Active 15112125 Problem Malignant neoplasm of colon, unspecified part of colon C18.9 Active 643110410 ALLERGIES No Known Allergies ENCOUNTERS Encounter Location Date Diagnosis [place] [address] [address]- 9279 Apr, [place] [address] 69248- 7406 Mar, Acute pain of right shoulder M25.511 [place] [address] 56584- 0945 Mar, [place] [address] [place] [id number] [place] [address] 19468- 6387 Mar, Other chronic pain G89.29 ; Abdominal malignancy C76.2 and Functional diarrhea K59.1 [place] [address] [place] [id number] [place] [address] 87587- 1083 Mar, [place] [address] 30304- 9974 Mar, Low back pain M54.5 [place] [address] [place] [id number] [place] [address] 41485- 1431 Feb, [place] [address] 54932- 9152 Jan, Acute pain of right shoulder M25.511 ; Upper back pain on right side M54.9 and Frequent headaches R51 [place] [address] 16421- 1273 Sep, Mixed hyperlipidemia E78.2 [place] [address] [place] [id number] [place] [address] 76503- 6014 Aug, Bipolar 1 disorder, mixed, mild F31.61 [place] [address] [place] [id number] [place] [address] 81212- 4392 Aug, [place] [address] 45979- 8363 Aug, Bipolar 1 disorder, mixed, mild F31.61 [place] [address] [place] [id number] [place] [address] 10842- 6496 Jun, Bipolar 1 disorder, mixed, mild F31.61 [place] [address] [place] [id number] [place] [address] 76850- 4746 Jun, Pain in left knee M25.562 [place] [address] [place] [id number] [place] [address] 17713- 8175 Jun, Hypertension, benign I10 and Malignant neoplasm of colon, unspecified part of colon C18.9 [place] [address] [place] [id number] [place] [address] 39138- 3954 May, Pain in right knee M25.561 and Other chronic pain G89.29 [place] [address] [place] [id number] [place] [address] 08341- 4620 14 May, 2016 Bipolar 1 disorder, mixed, mild F31.61 and Other snf ( current) drug therapy Z79.899 [place] [address] [place] [id number] [place] [address] 06449- 2166 13 May, 2016 Essential hypertension I10 ; Seasonal allergic rhinitis, unspecified allergic rhinitis trigger J30.2 ; Pain in right knee M25.561 ; Other chronic pain G89.29 and Pain in left knee M25.562 [facility] [address] [address]- 4249 09 Nov, 2015 Pneumonia of right lower lobe due to infectious organism J18.9 and Pleuritis R09.1 [facility] [address] [address]- 4836 Oct, Pneumonia of right lower lobe due to infectious organism J18.9 and Pleuritis R09.1 [facility] [address] [place] [id number] [address]- 3424 Jun, [facility] [address] [place] [id number] [place] [address] 80123- 8518 May, [facility] [address] [place] [id number] [place] [address] 07371- 9962 May, Low back pain M54.5 ; Hypertension, benign I10 and Gastroesophageal reflux disease without esophagitis K21.9 [facility] [address] [address]- 2714 Apr, [facility] [address] [address]- 3609 Mar, [facility] [address] [place] [id number] [address]- 3580 Feb, [facility] [address] [address]- 5129 Jan, [facility] [address] [address]- 7501 Dec, [facility] [address] [address]- 6320 Nov, [facility] [address] [place] [id number] [address]- 9333 Oct, [facility] [address] [address]- 1878 Oct, [facility] [address] [place] [id number] [place] [address]- 2086 Sep, Lumbago 724.2 and Insomnia, unspecified 780.52 [facility] [place] [facility] [address] [id number] [place] [address]- 6450 Sep, [facility] [place] [facility] [address] [facility] [id number] [place] [address]- 2364 Aug, [facility] [place] [facility] [address] [facility] [id number] [place] [address]- 9235 Aug, [facility] [place] [facility] [address] [facility] [id number] [place] [address]- 0372 30 Jun, 2014 [facility] [place] [facility] [address] [facility] [id number] [place] [address]- 1880 Jun, [facility] [place] [facility] [address] [place] [id number] [place] [address]- 5349 Jun, [facility] [place] [facility] [address] [facility] [id number] [place] [address]- 4333 May, [facility] [place] [facility] [address] [facility] [id number] [place] [address]- 8920 May, [facility] [place] [facility] [address] [place] [id number] [place] [address]- 5436 Apr, [facility] [place] [facility] [address] [facility] [id number] [place] [address]- 1122 Apr, [facility] [place] [facility] [address] [facility] [id number] [address]- 2490 Apr, [facility] [place] [facility] [address] [facility] [id number] [place] [address]- 8756 Apr, [facility] [place] [facility] [address] [facility] [id number] [place] [address]- 4943 Sep, [facility] [place] [facility] [address] [facility] [id number] [place] [address]- 6097 Sep, [facility] [place] [facility] [address] [facility] [id number] [place] [address]- 6941 Sep, [facility] [address] [id number] [place] [address]- 5393 Sep, [facility] [address] [id number] [place] [address]- 2489 July, [facility] [address] [id number] [place] [address]- 8097 July, [facility] [address] [id number] [place] [address]- 8841 Jun, [facility] [address] [id number] [place] [address]- 3328 Jun, [facility] [address] [id number] [place] [address]- 2809 Feb, [facility] [address] [id number] [place] [address]- 3788 Feb, [facility] [address] [id number] [place] [address]- 4867 Jan, [facility] [address] [id number] [place] [address]- 9747 Jan, [facility] [address] [id number] [place] [address]- 9996 Aug, [facility] [place] [facility] [address] [id number] [place] [address]- 1807 Aug, [facility] [place] [facility] [address] [id number] [place] [address]- 2572 Aug, [facility] [place] [facility] [address] [id number] [place] [address]- 9379 Aug, [facility] [place] [facility] [address] [id number] [place] [address]- 9896 July, [facility] [place] [facility] [address] [id number] [place] [address]- 5502 July, [facility] [address] [address] [id number] [address]- 7908 Jun, [facility] [address] [address]- 0296 Apr, [facility] [address] [address]- 0219 Mar, [facility] [address] [address]- 3778 Mar, [facility] [address] [address]- 6375 Mar, [facility] [address] [address]- 9472 Feb, [facility] [address] [address]- 2025 Feb, [facility] [address] [address]- 0069 Jan, [facility] [address] 3958 Jan, [facility] [address] [id number] [address]- 8642 Jan, [facility] [address] [id number] [address]- 5999 Jan, IMMUNIZATIONS No Known Immunizations SOCIAL HISTORY Never Assessed REASON FOR VISIT diarrhea, with strong smell urine, stomach pain. PT had a biopsy two weeks ago for Cancer in the colon[facility] PLAN OF CARE VITAL SIGNS Height 67 in 2017-04-19 Weight 197.2 lbs 2017-04-19 Temperature 98.2 degrees Fahrenheit 2017-04-19 Heart Rate 74 bpm 2017-04-19 Respiratory Rate 20 2017-04-19 BMI 30.88 kg/m2 2017-04-19 Blood pressure systolic 128 mmHg 2017-04-19 Blood pressure diastolic 76 mmHg 2017-04-19 MEDICATIONS Medication Instructions Dosage Frequency Start Date End Date Duration Status [place] 7.5-325 MG Orally every 6 hrs 1 tablet as needed 6h Jan, Active Amlodipine Besylate 5 MG 1 tablet 24h 90 days Active Lomotil 2.5-0.025 MG Orally Four times a day 1 tablet as needed 6h Mar, Active Pantoprazole Sodium 20 mg Orally Once a day 1 tablet 24h Mar, 30 day(s) Active Fluoxetine HCl 20 mg Orally Once a day 1 capsule in the morning 24h Feb 30 day(s) Active RESULTS Name Result Date Reference Range AMERITOX 2017-04-19 PROCEDURES Procedure Date Ordered Result Body Site No Charge Apr 19, 2017 [facility] VISIT ESTABLISHED PATIENT Apr 19, 2017 INSTRUCTIONS MEDICATIONS ADMINISTERED No Known Medications [...]
--- OUTSIDE RECORDS SUMMARY | 2018-07-03 11:07 | XMS REPORT ---
Author Author MOUNIKA READ Organization [facility] Address [address] [place] [address] Care Team Providers Care Student Development Dean Name Role Phone MOUNIKA READ Unavailable PROBLEMS Type Condition ICD9-CM Code [id number] Code Onset Dates Condition Status SNOMED Code Problem Abdominal malignancy C76.2 Active 120402699 Problem Mixed hyperlipidemia E78.2 Active 789611043 Problem Hypertension, benign I10 Active 88953720 Problem Other chronic pain G89.29 Active 58592743 Problem Malignant neoplasm of colon, unspecified part of colon C18.9 Active 618937173 ALLERGIES No Information ENCOUNTERS Encounter Location Date Diagnosis [place] [address] [address] Apr, [place] [address] [address]- 2669 Mar, Acute pain of right shoulder M25.511 [place] [address] [address]- 5345 Mar, [place] [address] [address]- 6[address] Mar, Other chronic pain G89.29 ; Abdominal malignancy C76.2 and Functional diarrhea K59.1 [place] [address] [address] [place] [id number] [place] [address] 47144- 6979 Mar, [place] [address] 8[address]- 6307 Mar, Low back pain M54.5 [place] [address] [place] [id number] [place] [address] 22035- 3043 Feb, [place] [address] 16[address]- 7845 Jan, Acute pain of right shoulder M25.511 ; Upper back pain on right side M54.9 and Frequent headaches R51 [place] [address] 90651- 0850 Sep, Mixed hyperlipidemia E78.2 [place] [address] [place] [id number] [place] [address] 48981- 9010 Aug, Bipolar 1 disorder, mixed, mild F31.61 [place] [address] 84854- 4322 Aug, [place] [address] 58762- 4109 Aug, Bipolar 1 disorder, mixed, mild F31.61 [place] [address] [address] [place] [id number] [place] [address] 14957- 0668 Jun, Bipolar 1 disorder, mixed, mild F31.61 [place] [address] [place] [id number] [place] [address] 87521- 6740 Jun, Pain in left knee M25.562 [place] [address] [place] [id number] [place] [address] 74522- 1519 Jun, Hypertension, benign I10 and Malignant neoplasm of colon, unspecified part of colon C18.9 [place] [address] [place] [id number] [place] [address] 95180- 1049 May, Pain in right knee M25.561 and Other chronic pain G89.29 [place] [address] [address] [place] [id number] [place] [address] 29694- 4558 14 May, 2016 Bipolar 1 disorder, mixed, mild F31.61 and Other penitentiary ( current) drug therapy Z79.899 [place] [address] [address] [place] [id number] [place] [address] 46313- 2377 13 May, 2016 Essential hypertension I10 ; Seasonal allergic rhinitis, unspecified allergic rhinitis trigger J30.2 ; Pain in right knee M25.561 ; Other chronic pain G89.29 and Pain in left knee M25.562 [facility] [address], [place] [address] 96[address] 09 Nov, 2015 Pneumonia of right lower lobe due to infectious organism J18.9 and Pleuritis R09.1 [facility] [address] [address] 7336 Oct, Pneumonia of right lower lobe due to infectious organism J18.9 and Pleuritis R09.1 [facility] [address] [place] [id number] [place] [address] 64560- 5171 Jun, [facility] [address] [place] [id number] [place] [address] 29224- 5809 May, [facility] [address] [place] [id number] [place] [address] 70461- 7134 May, Low back pain M54.5 ; Hypertension, benign I10 and Gastroesophageal reflux disease without esophagitis K21.9 [facility] [address], [place] [address]- 7091 Apr, [facility] [address] [place] [id number] [place] [address] 62351- 0763 Mar, [facility] [address] [place] [id number] [place] [address] 78923- 0406 Feb, [facility] [address], [place] [address]- 2138 Jan, [facility] [address], [place] [address]- 3775 Dec, [facility] [address], [place] [address]- 7112 Nov, [facility] [address] [place] [id number] [place] [address] 83626- 2978 Oct, [facility] [address] [place] [id number] [address]- 2294 Oct, [facility] [address] [place] [id number] [place] [address]- 0506 Sep, Lumbago 724.2 and Insomnia, unspecified 780.52 [facility] [place] [facility] [address] [facility] [id number] [place] [address]- 8486 Sep, [facility] [place] [facility] [address] [facility] [id number] [place] [address]- 6348 Aug, [facility] [place] [facility] [address] [facility] [id number] [place] [address]- 2215 Aug, [facility] [place] [facility] [address] [facility] [id number] [place] [address]- 7101 Jun, [facility] [place] [facility] [address] [facility] [id number] [place] [address]- 5409 Jun, [facility] [place] [facility] [address] [place] [id number] [place] [address]- 6093 Jun, [facility] [place] [facility] [address] [place] [id number] [place] [address]- 4359 May, [facility] [place] [facility] [address] [facility] [id number] [place] [address]- 9082 May, [facility] [place] [facility] [address] [place] [id number] [place] [address]- 2217 Apr, [facility] [place] [facility] [address] [place] [id number] [place] [address]- 2546 Apr, [facility] [place] [facility] [address] [facility] [id number], [place] [address]- 7703 Apr, [facility] [place] [facility] [address] [facility] [id number] [place] [address]- 5997 Apr, [facility] [place] [facility] [address] [facility] [id number] [place] [address]- 6676 Sep, [facility] [place] [facility] [address] [facility] [id number] [place] [address]- 2762 Sep, [facility] [place] [facility] [address] [facility] [id number] [place] [address]- 3230 Sep, [facility] [address] [id number] [place] [address]- 9555 Sep, [facility] [place] [facility] [address] [id number] [place] [address]- 0333 July, [facility] [address] [id number] [place] [address]- 3106 July, [facility] [place] [facility] [address] [id number] [place] [address]- 9429 Jun, [facility] [address] [id number] [place] [address]- 3411 Jun, [facility] [place] [facility] [address] [id number] [place] [address]- 2988 Feb, [facility] [address] [id number] [place] [address]- 3501 Feb, [facility] [place] [facility] [address] [id number] [place] [address]- 8617 Jan, [facility] [place] [facility] [address] [id number] [place] [address]- 7500 Jan, [facility] [address] [id number] [place] [address]- 9793 Aug, [facility] [place] [facility] [address] [id number] [place] [address]- 6423 Aug, [facility] [place] [facility] [address] [id number] [place] [address]- 6481 Aug, [facility] [place] [facility] [address] [id number] [place] [address]- 7343 Aug, [facility] [place] [facility] [address] [id number] [place] [address]- 2316 July, [facility] [place] [facility] [address] [id number] [place] [address]- 8118 July, [facility] [address] [facility] [id number] [address]- 9626 Jun, [facility] [address] [facility] [id number], [place] [address]- 6526 Apr, [facility] [address] [facility] [id number], [place] [address]- 1786 Mar, [facility] [address] [facility] [id number], [place] [address]- 1141 Mar, [facility] [address] [facility] [id number], [place] [address]- 6039 Mar, [facility] [address] [facility] [id number], [place] [address]- 8316 Feb, [facility] [address], [place] [address]- 9284 Feb, [facility] [address], [place] [address]- 1531 Jan, [facility] [address], [place] [address]- 5246 Jan, [facility] [address] [place] [id number], [place] [address]- 0044 Jan, [facility] [address] [place] [id number], [place] [address]- 1328 Jan, IMMUNIZATIONS No Known Immunizations SOCIAL HISTORY Never Assessed REASON FOR VISIT Controlled Med Refill Request Denied PLAN OF CARE VITAL SIGNS MEDICATIONS Unknown [...]
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
--- OUTSIDE RECORDS SUMMARY | 2018-07-03 11:07 | XMS REPORT ---
Author Author MOUNIKA READ Organization [facility] Address [address] [place] [address] Care Team Providers Care Employment Specialist Name Role Phone MOUNIKA READ Unavailable PROBLEMS Type Condition ICD9-CM Code [id number] Code Onset Dates Condition Status SNOMED Code Problem Abdominal malignancy C76.2 Active 078221050 Problem Mixed hyperlipidemia E78.2 Active 576234449 Problem Hypertension, benign I10 Active 10150909 Problem Other chronic pain G89.29 Active 94494165 Problem Malignant neoplasm of colon, unspecified part of colon C18.9 Active 441023021 ALLERGIES No Information ENCOUNTERS Encounter Location Date Diagnosis [place] [address] [address] Apr, [place] [address] [address] Mar, Acute pain of right shoulder M25.511 [place] [address] [address] Mar, [place] [address] [address] Mar, Other chronic pain G89.29 ; Abdominal malignancy C76.2 and Functional diarrhea K59.1 [place] [id number] [place] [id number] [place] [address] Mar, [place] [address] [address] Mar, Low back pain M54.5 [place] [address] [place] [id number] [place] [address] Feb, [place] [address] [address] Jan, Acute pain of right shoulder M25.511 ; Upper back pain on right side M54.9 and Frequent headaches R51 [place] [address] [address]- [address] Sep, Mixed hyperlipidemia E78.2 [place] [address] [place] [id number] [place] [address]- [address] Aug, Bipolar 1 disorder, mixed, mild F31.61 [place] [address] [address] Aug, [place] [address] [address] Aug, Bipolar 1 disorder, mixed, mild F31.61 [place] [address] [place] [id number] [place] [address]- [address] Jun, Bipolar 1 disorder, mixed, mild F31.61 [place] [address] [place] [id number] [place] [address]- [address] Jun, Pain in left knee M25.562 [place] [address] [place] [id number] [place] [address]- [address] Jun, Hypertension, benign I10 and Malignant neoplasm of colon, unspecified part of colon C18.9 [place] [address] [place] [id number] [place] [address]- [address] May, Pain in right knee M25.561 and Other chronic pain G89.29 [place] [address] [place] [id number] [place] [address]- [address] 14 May, 2016 Bipolar 1 disorder, mixed, mild F31.61 and Other skilled nursing ( current) drug therapy Z79.899 [place] [address] [place] [id number] [place] [address]- [address] 13 May, 2016 Essential hypertension I10 ; Seasonal allergic rhinitis, unspecified allergic rhinitis trigger J30.2 ; Pain in right knee M25.561 ; Other chronic pain G89.29 and Pain in left knee M25.562 [facility] [address], [place] [address] Nov, 2015 Pneumonia of right lower lobe due to infectious organism J18.9 and Pleuritis R09.1 [facility] [address], [place] [address] Oct, Pneumonia of right lower lobe due to infectious organism J18.9 and Pleuritis R09.1 [facility] [address] [place] [id number] [place] [address] 96159- [address]40 Jun, [facility] [address] [place] [id number] [place] [address] 64274- 74[address] May, [facility] [address] [place] [id number] [place] [address] 45[address]- [address]118 May, Low back pain M54.5 ; Hypertension, benign I10 and Gastroesophageal reflux disease without esophagitis K21.9 [facility] [address], [place] [address] Apr, [facility] [address] [place] [id number] [place] [address] 09192- 9632 Mar, [facility] [address] [place] [id number] [place] [address]52- 3498 Feb, [facility] [address], [place] [address] Jan, [facility] [address], [place] [address] Dec, [facility] [address], [place] [address] Nov, [facility] [address] [place] [id number] [place] [address] 13687- 9959 Oct, [facility] [address] [place] [id number] [address] Oct, [facility] [address] [place] [address] [place] [address] Sep, Lumbago 724.2 and Insomnia, unspecified 780.52 [facility] [place] [facility] [address] [facility] [id number] [place] [address]- [address] Sep, [facility] [place] [facility] [address] [facility] [id number] [place] [address]- 67[address] Aug, [facility] [place] [facility] [address] [facility] [id number] [place] [address]- 7367 Aug, [facility] [place] [facility] [address] [facility] [id number] [place] [address]- 8829 Jun, [facility] [place] [facility] [address] [facility] [id number] [place] [address]- [address] Jun, [facility] [place] [facility] [address] [place] [id number] [place] [address] Jun, [facility] [place] [facility] [address] [place] [id number] [place] [address] May, [facility] [place] [facility] [address] [facility] [id number] [place] [address]- 4[address] May, [facility] [place] [facility] [address] [place] [id number] [place] [address]- [address] Apr, [facility] [place] [facility] [address] [place] [id number] [place] [address]- [address] Apr, [facility] [place] [facility] [address] [facility] [id number] [address] Apr, [facility] [place] [facility] [address] [facility] [id number] [place] [address]- 1443 Apr, [facility] [place] [facility] [address] [facility] [id number] [place] [address]- 5689 Sep, [facility] [place] [facility] [address] [facility] [id number] [place] [address]- 5[address] Sep, [facility] [place] [facility] [address] [facility] [id number] [place] [address]- 8664 Sep, [facility] [address] [id number] [place] [address]- 39[address] Sep, [facility] [place] [facility] [address] [id number] [place] [address]- 2985 July, [facility] [address] [id number] [place] [address]- [address] July, [facility] [place] [facility] [address] [id number] [place] [address]- 6680 Jun, [facility] [address] [id number] [place] [address]- 68[address] Jun, [facility] [place] [facility] [address] [id number] [place] [address]- 1046 Feb, [facility] [address] [id number] [place] [address]- 9473 Feb, [facility] [place] [facility] [address] [id number] [place] [address]- 1746 Jan, [facility] [place] [facility] [address] [id number] [place] [address]- 1362 Jan, [facility] [address] [id number] [place] [address]- 3028 Aug, [facility] [place] [facility] [address] [id number] [place] [address]- 4543 Aug, [facility] [place] [facility] [address] [id number] [place] [address]- 3948 Aug, [facility] [place] [facility] [address] [id number] [place] [address]- 1581 Aug, [facility] [place] [facility] [address] [id number] [place] [address]- 7166 July, [facility] [place] [facility] [address] [id number] [place] [address]- 5515 July, [facility] [address] [facility] [id number], [place] [address]- [address] Jun, [facility] [address] [facility] [id number], [place] [address]- [address] Apr, [facility] [address] [facility] [id number], [place] [address]- 8[address] Mar, [facility] [address] [facility] [id number], [place] [address]- [address] Mar, [facility] [address] [facility] [id number] [address]- 0466 Mar, [facility] [address] [facility] [id number], [place] [address]- 3983 Feb, [facility] [address], [place] [address]- [address] Feb, [facility] [address], [place] [address]- 136[address] Jan, [facility] [address], [place] [address]- 4[address] Jan, [facility] [address] [place] [id number] [address]- [address] Jan, [facility] [address] [place] [id number] [address]- [address] Jan, IMMUNIZATIONS No Known Immunizations SOCIAL HISTORY Never Assessed REASON FOR VISIT Medication refill request PLAN OF CARE VITAL SIGNS MEDICATIONS Unknown [...]
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
[2018-07-03] MEDS ORDERED: morphine INJ 10 MG/ML 1ML (SYR OR VIAL) IVP STA ×2 (11:54→13:22)
[2018-07-03] MEDS ORDERED: NS IV 1000 ML 1,000 ML IV STA (11:54)
[2018-07-03] MEDS ORDERED: ONDANSETRON 4 MG/2 ML (SDV) Z0FRAN IVP ONE (12:00)
[2018-07-03 12:15] LABS: BASOPHILS % (AUTO) 0 % (0-10); EOSINOPHILS % (AUTO) 0 % (0-10); HEMATOCRIT 47 % (40-54); LYMPHOCYTES # (AUTO) 1.7 X 10^3 (1.0-4.0); LYMPHOCYTES % (AUTO) 19 % (12-44); MEAN CORPUSCULAR HEMOGLOBIN 31 PG (25-34); MEAN CORPUSCULAR HGB CONC 36 G/DL (32-36); MEAN CORPUSCULAR VOLUME 86 FL (80-99); MEAN PLATELET VOLUME 10.1 FL (7.4-10.4); MONOCYTES % (AUTO) 11 % (0-12); NEUTROPHILS % (AUTO) 69 % (42-75); PLATELET COUNT 230 10^3/uL (130-400); RED CELL DISTRIBUTION WIDTH 14.6 % (10.0-14.5); WHITE BLOOD COUNT 8.7 10^3/uL (4.3-11.0)
[2018-07-03 12:28] LABS: ALANINE AMINOTRANSFERASE 30 U/L (0-55); ALBUMIN 4.2 GM/DL (3.2-4.5); ALKALINE PHOSPHATASE 95 U/L (40-136); BILIRUBIN,TOTAL 0.9 MG/DL (0.1-1.0); BUN/CREATININE RATIO 13; CALCIUM 10.4 MG/DL (8.5-10.1); CARBON DIOXIDE 24 MMOL/L (21-32); CHLORIDE 103 MMOL/L (98-107); CREATININE SERUM 0.99 MG/DL (0.60-1.30); GFR ESTIMATED > 60; GLUCOSE 276 MG/DL (70-105); SODIUM 136 MMOL/L (135-145); TOTAL PROTEIN 7.3 GM/DL (6.4-8.2)
--- NOTE | 2018-07-03 12:40 | ED Abdominal Pain ---
General Chief Complaint: Abdominal/GI Problems Stated Complaint: N/V;WEAKNESS Nursing Triage Note: PT AMBULATED TO ROOM 2 PT CO OF ABD PAIN, N/V, STATES HAS CA COLON, HAS BEEN OUT OF PAIN MEDS FOR A FEW DAYS, STATES PAIN WORSE 10/10, STATES DR TOLD HIM NOTHING ELSE THEY COULD DO FOR HIM. PT STATES HAS NOT BEEN ABLE TO SLEEP FOR APPROX 1 MONTH. Sepsis Screen: No Definite Risk Source of Information: Patient Exam Limitations: No Limitations History of Present Illness Date Seen by Provider: Jul 03, 2018 Time Seen by Provider: 11:48 Initial Comments Here with increasing abdominal pain and nausea and vomiting. Does have history of colon cancer and at least 2 spots as confirmed in March of this year. He is on morphine twice a day. He is out of that medicine for 2 days and has appointment with his doctor on for refills. States he feels terrible currently. He has not had anything for pain control. He is not then able to sleep very well recently as well. Timing/Duration: 2-3 Days Severity/Quality: Moderate, Severe, Aching Location: Generalized Abdomen Radiation: No Radiation Activities at Onset: None Modifying Factors: Improves With Analgesics; Worsens With Eating Associated Symptoms: No Back Pain, No Chest Pain, No Fever/Chills; Nausea/ Vomiting; No Shortness of Air, No Swelling/Mass in Abdomen, No Weakness Allergies and Home Medications Allergies Coded Allergies: No Known Drug Allergies (Unverified , 04/21/17) Home Medications Diphenoxylate HCl/Atropine 1 Each Tablet, 1 EACH PO QID PRN for DIARRHEA, ( Reported) Hydrocodone Bit/Acetaminophen 1 Each Tablet, 1 EACH PO Q6H PRN for PAIN-MILD TO MODERATE, (Reported) Ondansetron HCl 8 Mg Tablet, 8 MG PO Q8H PRN for NAUSEA/VOMITING-1ST LINE, ( Reported) Pantoprazole Sodium 40 Mg Tablet., 40 MG PO DAILY, (Reported) Promethazine HCl 25 Mg Tablet, 25 MG PO Q6H PRN for NAUSEA/VOMITING Prescribed by: JOYA WHITE on 01/11/18 1152 Sucralfate 1 Gm/10 Ml Oral.susp, 1 GM PO QID Substitute tabs to crush and slurry if liquid not covered. Prescribed by: JOYA WHITE on 01/11/18 1155 Patient Home Medication List Home Medication List Reviewed: Yes Review of Systems Review of Systems Constitutional: see HPI; No chills, No fever EENTM: No Symptoms Reported Respiratory: No Symptoms Reported Cardiovascular: No Symptoms Reported Gastrointestinal: See HPI, Abdominal Pain, Diarrhea, Nausea, Vomiting Genitourinary: No Symptoms Reported Musculoskeletal: no symptoms reported Skin: no symptoms reported Psychiatric/Neurological: See HPI, Anxiety; Denies Weakness Endocrine: No Symptoms Reported All Other Systems Reviewed Negative Unless Noted: Yes Past Gqsjsan-Xpybos-Ixjcvz Hx Past Med/Social Hx: Reviewed Nursing Past Med/Soc Hx Patient Social History Alcohol Use: Denies Use Recreational Drug Use: No Smoking Status: Never a Smoker Recent Foreign Travel: No Contact w/Someone Who Travel: No Recent Infectious Disease Expo: No Recent Hopitalizations: No (SURGERY-BIOPSY 09/2017) Immunizations Up To Date Tetanus Booster (TDap): Less than 5yrs PED Vaccines UTD: Yes Seasonal Allergies Seasonal Allergies: Yes Past Medical History Surgeries: Yes (ABD HERNIA, COLON RESECTION, RIGHT TKR, PORT placed and removed ) Abdominal, Orthopedic Respiratory: Yes Asthma Cardiac: Yes (murmur as a child) Hypertension Neurological: No Reproductive Disorders: No Sexually Transmitted Disease: No HIV/AIDS: No Genitourinary: No Gastrointestinal: Yes (mesenteric mass) Gastroesophageal Reflux, Chronic Diarrhea Musculoskeletal: Yes Arthritis, Chronic Back Pain Endocrine: No HEENT: No Loss of Vision: Denies Hearing Impairment: Denies Cancer: Yes Colon Did You Recieve Any Treatments: Yes What Type of Treatment Did You: Chemotherapy, Surgical Intervention Psychosocial: No Integumentary: No Blood Disorders: No Adverse Reaction/Blood Tranf: No Family Medical History Reviewed Nursing Family Hx FH: breast cancer 19 MOTHER FH: cirrhosis G8 SISTER Hypertension G8 SISTER Physical Exam Vital Signs Vital Signs - First Documented 07/03/18 11:40 Temp 97.9 Pulse 106 Resp 18 B/P (MAP) 156/119 (131) Pulse Ox 95 Capillary Refill : Less Than 3 Seconds Height/Weight/BMI Height: 5'7.00" Weight: 210lbs. 0.0oz. 95.020996md; 31.2 BMI Method:Stated General Appearance: WD/WN, mild distress HEENT: PERRL/EOMI, pharynx normal Neck: full range of motion, supple Respiratory: lungs clear, normal breath sounds Cardiovascular: no murmur, tachycardia Gastrointestinal: soft, tenderness (mild diffuse especially upper tenderness) Extremities: non-tender, normal inspection Back: normal inspection, no CVA tenderness, no vertebral tenderness Neurologic/Psychiatric: alert, oriented x 3 Skin: normal color, warm/dry Progress/Results/Core Measures Results/Orders Lab Results Laboratory Tests Test 07/03/18 11:48 07/03/18 12:36 Range/Units White Blood Count 8.7 4.3-11.0 10^3/uL Red Blood Count 5.50 4.35-5.85 10^6/uL Hemoglobin 17.0 13.3-17.7 G/DL Hematocrit 47 40-54 % Mean Corpuscular Volume 86 80-99 FL Mean Corpuscular Hemoglobin 31 25-34 PG Mean Corpuscular Hemoglobin Concent 36 32-36 G/DL Red Cell Distribution Width 14.6 H 10.0-14.5 % Platelet Count 230 130-400 10^3/uL Mean Platelet Volume 10.1 7.4-10.4 FL Neutrophils (%) (Auto) 69 42-75 % Lymphocytes (%) (Auto) 19 12-44 % Monocytes (%) (Auto) 11 0-12 % Eosinophils (%) (Auto) 0 0-10 % Basophils (%) (Auto) 0 0-10 % Neutrophils # (Auto) 6.0 1.8-7.8 X 10^3 Lymphocytes # (Auto) 1.7 1.0-4.0 X 10^3 Monocytes # (Auto) 1.0 0.0-1.0 X 10^3 Eosinophils # (Auto) 0.0 0.0-0.3 10^3/uL Basophils # (Auto) 0.0 0.0-0.1 10^3/uL Sodium Level 136 135-145 MMOL/L Potassium Level 4.0 3.6-5.0 MMOL/L Chloride Level 103 98-107 MMOL/L Carbon Dioxide Level 24 21-32 MMOL/L Anion Gap 9 5-14 MMOL/L Blood Urea Nitrogen 13 7-18 MG/DL Creatinine 0.99 0.60-1.30 MG/DL Estimat Glomerular Filtration Rate > 60 BUN/Creatinine Ratio 13 Glucose Level 276 H 70-105 MG/DL Calcium Level 10.4 H 8.5-10.1 MG/DL Corrected Calcium 10.2 H 8.5-10.1 MG/DL Total Bilirubin 0.9 0.1-1.0 MG/DL Aspartate Amino Transf (AST/SGOT) 24 5-34 U/L Alanine Aminotransferase (ALT/SGPT) 30 0-55 U/L Alkaline Phosphatase 95 40-136 U/L C-Reactive Protein High Sensitivity 3.95 H 0.00-0.50 MG/DL Total Protein 7.3 6.4-8.2 GM/DL Albumin 4.2 3.2-4.5 GM/DL Urine Color YELLOW Urine Clarity CLEAR Urine pH 5 5-9 Urine Specific Clune 1.030 H 1.016-1.022 Urine Protein 2+ H NEGATIVE Urine Glucose (UA) 3+ H NEGATIVE Urine Ketones 3+ H NEGATIVE Urine Nitrite NEGATIVE NEGATIVE Urine Bilirubin NEGATIVE NEGATIVE Urine Urobilinogen NORMAL NORMAL MG/DL Urine Leukocyte Esterase 1+ H NEGATIVE Urine RBC (Auto) 1+ H NEGATIVE Urine RBC NONE /HPF Urine WBC 2-5 /HPF Urine Squamous Epithelial Cells 2-5 /HPF Urine Crystals NONE /LPF Urine Bacteria TRACE /HPF Urine Casts PRESENT /LPF Urine Hyaline Casts 2-5 H /LPF Urine Mucus MODERATE H /LPF Urine Culture Indicated YES My Orders Orders - DIVYA AKERS MD Morphine Injection (Morphine Injection (07/03/18 11:54) Ondansetron Injection (Zofran Injectio (07/03/18 12:00) Ns Iv 1000 Ml (Sodium Chloride 0.9%) (07/03/18 11:54) Saline Lock/Iv-Start (07/03/18 11:54) Cbc With Automated Diff (07/03/18 11:54) Comprehensive Metabolic Panel (07/03/18 11:54) Hs C Reactive Protein (07/03/18 11:54) Ua Culture If Indicated (07/03/18 11:54) Morphine Injection (Morphine Injection (07/03/18 13:22) Urine Culture (07/03/18 12:36) Medications Given in ED Current Medications Medications Dose Ordered Sig/Ross Route Start Time Stop Time Status Last Admin Dose Admin Ondansetron HCl 4 mg ONCE ONCE IVP 07/03/18 12:00 07/03/18 12:01 DC 07/03/18 12:06 4 MG Vital Signs/I&O 07/03/18 11:40 Temp 97.9 Pulse 106 Resp 18 B/P (MAP) 156/119 (131) Pulse Ox 95 Blood Pressure Mean: 131 Progress Progress Note : Progress Note Seen and evaluated. IV, labs, UA, normal saline 1 L bolus, Zofran 4 mg IV and morphine 10 mg IV ordered. Patient is likely suffering from withdrawal symptoms. Monitor patient. 1321: Patient is better but still having pain. Redosed with morphine 8 mg IV. Improved afterwards. Otherwise no acute findings. He does have appointment with oncology on . He is requesting something for sleep which I'll have him talk with his oncologist about. I will write prescription for hydrocodone until he can get his medicines filled. Discharged home with return precautions. Verbalize understanding instructions and agreement with plan. I will send a copy of the chart Dr. Hagen. Departure Impression Primary Impression: Cancer associated pain Additional Impressions: Dehydration Narcotic withdrawal Disposition: HOME, SELF-CARE Condition: Improved Departure-Patient Inst. Decision time for Depature: 13:46 Referrals: [facility]/ (PCP) Primary Care Physician MOUNIKA READ (Family) Primary Care Physician Patient Instructions: Acute Abdomen (Belly Pain), Adult (DC), Cancer Pain Syndromes (DC), Dehydration, Adult (DC), Prescription Drug Withdrawal (DC) Add. Discharge Instructions: All discharge instructions reviewed with patient and/or family. Voiced understanding. Take medications as directed. Follow-up with your doctor on for recheck and further evaluation as previously scheduled. Drink plenty of fluids as your are still dehydrated. Clear to light diet for the next 24 hours and then advance as tolerated. Return for worse pain, fever, vomiting, weakness, breathing problems or other concerns as needed. Discuss your sleeping problems with your doctor. Scripts Hydrocodone/Acetaminophen (Hydrocodon-Acetaminophn 10-325) 1 Each Tablet 1 EACH PO Q6H PRN for PAIN-MODERATE MDD 5, #12 TAB 0 Refills Prov: DIVYA AKERS MD 07/03/18 Copy Copies To 1: AI HAGEN MD, TIMOTHY D MD Jul 03, 2018 12:40
[2018-07-03 12:42] LABS: BILIRUBIN,URINE NEGATIVE (NEGATIVE); CLARITY,URINE CLEAR; COLOR,URINE YELLOW; GLUCOSE, URINE (UA) 3+ (NEGATIVE); KETONES,URINE 3+ (NEGATIVE); LEUKOCYTE ESTERASE ,URINE 1+ (NEGATIVE); NITRITE,URINE NEGATIVE (NEGATIVE); PH,URINE 5 (5-9); PROTEIN,URINE 2+ (NEGATIVE); UROBILINOGEN,URINE NORMAL (NORMAL)
[2018-07-03 13:36] LABS: BACTERIA,URINE TRACE /HPF
[2018-07-03] MEDS ORDERED: HYDR-3820 PO (13:49)
[2018-07-03 13:58] VITALS: BP 136/84
== END 2018-07-03 13:58 | disposition home or self-care (01) ==
LOC: EDUNIT# 10:59 → ER 11:00
DX: G89.3 Neoplasm related pain (acute) (chronic) (principal); C18.9 Malignant neoplasm of colon, unspecified; E86.0 Dehydration; F11.23 Opioid dependence with withdrawal; J45.909 Unspecified asthma, uncomplicated; K21.9 Gastro-esophageal reflux disease without esophagitis; I10 Essential (primary) hypertension; Z90.49 Acquired absence of other specified parts of digestive tract; Z87.19 Personal history of other diseases of the digestive system; Z92.21 Personal history of antineoplastic chemotherapy; Z80.3 Family history of malignant neoplasm of breast; Z98.890 Other specified postprocedural states; Z96.651 Presence of right artificial knee joint
CPT/HCPCS: 36415; 80053; 81000; 85025; 86141; 87088

== ENCOUNTER 2018-07-17 11:02 | Emergency (ER) | payer MEDICARE, MEDICAID ==
[~2018-07-17] VITALS: Ht 172.7 cm; Wt 90.7 kg
[~2018-07-17 11:02] MED LIST changes: +HYDR-3820 PO
--- OUTSIDE RECORDS SUMMARY | 2018-07-17 11:17 | XMS REPORT | Clinical Summary ---
Demographics Preferred Language Unknown Marital Status Unknown Taoist Affiliation Unknown Race Unknown Ethnic Group Unknown Author Author [facility] Organization [facility] Address Unknown Phone Unavailable Care Team Providers Care Shuttle Hand Name Role Phone PCP Unavailable Source Comments Some departments are not documenting in the electronic medical record. If you do not see the information that you expected, contact Release of Information in the Health Information Management department at [phone] for further assistance in locating additional records.[facility] Allergies Not on File Medications Not [...] on file. For more information, please contact: [address] [address]
[2018-07-17 11:25] LABS: BASOPHILS % (AUTO) 0 % (0-10); EOSINOPHILS % (AUTO) 0 % (0-10); HEMATOCRIT 45 % (40-54); HEMOGLOBIN 15.7 G/DL (13.3-17.7); LYMPHOCYTES # (AUTO) 1.5 X 10^3 (1.0-4.0); LYMPHOCYTES % (AUTO) 12 % (12-44); MEAN CORPUSCULAR HEMOGLOBIN 30 PG (25-34); MEAN CORPUSCULAR HGB CONC 35 G/DL (32-36); MEAN CORPUSCULAR VOLUME 87 FL (80-99); MONOCYTES # (AUTO) 1.4 X 10^3 (0.0-1.0); MONOCYTES % (AUTO) 11 % (0-12); NEUTROPHILS % (AUTO) 78 % (42-75); PLATELET COUNT 187 10^3/uL (130-400); RED CELL DISTRIBUTION WIDTH 13.6 % (10.0-14.5); WHITE BLOOD COUNT 12.9 10^3/uL (4.3-11.0)
[2018-07-17] MEDS ORDERED: morphine INJ 10 MG/ML 1ML (SYR OR VIAL) IVP STA ×2 (11:25→13:34)
[2018-07-17] MEDS ORDERED: ONDANSETRON 4 MG/2 ML (SDV) Z0FRAN IVP ONE (11:30)
--- OUTSIDE RECORDS SUMMARY | 2018-07-17 11:34 | XMS REPORT | Continuity of Care Document ---
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 WRITER Ot 786.59 CHEST PAIN NEC 12/12/2017 BRENDA SAUL [place] FILM WRITER Ot 787.91 DIARRHEA 12/12/2017 BRENDA SAUL [place] FILM WRITER Ot E849.7 ACCID IN RESIDENT INSTIT 12/12/2017 SAUL GUTIERREZ Suzy FILM WRITER Ot E933.1 ADV EFF ANTINEOPLASTIC 12/12/2017 GUTIERREZSAUL [place] FILM WRITER Ot V58.69 OTH MED,LT,CURRENT USE 12/12/2017 QUANG VELASQUEZ MD Ot 287.49 OTHER SECONDARY THROMBOCYTOPENIA 12/12/2017 QUANG VELASQUEZ MD Ot 288.03 DRUG INDUCED NEUTROPENIA 12/12/2017 QUANG VELASQUEZ MD Ot 780.4 DIZZINESS AND GIDDINESS 12/12/2017 QUANG VELASQUEZ MD Ot 786.05 SHORTNESS OF BREATH 12/12/2017 QUANG VELASQUEZ MD Ot E933.1 ADV EFF ANTINEOPLASTIC 12/12/2017 GUTIERREZSAUL [place] FILM WRITER Ot 153.0 MAL ALEX HEPATIC FLEXURE 12/12/2017 SAUL GUTIERREZ FILM WRITER Ot 196.2 MAL ALEX LYMPH INTRA-ABD 12/12/2017 BRENDA SAUL [place] FILM WRITER Ot 288.03 DRUG INDUCED NEUTROPENIA 12/12/2017 BRENDA SAUL [place] FILM WRITER Ot E849.7 ACCID IN RESIDENT INSTIT 12/12/2017 SAUL GUTIERREZ FILM WRITER Ot E933.1 ADV EFF ANTINEOPLASTIC 12/12/2017 BRENDA SAUL [place] FILM WRITER Ot V58.69 OT MED,LT,CURRENT USE 12/12/2017 JOAQUIN [...] Ot R91.8 OTHER NONSPECIFIC ABNORMAL FINDING OF ROSAVLA 12/12/2017 SUREKHA KONG DO Ot R19.07 GENERALIZED [...] 12/12/2017 JOAQUIN NOBLE MD, Ot Z79.899 OTHER CAMP ATTENDANT (CURRENT) DRUG THERAPY 12/12/2017 JOAQUIN NOBLE MD, [...] 12/13/2017 JOAQUIN NOBLE MD Ot Z79.899 OTHER SKILLED NURSING (CURRENT) DRUG THERAPY 12/13/2017 JOAQUIN NOBLE MD [...] 12/13/2017 JOAQUIN NOBLE MD Ot Z79.899 OTHER CAMP ATTENDANT (CURRENT) DRUG THERAPY 12/13/2017 JOAQUIN NOBLE MD [...] 12/13/2017 JOAQUIN NOBLE MD, Ot Z79.899 OTHER CAMP ATTENDANT (CURRENT) DRUG THERAPY 12/13/2017 JOAQUIN NOBLE MD, [...] 12/15/2017 JOAQUIN NOBLE MD Ot Z79.899 OTHER SKILLED NURSING (CURRENT) DRUG THERAPY 12/15/2017 JOAQUIN NOBLE MD [...] 12/20/2017 JOAQUIN NOBLE MD Ot Z79.899 OTHER SKILLED NURSING (CURRENT) DRUG THERAPY 12/20/2017 JOAQUIN NOBLE MD [...] 12/24/2017 AI HAGEN MD Ot Z79.899 OTHER SKILLED NURSING (CURRENT) DRUG THERAPY 12/24/2017 AI HAGEN MD [...] 12/25/2017 AI HAGEN MD Ot Z79.899 OTHER SKILLED NURSING (CURRENT) DRUG THERAPY 12/25/2017 AI HAGEN MD [...] 12/30/2017 AI HAGEN MD Ot Z79.899 OTHER CAMP ATTENDANT (CURRENT) DRUG THERAPY 12/30/2017 HIEU GATICA, AI [...] 02/07/2018 AI HAGEN MD Ot Z79.899 OTHER CAMP ATTENDANT (CURRENT) DRUG THERAPY 02/07/2018 AI HAGEN MD [...] 02/19/2018 AI HAGEN MD Ot Z79.899 OTHER SKILLED NURSING (CURRENT) DRUG THERAPY 02/19/2018 AI HAGEN MD [...] 03/07/2018 AI HAGEN MD Ot Z79.899 OTHER SKILLED NURSING (CURRENT) DRUG THERAPY 03/07/2018 AI HAGEN MD [...] MD Ot I10 ESSENTIAL (PRIMARY) HYPERTENSION 03/09/2018 AI HAGEN MD Ot J45.909 UNSPECIFIED ASTHMA, UNCOMPLICATED 03/09/2018 AI HAGEN MD Ot K21.9 GASTRO-ESOPHAGEAL REFLUX DISEASE WITHOUT 03/09/2018 SHAGUFTA HAGEN MDNER Ot Z51.11 ENCOUNTER FOR ANTINEOPLASTIC CHEMOTHERAP 03/09/2018 AI HAGEN MD Ot Z79.899 OTHER CAMP ATTENDANT (CURRENT) DRUG THERAPY 03/09/2018 AI HAGEN MD [...] Ot Z51.11 ENCOUNTER FOR ANTINEOPLASTIC CHEMOTHERAP 03/27/2018 AI HAGEN MD Ot Z79.899 OTHER SKILLED NURSING (CURRENT) DRUG THERAPY 03/27/2018 AI HAGEN MD [...] 03/28/2018 AI HAGEN MD Ot Z79.899 OTHER SKILLED NURSING (CURRENT) DRUG THERAPY 03/28/2018 AI HAGEN MD [...] V74.8 SCREEN-BACTERIAL DIS NEC 03/29/2018 SAUL GUTIERREZ FILM WRITER Ot 153.0 MAL ALEX HEPATIC FLEXURE 03/29/2018 SAUL GUTIERREZ FILM WRITER Ot 196.2 MAL ALEX LYMPH INTRA-ABD 03/29/2018 SAUL GUTIERREZ FILM WRITER Ot 287.49 OTHER SECONDARY THROMBOCYTOPENIA 03/29/2018 SAUL GUTIERREZ FILM WRITER Ot 288.03 DRUG INDUCED NEUTROPENIA 03/29/2018 SAUL GUTIERREZ FILM WRITER Ot 356.9 IDIO PERIPH NEURPTHY NOS 03/29/2018 SAUL GUTIERREZ FILM WRITER Ot 786.59 CHEST PAIN NEC 03/29/2018 SAUL GUTIERREZ FILM WRITER Ot 787.91 DIARRHEA 03/29/2018 SAUL GUTIERREZ FILM WRITER Ot E849.7 ACCID IN RESIDENT INSTIT 03/29/2018 SAUL GUTIERREZ FILM WRITER Ot E933.1 ADV EFF ANTINEOPLASTIC 03/29/2018 SAUL GUTIERREZP Ot V58.69 OT MED,LT,CURRENT USE 03/29/2018 QUANG VELASQUEZ MD Ot 287.49 OTHER SECONDARY THROMBOCYTOPENIA 03/29/2018 QUANG VELASQUEZ MD Ot 288.03 DRUG INDUCED NEUTROPENIA 03/29/2018 QUANG VELASQUEZ MD Ot 780.4 DIZZINESS AND GIDDINESS 03/29/2018 EVA GATICA, QUANG Peña Ot 786.05 SHORTNESS OF BREATH 03/29/2018 EVA GATICA, QUANG ePña Ot E933.1 ADV EFF ANTINEOPLASTIC 03/29/2018 SAUL GUTIERREZ FILM WRITER Ot 153.0 MAL ALEX HEPATIC FLEXURE 03/29/2018 SAUL GUTIERREZ FILM WRITER Ot 196.2 MAL ALEX LYMPH INTRA-ABD 03/29/2018 SAUL GUTIERREZ FILM WRITER Ot 288.03 DRUG INDUCED NEUTROPENIA 03/29/2018 SAUL GUTIERREZ FILM WRITER Ot E849.7 ACCID IN RESIDENT INSTIT 03/29/2018 SAUL GUTIERREZ FILM WRITER Ot E933.1 ADV EFF ANTINEOPLASTIC 03/29/2018 SAUL GUTIERREZ Ot V58.69 [facility],LT,CURRENT USE 03/29/2018 JOAQUIN NOBLE MD Ot [...] 03/29/2018 AI HAGEN MD Ot Z79.899 OTHER SKILLED NURSING (CURRENT) DRUG THERAPY 03/29/2018 AI HAGEN MD, [...] MD Ot I10 ESSENTIAL (PRIMARY) HYPERTENSION 04/03/2018 IA HAGEN MD Ot J45.909 UNSPECIFIED ASTHMA, UNCOMPLICATED 04/03/2018 AI HAGEN MD Ot K21.9 GASTRO-ESOPHAGEAL REFLUX DISEASE WITHOUT 04/03/2018 AI HAGEN MD Ot Z79.899 OTHER CAMP ATTENDANT (CURRENT) DRUG THERAPY 04/03/2018 AI HAGEN MD [...] ADULT 04/12/2018 AI HAGEN MD Ot Z79.891 SKILLED NURSING (CURRENT) USE OF OPIATE ANALGE 04/12/2018 AI HAGEN MD Ot Z79.899 OTHER SKILLED NURSING (CURRENT) DRUG THERAPY 04/12/2018 AI HAGEN MD [...] Ot J45.909 UNSPECIFIED ASTHMA, UNCOMPLICATED 04/16/2018 AI HAGEN MD Ot K21.9 GASTRO-ESOPHAGEAL REFLUX DISEASE WITHOUT 04/16/2018 AI HAGEN MD Ot Z68.33 BODY MASS INDEX (BMI) 33.0-33.9, ADULT 04/16/2018 AI HAGEN MD Ot Z79.891 SKILLED NURSING (CURRENT) USE OF OPIATE ANALGE 04/16/2018 AI HAGEN MD Ot Z79.899 OTHER CAMP ATTENDANT (CURRENT) DRUG THERAPY 04/16/2018 AI HAGEN MD [...] ADULT 04/18/2018 AI HAGEN MD Ot Z79.891 CAMP ATTENDANT (CURRENT) USE OF OPIATE ANALGE 04/18/2018 AI HAGEN MD Ot Z79.899 OTHER CAMP ATTENDANT (CURRENT) DRUG THERAPY 04/18/2018 AI HAGEN MD [...] ADULT 04/25/2018 AI HAGEN MD Ot Z79.891 CAMP ATTENDANT (CURRENT) USE OF OPIATE ANALGE 04/25/2018 AI HAGEN MD, Ot Z79.899 OTHER SKILLED NURSING (CURRENT) DRUG THERAPY 04/25/2018 AI HAGEN MD, [...] MD Ot V74.8 SCREEN-BACTERIAL DIS NEC 05/01/2018 ASUL GUTIERREZ FILM WRITER Ot 153.0 MAL ALEX HEPATIC FLEXURE 05/01/2018 SAUL GUTIERREZP Ot 196.2 MAL ALEX LYMPH INTRA-ABD 05/01/2018 SAUL GUTIERREZ FILM WRITER Ot 287.49 OTHER SECONDARY THROMBOCYTOPENIA 05/01/2018 SAUL GUTIERREZ FILM WRITER Ot 288.03 DRUG INDUCED NEUTROPENIA 05/01/2018 SAUL GUTIERREZ FILM WRITER Ot 356.9 IDIO PERIPH NEURPTHY NOS 05/01/2018 SAUL GUTIERREZ FILM WRITER Ot 786.59 CHEST PAIN NEC 05/01/2018 SAUL GUTIERREZ FILM WRITER Ot 787.91 DIARRHEA 05/01/2018 SAUL GUTIERREZP Ot E849.7 ACCID IN RESIDENT INSTIT 05/01/2018 SAUL GUTIERREZ FILM WRITER Ot E933.1 ADV EFF ANTINEOPLASTIC 05/01/2018 SAUL [...] MAL ALEX HEPATIC FLEXURE 05/01/2018 SAUL GUTIERREZ FILM WRITER Ot 196.2 MAL ALEX LYMPH INTRA-ABD 05/01/2018 SAUL GUTIERREZ Ot 288.03 DRUG INDUCED NEUTROPENIA 05/01/2018 SAUL GUTIERREZ Ot E849.7 ACCID IN RESIDENT INSTIT 05/01/2018 SAUL GUTIERREZ Ot E933.1 ADV EFF ANTINEOPLASTIC 05/01/2018 SAUL GUTIERREZP Ot V58.69 [facility],LT,CURRENT USE 05/01/2018 JOAQUIN NOBLE MD Ot [...] MALIGNANT NEOPLASM OF ASCENDING COLON 05/01/2018 AI AHGEN MD Ot K43.9 VENTRAL HERNIA WITHOUT OBSTRUCTION [...] 05/01/2018 AI HAGEN MD, Ot Z79.899 OTHER CAMP ATTENDANT (CURRENT) DRUG THERAPY 05/01/2018 AI HAGEN MD, [...] 05/03/2018 AI HAGEN MD Ot Z79.899 OTHER SKILLED NURSING (CURRENT) DRUG THERAPY 05/03/2018 AI HAGEN MD Ot Z87.891 PERSONAL HISTORY OF NICOTINE DEPENDENCE 05/22/2018 QUANG VELSAQUEZ MD Ot C18.2 MALIGNANT NEOPLASM OF ASCENDING [...] 06/07/2018 AI HAGEN MD Ot Z79.899 OTHER CAMP ATTENDANT (CURRENT) DRUG THERAPY 06/07/2018 AI HAGEN MD [...] 06/12/2018 AI HAGEN MD Ot Z79.899 OTHER SKILLED NURSING (CURRENT) DRUG THERAPY 06/12/2018 AI HAGEN MD Ot Z87.891 PERSONAL HISTORY OF NICOTINE DEPENDENCE 06/12/2018 AI HAGEN MD Ot Z95.828 PRESENCE OF OTHER VASCULAR IMPLANTS AND 06/18/2018 QUANG VELASQUEZ MD Ot C18.2 MALIGNANT NEOPLASM OF ASCENDING COLON 06/18/2018 QUANG VELASQUEZ MD Ot I08.1 RHEUMATIC DISORDERS OF BOTH MITRAL AND T 06/18/2018 EVA MD, BASHAR J Ot I10 ESSENTIAL (PRIMARY) HYPERTENSION 06/18/2018 EVA GATICA, QUANG J Ot R06.02 SHORTNESS OF BREATH 06/18/2018 QUANG VELASQUEZ MD Ot R07.9 CHEST PAIN, UNSPECIFIED 06/18/2018 QUANG VELASQUEZ MD J Ot C18.2 MALIGNANT NEOPLASM OF ASCENDING COLON 06/18/2018 QUANG VELASQUEZ MD J Ot I10 ESSENTIAL (PRIMARY) HYPERTENSION 06/18/2018 QUANG VELASQUEZ MD J Ot R06.02 SHORTNESS OF BREATH 06/18/2018 EVA GATICA, QUANG J Ot R07.9 CHEST PAIN, UNSPECIFIED 06/22/2018 EVA GATICA, QUANG J Ot C18.2 MALIGNANT NEOPLASM OF ASCENDING COLON 06/22/2018 QUANG VELASQUEZ MD Ot I10 ESSENTIAL (PRIMARY) HYPERTENSION 06/22/2018 QUANG VELASQUEZ MD Ot R06.02 SHORTNESS OF BREATH 06/22/2018 QUANG VELASQUEZ MD Ot R07.9 CHEST PAIN, UNSPECIFIED 06/22/2018 IA HAGEN MD Ot C18.3 MALIGNANT NEOPLASM OF [...] 06/22/2018 AI HAGEN MD Ot Z79.899 OTHER SKILLED NURSING (CURRENT) DRUG THERAPY 06/22/2018 AI HAGEN MD Ot Z87.891 PERSONAL HISTORY OF NICOTINE DEPENDENCE 07/03/2018 AI HAGEN MD Ot 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 07/03/2018 AI HAGEN MD Ot C77.2 SECONDARY AND UNSP MALIGNANT NEOPLASM OF 07/03/2018 AI HAGEN MD Ot D69.59 OTHER SECONDARY THROMBOCYTOPENIA 07/03/2018 AI HAGEN MD Ot D75.1 SECONDARY POLYCYTHEMIA 07/03/2018 AI HAGEN MD Ot F32.9 MAJOR DEPRESSIVE DISORDER, SINGLE EPISOD 07/03/2018 AI HGAEN MD Ot I10 ESSENTIAL (PRIMARY) HYPERTENSION 07/03/2018 AI HAGEN MD Ot J45.909 UNSPECIFIED ASTHMA, UNCOMPLICATED 07/03/2018 AI HAGEN MD Ot K21.9 GASTRO-ESOPHAGEAL REFLUX DISEASE WITHOUT 07/03/2018 AI HAGEN MD Ot Z45.2 ENCOUNTER FOR ADJUSTMENT AND MANAGEMENT 07/03/2018 AI HAGEN MD Ot Z79.899 OTHER CAMP ATTENDANT (CURRENT) DRUG THERAPY 07/03/2018 AI HAGEN MD, Ot Z87.891 PERSONAL HISTORY OF NICOTINE DEPENDENCE 07/04/2018 AI HAGEN MD Ot C18.2 MALIGNANT NEOPLASM OF ASCENDING COLON 07/04/2018 AI HAGEN MD, Ot K43.9 VENTRAL HERNIA WITHOUT OBSTRUCTION OR GA 07/05/2018 DIVYA AKERS MD, Ot C18.9 MALIGNANT NEOPLASM OF COLON, UNSPECIFIED 07/05/2018 DIVYA AKERS MD Ot E86.0 DEHYDRATION 07/05/2018 DIVYA AKERS MD Ot F11.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 DEPENDENCE WITH WITHDRAWAL 07/05/2018 DIVYA AKERS MD Ot G89.3 NEOPLASM RELATED PAIN (ACUTE) (CHRONIC) 07/05/2018 DIVYA AKERS MD Ot I10 ESSENTIAL (PRIMARY) HYPERTENSION 07/05/2018 DIVYA AKERS MD Ot J45.909 UNSPECIFIED ASTHMA, UNCOMPLICATED 07/05/2018 DIVYA AKERS MD Ot K21.9 GASTRO-ESOPHAGEAL REFLUX DISEASE WITHOUT 07/05/2018 DIVYA AKERS MD Ot R11.2 NAUSEA WITH VOMITING, UNSPECIFIED 07/05/2018 DIVYA AKERS MD Ot Z80.3 FAMILY HISTORY OF MALIGNANT NEOPLASM OF 07/05/2018 DIVYA AKERS MD Ot Z87.19 PERSONAL HISTORY OF OTHER DISEASES OF TH 07/05/2018 DIVYA AKERS MD Ot Z90.49 ACQUIRED ABSENCE OF OTHER SPECIFIED PART 07/05/2018 DIVYA AKERS MD Ot Z92.21 PERSONAL HISTORY OF ANTINEOPLASTIC CHEMO 07/05/2018 DIVYA AKERS MD Ot Z96.651 PRESENCE OF RIGHT ARTIFICIAL KNEE JOINT 07/05/2018 DIVYA AKERS MD Ot Z98.890 OTHER SPECIFIED POSTPROCEDURAL STATES 07/05/2018 AI HAGEN MD Ot C18.2 MALIGNANT NEOPLASM OF ASCENDING COLON 07/05/2018 AI HAGEN MD, Ot K43.9 VENTRAL HERNIA WITHOUT OBSTRUCTION OR GA 07/06/2018 AI HAGEN MD Ot 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 07/06/2018 AI HAGEN MD, Ot C77.2 SECONDARY AND UNSP MALIGNANT NEOPLASM OF 07/06/2018 AI HAGEN MD Ot D69.59 OTHER SECONDARY THROMBOCYTOPENIA 07/06/2018 AI HAGEN MD Ot D75.1 SECONDARY POLYCYTHEMIA 07/06/2018 AI HAGEN MD, Ot F32.9 MAJOR DEPRESSIVE DISORDER, SINGLE EPISOD 07/06/2018 AI HAGEN MD Ot I10 ESSENTIAL (PRIMARY) HYPERTENSION 07/06/2018 AI HAGEN MD Ot J45.909 UNSPECIFIED ASTHMA, UNCOMPLICATED 07/06/2018 AI HAGEN MD Ot K21.9 GASTRO-ESOPHAGEAL REFLUX DISEASE WITHOUT 07/06/2018 AI HAGEN MD Ot Z45.2 ENCOUNTER FOR ADJUSTMENT AND MANAGEMENT 07/06/2018 AI HAGEN MD Ot Z79.899 OTHER SKILLED NURSING (CURRENT) DRUG THERAPY 07/06/2018 AI HAGEN MD, Ot Z87.891 PERSONAL HISTORY OF NICOTINE DEPENDENCE Procedures Code [place] [address] THERAPUTIC INJ SQ/IM 02/10/2012 J2930 SOLUMEDROL INJ 02/10/2012 87172 ROUTINE VENIPUNCTURE 04/16/2012 29729 CBC 04/16/2012 96167 LIPID PANEL 04/16/2012 51686 CMP 04/16/2012 1128787 GFR CALC (RESULT ONLY) 04/16/2012 95255 TSH 04/16/2012 ORTHO BARRETT HI 07/04/2012 TRIGGER POINT INJ/1-2 MUS 08/14/2012 06816 UA W/ CULTURE IF INDICATED 08/27/2012 04659 XRAY KNEE LEFT, 1 OR 2 VIEWS 09/06/2012 ORTHOPEDI BARRETT HI 09/06/201213263 JOINT INJECTION- LARGE JOINT (SPECIFY MEDCIN DESCRIPTION) 09/06/2012 81.54 TOTAL KNEE REPLACEMENT 10/08/2012 45.73 OPEN AND OTHER RIGHT HEMICOLECTOMY 11/24/2012 45.74 OPEN AND OTHER RESECTION OF TRANSVERSE C 11/24/2012 2000 BLOOD PRESSURE CHECK 07/11/2013 [id number] EXCISION OF PERITONEUM, OPEN APPROACH, D 04/03/2017 [id number] EXCISION OF ABD SUBCU/ FASCIA, OPEN APPRO [...] ABO+Rh group BP NRG Transfusion band number [id number] NRG Blood group antibody screen NEGATIVE NRG [...] RESULTS NEGATIVE FOR ANTIGEN AND TOXIN A/B NRG Complete blood count (CBC) with automated [...] - 11/20/17 08:07 Surg Path Sent to [facility] EKG - 11/20/17 08:21 EKG Complete [...] by light microscopy MODERATE NRG CBC - 01/25/18 10:28 WHITE BLOOD CELL COUNT 4.7 Thousand/uL 3.8-10.8 RED BLOOD CELL COUNT 5.07 Million/uL 4.20-5.80 HEMOGLOBIN 16.6 g/dL 13.2-17.1 HEMATOCRIT 47.2 % 38.5-50.0 MCV 93.1 fL 80.0-100.0 MCH 32.7 pg 27.0-33.0 MCHC 35.2 g/dL 32.0-36.0 RDW 15.1 % 11.0-15.0 PLATELET COUNT 195 Thousand/uL 140-400 MPV 9.5 fL 7.5-12.5 ABSOLUTE NEUTROPHILS 3361 cells/uL 7908-5533 ABSOLUTE LYMPHOCYTES 879 cells/uL 850-3900 ABSOLUTE MONOCYTES [...] poor plasma bycoagulation assay 26 s 24-35 Complete blood count (CBC) with automated white blood cell (WBC) differential - 07/03/18 11:48 Blood leukocytes automated count (number/volume) 8.7 10*3/uL 4.3-11.0 Blood erythrocytes automated count (number/volume) 5.50 10*6/uL 4.35-5.85 Venous blood hemoglobin measurement (mass/volume) 17.0 g/dL 13.3-17.7 Blood hematocrit (volume fraction) 47 % 40-54 Automated erythrocyte mean corpuscular volume 86 [foz_us] 80-99 Automated erythrocyte mean corpuscular hemoglobin (mass per erythrocyte) 31 pg 25-34 Automated erythrocyte mean corpuscular hemoglobin concentration measurement ( mass/volume) 36 g/dL 32-36 Automated erythrocyte distribution width ratio 14.6 % 10.0-14.5 Automated blood platelet count (count/volume) 230 10*3/uL 130-400 Automated blood platelet mean volume measurement 10.1 [foz_us] 7.4-10.4 Automated blood neutrophils/100 leukocytes 69 % 42-75 Automated blood lymphocytes/100 leukocytes 19 % 12-44 Blood monocytes/100 leukocytes 11 % 0-12 Automated blood eosinophils/100 leukocytes 0 % 0-10 Automated blood basophils/100 leukocytes 0 % 0-10 Blood neutrophils automated count (number/volume) 6.0 10*3 1.8-7.8 Blood lymphocytes automated count (number/volume) 1.7 10*3 1.0-4.0 Blood monocytes automated count (number/volume) 1.0 10*3 0.0-1.0 Automated eosinophil count 0.0 10*3/uL 0.0-0.3 Automated blood basophil count (count/volume) 0.0 10*3/uL 0.0-0.1 Comprehensive metabolic panel - 07/03/18 11:48 Serum or plasma sodium measurement (moles/volume) 136 mmol/L 135-145 Serum or plasma potassium measurement (moles/volume) 4.0 mmol/L 3.6-5.0 Serum or plasma chloride measurement (moles/volume) 103 mmol/L 98-107 Carbon dioxide 24 mmol/L 21-32 Serum or plasma anion gap determination (moles/volume) 9 mmol/L 5-14 Serum or plasma urea nitrogen measurement (mass/volume) 13 mg/dL 7-18 Serum or plasma creatinine measurement (mass/volume) 0.99 mg/dL 0.60-1.30 Serum or plasma urea nitrogen/creatinine mass ratio 13 NRG Serum or plasma creatinine measurement with calculation of estimated glomerular filtration rate > NRG Serum or plasma glucose measurement (mass/volume) 276 mg/dL 70-105 Serum or plasma calcium measurement (mass/volume) 10.4 mg/dL 8.5-10.1 Serum or plasma total bilirubin measurement (mass/volume) 0.9 mg/dL 0.1-1.0 Serum or plasma alkaline phosphatase measurement (enzymatic activity/volume) 95 U/L 40-136 Serum or plasma aspartate aminotransferase measurement (enzymatic activity/ volume) 24 U/L 5-34 Serum or plasma alanine aminotransferase measurement (enzymatic activity/volume ) 30 U/L 0-55 Serum or plasma protein measurement (mass/volume) 7.3 g/dL 6.4-8.2 Serum or plasma albumin measurement (mass/volume) 4.2 g/dL 3.2-4.5 CALCIUM CORRECTED 10.2 mg/dL 8.5-10.1 Serum or plasma C reactive protein measurement (mass/volume) - 07/03/18 11:48 Serum or plasma C reactive protein measurement (mass/volume) 3.95 mg /dL 0.00-0.50 Complete urinalysis with reflex to culture - 07/03/18 12:36 Urine color determination YELLOW NRG Urine clarity determination CLEAR NRG Urine pH measurement by test strip 5 5-9 Specific gravity of urine by test strip 1.030 1.016- 1.022 Urine protein assay by test strip, semi-quantitative 2+ NEGATIVE Urine glucose detection by automated test strip 3+ NEGATIVE Erythrocytes detection in urine sediment by light microscopy 1+ NEGATIVE Urine ketones detection by automated test strip 3+ NEGATIVE Urine nitrite detection by test strip NEGATIVE NEGATIVE Urine total bilirubin detection by test strip NEGATIVE NEGATIVE Urine urobilinogen measurement by automated test strip (mass/volume) NORMAL NORMAL Urine leukocyte esterase detection by dipstick 1+ NEGATIVE Automated urine sediment erythrocyte count by microscopy (number/high power field) NONE NRG Automated urine sediment leukocyte count by microscopy (number/high power field ) [HPF] NRG Bacteria detection in urine sediment by light microscopy TRACE NRG Squamous epithelial cells detection in urine sediment by light microscopy 2-5 NRG Crystals detection in urine sediment by light microscopy NONE NRG Casts detection in urine sediment by light microscopy PRESENT NRG Mucus detection in urine sediment by light microscopy MODERATE NRG Complete urinalysis with reflex to culture YES NRG Hyaline casts detection in urine sediment by light microscopy 2-5 NRG Bacterial urine culture - 07/03/18 12:36 Bacterial urine culture NG NRG Complete blood count (CBC) with automated white blood cell (WBC) differential - 07/17/18 11:19 Blood leukocytes automated count (number/volume) 12.9 10*3/uL 4.3-11.0 Blood erythrocytes automated count (number/volume) 5.18 10*6/uL 4.35-5.85 Venous blood hemoglobin measurement (mass/volume) 15.7 g/dL 13.3-17.7 Blood hematocrit (volume fraction) 45 % 40-54 Automated erythrocyte mean corpuscular volume 87 [foz_us] 80-99 Automated erythrocyte mean corpuscular hemoglobin (mass per erythrocyte) 30 pg 25-34 Automated erythrocyte mean corpuscular hemoglobin concentration measurement ( mass/volume) 35 g/dL 32-36 Automated erythrocyte distribution width ratio 13.6 % 10.0-14.5 Automated blood platelet count (count/volume) 187 10*3/uL 130-400 Automated blood platelet mean volume measurement 10.0 [foz_us] 7.4-10.4 Automated blood neutrophils/100 leukocytes 78 % 42-75 Automated blood lymphocytes/100 leukocytes 12 % 12-44 Blood monocytes/100 leukocytes 11 % 0-12 Automated blood eosinophils/100 leukocytes 0 % 0-10 Automated blood basophils/100 leukocytes 0 % 0-10 Blood neutrophils automated count (number/volume) 10.0 10*3 1.8-7.8 Blood lymphocytes automated count (number/volume) 1.5 10*3 1.0-4.0 Blood monocytes automated count (number/volume) 1.4 10*3 0.0-1.0 Automated eosinophil count 0.0 10*3/uL 0.0-0.3 Automated blood basophil count (count/volume) 0.0 10*3/uL 0.0-0.1 Encounters ACCT No. Visit Date/Time Discharge Status Pt. Type Provider Facility Loc./Unit Complaint [id number] 12/17/2013 07:48:00 12/17/2013 23:59:59 [facility] Outpatient LOLA GODFREY DDS [id number] 10/02/2013 09:44:00 10/02/2013 23:59:59 [facility] Outpatient MOUNIKA READ APRN [id number] 08/12/2013 08:40:00 08/12/2013 23:59:59 [facility] Outpatient MOUNIKA READ APRN [id number] 07/11/2013 10:14:00 07/11/2013 23:59:59 C[facility] Outpatient MOUNIKA READ APRN [id number] 02/13/2013 09:55:00 02/13/2013 23:59:59 [facility] Outpatient MOUNIKA READ APRN [id number] 07/04/2012 10:58:00 07/04/2012 23:59:59 CLS Outpatient MOUNIKA READ APRN [id number] 05/16/2012 09:03:00 05/16/2012 23:59:59 C[facility] Outpatient [id number] 04/16/2012 08:41:00 04/16/2012 23:59:59 CLS Outpatient MOUNIKA READ APRN [id number] 04/13/2012 14:58:00 04/13/2012 23:59:59 CLS Outpatient [id number] 02/10/2012 13:55:00 02/10/2012 23:59:59 CLS Outpatient [id number] 02/10/2012 13:55:00 02/10/2012 23:59:59 CLS Outpatient MOUNIKA READ APRN [id number] 09/06/2012 12:34:00 Document Registration [id number] 09/06/2012 08:45:00 Document Registration [id number] 08/27/2012 09:25:00 Document Registration [id number] 08/14/2012 09:56:00 Document Registration [facility] 12/10/2014 03:39:23 [place] Document Registration [id number] 06/08/2016 08:35:00 Document Registration [id number] 11/20/2017 06:52:00 11/20/2017 10:13:00 DIS Outpatient KongSurekha avalos [id number] 11/20/2017 09:23:51 Document Registration [id number] 10/01/2016 08:06:00 Document Registration [id number] 06/01/2018 11:10:00 06/01/2018 23:59:59 CLS Outpatient MOUNIKA READ APRN [facility] [id number] 01/25/2018 09:40:00 Document Registration [id number] 07/06/2018 08:57:00 07/06/2018 23:59:59 CLS Preadmit AI HAGEN MD [facility] RAD LUNG NODULE [id number] 07/05/2018 14:05:00 07/05/2018 23:59:59 CLS Outpatient AI HAGEN MD [facility] ONC [id number] 07/03/2018 11:00:00 07/03/2018 13:58:00 DIS Outpatient DIVYA AKERS MD [facility] ER N/V;WEAKNESS [id number] 06/06/2018 13:34:00 07/03/2018 00:01:00 DIS Outpatient AI HAGEN MD [facility] ONC [id number] 05/23/2018 10:32:00 05/23/2018 23:59:59 CLS Outpatient QUANG VELASQUEZ MD [facility] CARD CHEST PAIN, SOB, HYPERTENSION [id number] 05/21/2018 13:14:00 05/21/2018 23:59:59 CLS Outpatient QUANG VELASQUEZ MD [facility] CARD CHEST PAIN, SOB, HYPERTENSION [id number] 04/12/2018 10:10:00 04/12/2018 14:05:00 DIS Outpatient AI HAGEN MD [facility] SDC CANCER OF RIGHT COLON, MASS [id number] 03/30/2018 11:16:00 03/30/2018 23:59:59 CLS Outpatient AI HAGEN MD [facility] RAD CANCER OF RIGHT COLON [id number] 03/14/2018 09:09:00 03/27/2018 00:01:00 DIS Outpatient AI HAGEN MD [facility] ONC [id number] 02/21/2018 11:27:00 02/21/2018 23:59:59 CLS Outpatient AI HAGEN MD [facility] RAD [id number] 01/11/2018 09:38:00 01/11/2018 12:02:00 DIS Emergency JOYA ESQUIVEL MD [facility] ER N/V/D [id number] 12/20/2017 10:58:00 12/24/2017 00:01:00 DIS Outpatient AI HAGEN MD [facility] ONC [id number] 12/15/2017 11:59:00 12/20/2017 10:55:00 DIS Outpatient JOAQUIN NOBLE MD [facility] ONC [id number] 12/12/2017 10:27:00 12/14/2017 12:31:00 DIS Outpatient RUPALI STALLWORTH ANIRUDH Elian [facility] REHAB SACROILITIS [id number] 12/06/2017 13:08:00 12/12/2017 15:39:00 DIS Outpatient AI HAGEN MD [facility] ONC [id number] 12/11/2017 13:37:00 12/11/2017 23:59:59 CLS Outpatient MOUNIKA READ [facility] RAD LUMBAR NEURITIS M54.16 [id number] 11/06/2017 08:45:00 11/06/2017 23:59:59 CLS Outpatient AI HAGEN MD [facility] RAD CANCER OF RIGHT COLON [id number] 10/11/2017 08:58:00 10/12/2017 09:24:00 DIS Outpatient AI HAGEN MD [facility] ONC [id number] 09/13/2017 08:53:00 09/19/2017 00:01:00 DIS Outpatient AI HAGEN MD [facility] ONC [id number] 08/16/2017 10:42:00 08/16/2017 23:59:59 CLS Outpatient AI HAGEN MD [facility] RAD C18.2 CANCER OF R COLON [id number] 06/22/2017 10:02:00 06/22/2017 23:59:59 CLS Outpatient SILVANA ALLEN [facility] RAD OSTEOPOROSIS [id number] 06/07/2017 09:28:00 06/08/2017 00:01:00 DIS Outpatient AI HAGEN MD [facility] ONC [id number] 05/19/2017 11:49:00 05/19/2017 23:59:59 CLS Outpatient AI HAGEN MD [facility] RAD M54.5 LOW BACK PAIN [id number] 04/27/2017 09:43:00 04/27/2017 15:12:00 DIS Outpatient SUREKHA KONG DO [facility] SDC COLON CANCER [id number] 04/21/2017 08:27:00 04/21/2017 23:59:59 CLS Outpatient AI HAGEN MD [facility] RAD C18.2 CANCER OF RT COLON [id number] 04/21/2017 05:32:00 04/21/2017 10:35:00 DIS Outpatient SUREKHA KONG DO [facility] PREOP COLON CANCER [id number] 04/03/2017 08:41:00 04/05/2017 14:32:00 DIS Inpatient SUREKHA KONG DO [facility] 4TH MESINTERIC MASS [id number] 03/30/2017 09:33:00 03/30/2017 10:05:00 DIS Outpatient SUREKHA KONG DO [facility] PREOP MESINTERIC MASS [id number] 03/14/2017 07:04:00 03/14/2017 09:40:00 DIS Outpatient SUREKHA KONG DO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
[2018-07-17 11:54] LABS: ALANINE AMINOTRANSFERASE 53 U/L (0-55); ALKALINE PHOSPHATASE 114 U/L (40-136); AMYLASE 10 U/L (25-125); BILIRUBIN,TOTAL 1.7 MG/DL (0.1-1.0); BUN/CREATININE RATIO 12; CALCIUM 10.3 MG/DL (8.5-10.1); CARBON DIOXIDE 22 MMOL/L (21-32); CHLORIDE 99 MMOL/L (98-107); CREATININE SERUM 0.98 MG/DL (0.60-1.30); GFR ESTIMATED > 60; GLUCOSE 309 MG/DL (70-105); LIPASE 9 U/L (8-78); SODIUM 133 MMOL/L (135-145); TOTAL PROTEIN 7.6 GM/DL (6.4-8.2)
[2018-07-17] MEDS ORDERED: NS IV 1000 ML 1,000 ML IV SCH (12:00)
--- NOTE | 2018-07-17 12:05 | ED General ---
General Chief Complaint: General Problems/Pain Stated Complaint: ABD PAIN Nursing Triage Note: PT AMB TO RM 10 WITH COMPLAINT OF ABD PAIN, N/V/D, AND POSSIBLE WITHDRAWAL. PT HAS COLON CANCER AND WAS SENT HERE BY HIS CANCER DR TO RECIEVE AN ULTRASOUND OF HIS STOMACH TO CHECK CANCER GROWTH. PT STATES HE IS HAVING INCREASING PAIN. Nursing Sepsis Screen: No Definite Risk Source of Information: Patient Exam Limitations: No Limitations History of Present Illness Date Seen by Provider: Jul 17, 2018 Time Seen by Provider: 11:20 Allergies and Home Medications Allergies Coded Allergies: No Known Drug Allergies (Unverified , 04/21/17) Home Medications Diphenoxylate HCl/Atropine 1 Each Tablet, 1 EACH PO QID PRN for DIARRHEA, ( Reported) Hydrocodone Bit/Acetaminophen 1 Each Tablet, 1 EACH PO Q6H PRN for PAIN-MILD TO MODERATE, (Reported) Hydrocodone/Acetaminophen 1 Each Tablet, 1 EACH PO Q6H PRN for PAIN-MODERATE Prescribed by: DIVYA AKERS on 07/03/18 1349 Ondansetron HCl 8 Mg Tablet, 8 MG PO Q8H PRN for NAUSEA/VOMITING-1ST LINE, ( Reported) Ondansetron HCl 4 Mg Tab, 4 MG PO Q4H PRN for NAUSEA/VOMITING-1ST LINE Prescribed by: VIDA BAUMAN on 07/17/18 1340 Pantoprazole Sodium 40 Mg Tablet.dr, 40 MG PO DAILY, (Reported) Promethazine HCl 25 Mg Tablet, 25 MG PO Q6H PRN for NAUSEA/VOMITING Prescribed by: JOYA WHITE on 01/11/18 1155 Sucralfate 1 Gm/10 Ml Oral.susp, 1 GM PO QID Substitute tabs to crush and slurry if liquid not covered. Prescribed by: JOYA WHITE on 01/11/18 1155 Past Trxonom-Kklyhd-Ujybsj Hx Patient Social History Alcohol Use: Denies Use Recreational Drug Use: No Smoking Status: Never a Smoker Recent Foreign Travel: No Contact w/Someone Who Travel: No Recent Infectious Disease Expo: No Recent Hopitalizations: No (SURGERY-BIOPSY 09/2017) Immunizations Up To Date Tetanus Booster (TDap): Less than 5yrs PED Vaccines UTD: Yes Seasonal Allergies Seasonal Allergies: Yes Past Medical History Surgeries: Yes (ABD HERNIA, COLON RESECTION, RIGHT TKR, PORT placed and removed ) Abdominal, Orthopedic Respiratory: Yes Asthma Cardiac: Yes (murmur as a child) Hypertension Neurological: No Reproductive Disorders: No Sexually Transmitted Disease: No HIV/AIDS: No Genitourinary: No Gastrointestinal: Yes (mesenteric mass) Gastroesophageal Reflux, Chronic Diarrhea Musculoskeletal: Yes Arthritis, Chronic Back Pain Endocrine: No HEENT: No Loss of Vision: Denies Hearing Impairment: Denies Cancer: Yes Colon Did You Recieve Any Treatments: Yes What Type of Treatment Did You: Chemotherapy, Surgical Intervention Psychosocial: No Integumentary: No Blood Disorders: No Adverse Reaction/Blood Tranf: No Family Medical History FH: breast cancer 19 MOTHER FH: cirrhosis G8 SISTER Hypertension G8 SISTER Physical Exam Vital Signs Vital Signs - First Documented 07/17/18 11:08 Temp 97.8 Pulse 104 Resp 20 B/P (MAP) 129/99 (109) Pulse Ox 97 O2 Delivery Room Air Capillary Refill : Less Than 3 Seconds Height, Weight, BMI Height: 5'8.00" Weight: 200lbs. 0.0oz. 90.405473cd; 31.2 BMI Method:Stated Progress/Results/Core Measures Suspected Sepsis Recent Fever Within 48 Hours: No Infection Criteria Present: None New/Unexplained Altered Menta: No Sepsis Screen: No Definite Risk SIRS Temperature:97.8 Pulse: 104 Respiratory Rate: 20 Laboratory Tests 07/17/18 11:19: White Blood Count 12.9H Blood Pressure 129 /99 Mean: 109 Laboratory Tests 07/17/18 11:19: Creatinine 0.98, Platelet Count 187, Total Bilirubin 1.7H Results/Orders Lab Results Laboratory Tests Test 07/17/18 11:19 07/17/18 12:58 Range/Units White Blood Count 12.9 H 4.3-11.0 10^3/uL Red Blood Count 5.18 4.35-5.85 10^6/uL Hemoglobin 15.7 13.3-17.7 G/DL Hematocrit 45 40-54 % Mean Corpuscular Volume 87 80-99 FL Mean Corpuscular Hemoglobin 30 25-34 PG Mean Corpuscular Hemoglobin Concent 35 32-36 G/DL Red Cell Distribution Width 13.6 10.0-14.5 % Platelet Count 187 130-400 10^3/uL Mean Platelet Volume 10.0 7.4-10.4 FL Neutrophils (%) (Auto) 78 H 42-75 % Lymphocytes (%) (Auto) 12 12-44 % Monocytes (%) (Auto) 11 0-12 % Eosinophils (%) (Auto) 0 0-10 % Basophils (%) (Auto) 0 0-10 % Neutrophils # (Auto) 10.0 H 1.8-7.8 X 10^3 Lymphocytes # (Auto) 1.5 1.0-4.0 X 10^3 Monocytes # (Auto) 1.4 H 0.0-1.0 X 10^3 Eosinophils # (Auto) 0.0 0.0-0.3 10^3/uL Basophils # (Auto) 0.0 0.0-0.1 10^3/uL Sodium Level 133 L 135-145 MMOL/L Potassium Level 4.0 3.6-5.0 MMOL/L Chloride Level 99 98-107 MMOL/L Carbon Dioxide Level 22 21-32 MMOL/L Anion Gap 12 5-14 MMOL/L Blood Urea Nitrogen 12 7-18 MG/DL Creatinine 0.98 0.60-1.30 MG/DL Estimat Glomerular Filtration Rate > 60 BUN/Creatinine Ratio 12 Glucose Level 309 H 70-105 MG/DL Calcium Level 10.3 H 8.5-10.1 MG/DL Corrected Calcium 10.3 H 8.5-10.1 MG/DL Total Bilirubin 1.7 H 0.1-1.0 MG/DL Aspartate Amino Transf (AST/SGOT) 39 H 5-34 U/L Alanine Aminotransferase (ALT/SGPT) 53 0-55 U/L Alkaline Phosphatase 114 40-136 U/L Total Protein 7.6 6.4-8.2 GM/DL Albumin 4.0 3.2-4.5 GM/DL Amylase Level 10 L 25-125 U/L Lipase 9 8-78 U/L Urine Color YENNY H Urine Clarity CLEAR Urine pH 5 5-9 Urine Specific Proctor 1.030 H 1.016-1.022 Urine Protein 2+ H NEGATIVE Urine Glucose (UA) 4+ H NEGATIVE Urine Ketones 2+ H NEGATIVE Urine Nitrite POSITIVE H NEGATIVE Urine Bilirubin 1+ H NEGATIVE Urine Urobilinogen 1 NORMAL MG/DL Urine Leukocyte Esterase 1+ H NEGATIVE Urine RBC (Auto) NEGATIVE NEGATIVE Urine RBC NONE /HPF Urine WBC RARE /HPF Urine Crystals NONE /LPF Urine Bacteria NEGATIVE /HPF Urine Casts NONE /LPF Urine Mucus NEGATIVE /LPF Urine Culture Indicated NO My Orders Orders - VIDA BAUMAN Comprehensive Metabolic Panel (07/17/18 11:20) Lipase (07/17/18 11:20) Amylase (07/17/18 11:20) Ua Culture If Indicated (07/17/18 11:20) Ed Iv/Invasive Line Start (07/17/18 11:20) Cbc With Automated Diff (07/17/18 11:20) Morphine Injection (Morphine Injection (07/17/18 11:25) Ondansetron Injection (Zofran Injectio (07/17/18 11:30) Ns Iv 1000 Ml (Sodium Chloride 0.9%) (07/17/18 12:00) Morphine Injection (Morphine Injection (07/17/18 13:34) Medications Given in ED Current Medications Medications Dose Ordered Sig/Ross Route Start Time Stop Time Status Last Admin Dose Admin Ondansetron HCl 8 mg ONCE ONCE IVP 07/17/18 11:30 07/17/18 11:31 DC 07/17/18 11:29 8 MG Vital Signs/I&O 07/17/18 07/17/18 11:08 14:08 Temp 97.8 Pulse 104 79 Resp 20 20 B/P (MAP) 129/99 (109) 129/83 (98) Pulse Ox 97 98 O2 Delivery Room Air Room Air Capillary Refill : Less Than 3 Seconds Blood Pressure Mean: 109 Departure Impression Primary Impression: Colon cancer Additional Impression: Chronic pain Disposition: 01 HOME, SELF-CARE Condition: Stable/Unchanged Departure-Patient Inst. Decision time for Depature: 13:39 Referrals: [facility] (PCP) Primary Care Physician MOUNIKA READ (Family) Primary Care Physician Patient Instructions: CHRONIC PAIN, Colon and Rectal Cancer Add. Discharge Instructions: Continue your morphine as previously prescribed. Be sure to meat pickler your prescription for oxycodone at [place]. Take the Zofran as needed for nausea and vomiting. Call tomorrow morning to schedule an appointment with Dr. Mcfarlane at the cancer center. Return back to the emergency room for worsening symptoms or concerns as needed. All discharge instructions reviewed with patient and/or family. Voiced understanding. Scripts Oxycodone HCl/Acetaminophen (Oxycodone-Acetaminophen 10-325) 1 Each Tablet 1 EACH PO Q8H PRN for BREAKTHROUGH PAIN MDD 3 for 10 Days, #30 TAB Prov: VIDA BAUMAN 07/17/18 Ondansetron HCl (Zofran) 4 Mg Tab 4 MG PO Q4H PRN for NAUSEA/VOMITING-1ST LINE, #20 TAB Prov: VIDA BAUMAN 07/17/18 VIDA BAUMAN Jul 17, 2018 12:05
[2018-07-17 13:03] LABS: CLARITY,URINE CLEAR; COLOR,URINE AMBER; GLUCOSE, URINE (UA) 4+ (NEGATIVE); KETONES,URINE 2+ (NEGATIVE); LEUKOCYTE ESTERASE ,URINE 1+ (NEGATIVE); NITRITE,URINE POSITIVE (NEGATIVE); PH,URINE 5 (5-9); PROTEIN,URINE 2+ (NEGATIVE); UROBILINOGEN,URINE 1 MG/DL (NORMAL)
[2018-07-17 13:23] LABS: BACTERIA,URINE NEGATIVE /HPF; BILIRUBIN,URINE 1+ (NEGATIVE); WBC,URINE RARE /HPF
[2018-07-17] MEDS ORDERED: ONDN4T PO (13:40)
[2018-07-17 14:08] VITALS: BP 129/83
[2018-07-17] MEDS ORDERED: OXYC-465 PO (14:48)
== END 2018-07-17 14:08 | disposition home or self-care (01) ==
LOC: EDUNIT# 11:02 → ER 11:03
DX: C18.9 Malignant neoplasm of colon, unspecified (principal); J45.909 Unspecified asthma, uncomplicated; I10 Essential (primary) hypertension; K21.9 Gastro-esophageal reflux disease without esophagitis; Z98.890 Other specified postprocedural states; Z96.651 Presence of right artificial knee joint; Z87.19 Personal history of other diseases of the digestive system; Z92.21 Personal history of antineoplastic chemotherapy; Z90.49 Acquired absence of other specified parts of digestive tract; Z80.3 Family history of malignant neoplasm of breast
CPT/HCPCS: 36415; 80053; 81000; 82150; 83690; 85025

== ENCOUNTER → 2018-07-26 | Outpatient (CLI) | payer MEDICARE, MEDICAID ==
[~2018-07-26] MED LIST changes: +BARIUM SUSPENSION 2.1% (VANILLA SILQ) 450 ML PO ONE; +HOLD METFORMIN - RECEIVED CONTRAST 20 ML VIAL IV SCH; +IOHEXOL 350 MG/ML 100 ML (OMNIPAQUE 350) VIAL IV ONE; +ONDN4T PO; +OXYC-465 PO
--- NOTE | 2018-07-26 14:04 | Diagnostic Imaging Report ---
PROCEDURE: CT chest with contrast, CT abdomen and pelvis with and without contrast. TECHNIQUE: Pre and post intravenous contrast axial imaging of the abdomen and pelvis and post contrast axial imaging of the chest were performed. Auto Exposure Controls were utilized during the CT exam to meet ALARA standards for radiation dose reduction. INDICATION: Colon cancer. COMPARISON: Exam compared to 03/30/2018. FINDINGS: Chest: No pathological-appearing axillary, hilar, or mediastinal lymph nodes. There is no thoracic effusion. No suspicious pulmonary nodule or dominant lung mass. No destructive chest wall lesion. Abdomen and pelvis: There has been the interval development of innumerable multifocal hepatic metastases throughout the left and right liver lobes. The largest of these is 1.6 cm. A mass in the mesentery of right upper quadrant just deep to the anterior abdominal wall shows a substantial interval increase in size measuring 3.9 x 3.2 cm today, previously about 1.4 cm. A soft tissue mass just right of midline ventral to the pancreatic neck with adjacent surgical clip also shows substantial interval increase in size and now may have fistulized to an adjacent bowel loop as there is some intraluminal contrast media as well as air within this lesion. Its posterior aspect is inseparable from the ventral aspect of the pancreas itself. This mass now measures 4.9 x 5.1 cm, previously 2.9 x 2.1 cm. Few additional new separable small periceliac lymph nodes have developed, presumptively also on a metastatic basis. There is some thickening of the gastric antrum and pylorus as a new finding. Pathological-appearing periaortic retroperitoneal lymph nodes below the level of the renal veins up to 13 mm, new and presumptively metastatic. New mesenteric mass medial to the lower pole of the right kidney, presumed metastatic, of 12 mm. The patient's adrenals and spleen are negative. There are bilateral renal cysts, simple and benign. The unobstructed kidneys appeared otherwise normal. There is no evidence for pelvic metastatic disease. Ventral supraumbilical anterior abdominal wall hernias, nonobstructing and unchanged. IMPRESSION: 1. Chest: No findings of thoracic metastasis. 2. Abdomen and pelvis: Substantial adverse changes. New multifocal hepatic metastases. Retroabdominal wall mesenteric mass is markedly larger and a mass ventral to the pancreatic neck is much larger now, likely fistulized to adjacent bowel loop with intratumoral gas and enteric contrast media. The mass is now inseparable from the ventral aspect of the pancreas and there is new thickening of the adjacent distal gastric wall which may be on a neoplastic basis as well as new small upper abdominal mesenteric leah metastases. New retroperitoneal periaortic leah metastases. Dictated by: Dictated on workstation # [id number]
== END ==
LOC: RAD 12:15
PROVIDERS: ATTEND Internal Medicine Hematology & Oncology
DX: C18.2 Malignant neoplasm of ascending colon (principal); C79.89 Secondary malignant neoplasm of other specified sites
CPT/HCPCS: 71260; 74178

== ENCOUNTER 2018-08-02 10:20 | Outpatient (RCR) | payer MEDICARE, MEDICAID ==
[2018-07-24 11:51] LABS: BASOPHILS % (AUTO) 0 % (0-10); EOSINOPHILS # (AUTO) 0.1 10^3/uL (0.0-0.3); EOSINOPHILS % (AUTO) 2 % (0-10); HEMATOCRIT 44 % (40-54); HEMOGLOBIN 14.9 G/DL (13.3-17.7); LYMPHOCYTES # (AUTO) 1.4 X 10^3 (1.0-4.0); LYMPHOCYTES % (AUTO) 21 % (12-44); MEAN CORPUSCULAR HEMOGLOBIN 30 PG (25-34); MEAN CORPUSCULAR HGB CONC 34 G/DL (32-36); MEAN CORPUSCULAR VOLUME 87 FL (80-99); MEAN PLATELET VOLUME 9.2 FL (7.4-10.4); MONOCYTES # (AUTO) 0.7 X 10^3 (0.0-1.0); MONOCYTES % (AUTO) 11 % (0-12); NEUTROPHILS # (AUTO) 4.1 X 10^3 (1.8-7.8); NEUTROPHILS % (AUTO) 65 % (42-75); PLATELET COUNT 294 10^3/uL (130-400); RED CELL DISTRIBUTION WIDTH 13.3 % (10.0-14.5); WHITE BLOOD COUNT 6.3 10^3/uL (4.3-11.0)
[2018-07-24 12:01] LABS: ALANINE AMINOTRANSFERASE 64 U/L (0-55); ALBUMIN 3.7 GM/DL (3.2-4.5); ALKALINE PHOSPHATASE 119 U/L (40-136); BILIRUBIN,TOTAL 0.5 MG/DL (0.1-1.0); BUN/CREATININE RATIO 9; CALCIUM 9.8 MG/DL (8.5-10.1); CARBON DIOXIDE 25 MMOL/L (21-32); CHLORIDE 101 MMOL/L (98-107); CREATININE SERUM 0.97 MG/DL (0.60-1.30); GFR ESTIMATED > 60; GLUCOSE 257 MG/DL (70-105); SODIUM 136 MMOL/L (135-145); TOTAL PROTEIN 6.9 GM/DL (6.4-8.2)
[~2018-08-02 10:20] MED LIST changes: -BARIUM SUSPENSION 2.1% (VANILLA SILQ) 450 ML PO ONE; -HOLD METFORMIN - RECEIVED CONTRAST 20 ML VIAL IV SCH; -IOHEXOL 350 MG/ML 100 ML (OMNIPAQUE 350) VIAL IV ONE
[2018-08-02 10:58] LABS: BASOPHILS % (AUTO) 0 % (0-10); EOSINOPHILS # (AUTO) 0.1 10^3/uL (0.0-0.3); EOSINOPHILS % (AUTO) 1 % (0-10); HEMATOCRIT 45 % (40-54); HEMOGLOBIN 15.5 G/DL (13.3-17.7); LYMPHOCYTES # (AUTO) 1.1 X 10^3 (1.0-4.0); LYMPHOCYTES % (AUTO) 12 % (12-44); MEAN CORPUSCULAR HEMOGLOBIN 30 PG (25-34); MEAN CORPUSCULAR HGB CONC 34 G/DL (32-36); MEAN CORPUSCULAR VOLUME 87 FL (80-99); MEAN PLATELET VOLUME 9.4 FL (7.4-10.4); MONOCYTES # (AUTO) 0.7 X 10^3 (0.0-1.0); MONOCYTES % (AUTO) 8 % (0-12); NEUTROPHILS # (AUTO) 7.3 X 10^3 (1.8-7.8); NEUTROPHILS % (AUTO) 79 % (42-75); PLATELET COUNT 327 10^3/uL (130-400); RED CELL DISTRIBUTION WIDTH 13.1 % (10.0-14.5); WHITE BLOOD COUNT 9.2 10^3/uL (4.3-11.0)
[2018-08-02 11:13] LABS: ALANINE AMINOTRANSFERASE 44 U/L (0-55); ALKALINE PHOSPHATASE 126 U/L (40-136); BILIRUBIN,TOTAL 0.6 MG/DL (0.1-1.0); BUN/CREATININE RATIO 10; CALCIUM 10.1 MG/DL (8.5-10.1); CARBON DIOXIDE 25 MMOL/L (21-32); CHLORIDE 101 MMOL/L (98-107); CREATININE SERUM 0.99 MG/DL (0.60-1.30); GFR ESTIMATED > 60; GLUCOSE 309 MG/DL (70-105); POTASSIUM 4.2 MMOL/L (3.6-5.0); SODIUM 135 MMOL/L (135-145); TOTAL PROTEIN 7.3 GM/DL (6.4-8.2)
[2018-09-17] MEDS ORDERED: SIME125T50 PO (14:08)
[2018-09-17] MEDS ORDERED: ALPR0.5T7 PO (14:08)
[2018-09-17] MEDS ORDERED: MORP100S3 PO (14:33)
[2018-09-17] MEDS ORDERED: FENT1PAT9 TD (15:07)
[2018-09-17] MEDS ORDERED: METO-387 PO (15:07)
[2018-09-17] MEDS ORDERED: PANT40TA3 PO (15:07)
[2018-09-17] MEDS ORDERED: ONDA8TAB12 PO (15:10)
[2018-09-21] MEDS ORDERED: FENT1PAT59 TD (12:15)
[2018-09-21] MEDS ORDERED: MORP100S3 PO (12:15)
[2018-09-21] MEDS ORDERED: LORA1TAB PO (12:15)
== END 2018-10-03 | disposition home or self-care (01) ==
LOC: ONC 10:20
PROVIDERS: ATTEND Internal Medicine Hematology & Oncology
DX: C18.3 Malignant neoplasm of hepatic flexure (principal); C77.2 Secondary and unspecified malignant neoplasm of intra-abdominal lymph nodes; D69.59 Other secondary thrombocytopenia; D75.1 Secondary polycythemia; J45.909 Unspecified asthma, uncomplicated; F32.9 Major depressive disorder, single episode, unspecified; I10 Essential (primary) hypertension; K21.9 Gastro-esophageal reflux disease without esophagitis; Z87.891 Personal history of nicotine dependence; Z79.899 Other long term (current) drug therapy; Z45.2 Encounter for adjustment and management of vascular access device
CPT/HCPCS: 36415; 80053; 82378; 85025

== ENCOUNTER 2018-09-17 10:10 | Inpatient (IN) | payer MEDICARE, MEDICAID ==
[~2018-09-17] VITALS: Ht 172.7 cm; Wt 79.8 kg
[2018-09-17] MEDS ORDERED: PROMETHAZINE INJ 25 MG/ML (PHENERGAN) AMP IVP ONE (11:30)
[2018-09-17] MEDS ORDERED: fentaNYL INJECTION 100 MCG/2 ML AMP IVP ONE (11:30)
[2018-09-17 11:46] LABS: BASOPHILS # (AUTO) 0.1 10^3/uL (0.0-0.1); BASOPHILS % (AUTO) 1 % (0-10); EOSINOPHILS # (AUTO) 0.1 10^3/uL (0.0-0.3); EOSINOPHILS % (AUTO) 1 % (0-10); HEMATOCRIT 42 % (40-54); HEMOGLOBIN 14.3 G/DL (13.3-17.7); LYMPHOCYTES % (AUTO) 11 % (12-44); MEAN CORPUSCULAR HEMOGLOBIN 28 PG (25-34); MEAN CORPUSCULAR HGB CONC 34 G/DL (32-36); MEAN CORPUSCULAR VOLUME 82 FL (80-99); MEAN PLATELET VOLUME 8.9 FL (7.4-10.4); MONOCYTES # (AUTO) 0.8 X 10^3 (0.0-1.0); MONOCYTES % (AUTO) 9 % (0-12); NEUTROPHILS # (AUTO) 7.4 X 10^3 (1.8-7.8); NEUTROPHILS % (AUTO) 79 % (42-75); PLATELET COUNT 358 10^3/uL (130-400); RED CELL DISTRIBUTION WIDTH 13.3 % (10.0-14.5); WHITE BLOOD COUNT 9.4 10^3/uL (4.3-11.0)
[2018-09-17 12:07] LABS: ALANINE AMINOTRANSFERASE 30 U/L (0-55); ALBUMIN 3.9 GM/DL (3.2-4.5); ALKALINE PHOSPHATASE 165 U/L (40-136); BILIRUBIN,TOTAL 0.8 MG/DL (0.1-1.0); BUN/CREATININE RATIO 10; CALCIUM 10.5 MG/DL (8.5-10.1); CARBON DIOXIDE 24 MMOL/L (21-32); CHLORIDE 101 MMOL/L (98-107); CREATININE SERUM 0.86 MG/DL (0.60-1.30); GFR ESTIMATED > 60; GLUCOSE 149 MG/DL (70-105); POTASSIUM 3.7 MMOL/L (3.6-5.0); SODIUM 139 MMOL/L (135-145); TOTAL PROTEIN 7.8 GM/DL (6.4-8.2)
--- NOTE | 2018-09-17 13:11 | ED GI ---
General Chief Complaint: Abdominal/GI Problems Stated Complaint: COLON CANCER;UNCONTROLLED PAIN;N/V;DEPRESSION;- Nursing Triage Note: PATIENT HERE FOR COMPLAINTS OF NAUSEA AND VOMITING. HE IS CURRENTLY ON HOSPICE FOR PANCREATIC CANCER THAT HAS METASTASIZED. HE IS BEEN FEELING INCREASINGLY ILL SINCE MONDAY. Sepsis Screen: No Definite Risk History of Present Illness Date Seen by Provider: Sep 17, 2018 Time Seen by Provider: 11:05 Initial Comments 58-year-old male presents for abdominal pain, nausea and vomiting, history of soft tissue mass by the pancreatic neck. He has been treated by Dr. Mcfarlane for oncology and his PCP is Justin Woods APRN. He has been treated by hospice can pass this and currently has a fentanyl patch on that was placed 2 days ago and a Zofran patch. He is extremely weak and reports that he has been vomiting f or 2-3 days. He did not contact his hospice nurse. He did revoke his hospice status and wishes to see his oncologist for change in treatment plan. He reports that he does wish to be a full code. He states "I want to start IV drips from eye medication instead of patches." His sister is present in the room and states that he has been having more depression and anxiety related to his diagnosis. Timing/Duration: 3-4 Days Severity/Quality: Moderate Location: Generalized Abdomen Radiation: No Radiation Associated Symptoms: No Back Pain, No Chest Pain, No Diaphoresis, No Fever/Chills; Fatigue; No Headache, No Heartburn; Nausea/Vomiting; No Rash, No Shortness of Air; Swelling/Mass in Abdomen; No Syncope; Weakness Allergies and Home Medications Allergies Coded Allergies: No Known Drug Allergies (Unverified , 04/21/17) Home Medications Diphenoxylate HCl/Atropine 1 Each Tablet, 1 EACH PO QID PRN for DIARRHEA, (Reported) Hydrocodone Bit/Acetaminophen 1 Each Tablet, 1 EACH PO Q6H PRN for PAIN-MILD TO MODERATE, (Reported) Hydrocodone/Acetaminophen 1 Each Tablet, 1 EACH PO Q6H PRN for PAIN-MODERATE Prescribed by: DIVYA AKERS on 07/03/18 3531 Ondansetron HCl 8 Mg Tablet, 8 MG PO Q8H PRN for NAUSEA/VOMITING-1ST LINE, (Reported) Ondansetron HCl 4 Mg Tab, 4 MG PO Q4H PRN for NAUSEA/VOMITING-1ST LINE Prescribed by: VIDA BAUMAN on 07/17/18 1340 Oxycodone HCl/Acetaminophen 1 Each Tablet, 1 EACH PO Q8H PRN for BREAKTHROUGH PA IN Prescribed by: VIDA BAUMAN on 07/17/18 1448 Pantoprazole Sodium 40 Mg Tablet.dr, 40 MG PO DAILY, (Reported) Promethazine HCl 25 Mg Tablet, 25 MG PO Q6H PRN for NAUSEA/VOMITING Prescribed by: JOYA WHITE on 01/11/18 1155 Sucralfate 1 Gm/10 Ml Oral.susp, 1 GM PO QID Substitute tabs to crush and slurry if liquid not covered. Prescribed by: JOYA WHITE on 01/11/18 1155 Patient Home Medication List Home Medication List Reviewed: Yes Review of Systems Review of Systems Constitutional: no symptoms reported Gastrointestinal: See HPI, Abdominal Pain; Denies Constipated, Denies Diarrhea, Denies Difficulty Swallowing; Nausea, Poor Appetite, Poor Fluid Intake, Vomiting Psychiatric/Neurological: See HPI, Anxiety, Depressed All Other Systems Reviewed Negative Unless Noted: Yes Past Evqendr-Plowyq-Ypzmoq Hx Past Med/Social Hx: Reviewed Nursing Past Med/Soc Hx Patient Social History Alcohol Use: Denies Use Recreational Drug Use: No Smoking Status: Never a Smoker 2nd Hand Smoke Exposure: No Recent Foreign Travel: No Contact w/Someone Who Travel: No Recent Infectious Disease Expo: No Recent Hopitalizations: No (SURGERY-BIOPSY 09/2017) Physical Abuse: No Sexual Abuse: No Immunizations Up To Date Tetanus Booster (TDap): Less than 5yrs PED Vaccines UTD: Yes Seasonal Allergies Seasonal Allergies: Yes Past Medical History Surgeries: Yes (ABD HERNIA, COLON RESECTION, RIGHT TKR, PORT placed and removed) Abdominal, Orthopedic Respiratory: Yes Asthma Cardiac: Yes (murmur as a child) Hypertension Neurological: No Reproductive Disorders: No Sexually Transmitted Disease: No HIV/AIDS: No Genitourinary: No Gastrointestinal: Yes (mesenteric mass) Gastroesophageal Reflux, Chronic Diarrhea Musculoskeletal: Yes Arthritis, Chronic Back Pain Endocrine: No HEENT: No Loss of Vision: Denies Hearing Impairment: Denies Cancer: Yes Colon Did You Recieve Any Treatments: Yes What Type of Treatment Did You: Chemotherapy, Surgical Intervention Psychosocial: No Integumentary: No Blood Disorders: No Adverse Reaction/Blood Tranf: No Family Medical History FH: breast cancer 19 MOTHER FH: cirrhosis G8 SISTER Hypertension G8 SISTER Physical Exam Vital Signs Vital Signs - First Documented 09/17/18 10:58 Temp 97.6 Pulse 97 B/P (MAP) 119/81 (94) Pulse Ox 97 Capillary Refill : Less Than 3 Seconds Height/Weight/BMI Height: 5'7.00" Weight: 170lbs. 0oz. 77.472694hp; 31.2 BMI Method:Actual General Appearance: WD/WN, mild distress HEENT: PERRL/EOMI, normal ENT inspection, TMs normal, pharynx normal, other (oral mucosa pink and moist) Respiratory: chest non-tender, lungs clear, normal breath sounds Cardiovascular: normal peripheral pulses, regular rate, rhythm Gastrointestinal: normal bowel sounds, soft; No guarding, No rebound; t enderness (generalized) Back: normal inspection, no CVA tenderness, no vertebral tenderness Neurologic/Psychiatric: no motor/sensory deficits, alert, normal mood/affect, oriented x 3 Skin: warm/dry, pallor Lymphatic: no adenopathy Progress/Results/Core Measures Results/Orders Lab Results Laboratory Tests Test 09/17/18 11:41 Range/Units White Blood Count 9.4 4.3-11.0 10^3/uL Red Blood Count 5.12 4.35-5.85 10^6/uL Hemoglobin 14.3 13.3-17.7 G/DL Hematocrit 42 40-54 % Mean Corpuscular Volume 82 80-99 FL Mean Corpuscular Hemoglobin 28 25-34 PG Mean Corpuscular Hemoglobin Concent 34 32-36 G/DL Red Cell Distribution Width 13.3 10.0-14.5 % Platelet Count 358 130-400 10^3/uL Mean Platelet Volume 8.9 7.4-10.4 FL Neutrophils (%) (Auto) 79 H 42-75 % Lymphocytes (%) (Auto) 11 L 12-44 % Monocytes (%) (Auto) 9 0-12 % Eosinophils (%) (Auto) 1 0-10 % Basophils (%) (Auto) 1 0-10 % Neutrophils # (Auto) 7.4 1.8-7.8 X 10^3 Lymphocytes # (Auto) 1.0 1.0-4.0 X 10^3 Monocytes # (Auto) 0.8 0.0-1.0 X 10^3 Eosinophils # (Auto) 0.1 0.0-0.3 10^3/uL Basophils # (Auto) 0.1 0.0-0.1 10^3/uL Sodium Level 139 135-145 MMOL/L Potassium Level 3.7 3.6-5.0 MMOL/L Chloride Level 101 98-107 MMOL/L Carbon Dioxide Level 24 21-32 MMOL/L Anion Gap 14 5-14 MMOL/L Blood Urea Nitrogen 9 7-18 MG/DL Creatinine 0.86 0.60-1.30 MG/DL Estimat Glomerular Filtration Rate > 60 BUN/Creatinine Ratio 10 Glucose Level 149 H 70-105 MG/DL Calcium Level 10.5 H 8.5-10.1 MG/DL Corrected Calcium 10.6 H 8.5-10.1 MG/DL Total Bilirubin 0.8 0.1-1.0 MG/DL Aspartate Amino Transf (AST/SGOT) 37 H 5-34 U/L Alanine Aminotransferase (ALT/SGPT) 30 0-55 U/L Alkaline Phosphatase 165 H 40-136 U/L Total Protein 7.8 6.4-8.2 GM/DL Albumin 3.9 3.2-4.5 GM/DL My Orders Orders - BABATUNDE SANCHES Cbc With Automated Diff (09/17/18 11:17) Comprehensive Metabolic Panel (09/17/18 11:17) Ua Culture If Indicated (09/17/18 11:17) Promethazine Injection (Phenergan Injec (09/17/18 11:30) Fentanyl Injection (Sublimaze Injection (09/17/18 11:30) Medications Given in ED Current Medications Medications Dose Ordered Sig/Ross Route Start Time Stop Time Status Last Admin Dose Admin Fentanyl Citrate 25 mcg ONCE ONCE IVP 09/17/18 11:30 09/17/18 11:31 DC 09/17/18 11:36 25 MCG Promethazine HCl 12.5 mg ONCE ONCE IVP 09/17/18 11:30 09/17/18 11:31 DC 09/17/18 11:36 12.5 MG Vital Signs/I&O 09/17/18 10:58 Temp 97.6 Pulse 97 B/P (MAP) 119/81 (94) Pulse Ox 97 Blood Pressure Mean: 94 Progress Progress Note : Time: 11:05 Progress Note Patient seen and evaluated, will obtain labs and contact his oncologist. Fentanyl 25 g for pain and Phenergan 12.5 mg for nausea. Broke with his hospice nurse, she explained that he did not contact him through the weekend for additional treatment. 1150 patient reports improvement in his pain and nausea since medications were given. Discussed at length with the patient he wishes to be a full code but then states "I wish I could just ." Clarified this and he does wish for all heroic measures if he were to have resp or cardiac arrest. 12:[address] Dubose, will admit for pain control and further eval by oncology for treatment options. [address] Griffin, she will see patient and follow. Departure Impression Primary Impression: Inadequate pain control Additional Impressions: Nausea and vomiting Qualified Codes: R11.2 - Nausea with vomiting, unspecified Intra-abdominal malignant neoplasm Disposition: HOME, SELF-CARE Condition: Improved Admissions Decision to Admit Reason: Admit from ER (General) Decision to Admit/Date: Sep 17, 2018 Time/Decision to Admit Time: 12:30 Departure-Patient Inst. Referrals: [facility] (PCP) Primary Care Physician MOUNIKA WOODS (Family) Primary Care Physician BABATUNDE SANCHES Sep 17, 2018 13:11
[2018-09-17 13:15] LABS: CLARITY,URINE CLEAR; COLOR,URINE YELLOW; GLUCOSE, URINE (UA) NEGATIVE (NEGATIVE); KETONES,URINE 3+ (NEGATIVE); LEUKOCYTE ESTERASE ,URINE 1+ (NEGATIVE); NITRITE,URINE NEGATIVE (NEGATIVE); PH,URINE 5 (5-9); PROTEIN,URINE 2+ (NEGATIVE); UROBILINOGEN,URINE 1 MG/DL (NORMAL)
--- NOTE | 2018-09-17 13:20 | NUR ---
TIMMY MESSINA admitted to room 425-1, with an admitting diagnosis of COLON CANCER, UNCONTROLLED PAIN, NAUSEA VOMITING, ANXIETY, AND DEPRESSION, on 09/17/18 from ED via STRETCHER, accompanied by STAFF AND SISTER. TIMMY MESSINA introduced to surroundings, call light, bed controls, phone, TV, temperature control, lights, meal times, smoking policy, visitor policy, side rail policy, bathrooms and showers. Patient Rights given to patient in the handbook. TIMMY MESSINA verbalizes understanding that [facility] is not responsible for the loss or damage to any personal effects or valuables that are kept in the patients posession during their hospitalization. TIMMY MESSINA verbalizes understanding of Interdisciplinary Patient Education. Patient and/or family were informed about the Rapid Response Team and its purpose.
[2018-09-17 13:22] LABS: BACTERIA,URINE TRACE /HPF; BILIRUBIN,URINE 1+ (NEGATIVE); WBC,URINE 0-2 /HPF
[2018-09-17 13:25] VITALS: BP 132/83
[2018-09-17] MEDS ORDERED: ACETAMINOPHEN 325 MG TABLET PO PRN (13:45)
[2018-09-17] MEDS: NS IV 1000 ML 1,000 ML IV SCH (14:02)
[2018-09-17] MEDS: fentaNYL INJECTION 100 MCG/2 ML AMP IVP PRN ×2 (14:07→20:11)
[2018-09-17] MEDS ORDERED: ALPR0.5T7 PO (14:08)
[2018-09-17] MEDS ORDERED: SIME125T50 PO (14:08)
--- NOTE | 2018-09-17 14:15 | NUR ---
Pastoral care visit, met with pts sister and offered support and prayer
[2018-09-17] MEDS ORDERED: MORP100S3 PO (14:33)
[2018-09-17] MEDS ORDERED: FENT1PAT9 TD (15:07)
[2018-09-17] MEDS ORDERED: PANT40TA3 PO (15:07)
[2018-09-17] MEDS ORDERED: METO-387 PO (15:07)
[2018-09-17] MEDS ORDERED: ONDA8TAB12 PO (15:10)
--- NOTE | 2018-09-17 15:12 | NUR ---
WENT OVER THE EXT MED HX WITH THE PATIENT AND HE VERIFIED HOW HE TAKES THEM. HE WAS USING THE FENTANYL PATCH HOWEVER DOES NOT HAVE ONE ON RIGHT NOW, HE THINKS IT MAY HAVE MADE HIM SICK. HE FILLED METOPROLOL RECENTLY HOWEVER STATES HE IS NO LONGER TAKING IT.
[2018-09-17 16:00] VITALS: BP 132/73
--- NOTE | 2018-09-17 17:21 | Oncology Consultation ---
Visit Information Visit Information Date of Admission Sep 17, 2018 at 12:40 Attending Physician Kerri Dubose MD Admitting Physician [place] Chief Complaint end stage colon cancer, pain Interval History Mr. Argueta is a 58 year old white man with stage IV recurrent metastatic colon cancer on hospice with [facility], patient of Dr Mcfarlane. He was brought to the ER by his sister and stated that patient was in pain and could not handle the situation by himself at home. Pt was initially diagnosed stage IIIc colon cancer 2013 s/p surgery and adjuvant chemo FOLFOX. He had recurrence 02/2017 and has been on chemotherapy FOLFIRI initially and then Longsurf. He had multiple side effects from chemo during the treatment. His CT scan 07/26/2018 showed significantly disease progression and extensive liver mets. Since Pt has exhausted all possible treatment, his primary oncologist Dr. Mcfarlane discussed with patient and his sister about the hospice. They agreed and chose [facility]. However, pt realized that he lives by himself "I am not able to handle this by my self". He is thinking of going to supply assistant living or custodial but not ready to make the decision yet. So his sister brought him to the ER for solution. He revoked hospice and wants to be full code at ER. He was using Fentanyl patch at home and it was not working well. He had Fentanyl IV at ER. He was sleeping when I walked into his room. I consulted the patient on: 09/17/18 17:06 Time Seen by Provider: 17:06 Review of Systems Constitutional: weakness Respiratory: no symptoms reported Cardiovascular: no symptoms reported Gastrointestinal: abdominal pain, nausea Genitourinary: no symptoms reported Psychiatric/Neurological: Anxiety Health Status Allergies Coded Allergies: No Known Drug Allergies (Unverified , 09/17/18) Home Medications Alprazolam (Alprazolam) 0.5 Mg Tablet, 0.5 MG PO Q6H PRN for ANXIETY, (Reported) Fentanyl (Fentanyl Patch 50 MCG) 1 Each Patch.td72, 50 MCG TD Q72H, (Reported) Morphine Sulfate (Morphine Conc. 20mg/ml) 100 Mg/5 Ml Solution, 0.25 ML PO Q4H PRN for PAIN-SEVERE, (Reported) Ondansetron HCl (Ondansetron HCl) 8 Mg Tablet, 8 MG PO TID PRN for NAUSEA/VOMITING-1ST LINE, (Reported) Pantoprazole Sodium (Pantoprazole Sodium) 40 Mg Tablet.dr, 40 MG PO DAILY PRN for HEARTBURN, (Reported) Simethicone (Simethicone) 125 Mg Tab.chew, 125 MG PO QID PRN for GAS, (Reported) WCB-Ntsimg-Avzdwi Hx Patient Social History Alcohol Use: Denies Use Recreational Drug Use: No Smoking Status: Never a Smoker 2nd Hand Smoke Exposure: No Recent Foreign Travel: No Contact w/other who traveled: No Recent Infectious Disease Expo: No Recent Hopitalizations: No (SURGERY-BIOPSY 09/2017) Immunizations Up To Date Tetanus Booster (TDap): Less than 5yrs Family Medical History Family History: FH: breast cancer 19 MOTHER FH: cirrhosis G8 SISTER Hypertension G8 SISTER Physical Exam Vital Signs Vital Signs - First Documented 09/17/18 09/17/18 09/17/18 09/17/18 10:58 13:00 13:20 13:25 Temp 97.6 Pulse 97 Resp 20 B/P (MAP) 119/81 (94) Pulse Ox 97 O2 Delivery Room Air O2 Flow Rate 0.00 Capillary Refill : Less Than 3 Seconds Height, Weight, BMI Height: 5'8.00" Weight: 176lbs. 0.0oz. 79.454981vm; 31.2 BMI Method:Actual General Appearance: No Apparent Distress HEENT: PERRL/EOMI Neck: Non Tender, Supple Respiratory: Lungs Clear, No Accessory Muscle Use, No Respiratory Distress Cardiovascular: Regular Rate, Rhythm, No Edema, No JVD Gastrointestinal: Soft, Tenderness Extremity: Non Tender, No Calf Tenderness, No Pedal Edema Neurologic/Psychiatric: Alert, Oriented x3 Data Review Labs Laboratory Tests 09/18/18 05:25 Laboratory Tests 09/17/18 11:41: Neutrophils (%) (Auto) 79H, Lymphocytes (%) (Auto) 11L, Glucose Level 149H, Calcium Level 10.5H, Corrected Calcium 10.6H, Aspartate Amino Transf (AST/SGOT) 37H, Alkaline Phosphatase 165H 09/17/18 13:10: Urine Specific [place] 1.025H, Urine Protein 2+H, Urine Ketones 3+H, Urine Bilirubin 1+H, Urine Leukocyte Esterase 1+H 09/18/18 05:25: Glucose Level 119H, Aspartate Amino Transf (AST/SGOT) 37H, Hemoglobin 12.7L, Hematocrit 38L Impression & Plan Impression & Plan 1. Recurrent metastatic colon cancer, significant worsening of constitutional and GI symptoms. These correlate with the significant abdominal progression of metastatic disease. Of note, the large amount of tumor involvement in the liver and inter-bowel fistulizing masses. Since patient has not been able to tolerate any palliative systemic treatments in the past, and he is not a surgical candidate evaluated by [facility] in the past, his best treatment option is hospice with pain control. I will notify social services aide Taty Ozuna tomorrow to discuss patient if he wants to stay home with a different hospice service or go to a 24/7 care facility with hospice. 2. Pain control. It appeared adequate with Fentanyl 50mcg IV q 2hrs at this point. We can observe for next 24 hrs and how much he needs IV, we can either change to a higher dose of Fentanyl patch or FIRE PATROLLER. 3. I do not believe he will have any benefit from the resuscitation procedure. Therefore I believe he needs to be DNR. However, I will leave to primary physician to make the final decision. JOAQUIN NOBLE MD Sep 17, 2018 17:21
[2018-09-17] MEDS: PROMETHAZINE INJ 25 MG/ML (PHENERGAN) AMP IVP PRN (18:26)
[2018-09-17 19:40] VITALS: BP 119/93
[2018-09-17] MEDS: LORazepam INJ 2 MG/ML (ATIVAN) VIAL IVP PRN (21:38)
[2018-09-18] MEDS: NS IV 1000 ML 1,000 ML IV SCH ×3 (00:16→17:18)
[2018-09-18] MEDS: fentaNYL INJECTION 100 MCG/2 ML AMP IVP PRN ×2 (00:17→08:25)
[2018-09-18 00:23] VITALS: BP 131/79
[2018-09-18 04:51] VITALS: BP 126/88
[2018-09-18 05:57] LABS: BASOPHILS # (AUTO) 0.1 10^3/uL (0.0-0.1); BASOPHILS % (AUTO) 1 % (0-10); EOSINOPHILS # (AUTO) 0.2 10^3/uL (0.0-0.3); EOSINOPHILS % (AUTO) 3 % (0-10); HEMATOCRIT 38 % (40-54); HEMOGLOBIN 12.7 G/DL (13.3-17.7); LYMPHOCYTES # (AUTO) 1.1 X 10^3 (1.0-4.0); LYMPHOCYTES % (AUTO) 14 % (12-44); MEAN CORPUSCULAR HEMOGLOBIN 28 PG (25-34); MEAN CORPUSCULAR HGB CONC 33 G/DL (32-36); MEAN CORPUSCULAR VOLUME 84 FL (80-99); MEAN PLATELET VOLUME 9.3 FL (7.4-10.4); MONOCYTES # (AUTO) 0.8 X 10^3 (0.0-1.0); MONOCYTES % (AUTO) 10 % (0-12); NEUTROPHILS # (AUTO) 5.9 X 10^3 (1.8-7.8); NEUTROPHILS % (AUTO) 73 % (42-75); PLATELET COUNT 267 10^3/uL (130-400); RED CELL DISTRIBUTION WIDTH 13.2 % (10.0-14.5); WHITE BLOOD COUNT 8.1 10^3/uL (4.3-11.0)
[2018-09-18 06:14] LABS: ALANINE AMINOTRANSFERASE 29 U/L (0-55); ALBUMIN 3.3 GM/DL (3.2-4.5); ALKALINE PHOSPHATASE 133 U/L (40-136); BILIRUBIN,TOTAL 0.7 MG/DL (0.1-1.0); BUN/CREATININE RATIO 12; CARBON DIOXIDE 24 MMOL/L (21-32); CHLORIDE 105 MMOL/L (98-107); CREATININE SERUM 0.76 MG/DL (0.60-1.30); GFR ESTIMATED > 60; GLUCOSE 119 MG/DL (70-105); SODIUM 139 MMOL/L (135-145); TOTAL PROTEIN 6.5 GM/DL (6.4-8.2)
[2018-09-18 08:00] VITALS: BP 131/81
[2018-09-18] MEDS: PROMETHAZINE INJ 25 MG/ML (PHENERGAN) AMP IVP PRN ×3 (08:24→20:53)
[2018-09-18] MEDS ORDERED: RT-ALBUTEROL/IPRATROPIUM 3 ML (DUONEB) VIAL INH PRN (11:45)
[2018-09-18] MEDS ORDERED: ARTIFICAL TEARS 0.4 ML UNIT DOSE (REFRESH PLUS) OU PRN (11:45)
[2018-09-18] MEDS ORDERED: BISACODYL 10 MG SUPP (DULCOLAX) PR PRN (11:45)
[2018-09-18] MEDS ORDERED: SALIVA STIMULANT MOUTH SPRAY (BIOTENE) 1.5 OZ MM PRN (11:45)
[2018-09-18] MEDS ORDERED: GLYCOPYRROLATE 0.2 MG/ML (ROBINUL) 2 ML VIAL IV PRN (11:45)
[2018-09-18] MEDS ORDERED: LORazepam INJ 2 MG/ML (ATIVAN) VIAL IVP PRN (11:45)
[2018-09-18] MEDS ORDERED: ACETAMINOPHEN 650 MG SUPP (TYLENOL) PR PRN (11:45)
--- NOTE | 2018-09-18 11:52 | History & Physicial (CHS) ---
HPI History of Present Illness: Patient presented to ER due to uncontrolled pain. He has been on hospice for metastatic colon cancer, but is having worsening pain in spite of his fentanyl patches and lives alone and feels he needs more assistance at this point. Date seen by provider: Sep 18, 2018 Time Seen by Provider: 10:35 Attending Physician Alec Dubose MD PCP Center/[facility] Consult Date of Admission Sep 17, 2018 at 12:40 Home Medications Home Medications Reviewed patient Home Medication Reconciliation performed by pharmacy medication reconciliations air moving technician and/or nursing. Patients Allergies have been reviewed. Allergies Coded Allergies: No Known Drug Allergies (Unverified , 09/17/18) BNT-Gtkhgi-Psqnfw Hx Patient Social History Alcohol Use: Denies Use Recreational Drug Use: No Smoking Status: Never a Smoker 2nd Hand Smoke Exposure: No Recent Foreign Travel: No Contact w/other who traveled: No Recent Hopitalizations: No (SURGERY-BIOPSY 09/2017) Recent Infectious Disease Expo: No Immunizations Up To Date Tetanus Booster (TDap): Less than 5yrs Past Medical History PMHx: Metastatic colon cancer Surghx: Right TKR Abdominal hernia Colon resection Family Medical History Family History: FH: breast cancer 19 MOTHER FH: cirrhosis G8 SISTER Hypertension G8 SISTER Review of Systems (CHC) Constitutional: other (unable to obtain due to patient discomfort) Reviewed Test Results Reviewed Test Results Lab Laboratory Tests Test 09/17/18 11:41 09/17/18 13:10 09/18/18 05:25 Range/Units White Blood Count 9.4 8.1 4.3-11.0 10^3/uL Red Blood Count 5.12 4.54 4.35-5.85 10^6/uL Hemoglobin 14.3 12.7 L 13.3-17.7 G/DL Hematocrit 42 38 L 40-54 % Mean Corpuscular Volume 82 84 80-99 FL Mean Corpuscular Hemoglobin 28 28 25-34 PG Mean Corpuscular Hemoglobin Concent 34 33 32-36 G/DL Red Cell Distribution Width 13.3 13.2 10.0-14.5 % Platelet Count 358 267 130-400 10^3/uL Mean Platelet Volume 8.9 9.3 7.4-10.4 FL Neutrophils (%) (Auto) 79 H 73 42-75 % Lymphocytes (%) (Auto) 11 L 14 12-44 % Monocytes (%) (Auto) 9 10 0-12 % Eosinophils (%) (Auto) 1 3 0-10 % Basophils (%) (Auto) 1 1 0-10 % Neutrophils # (Auto) 7.4 5.9 1.8-7.8 X 10^3 Lymphocytes # (Auto) 1.0 1.1 1.0-4.0 X 10^3 Monocytes # (Auto) 0.8 0.8 0.0-1.0 X 10^3 Eosinophils # (Auto) 0.1 0.2 0.0-0.3 10^3/uL Basophils # (Auto) 0.1 0.1 0.0-0.1 10^3/uL Sodium Level 139 139 135-145 MMOL/L Potassium Level 3.7 4.0 3.6-5.0 MMOL/L Chloride Level 101 105 98-107 MMOL/L Carbon Dioxide Level 24 24 21-32 MMOL/L Anion Gap 14 10 5-14 MMOL/L Blood Urea Nitrogen 9 9 7-18 MG/DL Creatinine 0.86 0.76 0.60-1.30 MG/DL Estimat Glomerular Filtration Rate > 60 > 60 BUN/Creatinine Ratio 10 12 Glucose Level 149 H 119 H 70-105 MG/DL Calcium Level 10.5 H 9.0 8.5-10.1 MG/DL Corrected Calcium 10.6 H 9.6 8.5-10.1 MG/DL Total Bilirubin 0.8 0.7 0.1-1.0 MG/DL Aspartate Amino Transf (AST/SGOT) 37 H 37 H 5-34 U/L Alanine Aminotransferase (ALT/SGPT) 30 29 0-55 U/L Alkaline Phosphatase 165 H 133 40-136 U/L Total Protein 7.8 6.5 6.4-8.2 GM/DL Albumin 3.9 3.3 3.2-4.5 GM/DL Urine Color YELLOW Urine Clarity CLEAR Urine pH 5 5-9 Urine Specific [place] 1.025 H 1.016-1.022 Urine Protein 2+ H NEGATIVE Urine Glucose (UA) NEGATIVE NEGATIVE Urine Ketones 3+ H NEGATIVE Urine Nitrite NEGATIVE NEGATIVE Urine Bilirubin 1+ H NEGATIVE Urine Urobilinogen 1 NORMAL MG/DL Urine Leukocyte Esterase 1+ H NEGATIVE Urine RBC (Auto) NEGATIVE NEGATIVE Urine RBC NONE /HPF Urine WBC 0-2 /HPF Urine Squamous Epithelial Cells 2-5 /HPF Urine Crystals NONE /LPF Urine Bacteria TRACE /HPF Urine Casts NONE /LPF Urine Mucus 0 /LPF Urine Culture Indicated NO Physical Exam-([facility]) Physical Exam Vital Signs VS - Last 72 Hours, by Label 09/17/18 09/17/18 09/17/18 09/17/18 10:58 13:00 13:20 13:25 Temp 97.6 97.6 98.4 Pulse 97 97 92 Resp 20 22 B/P (MAP) 119/81 (94) 119/81 (94) 132/83 Pulse Ox 97 97 97 O2 Delivery Room Air Room Air O2 Flow Rate 0.00 09/17/18 09/17/18 09/17/18 09/18/18 16:00 19:40 20:00 00:23 Temp 98.5 98.7 Pulse 82 121 92 Resp 18 24 20 B/P (MAP) 132/73 (92) 119/93 (102) 131/79 (96) Pulse Ox 98 99 99 95 O2 Delivery Room Air Room Air Room Air Room Air O2 Flow Rate 0.00 09/18/18 09/18/18 04:51 08:00 Temp 97.1 98.8 Pulse 91 86 Resp 16 18 B/P (MAP) 126/88 (101) 131/81 (98) Pulse Ox 94 97 O2 Delivery Room Air Room Air Capillary Refill : Less Than 3 Seconds General Appearance: moderate distress (rocking in bed, frequent movement to try to find more comfortable position) Respiratory: lungs clear, normal breath sounds Cardiovascular: regular rate, rhythm, no murmur Gastrointestinal: other (large midline scar) Skin: normal color, warm/dry Assessment/Plan Assessment/Plan Admission Status: Observation (1) Colon cancer Status: Acute Assessment & Plan: Metastatic, Oncology consulted, recommendation is hospice at this time. Qualifiers: Qualified Codes: C18.9 - Malignant neoplasm of colon, unspecified (2) Inadequate pain control Status: Acute Assessment & Plan: IV fentanyl not managing pain well, will try morphine. (3) Nausea and vomiting Status: Acute Assessment & Plan: IV anti-emetics Qualifiers: Qualified Codes: R11.2 - Nausea with vomiting, unspecified (4) Counseling regarding end of life decision making Status: Acute Assessment & Plan: Discussed goals of care, he wants to be as comfortable as possible as primary goal and on further discussion, does not want to have attempted resuscitation. Status changed to DNR and comfort care orders placed. Plan for d/c with hospice when placement figured out as he cannot manage at home at this time. Clinical Quality Measures DVT/VTE Risk/Contraindication: Risk Factor Score Per Nursin RFS Level Per Nursing on Admit: 3=High ALEC DUBOSE MD Sep 18, 2018 11:52
[2018-09-18] MEDS ORDERED: SIMETHICONE 80 MG (MYLICON) CHEW PO PRN (12:15)
[2018-09-18] MEDS: LORazepam INJ 2 MG/ML (ATIVAN) VIAL IVP PRN (12:32)
[2018-09-18] MEDS: morphine INJ 4 MG/ML 1 ML (VIAL/SYRINGE) IV PRN ×5 (12:36→23:30)
[2018-09-18] MEDS: PANTOPRAZOLE 40 MG (PROTONIX) TAB PO PRN (12:38)
--- NOTE | 2018-09-18 13:55 | NUR ---
PALLIATIVE CARE RN although not consulted has been made aware that patient has revoked hospice service with [facility]. He was having intractable pain r/t tumor progression and wanted to investigate labs and his options. Read through Dr. Griffin's note which indicates that hospice is his best option for care either at home or at a SNF. Taty ADAMS is out today so this RN was going to have this conversation but he is currently sleeping. Will wait until he awakens for a visit.
[2018-09-18] MEDS: ONDANSETRON 4 MG/2 ML (SDV) Z0FRAN IVP PRN (15:16)
[2018-09-18 16:11] VITALS: BP 134/92
--- NOTE | 2018-09-18 17:43 | NUR ---
[facility]. He lives alone in [place] with limited resources.Currently he feels uncomfortable and anxious. He states his pain comes and goes. He acknowledges doesn't want to be home alone and is willing to accept placement at a snf and pointed to [facility] or [facility].He states that his nurse with [facility] was Leticia and he liked her. Will contact pt's sister and explore placement possibilities with hospice.Will follow and assist.
[2018-09-18 19:34] VITALS: BP 116/76
[2018-09-18 21:00] VITALS: BP 116/76
[2018-09-19] MEDS: ONDANSETRON 4 MG/2 ML (SDV) Z0FRAN IVP PRN (01:50)
[2018-09-19] MEDS: morphine INJ 4 MG/ML 1 ML (VIAL/SYRINGE) IV PRN ×2 (01:50→09:56)
[2018-09-19] MEDS: PANTOPRAZOLE 40 MG (PROTONIX) TAB PO PRN (01:51)
[2018-09-19] MEDS: PROMETHAZINE INJ 25 MG/ML (PHENERGAN) AMP IVP PRN ×2 (08:59→15:23)
[2018-09-19] MEDS: ALPRAZolam 0.5 MG (XANAX) TAB PO PRN ×2 (08:59→15:23)
[2018-09-19 09:21] VITALS: BP 112/71
--- NOTE | 2018-09-19 11:10 | NUR ---
Met with pt and his sisters Reshma Kevin and Claribel Hernandes. They are in favor of 24 hour care placement as pt unable to manage at home. They prefer placement at [facility]. Pt and family agreeable to resuming [facility] services upon discharge to continued care placement. [facility] willing to follow patient. Requests for admission have been faxed to [facility] and [facility]. Family also willing to consider [facility] but they don't have available bed. Pt appears comfortable and sleeping during my visit with family.
--- NOTE | 2018-09-19 12:10 | NUR ---
Pt is Sabianist and declines sacraments.
--- NOTE | 2018-09-19 14:34 | Progress Note (SOAP) ---
Subjective Subjective/Events-last exam More comfortable today with the morphine. Review of Systems Date Seen by Provider: Sep 19, 2018 Time Seen by Provider: 10:40 Objective Exam Last Set of Vital Signs Vital Signs Date Time Temp Pulse Resp B/P (MAP) Pulse Ox O2 Delivery O2 Flow Rate FiO2 09/19/18 09:21 98.6 85 20 112/71 (85) 98 Room Air 09/18/18 21:00 0.00 0.00 Capillary Refill : Less Than 3 SecondsLess Than 3 Seconds I&O Intake and Output 09/19/18 00:00 Intake Total 3380 ml Output Total 550 ml Balance 2830 ml Intake Oral 1080 ml IV Total 2300 ml Output Urine Total 550 ml # Voids 4 # Bowel Movements 2 General: Other (resting, denies pain currently) Assessment/Plan Assessment/Plan (1) Colon cancer Status: Acute Assessment & Plan: Metastatic, Oncology consulted, recommendation is hospice at this time. Qualifiers: Qualified Codes: C18.9 - Malignant neoplasm of colon, unspecified (2) Inadequate pain control Status: Acute Assessment & Plan: IV fentanyl not managing pain well, will try morphine. 09/19 doing better with morphine (3) Nausea and vomiting Status: Acute Assessment & Plan: IV anti-emetics Qualifiers: Qualified Codes: R11.2 - Nausea with vomiting, unspecified (4) Counseling regarding end of life decision making Status: Acute Assessment & Plan: Discussed goals of care, he wants to be as comfortable as possible as primary goal and on further discussion, does not want to have attempted resuscitation. Status changed to DNR and comfort care orders placed. Plan for d/c with hospice when placement figured out as he cannot manage at home at this time. Clinical Quality Measures DVT/VTE Risk/Contraindication: Risk Factor Score Per Nursin RFS Level Per Nursing on Admit: 3=High ALEC AGUILERA MD Sep 19, 2018 14:34
--- NOTE | 2018-09-19 16:20 | NUR ---
Pt and family wanting pt placed at [facility] who are unwilling to accept until Medicaid application is pending with all documents faxed to [facility]. Pt did sign Medicaid application and son is working on obtaining bank statements. Haven't received acceptance by any [facility] at this time.
[2018-09-19 21:00] VITALS: BP 121/79
[2018-09-20] MEDS: LORazepam INJ 2 MG/ML (ATIVAN) VIAL IVP PRN ×3 (04:36→20:58)
[2018-09-20 09:15] VITALS: BP 129/84
[2018-09-20] MEDS: morphine INJ 4 MG/ML 1 ML (VIAL/SYRINGE) IV PRN ×2 (13:09→19:20)
--- NOTE | 2018-09-20 14:40 | Progress Note (SOAP) ---
Subjective Subjective/Events-last exam Denies pain or other concerns, current meds controlling symptoms adequately. Review of Systems Date Seen by Provider: Sep 20, 2018 Time Seen by Provider: 11:30 Objective Exam Last Set of Vital Signs Vital Signs Date Time Temp Pulse Resp B/P (MAP) Pulse Ox O2 Delivery O2 Flow Rate FiO2 09/20/18 09:15 98.1 106 18 129/84 (99) 96 Room Air 09/18/18 21:00 0.00 0.00 Capillary Refill : Less Than 3 SecondsLess Than 3 Seconds I&O Intake and Output 09/20/18 00:00 Intake Total 1010 ml Output Total 100 ml Balance 910 ml Intake Oral 1010 ml Output Urine Total 100 ml # Voids 7 # Bowel Movements 2 General: Alert, No Acute Distress Psych/Mental Status: Mood NL Assessment/Plan Assessment/Plan (1) Colon cancer Status: Acute Assessment & Plan: Metastatic, Oncology consulted, recommendation is hospice at this time. Qualifiers: Qualified Codes: C18.9 - Malignant neoplasm of colon, unspecified (2) Inadequate pain control Status: Acute Assessment & Plan: IV fentanyl not managing pain well, will try morphine. 09/19 doing better with morphine (3) Nausea and vomiting Status: Acute Assessment & Plan: IV anti-emetics Qualifiers: Qualified Codes: R11.2 - Nausea with vomiting, unspecified (4) Counseling regarding end of life decision making Status: Acute Assessment & Plan: Discussed goals of care, he wants to be as comfortable as possible as primary goal and on further discussion, does not want to have attempted resuscitation. Status changed to DNR and comfort care orders placed. Plan for d/c with hospice when placement figured out as he cannot manage at home at this time. Clinical Quality Measures DVT/VTE Risk/Contraindication: Risk Factor Score Per Nursin RFS Level Per Nursing on Admit: 3=High ALEC AGUILERA MD Sep 20, 2018 14:40
--- NOTE | 2018-09-20 14:59 | NUR ---
[facility] still pending decision of acceptance.[facility] also pending decision of acceptance.family gathering information for Medicaid application. Pt tries to rest but having episodes of anxiety and agitation.
[2018-09-20 21:00] VITALS: BP 122/80
[2018-09-21] MEDS: morphine INJ 4 MG/ML 1 ML (VIAL/SYRINGE) IV PRN ×4 (00:50→13:52)
[2018-09-21] MEDS: LORazepam INJ 2 MG/ML (ATIVAN) VIAL IVP PRN ×3 (08:05→13:01)
[2018-09-21 09:00] VITALS: BP 113/79
--- NOTE | 2018-09-21 10:13 | NUR ---
Pt expressing anxiety and agitation this morning. He called his sister stating he wanted out of here. Contacted [facility] and they have several financial barriers and unable to accept pt today. [facility] willing to accept pt today with [facility] to follow.l Pt's sister Reshma agreeable with plan for placement at [facility].
[2018-09-21] MEDS ORDERED: FENT1PAT59 TD (12:15)
[2018-09-21] MEDS ORDERED: MORP100S3 PO (12:15)
[2018-09-21] MEDS ORDERED: LORA1TAB PO (12:15)
[2018-09-21 14:10] VITALS: BP 113/79
--- NOTE | 2018-09-21 14:10 | NUR ---
TIMMY MESSINA discharged to [facility]. [facility] notified of discharge and report given to RN. TIMMY MESSINA belongings sent with PATIENT. Skin dry and intact; no breakdown noted. Vital signs are stable at time of discharge. Condition is stable at time of discharge. Discharge instructions and copies of H&P, discharge summary, physician's order, lab reports, consultation reports, other dictated reports, diagnostic imaging reports, Advance Directive, eMAR, vital signs, intake and output sent with PATIENT. Patient discharged from [facility] on 09/21/2018 at 1410. TIMMY MESSINA left floor via WHEELCHAIR, accompanied by FAMILY, STAFF, AND [facility] STAFF.
--- NOTE | 2018-09-21 14:15 | NUR ---
REPORT CALLED TO [facility] RN.
--- NOTE | 2018-09-21 14:37 | Discharge Summary ---
Diagnosis/Chief Complaint Date of Admission Sep 19, 2018 at 11:13 Date of Discharge September 21, 2018 Admission Diagnosis Admission Diagnosis Metastatic colon cancer Uncontrolled pain Axiety Discharge Diagnosis See problem list Problems/Diagnosis: (1) Colon cancer Assessment & Plan: Metastatic, Oncology consulted, recommendation is hospice at this time. Qualifiers: Qualified Codes: C18.9 - Malignant neoplasm of colon, unspecified Status: Acute (2) Inadequate pain control Assessment & Plan: IV fentanyl not managing pain well, will try morphine. 09/19 doing better with morphine 09/21 d/c with increased dose of fentanyl and morphine for breakthrough (c onverted total IV use to oral use) Status: Acute (3) Nausea and vomiting Assessment & Plan: anti-emetics Qualifiers: Qualified Codes: R11.2 - Nausea with vomiting, unspecified Status: Acute (4) Counseling regarding end of life decision making Assessment & Plan: Discussed goals of care, he wants to be as comfortable as possible as primary goal and on further discussion, does not want to have attempted resuscitation. Status changed to DNR and comfort care orders placed. D/C to nursing facility with hospice. Status: Acute Chief Complaint/HPI Chief Complaint/HPI Patient presented to ER due to uncontrolled pain. He has been on hospice for metastatic colon cancer, but is having worsening pain in spite of his fentanyl patches and lives alone and feels he needs more assistance at this point. Discharge Summary-Simple/Stand Consultations Discharge Physical Examination Allergies: Coded Allergies: No Known Drug Allergies (Unverified , 09/17/18) Vitals & I&Os Vital Sign - Last 12Hours Date Time Temp Pulse Resp B/P (MAP) Pulse Ox O2 Delivery O2 Flow Rate FiO2 09/21/18 09:16 Room Air 09/21/18 09:00 99.2 108 20 113/79 (90) 95 09/18/18 21:00 0.00 0.00 Intake and Output 09/21/18 00:00 Intake Total 640 ml Balance 640 ml Hospital Course See final discharge diagnosis. Discharge Instructions to patient/family Please see electronic discharge instructions given to patient. Discharge Medications Reviewed and agree with Discharge Medication list on patient's Discharge Inst ruction sheet Clinical Quality Measures DVT/VTE Risk/Contraindication: Risk Factor Score Per Nursin RFS Level Per Nursing on Admit: 3=High ALEC AGUILERA MD Sep 21, 2018 14:37
--- NOTE | 2018-09-21 14:53 | NUR ---
Arrangements completed for pt. to discharge to [facility] with [facility] services to resume services. Pt agreeable and his oldest sister Reshma Reddy also agreeable and accompanied him to the facility. [facility] was faxed discharge instructions as well as copies of scripts.
== END 2018-09-21 14:10 | disposition hospice, inpatient (51) | DRG 948 ==
LOC: EDUNIT# 10:10 → ER 10:12 → UNDOADMOB 12:40 → 4TH 12:40 → OBSVTOIN 09-19 11:13 → INTOOBSV 09-19 11:13 → OBSVTOIN 09-19 11:14 → UNDODISIN 09-21 14:10
PROVIDERS: ADMIT Family Medicine; ATTEND Family Medicine
DX: G89.3 Neoplasm related pain (acute) (chronic) (principal); C18.9 Malignant neoplasm of colon, unspecified; C78.7 Secondary malignant neoplasm of liver and intrahepatic bile duct; C78.89 Secondary malignant neoplasm of other digestive organs; I10 Essential (primary) hypertension; J45.909 Unspecified asthma, uncomplicated; Z66 Do not resuscitate; Z51.5 Encounter for palliative care; K21.9 Gastro-esophageal reflux disease without esophagitis; M54.9 Dorsalgia, unspecified; R11.2 Nausea with vomiting, unspecified; F41.9 Anxiety disorder, unspecified; F32.9 Major depressive disorder, single episode, unspecified; M19.90 Unspecified osteoarthritis, unspecified site; Z92.21 Personal history of antineoplastic chemotherapy; Z90.49 Acquired absence of other specified parts of digestive tract; Z96.651 Presence of right artificial knee joint; Z60.2 Problems related to living alone
CPT/HCPCS: 36415; 80053; 81000; 85025; 94760; 99282; G0378